=== PATIENT | female | born 1950 | race Caucasian/White ===

== ENCOUNTER 2016-02-01 15:29 | Outpatient (RCR) | payer BC ==
[~2016-02-01 15:29] MED LIST: APIX5TAB PO; ASPI325T32 PO; ATOR20TA66 PO; BUPR-42 PO; BUPR150T7 PO; CALC625T29 PO; ESTR1PAT90 TD; FLUT16SP22 NS; L.AC1CAP6 PO; MAGNESIUM PO; SOTA240T PO; SOTALOL; VITAMIN C PO; VITAMIN D PO; [UNRECOGNIZED DRUG - CODE] PO
== END 2016-05-01 | disposition home or self-care (01) ==
LOC: CARD 15:29
PROVIDERS: ATTEND Internal Medicine Interventional Cardiology
DX: I49.9 Cardiac arrhythmia, unspecified (principal)
CPT/HCPCS: 93270

== ENCOUNTER → 2016-10-03 | Outpatient (CLI) | payer MEDICARE, OTHER ==
[2016-10-03 09:38] LABS: BASOPHILS % (AUTO) 1 % (0-10); EOSINOPHILS # (AUTO) 0.1 10^3/uL (0.0-0.3); EOSINOPHILS % (AUTO) 2 % (0-10); LYMPHOCYTES # (AUTO) 1.4 X 10^3 (1.0-4.0); LYMPHOCYTES % (AUTO) 28 % (12-44); MEAN CORPUSCULAR HEMOGLOBIN 33 PG (25-34); MEAN CORPUSCULAR HGB CONC 34 G/DL (32-36); MEAN CORPUSCULAR VOLUME 97 FL (80-99); MEAN PLATELET VOLUME 9.5 FL (7.4-10.4); MONOCYTES # (AUTO) 0.5 X 10^3 (0.0-1.0); MONOCYTES % (AUTO) 11 % (0-12); NEUTROPHILS # (AUTO) 2.9 X 10^3 (1.8-7.8); NEUTROPHILS % (AUTO) 58 % (42-75); PLATELET COUNT 193 10^3/uL (130-400); RED BLOOD COUNT 4.56 10^6/uL (4.35-5.85); RED CELL DISTRIBUTION WIDTH 12.1 % (10.0-14.5); WHITE BLOOD COUNT 4.9 10^3/uL (4.3-11.0)
[2016-10-03 09:55] LABS: ALANINE AMINOTRANSFERASE 15 U/L (0-55); ANION GAP 8 MMOL/L (5-14); ASPARTATE AMINO TRANSFERASE 17 U/L (5-34); BLOOD UREA NITROGEN 10 MG/DL (7-18); BUN/CREATININE RATIO 12; CALCIUM 9.1 MG/DL (8.5-10.1); CARBON DIOXIDE 28 MMOL/L (21-32); CHLORIDE 103 MMOL/L (98-107); CHOLESTEROL 163 MG/DL (< 200); CREATININE SERUM 0.86 MG/DL (0.60-1.30); DIRECT LDL 81 MG/DL (1-129); GFR ESTIMATED > 60; GLUCOSE 112 MG/DL (70-105); POTASSIUM 4.3 MMOL/L (3.6-5.0); SODIUM 139 MMOL/L (135-145); TRIGLYCERIDES 109 MG/DL (<150); VLDL CHOLESTEROL 22 MG/DL (5-40)
[2016-10-03 10:16] LABS: THYROID STIMULATING HORMONE 0.92 UIU/ML (0.35-4.94)
== END ==
LOC: LAB 09:21
PROVIDERS: ATTEND Internal Medicine Interventional Cardiology
DX: E78.5 Hyperlipidemia, unspecified (principal); I48.91 Unspecified atrial fibrillation; R00.2 Palpitations
CPT/HCPCS: 36415; 80048; 80061; 84443; 84450; 84460; 85025

== ENCOUNTER → 2017-03-19 | Outpatient (CLI) | payer MEDICARE, OTHER ==
--- NOTE | 2017-03-19 17:15 | Diagnostic Imaging Report ---
Bilateral screening mammogram 2D views with tomosynthesis The current study was also evaluated with a Computer Aided Detection (CAD) system. Indication: Screening. No current complaints stated on the questionnaire. COMPARISON: 03/09/2016. Findings: The breasts are composed of suggested dense parenchyma which may decrease mammographic sensitivity. Biopsy clip in the left breast and medial left breast cardiac rehabilitation specialist is seen. Benign-appearing desiccation is also noted. Allowing for technique and positional differences, no suspicious change is seen. IMPRESSION: No significant change. ACR BI-RADS Category 2: Benign findings. Result letter will be mailed to the patient. Note: At least 10% of breast cancer is not imaged by mammography. Dictated by: Dictated on workstation # [id number]
== END ==
LOC: RAD 10:27
PROVIDERS: ATTEND Obstetrics & Gynecology
DX: Z12.31 Encounter for screening mammogram for malignant neoplasm of breast (principal)
CPT/HCPCS: 77067

== ENCOUNTER 2017-05-02 05:36 | Outpatient (CLI) | payer MEDICARE, OTHER ==
[~2017-05-02] VITALS: Ht 162.6 cm; Wt 74.8 kg
[2017-05-02] MEDS ORDERED: ATOR20TA66 PO (11:15)
[2017-05-02] MEDS ORDERED: APIX5TAB PO (11:15)
== END 2017-05-02 11:17 ==
LOC: PREOP 05:36
PROVIDERS: ATTEND Surgery
DX: Z01.818 Encounter for other preprocedural examination (principal); Z12.11 Encounter for screening for malignant neoplasm of colon; K21.9 Gastro-esophageal reflux disease without esophagitis; R09.89 Other specified symptoms and signs involving the circulatory and respiratory systems

== ENCOUNTER 2017-05-07 09:26 | Day surgery (SDC) | payer MEDICARE, OTHER ==
[~2017-05-07] VITALS: Ht 162.6 cm; Wt 74.8 kg
[2017-05-07] MEDS ORDERED: LACTATED RINGERS 1,000 ML IV STA (09:35)
--- OUTSIDE RECORDS SUMMARY | 2017-05-07 09:35 | XMS REPORT ---
Author Author SELENA MARTINEZ Organization [facility] Address [address] [place] [address] Care Team Providers Care Vp Communications Name Role Phone SELENA MARTINEZ Unavailable PROBLEMS Unknown Problems ALLERGIES No Known Allergies SOCIAL HISTORY Never Assessed PLAN OF CARE Activity Details Follow Up prn Reason: VITAL SIGNS Height 64.5 in 2016-05-04 Weight 156.0 lbs 2016-05-04 Temperature 98.2 degrees Fahrenheit 2016-05-04 Heart Rate 60 bpm 2016-05-04 Respiratory Rate 18 2016-05-04 BMI 26.36 kg/m2 2016-05-04 Blood pressure systolic 132 mmHg 2016-05-04 Blood pressure diastolic 90 mmHg 2016-05-04 MEDICATIONS Medication Instructions Dosage Frequency Start Date End Date Duration Status Amoxicillin 875 MG Orally every 12 hrs 1 tablet 12h May, May, 10 day(s) Active Mucinex 600 MG Orally every 12 hrs 1 tablet as needed 12h Active Wellbutrin Active R02-Urduxz 1 MG Active Sotalol HCl 80 MG Orally every 12 hrs 1 tablet 12h Active Vivelle Active Probiotic - Active Eliquis 2.5 MG Active Vitamin D 1000 UNIT Orally Once a day 1 tablet 24h Active Arthritis Pain 650 MG Orally every 8 hrs 2 tablets as needed 8h Active RESULTS No Results PROCEDURES No Known procedures IMMUNIZATIONS No Known Immunizations MEDICAL (GENERAL) HISTORY Type Description Date Hospitalization History TIA Jan 31, 2016
--- OUTSIDE RECORDS SUMMARY | 2017-05-07 09:35 | XMS REPORT | CCD ---
Author Author [facility] Organization [facility] Address [address] [place] [address] Phone Care Team Providers Care In Classroom Tutor Name Role Phone PP Unavailable CCM Unavailable Summary Purpose Interface Exchange Insurance Providers Payer name Policy type / Coverage type Covered green party ID Effective Begin Date Effective End Date WPS Medicare Part B Medicare Part B [id number] 2017 Unknown Cigna Medicare Part B [id number] 2017 Unknown Family History Family History data not found Social History Social History Element Codes Description Effective Dates Marital status Unknown 04/12/2017 Number of children Unknown 1 Ryan Dexter 04/12/[address]: 1684520 Former smoker Quit 01-31-16 04/12/[address]: 599742 Currently drinks alcohol 04/12/2017 Allergies, Adverse Reactions, Alerts Allergies, Adverse Reactions, Alerts data not found Past Medical History Illness Codes Condition Status Onset Date Resolved Date Chronic atrial fibrillation ICD-9: 427.31 ICD-10: I48.2 Active 04/12/2017 Unknown Essential (primary) hypertension ICD-9: 401.1 ICD-10: I10 Active 04/12/2017 Unknown Gastro-esophageal reflux disease without esophagitis ICD-9: 530.81 ICD-10: K21.9 Active 04/12/2017 Unknown Problems Condition Codes Effective Dates Condition Status Chronic atrial fibrillation ICD-9: 427.31 ICD-10: I48.2 04/12/2017 Active Essential (primary) hypertension ICD-9: 401.1 ICD-10: I10 04/12/2017 Active Gastro-esophageal reflux disease without esophagitis ICD-9: 530.81 ICD-10: K21.9 04/12/2017 Active Medications Medication Codes Instructions Start Date Stop Date Status Fill Instructions omeprazole 20 mg capsule,delayed release RxNorm: 701951 1 Capsule(s) PO QPM 04/12/2017 11/07/2017 Active Neurontin 100 mg capsule RxNorm: 684528 1 Capsule(s) PO BID 03/201811/07/2017 Active Paxil 20 mg tablet RxNorm: 516925 1 Tablet(s) PO daily 201711/07/2017 Active sotalol 240 mg tablet RxNorm: 413126 1/2 Tablet(s) PO BID No Start Date Active Eliquis 5 mg tablet RxNorm: 0582868 1 Tablet(s) PO BID No Start Date Active atorvastatin 20 mg tablet RxNorm: 227524 1 Tablet(s) PO QPM No Start Date Active Medication Administered No Medication Administered data Immunizations No Immunization data Assessments Condition Codes Effective Dates Essential (primary) hypertension ICD-10: I10 ICD-9: 401.1 04/12/2017 Chronic atrial fibrillation ICD-10: I48.2 ICD-9: 427.31 04/12/2017 Gastro-esophageal reflux disease without esophagitis ICD-10 : K21.9 ICD-9: 530.81 04/12/2017 Reason For Visit Reason For Visit Effective Dates Notes hypertension 04/12/2017 Results No Results data Review of Systems System Result Effective Dates Constitutional No recent illness 2017 Constitutional No chills 04/12/2017 Constitutional No fatigue 04/12/2017 Constitutional No fever 04/12/2017 Constitutional No insomnia 04/12/2017 Constitutional No malaise 04/12/2017 Eyes No vision change 04/12/2017 Ears/Nose/Throat/Neck No dental pain 03/2018 Ears/Nose/Throat/Neck No dizziness 2017 Ears/Nose/Throat/Neck No dysphagia 2017 Ears/Nose/Throat/Neck No headache 2017 Ears/Nose/Throat/Neck No hearing loss 03/2018 Ears/Nose/Throat/Neck No nasal allergies 04/12/2017 Ears/Nose/Throat/Neck No sore throat 03/2018 Ears/Nose/Throat/Neck postnasal drip 03/2018 Ears/Nose/Throat/Neck No sinus congestion 04/12/2017 Cardiovascular No chest pain/pressure 03/2018 Cardiovascular No dyspnea 04/12/2017 Cardiovascular No edema 04/12/2017 Cardiovascular No exercise intolerance Cardiovascular No fatigue 04/12/2017 Cardiovascular No near-syncope/dizziness 04/12/2017 Respiratory No chest tightness 2017 Respiratory No cough 04/12/2017 Respiratory No dyspnea 04/12/2017 Respiratory No pedal edema 04/12/2017 Gastrointestinal No abdominal pain 2017 Gastrointestinal No constipation 2017 Gastrointestinal No diarrhea 04/12/2017 Gastrointestinal No gastroesophageal reflux 04/12/2017 Gastrointestinal No nausea 04/12/2017 Gastrointestinal No vomiting 04/12/2017 Genitourinary/Nephrology No dysuria 04/12 Genitourinary/Nephrology No nocturia 03/2018 Genitourinary/Nephrology No urinary incontinence 04/12/2017 Musculoskeletal No stiffness 04/12/2017 Musculoskeletal No swelling 04/12/2017 Musculoskeletal No muscle weakness 2017 Musculoskeletal No myalgias 04/12/2017 Dermatologic No rash 04/12/2017 Dermatologic No sores 04/12/2017 Neurologic No dizziness 04/12/2017 Neurologic No headache 04/12/2017 Neurologic No neck pain 04/12/2017 Neurologic No syncope 04/12/2017 Psychiatric No anxiety 04/12/2017 Psychiatric No depression 04/12/2017 Cardiovascular hypertension 04/12/2017 Cardiovascular palpitations 04/12/2017 Physical Exam Exam Name System Name Item Name Status Result Effective Dates Notes Full Exam - General 1994 Constitutional general appearance Development: well developed 04/12/2017 None Full Exam - General 1994 Constitutional general appearance Development: appears stated age 0104/12/2017 None Full Exam - General 1994 Constitutional general appearance Hygiene/Attention to Grooming: good hygiene 04/12/2017 None Full Exam - General 1994 Eyes conjunctiva /eyelids Overall: conjunctiva clear 04/12/2017 None Full Exam - General 1994 Eyes conjunctiva /eyelids Overall: cornea clear 04/12/2017 None Full Exam - General 1994 Eyes conjunctiva /eyelids Overall: eyelids normal 04/12/2017 None Full Exam - General 1994 Eyes pupils and irises Overall: pupils equal, round, reactive to light and accomodation 04/12/2017 None Full Exam - General 1994 Ears/Nose/Throat otoscopic exam Overall: external auditory canals clear 04/12/2017 None Full Exam - General 1994 Ears/Nose/Throat otoscopic exam Overall: tympanic membranes clear 04/12/2017 None Full Exam - General 1994 Ears/Nose/Throat lips/teeth/gingiva Overall: benign lips 04/12/2017 None Full Exam - General 1994 Ears/Nose/Throat lips/teeth/gingiva Overall: normal dentition 04/12/2017 None Full Exam - General 1994 Ears/Nose/Throat oral cavity/pharynx/larynx Overall: oral mucosa clear 04/12/2017 None Full Exam - General 1994 Ears/Nose/Throat oral cavity/pharynx/larynx Overall: oropharyngeal mucosa clear 04/12/2017 None Full Exam - General 1994 Ears/Nose/Throat oral cavity/pharynx/larynx Overall: hypopharynx benign 04/12/2017 None Full Exam - General 1994 Ears/Nose/Throat oral cavity/pharynx/larynx Overall: no masses 04/12/2017 None Full Exam - General 1994 Respiratory auscultation Overall: breath sounds clear bilaterally 04/12/2017 None Full Exam - General 1994 Respiratory respiratory effort/rhythm Overall: no retractions 04/12/2017 None Full Exam - General 1994 Respiratory respiratory effort/rhythm Overall: normal rate 04/12/2017 None Full Exam - General 1994 Cardiovascular extremities Overall: no clubbing 04/12/2017 None Full Exam - General 1994 Cardiovascular auscultation of heart Overall: regular rate 04/12/2017 None Full Exam - General 1994 Cardiovascular auscultation of heart Overall: normal heart sounds 04/12/2017 None Full Exam - General 1994 Abdomen abdominal exam Overall: no tenderness 04/12/2017 None Full Exam - General 1994 Abdomen abdominal exam Overall: normal bowel sounds 04/12/2017 None Full Exam - General 1994 Lymphatic neck nodes Overall: anterior cervical chain benign 04/12/2017 None Full Exam - General 1994 Lymphatic neck nodes Overall: posterior cervical chain benign 04/12/2017 None Full Exam - General 1994 Musculoskeletal spine, ribs and pelvis Overall: spine benign 04/12/2017 None Full Exam - General 1994 Musculoskeletal spine, ribs and pelvis Overall: sacroiliac joint benign 04/12/2017 None Full Exam - General 1994 Musculoskeletal spine, ribs and pelvis Overall: good posture 04/12/2017 None Full Exam - General 1994 Musculoskeletal head and neck Overall: head atraumatic 04/12/2017 None Full Exam - General 1994 Musculoskeletal head and neck Overall: cervical spine benign 04/12/2017 None Full Exam - General 1994 Integument inspection of skin Overall: few scattered moles, no gross abnormalities 04/12/2017 None Full Exam - General 1994 Neurologic deep tendon reflexes Overall: deep tendon reflexes intact 04/12/2017 None Full Exam - General 1994 Neurologic cranial nerves Overall: crainial nerves 2 - 12 grossly intact 04/12/2017 None Full Exam - General 1994 Psychiatric orientation/consciousness Overall: oriented to person, place and time 04/12/2017 None Full Exam - General 1994 Psychiatric mood and affect Overall: normal mood and affect 04/12/2017 None Procedures No Procedures data Vital Signs Date Vital 04/12/2017 Blood Pressure 1: 156/88 Code : 8480-6 BMI: 28.2 Code : 88199-5 Heart Rate 1 : 54 bpm Height: 5'4" SpO2: 97% Weight: 164 lbs Functional Status No Functional Status data History of Present Illness Symptom Name Status Result Effective Date Notes hypertension Quality stable 04/12/2017 None hypertension Onset and Resolution ongoing 04/12/2017 None hypertension Onset of Symptom during adulthood 04/12/2017 None hypertension Blood Pressure Values patient checking blood pressure at home - did not bring in readings 04/12/2017 None hypertension Pertinent Findings Denies decreased energy 04/12/2017 None hypertension Pertinent Findings Denies dizziness 04/12/2017 None hypertension Pertinent Findings Denies dyspnea 04/12/2017 None hypertension Pertinent Findings Denies anxiety 04/12/2017 None hypertension Pertinent Findings Denies edema 04/12/2017 None hyperlipidemia Onset of Symptom during adulthood 04/12/2017 None hyperlipidemia Severity mild 04/12/2017 None hyperlipidemia Significant Family History hyperlipidemia 04/12/2017 None hyperlipidemia Significant Family History cardiac disease 04/12/2017 None hyperlipidemia Pertinent Findings Denies edema 04/12/2017 None hyperlipidemia Pertinent Findings Denies excessive alcohol intake 04/12/2017 None menopausal symptoms Quality acute 04/12/2017 None menopausal symptoms Onset and Resolution sudden in onset 04/12/2017 None menopausal symptoms Onset of Symptom 6 months ago 04/12/2017 None menopausal symptoms Quality hot flashes 04/12/2017 None menopausal symptoms Quality palpitations 04/12/2017 None menopausal symptoms Pertinent Findings Denies depressed mood 04/12/2017 None menopausal symptoms Pertinent Findings Denies edema 04/12/2017 None menopausal symptoms Pertinent Findings Denies fever 04/12/2017 None menopausal symptoms Pertinent Findings Denies nausea 04/12/2017 None Advance Directives No Advance Directive data Encounters Encounter Performer Location Codes Date (44961) OFFICE VISIT, NEW - LEVEL 4 Diagnosis: Essential (primary) hypertension[ICD10: I10] Diagnosis: Chronic atrial fibrillation[ICD10: I48.2] Diagnosis: Gastro-esophageal reflux disease without esophagitis[ICD10: K21.9] [facility] CPT-4: 02857 04/12/2017 Plan of Care Planned Activity Notes Codes Status Date Visit Plan: Hypertension - uncontrolled - the patient's medications have been modified as documented in the visit note. The patient has been counseled to cut back on salt in diet for a no added salt diet, low fat diet, start an exercise program with low weight bearing exercises and higher aerobic activity for heart health. The patient is to check blood pressure readings as an outpatient and either fax, call, or email the readings to the office next week for practitioner to review. The pt is to call for acute concerns. Atrial Fibrillation - pt on chronic anticoagulation and is currently rate controlled. The pt is to have labs done as appropriate to monitor medication levels and is to report if they start to feel as if their heart rate is becoming uncontrolled. Esophageal Reflux - the patient has been counseled against excessive intake of caffeine, spicy foods, peppermint, and cinnamon - all of which can exacerbate esophageal reflux. The patient is to take medications as prescribed and call the office if the symptoms are not improving. Rx for omeprazole referral to [facility] 04/12/2017 Patient Education: Patient Medication Summary Completed 04/12/2017 Care Plan: Referral Order SNOMED-CT : [id number] Pending 04/12/2017 Referral: Herbert Santana WPtel:[phone] Referral Appointment Requested Instructions Comment . Hypertension - uncontrolled - the patient's medications have been modified as documented in the visit note. The patient has been counseled to cut back on salt in diet for a no added salt diet, low fat diet, start an exercise program with low weight bearing exercises and higher aerobic activity for heart health. The patient is to check blood pressure readings as an outpatient and either fax , call, or email the readings to the office next week for practitioner to review. The pt is to call for acute concerns. Atrial Fibrillation - pt on chronic anticoagulation and is currently rate controlled. The pt is to have labs done as appropriate to monitor medication levels and is to report if they start to feel as if their heart rate is becoming uncontrolled. Esophageal Reflux - the patient has been counseled against excessive intake of caffeine, spicy foods, peppermint, and cinnamon - all of which can exacerbate esophageal reflux. The patient is to take medications as prescribed and call the office if the symptoms are not improving. Rx for omeprazole referral to [facility]
--- NOTE | 2017-05-07 09:44 | Progress Note-Pre Operative ---
Pre-Operative Progress Note H&P Reviewed The H&P was reviewed, patient examined and no changes noted. Date Seen by Provider: May 07, 2017 Time Seen by Provider: 09:44 Date H&P Reviewed: May 07, 2017 Time H&P Reviewed: 09:44 Pre-Operative Diagnosis: gerd, screening colonoscopy LEONEL ZENDEJAS DO May 07, 2017 09:44
[2017-05-07] MEDS ORDERED: HURRICAINE EXT TUBE (BENZOCAINE) XX PRN (09:45)
[2017-05-07] MEDS ORDERED: proPOfol 200 MG/20 ML (DIPRIVAN) VIAL IV ONE ×2 (09:48→10:12)
[2017-05-07] MEDS ORDERED: MIDAZOLAM 2 MG/2 ML (VERSED) VIAL ONE (09:49)
[2017-05-07] MEDS ORDERED: LIDOCAINE 2% 20 ML (XYLOCAINE) VIAL ONE (09:49)
[2017-05-07 10:29] VITALS: BP 139/78
[2017-05-07 10:46] VITALS: BP 139/78
[2017-05-07] MEDS ORDERED: HURRICAINE EXT TUBE (BENZOCAINE) ONE (10:46)
[2017-05-07 10:55] VITALS: BP 133/99
--- NOTE | 2017-05-07 11:09 | Progress Note-Post Operative ---
Post-Operative Progess Note Surgeon (s)/Private Eye (s) Surgeon LEONEL ZENDEJAS DO Private Eye: na Pre-Operative Diagnosis gerd, screening colonoscopy Post-Operative Diagnosis gastritis, hiatal herni, minimal diverticulosis Procedure & Operative Findings Date of Procedure 05/07/17 Procedure Performed/Findings egd c biopsies, colonoscopy Anesthesia Type per compliance nurse Estimated Blood Loss Estimated blood loss (mL): none Specimens/Packing Specimens Removed antrum, body, ge junction LEONEL ZENDEJAS DO May 07, 2017 11:09
[2017-05-07] MEDS ORDERED: PANT40TA2 PO (11:11)
--- NOTE | 2017-05-07 11:12 | Discharge Inst-Simple/Standard ---
Discharge Inst-Standard Discharge Medications New, Converted or Re-Newed RX: Transmitted to Pharmacy Patient Instructions/Follow Up Plan of Care/Instructions/FU: 2 weeks Max Activity as Tolerated: Yes Discharge Diet: Regular Diet (high fiber) LEONEL ZENDEJAS DO May 07, 2017 11:12
[2017-05-07 11:30] VITALS: BP 136/80
[2017-05-07 11:40] VITALS: BP 136/80
--- NOTE | 2017-05-07 15:46 | OPERATIVE REPORT ---
DATE OF SERVICE: 05/07/2017 PREOPERATIVE DIAGNOSES: Gastroesophageal reflux disease and screening colonoscopy. POSTOPERATIVE DIAGNOSES: Gastritis, hiatal hernia and minimal diverticulosis. PROCEDURE: EGD with biopsies and colonoscopy. ANESTHESIA: Per TECHNICAL SOLUTIONS CONSULTANT. SURGEON: Leonel Santana DO. ESTIMATED BLOOD LOSS: None. COMPLICATIONS: None. INDICATIONS: The patient is a 66-year-old female with GERD with a globus sensation. She has never had a colonoscopy as well. She understands risks and benefits of procedures and wished to proceed with procedures. Consent was signed on chart. DESCRIPTION OF PROCEDURE: The patient was taken to the endoscopy suite, placed in left lateral recumbent position. Timeout was performed. Scope was inserted in mouth, down the esophagus, stomach and into the duodenum without difficulty. There were no polyps, masses or ulcerations within the duodenum. The scope was slowly retracted back into the stomach, which was further insufflated. Erythematous changes throughout the stomach. Biopsies of the antrum and body of the stomach were obtained. The scope was retroflexed noting a hiatal hernia. There was no other pathology noted. Scope was returned to its normal position, slowly withdrawn back into the distal esophagus. Biopsies at the GE junction was obtained. Scope was slowly retracted back until completely removed, noting no other pathology. The patient tolerated procedure well. The patient then had a colonoscopy performed. Digital rectal exam was performed. There were no palpable polyps, masses or ulcerations. Scope was inserted in the rectum and advanced all the way to the cecum with minimal difficulty. Prep was adequate. Scope was then slowly retracted back. There were no polyps, masses or ulcerations within the cecum, ascending, transverse and descending colon. Within the sigmoid colon, there was a very minimal amount of diverticulosis present. No other pathology noted. The scope was continued to be slowly retracted back to the rectum where it was also retroflexed noting no other pathology. Scope was returned to its normal position, slowly withdrawn until completely removed, noting no other pathology. The patient tolerated procedure well without any complications. She was taken to recovery room in stable condition. RECOMMENDATIONS: The patient will be started on Protonix 40 mg daily. She will follow up in the office in 2 weeks to discuss pathology results and see how she is doing at that time. The patient will need repeat colonoscopy in 10 years unless family history of colon cancer which would then be 5 years. If she has any problems prior to that, she should be reevaluated at that time. The patient also recommended high fiber diet. Job ID: [id number] DocumentID: [id number] Dictated Date: 05/07/2017 11:16:28 Site Medical Director Date: 05/07/2017 15:46:17 Dictated By: LEONEL SANTANA DO
== END 2017-05-07 11:40 | disposition home or self-care (01) ==
LOC: ENDO 09:26
PROVIDERS: ATTEND Surgery
DX: Z12.11 Encounter for screening for malignant neoplasm of colon (principal); K57.30 Diverticulosis of large intestine without perforation or abscess without bleeding; K21.9 Gastro-esophageal reflux disease without esophagitis; K44.9 Diaphragmatic hernia without obstruction or gangrene; K29.70 Gastritis, unspecified, without bleeding; I48.91 Unspecified atrial fibrillation; F41.9 Anxiety disorder, unspecified; E78.5 Hyperlipidemia, unspecified; I49.3 Ventricular premature depolarization; Z79.01 Long term (current) use of anticoagulants; Z79.899 Other long term (current) drug therapy; Z87.891 Personal history of nicotine dependence
CPT/HCPCS: 43239; G0121

== ENCOUNTER → 2018-03-19 | Outpatient (CLI) | payer MEDICARE, OTHER ==
[~2018-03-19] MED LIST changes: +PANT40TA2 PO
--- NOTE | 2018-03-19 12:01 | Diagnostic Imaging Report ---
INDICATION: Routine screening. Comparison is made with prior mammogram from 03/19/2017 and 03/09/2016. 2-D and 3-D bilateral screening mammography was performed with CAD. Scattered fibronodular densities are identified bilaterally. Cardiac monitoring device in the medial left breast is again seen. Stereotactic clip in the left breast is noted as well. The parenchymal pattern is stable. No dominant mass or malignant appearing microcalcifications are seen. The axillae are unremarkable. IMPRESSION: BI-RADS category 2 No mammographic features suspicious for malignancy are identified. ACR BI-RADS Category 2: Benign findings. Result letter will be mailed to the patient. Note: At least 10% of breast cancer is not imaged by mammography. Dictated by: Dictated on workstation # [id number]
== END ==
LOC: RAD 10:40
PROVIDERS: ATTEND Obstetrics & Gynecology
DX: Z12.31 Encounter for screening mammogram for malignant neoplasm of breast (principal)
CPT/HCPCS: 77067

== ENCOUNTER 2018-06-16 05:32 | Outpatient (CLI) | payer MEDICARE, OTHER ==
[~2018-06-16] VITALS: Ht 162.6 cm; Wt 79.4 kg
[2018-06-16] MEDS ORDERED: PANT40TA3 PO (11:23)
[2018-06-16] MEDS ORDERED: SOTA120T PO (11:23)
[2018-06-16] MEDS ORDERED: GABA-486 PO (11:23)
[2018-06-16] MEDS ORDERED: PARO40TA PO (11:23)
== END 2018-06-16 11:32 | disposition home or self-care (01) ==
LOC: PREOP 05:32
PROVIDERS: ATTEND Surgery
DX: Z01.818 Encounter for other preprocedural examination (principal)

== ENCOUNTER 2018-06-19 05:53 | Day surgery (SDC) | payer MEDICARE, OTHER ==
[~2018-06-19] VITALS: Ht 162.6 cm; Wt 79.4 kg
[~2018-06-19 05:53] MED LIST changes: +GABA-486 PO; +PANT40TA3 PO; +PARO40TA PO; +SOTA120T PO
--- OUTSIDE RECORDS SUMMARY | 2018-06-19 05:57 | XMS REPORT | CCD ---
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 Role Phone PP Unavailable CCM Unavailable Summary Purpose Interface Exchange Insurance Providers Payer name Policy type / Coverage type Covered democrat ID Effective Begin Date Effective End Date WPS Medicare Part B Medicare Part B [id number] Unknown Cigna Medicare Part B [id number] Unknown Family History Family History data not found Social History Social History Element Codes Description Effective Dates Marital status Unknown 04/12/2017 Number of children Unknown 1 Ryan Dexter 04/12/[address]: 5464130 Former smoker Quit 01-31-16 04/12/[address]: 129430 Currently drinks alcohol 04/12/2017 Allergies, Adverse Reactions, Alerts Substance Reaction Codes Entered Date Inactivated Date Status * NO KNOWN ENVIRONMENTAL ALLERGIES Unknown 04/12/2017 No Inactive Date Active * NO KNOWN FOOD ALLERGIES Unknown 04/12/2017 No Inactive Date Active * NO KNOWN DRUG ALLERGIES Unknown 04/12/2017 No Inactive Date Active Past Medical History Illness Codes Condition Status Onset Date Resolved Date Chronic atrial fibrillation ICD-9: 427.31 ICD-10: I48.2 Active 04/12/2017 Unknown Essential (primary) hypertension ICD-9: 401.1 ICD-10: I10 Active 04/12/2017 Unknown Mixed hyperlipidemia ICD-9: 272.2 ICD-10: E78.2 Active 05/26/2018 Unknown Myalgia, other site ICD-9: 729.1 ICD-10: M79.18 Active 05/26/2018 Unknown Encounter for general adult medical examination without abnormal findings ICD-9: V70.0 ICD-10: Z00.00 Active 05/05/2018 Unknown Cough ICD-9: 786.2 ICD-10: R05 Active 04/24/2018 Unknown Generalized anxiety disorder ICD-9: 300.00 ICD-10: F41.1 Active 04/24/2018 Unknown Other allergic rhinitis ICD-9: 477.8 ICD-10: J30.89 Active 04/24/2018 Unknown Bicipital tendinitis, left shoulder ICD-9: 726.12 ICD-10: M75.22 Active 07/01/2017 Unknown Cervicalgia ICD-9: 723.1 ICD-10: M54.2 Active 03/28/2018 Unknown Major depressive disorder, recurrent, mild ICD-9: 296.31 ICD-10: F33.0 Active 11/26/2017 Unknown Pain in right knee ICD -9: 719.46 ICD-10: M25.561 Active 07/01/2017 Unknown Gastro-esophageal reflux disease without esophagitis ICD-9: 530.81 ICD-10: K21.9 Active 04/12/2017 Unknown Problems Condition Codes Effective Dates Condition Status Chronic atrial fibrillation ICD-9: 427.31 ICD-10: I48.2 04/12/2017 Active Essential (primary) hypertension ICD-9: 401.1 ICD-10: I10 04/12/2017 Active Mixed hyperlipidemia ICD-9: 272.2 ICD-10: E78.2 05/26/2018 Active Myalgia, other site ICD-9: 729.1 ICD-10: M79.18 05/26/2018 Active Encounter for general adult medical examination without abnormal findings ICD-9: V70.0 ICD-10: Z00.00 05/05/2018 Active Cough ICD-9: 786.2 ICD-10: R05 04/24/2018 Active Generalized anxiety disorder ICD-9: 300.00 ICD-10: F41.1 04/24/2018 Active Other allergic rhinitis ICD-9: 477.8 ICD-10: J30.89 04/24/2018 Active Bicipital tendinitis, left shoulder ICD-9: 726.12 ICD-10: M75.22 07/01/2017 Active Cervicalgia ICD-9: 723.1 ICD-10: M54.2 03/28/2018 Active Major depressive disorder, recurrent, mild ICD-9: 296.31 ICD-10: F33.0 11/26/2017 Active Pain in right knee ICD -9: 719.46 ICD-10: M25.561 07/01/2017 Active Gastro-esophageal reflux disease without esophagitis ICD-9: 530.81 ICD-10: K21.9 04/12/2017 Active Medications Medication Codes Instructions Start Date Stop Date Status Fill Instructions coenzyme Q10 100 mg tablet RxNorm: 043074 1 Tablet(s) PO daily 05/26/2018 12/21/2018 Active Voltaren 1 % topical gel RxNorm: 407319 4 Gram(s) TOP QID 05/1208/09/2018 Active wants watts check Flonase Allergy Relief 50 mcg/actuation nasal spray, suspension RxNorm: 9705141 2 [place] NASAL daily 04/24/2018 No Stop Date Active Voltaren 1 % topical gel RxNorm: 239045 4 Gram(s) TOP QID 04/0205/01/2018 Inactive wants watts check Keflex 500 mg capsule RxNorm: 054313 1 Capsule(s) PO TID 201703/30/2018 Inactive Keflex 500 mg capsule RxNorm: 601826 1 Capsule(s) PO TID 201704/06/2018 Inactive Voltaren 1 % topical gel RxNorm: 414817 4 Gram(s) TOP QID 03/2804/01/2018 Inactive paroxetine 40 mg tablet RxNorm: 6390976 1 Tablet(s) PO daily 06/23/2018 Active Voltaren 1 % topical gel RxNorm: 403376 1 Application TOP BID 07/01/2017 03/27/2018 Inactive Penlac 8 % topical solution RxNorm: 285940 1 Application TOP daily to affected nails 05/15/2017 10/11/2017 Inactive Penlac 8 % topical solution RxNorm: 444067 1 Application TOP daily 05/15/2017 05/14/2017 Inactive omeprazole 20 mg capsule,delayed release RxNorm: 746399 1 Capsule(s) PO QPM 04/12/2017 05/12/2017 Inactive Neurontin 100 mg capsule RxNorm: 790264 1 Capsule(s) PO BID 03/201811/07/2017 Inactive Paxil 20 mg tablet RxNorm: 622601 1 Tablet(s) PO daily 201711/07/2017 Inactive sotalol 240 mg tablet RxNorm: 725455 1/2 Tablet(s) PO BID No Start Date Active Eliquis 5 mg tablet RxNorm: 4194939 1 Tablet(s) PO BID No Start Date Active Protonix 40 mg tablet,delayed release RxNorm: 142267 1 Tablet(s) PO daily No Start Date Active atorvastatin 20 mg tablet RxNorm: 365246 1 Tablet(s) PO QPM No Start Date Active Zyrtec 10 mg tablet RxNorm: 4724379 1 Tablet(s) PO daily No Start Date Active Medication Administered No Medication Administered data Immunizations No Immunization data Assessments Condition Codes Effective Dates Mixed hyperlipidemia ICD-10: E78.2 ICD-9: 272.2 05/26/2018 Chronic atrial fibrillation ICD-10: I48.2 ICD-9: 427.31 05/26/2018 Essential (primary) hypertension ICD-10: I10 ICD-9: 401.1 05/26/2018 Myalgia, other site ICD-10: M79.18 ICD-9: 729.1 05/26/2018 Encounter for general adult medical examination without abnormal findings ICD-10: Z00.00 ICD-9: V70.0 05/05/2018 Other allergic rhinitis ICD-10: J30.89 ICD-9: 477.8 04/24/2018 Cough ICD-10: R05 ICD-9: 786.2 04/24/2018 Bicipital tendinitis, right shoulder ICD-10: M75.21 ICD-9: 726.12 03/28/2018 Cervicalgia ICD-10: M54.2 ICD-9: 723.1 03/28/2018 Pain in right knee ICD-10: M25.561 ICD-9: 719.46 11/26/2017 Bicipital tendinitis, left shoulder ICD-10: M75.22 ICD-9: 726.12 11/26/2017 Major depressive disorder, recurrent, mild ICD-10: F33.0 ICD-9: 296.31 11/26/2017 Gastro-esophageal reflux disease without esophagitis ICD-10 : K21.9 ICD-9: 530.81 04/12/2017 Reason For Visit Reason For Visit Effective Dates Notes hypertension 05/26/2018 afib - goes to Dr. Ruelas. Annual Medicare Wellness Exam 05/05/2018 sinus congestion 04/24/2018 shoulder pain 03/28/2018 shoulder pain 11/26/2017 afib - goes to Dr. Ruelas. shoulder pain 07/01/2017 hypertension 05/13/2017 hypertension 04/12/2017 Results Observation Observation Code Item Item Code Result Date Cbc With Differential Ord2 WBC 5.07 K/ul 11/29/2017 Cbc With Differential Ord2 RBC 4.24 M/ul 11/29/2017 Cbc With Differential Ord2 HGB 13.9 g/dl 11/29/2017 Cbc With Differential Ord2 HCT 41.3 % 11/29/2017 Cbc With Differential Ord2 Neut% 63.0 % 11/29/2017 Cbc With Differential Ord2 MCV 97.4 fl 11/29/2017 Cbc With Differential Ord2 Lymph% 23.7 % 11/29/2017 Cbc With Differential Ord2 MCH 32.8 pg 11/29/2017 Cbc With Differential Ord2 [place]% 10.3 % 11/29/2017 Cbc With Differential Ord2 Eos% 2.6 % 11/29/2017 Cbc With Differential Ord2 MCHC 33.7 pg 11/29/2017 Cbc With Differential Ord2 PLT 197 K/ul 11/29/2017 Cbc With Differential Ord2 Baso% 0.4 % 11/29/2017 Cbc With Differential Ord2 RDW 12.3 % 11/29/2017 Cbc With Differential Ord2 Neut ABS# 3.20 K/ul 11/29/2017 Cbc With Differential Ord2 Lymph ABS# 1.20 K/ul 11/29/2017 Cbc With Differential Ord2 [place] ABS# 0.5 K/ul 11/29/2017 Cbc With Differential Ord2 Eos ABS# 0.1 K/ul 11/29/2017 Cbc With Differential Ord2 Baso ABS# 0.0 K/ul 11/29/2017 Tsh Ord6 TSH (3rd IS) 0.74 uIU/mL 11/29/2017 Comp Metabolic Tsu545 NA 139 mEq/L 11/29/2017 Comp Metabolic Nic822 K 4.3 mEq/L 11/29/2017 Comp Metabolic Wyd519 CL 102 mEq/L 11/29/2017 Comp Metabolic Odk399 CO2 30.0 mEq/L 11/29/2017 Comp Metabolic Qrz709 ANION GAP 11 11/29/2017 Comp Metabolic Shz900 GLUCOSE 103 mg/dL 11/29/2017 Comp Metabolic Zel791 Creat 0.7 mg/dL 11/29/2017 Comp Metabolic Tdn601 eGFR 86 ml/min/1.73m2 11/29/2017 Comp Metabolic Zsm365 BUN 12 mg/dL 11/29/2017 Comp Metabolic Eaf739 B/C Ratio 16.7 Ratio 11/29/2017 Comp Metabolic Sxp226 CALCIUM 8.9 mg/dL 11/29/2017 Comp Metabolic Lpq756 ALK PHOS 47 U/L 11/29/2017 Comp Metabolic Oac063 AST(SGOT) 15 U/L 11/29/2017 Comp Metabolic Yuo918 ALT(SGPT) 13 U/L 11/29/2017 Comp Metabolic Pgk245 BILI T 0.8 mg/dL 11/29/2017 Comp Metabolic Zco094 ALBUMIN 3.8 g/dL 11/29/2017 Comp Metabolic Lot581 TPRO 6.0 g/dL 11/29/2017 Comp Metabolic Kck796 GLOB 2.3 g/dL 11/29/2017 Comp Metabolic Lht036 A/G Ratio 1.7 Ratio 11/29/2017 Comp Metabolic Gxh036 Osmo 278 mOsmo 11/29/2017 Lipid Ord30 CHOL 136 mg/dL 11/29/2017 Lipid Ord30 HDL 53.0 mg/dl 11/29/2017 Lipid Ord30 TRIG 118 mg/dL 11/29/2017 Lipid Ord30 LDL 59 mg/dL 11/29/2017 Lipid Ord30 C/HDL 2.6 Ratio 11/29/2017 Review of Systems System Result Effective Dates Constitutional No recent illness 2018 Constitutional No chills 05/26/2018 Constitutional No fatigue 05/26/2018 Constitutional No fever 05/26/2018 Constitutional No insomnia 05/26/2018 Constitutional No malaise 05/26/2018 Eyes No vision change 05/26/2018 Ears/Nose/Throat/Neck No dental pain Ears/Nose/Throat/Neck No dizziness 2018 Ears/Nose/Throat/Neck No dysphagia 2018 Ears/Nose/Throat/Neck No headache 2018 Ears/Nose/Throat/Neck No hearing loss Ears/Nose/Throat/Neck No nasal allergies 05/26/2018 Ears/Nose/Throat/Neck No sore throat Ears/Nose/Throat/Neck No sinus congestion 05/26/2018 Cardiovascular No chest pain/pressure Cardiovascular No dyspnea 05/26/2018 Cardiovascular No edema 05/26/2018 Cardiovascular No exercise intolerance Cardiovascular No fatigue 05/26/2018 Cardiovascular hypertension 05/26/2018 Cardiovascular No near-syncope/dizziness 05/26/2018 Cardiovascular palpitations 05/26/2018 Respiratory No chest tightness 2018 Respiratory No cough 05/26/2018 Respiratory No dyspnea 05/26/2018 Respiratory No pedal edema 05/26/2018 Gastrointestinal No abdominal pain 2018 Gastrointestinal No constipation 2018 Gastrointestinal No diarrhea 05/26/2018 Gastrointestinal No gastroesophageal reflux 05/26/2018 Gastrointestinal No nausea 05/26/2018 Gastrointestinal No vomiting 05/26/2018 Genitourinary/Nephrology No dysuria 05/26 Genitourinary/Nephrology No nocturia Genitourinary/Nephrology No urinary incontinence 05/26/2018 Musculoskeletal No stiffness 05/26/2018 Musculoskeletal No swelling 05/26/2018 Musculoskeletal No muscle weakness 2018 Musculoskeletal No myalgias 05/26/2018 Dermatologic No rash 05/26/2018 Dermatologic No sores 05/26/2018 Neurologic No dizziness 05/26/2018 Neurologic No headache 05/26/2018 Neurologic No neck pain 05/26/2018 Neurologic No syncope 05/26/2018 Psychiatric No anxiety 05/26/2018 Psychiatric No depression 05/26/2018 Constitutional No recent illness 2018 Constitutional No chills 05/05/2018 Constitutional No fatigue 05/05/2018 Constitutional No fever 05/05/2018 Constitutional No insomnia 05/05/2018 Constitutional No malaise 05/05/2018 Eyes No vision change 05/05/2018 Ears/Nose/Throat/Neck No dental pain 06/2018 Ears/Nose/Throat/Neck No dizziness 2018 Ears/Nose/Throat/Neck No dysphagia 2018 Ears/Nose/Throat/Neck No headache 2018 Ears/Nose/Throat/Neck No hearing loss 06/2018 Ears/Nose/Throat/Neck No nasal allergies 05/05/2018 Ears/Nose/Throat/Neck No sore throat 06/2018 Ears/Nose/Throat/Neck No sinus congestion 05/05/2018 Cardiovascular No chest pain/pressure 06/2018 Cardiovascular No dyspnea 05/05/2018 Cardiovascular No edema 05/05/2018 Cardiovascular No exercise intolerance Cardiovascular No fatigue 05/05/2018 Cardiovascular hypertension 05/05/2018 Cardiovascular No near-syncope/dizziness 05/05/2018 Respiratory No chest tightness 2018 Respiratory No cough 05/05/2018 Respiratory No dyspnea 05/05/2018 Respiratory No pedal edema 05/05/2018 Gastrointestinal No abdominal pain 2018 Gastrointestinal No constipation 2018 Gastrointestinal No diarrhea 05/05/2018 Gastrointestinal No gastroesophageal reflux 05/05/2018 Gastrointestinal No nausea 05/05/2018 Gastrointestinal No vomiting 05/05/2018 Genitourinary/Nephrology No dysuria 05/05 Genitourinary/Nephrology No nocturia 06/2018 Genitourinary/Nephrology No urinary incontinence 05/05/2018 Musculoskeletal No stiffness 05/05/2018 Musculoskeletal No swelling 05/05/2018 Musculoskeletal No muscle weakness 2018 Musculoskeletal No myalgias 05/05/2018 Dermatologic No rash 05/05/2018 Dermatologic No sores 05/05/2018 Neurologic No dizziness 05/05/2018 Neurologic No headache 05/05/2018 Neurologic No neck pain 05/05/2018 Neurologic No syncope 05/05/2018 Psychiatric No anxiety 05/05/2018 Psychiatric No depression 05/05/2018 Constitutional recent illness 04/24/2018 Constitutional No anorexia 04/24/2018 Constitutional No chills 04/24/2018 Constitutional No night sweats 2018 Constitutional No diaphoresis 04/24/2018 Constitutional No fatigue 04/24/2018 Constitutional No fever 04/24/2018 Constitutional No insomnia 04/24/2018 Constitutional No malaise 04/24/2018 Constitutional No weight loss 04/24/2018 Constitutional No weight gain 04/24/2018 Eyes No eye erythema 04/24/2018 Eyes No eye discharge 04/24/2018 Ears/Nose/Throat/Neck nasal allergies Ears/Nose/Throat/Neck nasal discharge Ears/Nose/Throat/Neck sinus congestion Ears/Nose/Throat/Neck No dizziness 2018 Ears/Nose/Throat/Neck headache 2018 Cardiovascular No chest pain/pressure Cardiovascular arrhythmia 04/24/2018 Respiratory cough 04/24/2018 Gastrointestinal No vomiting 04/24/2018 Gastrointestinal No nausea 04/24/2018 Gastrointestinal No constipation 2018 Gastrointestinal No diarrhea 04/24/2018 Genitourinary/Nephrology No dysuria 04/24 Musculoskeletal No joint complaint 2018 Dermatologic No sores 04/24/2018 Dermatologic No rash 04/24/2018 Neurologic No alteration of consciousness 04/24/2018 Constitutional No recent illness 2017 Constitutional No chills 03/28/2018 Constitutional No fever 03/28/2018 Eyes No blindness 03/28/2018 Ears/Nose/Throat/Neck No nasal discharge 03/28/2018 Cardiovascular No chest pain/pressure Cardiovascular No dyspnea 03/28/2018 Respiratory No cough 03/28/2018 Respiratory No dyspnea 03/28/2018 Musculoskeletal joint complaint 2017 Neurologic No alteration of consciousness 03/28/2018 Neurologic No mental status change 2017 Constitutional No recent illness 2017 Constitutional No chills 11/26/2017 Constitutional No fatigue 11/26/2017 Constitutional No fever 11/26/2017 Constitutional No insomnia 11/26/2017 Constitutional No malaise 11/26/2017 Eyes No vision change 11/26/2017 Ears/Nose/Throat/Neck No dental pain Ears/Nose/Throat/Neck No dizziness 2017 Ears/Nose/Throat/Neck No dysphagia 2017 Ears/Nose/Throat/Neck No headache 2017 Ears/Nose/Throat/Neck No hearing loss Ears/Nose/Throat/Neck No nasal allergies 11/26/2017 Ears/Nose/Throat/Neck No sore throat Ears/Nose/Throat/Neck No sinus congestion 11/26/2017 Cardiovascular No chest pain/pressure Cardiovascular No dyspnea 11/26/2017 Cardiovascular No edema 11/26/2017 Cardiovascular No exercise intolerance Cardiovascular No fatigue 11/26/2017 Cardiovascular hypertension 11/26/2017 Cardiovascular No near-syncope/dizziness 11/26/2017 Cardiovascular palpitations 11/26/2017 Respiratory No chest tightness 2017 Respiratory No cough 11/26/2017 Respiratory No dyspnea 11/26/2017 Respiratory No pedal edema 11/26/2017 Gastrointestinal No abdominal pain 2017 Gastrointestinal No constipation 2017 Gastrointestinal No diarrhea 11/26/2017 Gastrointestinal No gastroesophageal reflux 11/26/2017 Gastrointestinal No nausea 11/26/2017 Gastrointestinal No vomiting 11/26/2017 Genitourinary/Nephrology No dysuria 11/26 Genitourinary/Nephrology No nocturia Genitourinary/Nephrology No urinary incontinence 11/26/2017 Musculoskeletal No stiffness 11/26/2017 Musculoskeletal No swelling 11/26/2017 Musculoskeletal No muscle weakness 2017 Musculoskeletal No myalgias 11/26/2017 Dermatologic No rash 11/26/2017 Dermatologic No sores 11/26/2017 Neurologic No dizziness 11/26/2017 Neurologic No headache 11/26/2017 Neurologic No neck pain 11/26/2017 Neurologic No syncope 11/26/2017 Psychiatric No anxiety 11/26/2017 Psychiatric No depression 11/26/2017 Constitutional No recent illness 2017 Constitutional No chills 07/01/2017 Constitutional No fever 07/01/2017 Eyes No eye erythema 07/01/2017 Ears/Nose/Throat/Neck No nasal discharge 07/01/2017 Cardiovascular No chest pain/pressure 05/2017 Cardiovascular No dyspnea 07/01/2017 Respiratory No cough 07/01/2017 Respiratory No dyspnea 07/01/2017 Musculoskeletal joint complaint 2017 Neurologic No alteration of consciousness 07/01/2017 Neurologic No mental status change 2017 Constitutional No recent illness 2017 Constitutional No chills 05/13/2017 Constitutional No fatigue 05/13/2017 Constitutional No fever 05/13/2017 Constitutional No insomnia 05/13/2017 Constitutional No malaise 05/13/2017 Eyes No vision change 05/13/2017 Ears/Nose/Throat/Neck No dental pain 03/2018 Ears/Nose/Throat/Neck No dizziness 2017 Ears/Nose/Throat/Neck No dysphagia 2017 Ears/Nose/Throat/Neck No headache 2017 Ears/Nose/Throat/Neck No hearing loss 03/2018 Ears/Nose/Throat/Neck No nasal allergies 05/13/2017 Ears/Nose/Throat/Neck No sore throat 03/2018 Ears/Nose/Throat/Neck postnasal drip 03/2018 Ears/Nose/Throat/Neck No sinus congestion 05/13/2017 Cardiovascular No chest pain/pressure 03/2018 Cardiovascular No dyspnea 05/13/2017 Cardiovascular No edema 05/13/2017 Cardiovascular No exercise intolerance Cardiovascular No fatigue 05/13/2017 Cardiovascular hypertension 05/13/2017 Cardiovascular No near-syncope/dizziness 05/13/2017 Cardiovascular palpitations 05/13/2017 Respiratory No chest tightness 2017 Respiratory No cough 05/13/2017 Respiratory No dyspnea 05/13/2017 Respiratory No pedal edema 05/13/2017 Gastrointestinal No abdominal pain 2017 Gastrointestinal No constipation 2017 Gastrointestinal No diarrhea 05/13/2017 Gastrointestinal No gastroesophageal reflux 05/13/2017 Gastrointestinal No nausea 05/13/2017 Gastrointestinal No vomiting 05/13/2017 Genitourinary/Nephrology No dysuria 05/13 Genitourinary/Nephrology No nocturia 03/2018 Genitourinary/Nephrology No urinary incontinence 05/13/2017 Musculoskeletal No stiffness 05/13/2017 Musculoskeletal No swelling 05/13/2017 Musculoskeletal No muscle weakness 2017 Musculoskeletal No myalgias 05/13/2017 Dermatologic No rash 05/13/2017 Dermatologic No sores 05/13/2017 Neurologic No dizziness 05/13/2017 Neurologic No headache 05/13/2017 Neurologic No neck pain 05/13/2017 Neurologic No syncope 05/13/2017 Psychiatric No anxiety 05/13/2017 Psychiatric No depression 05/13/2017 Constitutional No recent illness 2017 Constitutional No [...] 1994 Constitutional general appearance Development: well developed 05/26/2018 None Full Exam - General 1994 Constitutional general appearance Development: appears stated age 0205/26/2018 None Full Exam - General 1994 Constitutional general appearance Hygiene/Attention to Grooming: good hygiene 05/26/2018 None Full Exam - General 1994 Eyes conjunctiva /eyelids Overall: conjunctiva clear 05/26/2018 None Full Exam - General 1994 Eyes conjunctiva /eyelids Overall: cornea clear 05/26/2018 None Full Exam - General 1994 Eyes conjunctiva /eyelids Overall: eyelids normal 05/26/2018 None Full Exam - General 1994 Eyes pupils and irises Overall: pupils equal, round, reactive to light and accomodation 05/26/2018 None Full Exam - General 1994 Ears/Nose/Throat otoscopic exam Overall: external auditory canals clear 05/26/2018 None Full Exam - General 1994 Ears/Nose/Throat otoscopic exam Overall: tympanic membranes clear 05/26/2018 None Full Exam - General 1994 Ears/Nose/Throat lips/teeth/gingiva Overall: benign lips 05/26/2018 None Full Exam - General 1994 Ears/Nose/Throat lips/teeth/gingiva Overall: normal dentition 05/26/2018 None Full Exam - General 1994 Ears/Nose/Throat oral cavity/pharynx/larynx Overall: oral mucosa clear 05/26/2018 None Full Exam - General 1994 Ears/Nose/Throat oral cavity/pharynx/larynx Overall: oropharyngeal mucosa clear 05/26/2018 None Full Exam - General 1994 Ears/Nose/Throat oral cavity/pharynx/larynx Overall: hypopharynx benign 05/26/2018 None Full Exam - General 1994 Ears/Nose/Throat oral cavity/pharynx/larynx Overall: no masses 05/26/2018 None Full Exam - General 1994 Respiratory auscultation Overall: breath sounds clear bilaterally 05/26/2018 None Full Exam - General 1994 Respiratory respiratory effort/rhythm Overall: no retractions 05/26/2018 None Full Exam - General 1994 Respiratory respiratory effort/rhythm Overall: normal rate 05/26/2018 None Full Exam - General 1994 Cardiovascular extremities Overall: no clubbing 05/26/2018 None Full Exam - General 1994 Cardiovascular auscultation of heart Overall: regular rate 05/26/2018 None Full Exam - General 1994 Cardiovascular auscultation of heart Overall: normal heart sounds 05/26/2018 None Full Exam - General 1994 Abdomen abdominal exam Overall: no tenderness 05/26/2018 None Full Exam - General 1994 Abdomen abdominal exam Overall: normal bowel sounds 05/26/2018 None Full Exam - General 1994 Lymphatic neck nodes Overall: anterior cervical chain benign 05/26/2018 None Full Exam - General 1994 Lymphatic neck nodes Overall: posterior cervical chain benign 05/26/2018 None Full Exam - General 1994 Musculoskeletal upper extremity Palpation - shoulder: tenderness @ subacromial space 05/26/2018 None Full Exam - General 1994 Musculoskeletal upper extremity Palpation - shoulder: tenderness @ bicipital groove 05/26/2018 None Full Exam - General 1994 Musculoskeletal lower extremity Palpation - knee: crepitus 05/26/2018 None Full Exam - General 1994 Musculoskeletal spine, ribs and pelvis Overall: good posture 05/26/2018 None Full Exam - General 1994 Musculoskeletal head and neck Overall: head atraumatic 05/26/2018 None Full Exam - General 1994 Musculoskeletal head and neck Overall: cervical spine benign 05/26/2018 None Full Exam - General 1994 Psychiatric orientation/consciousness Overall: oriented to person, place and time 05/26/2018 None Full Exam - General 1994 Psychiatric mood and affect Overall: normal mood and affect 05/26/2018 None Full Exam - General 1994 Integument inspection of skin Location: face 05/26/2018 nodule on face near nasal bridge Full Exam - General 1994 Constitutional general appearance Development: well developed 05/05/2018 None Full Exam - General 1994 Constitutional general appearance Development: appears stated age 0205/05/2018 None Full Exam - General 1994 Constitutional general appearance Hygiene/Attention to Grooming: good hygiene 05/05/2018 None Full Exam - General 1994 Eyes conjunctiva /eyelids Overall: conjunctiva clear 05/05/2018 None Full Exam - General 1994 Eyes conjunctiva /eyelids Overall: cornea clear 05/05/2018 None Full Exam - General 1994 Eyes conjunctiva /eyelids Overall: eyelids normal 05/05/2018 None Full Exam - General 1994 Eyes pupils and irises Overall: pupils equal, round, reactive to light and accomodation 05/05/2018 None Full Exam - General 1994 Ears/Nose/Throat otoscopic exam Overall: external auditory canals clear 05/05/2018 None Full Exam - General 1994 Ears/Nose/Throat otoscopic exam Overall: tympanic membranes clear 05/05/2018 None Full Exam - General 1994 Ears/Nose/Throat lips/teeth/gingiva Overall: benign lips 05/05/2018 None Full Exam - General 1994 Ears/Nose/Throat lips/teeth/gingiva Overall: normal dentition 05/05/2018 None Full Exam - General 1994 Ears/Nose/Throat oral cavity/pharynx/larynx Overall: oral mucosa clear 05/05/2018 None Full Exam - General 1994 Ears/Nose/Throat oral cavity/pharynx/larynx Overall: oropharyngeal mucosa clear 05/05/2018 None Full Exam - General 1994 Ears/Nose/Throat oral cavity/pharynx/larynx Overall: hypopharynx benign 05/05/2018 None Full Exam - General 1994 Ears/Nose/Throat oral cavity/pharynx/larynx Overall: no masses 05/05/2018 None Full Exam - General 1994 Respiratory auscultation Overall: breath sounds clear bilaterally 05/05/2018 None Full Exam - General 1994 Respiratory respiratory effort/rhythm Overall: no retractions 05/05/2018 None Full Exam - General 1994 Respiratory respiratory effort/rhythm Overall: normal rate 05/05/2018 None Full Exam - General 1994 Cardiovascular extremities Overall: no clubbing 05/05/2018 None Full Exam - General 1994 Cardiovascular auscultation of heart Overall: regular rate 05/05/2018 None Full Exam - General 1994 Cardiovascular auscultation of heart Overall: normal heart sounds 05/05/2018 None Full Exam - General 1994 Abdomen abdominal exam Overall: no tenderness 05/05/2018 None Full Exam - General 1994 Abdomen abdominal exam Overall: normal bowel sounds 05/05/2018 None Full Exam - General 1994 Lymphatic neck nodes Overall: anterior cervical chain benign 05/05/2018 None Full Exam - General 1994 Lymphatic neck nodes Overall: posterior cervical chain benign 05/05/2018 None Full Exam - General 1994 Musculoskeletal spine, ribs and pelvis Overall: good posture 05/05/2018 None Full Exam - General 1994 Musculoskeletal head and neck Overall: head atraumatic 05/05/2018 None Full Exam - General 1994 Musculoskeletal head and neck Overall: cervical spine benign 05/05/2018 None Full Exam - General 1994 Psychiatric orientation/consciousness Overall: oriented to person, place and time 05/05/2018 None Full Exam - General 1994 Psychiatric mood and affect Overall: normal mood and affect 05/05/2018 None Full Exam - General 1994 Neurologic cranial nerves Overall: crainial nerves 2 - 12 grossly intact 05/05/2018 None Full Exam - ENT Constitutional general appearance Overall: well nourished 04/24/2018 None Full Exam - ENT Constitutional general appearance Overall: well developed 04/24/2018 None Full Exam - ENT Constitutional general appearance Overall: in no acute distress 04/24/2018 None Full Exam - ENT Neurologic orientation Overall: oriented to person, place and time 04/24/2018 None Full Exam - ENT Integument inspection of skin Overall: no rash, lesions 04/24/2018 None Full Exam - ENT Musculoskeletal gait and station Overall: normal gait 04/24/2018 None Full Exam - ENT Musculoskeletal gait and station Overall: normal station 04/24/2018 None Full Exam - ENT Lymphatic palpation of lymph nodes Overall: posterior cervical chain benign 04/24/2018 None Full Exam - ENT Lymphatic palpation of lymph nodes Overall: anterior cervical chain benign 04/24/2018 None Full Exam - ENT Cardiovascular auscultation of heart Overall: regular rate 04/24/2018 None Full Exam - ENT Cardiovascular auscultation of heart Rhythm: irregularly irregular rhythm 04/24/2018 None Full Exam - ENT Respiratory auscultation Overall: breath sounds clear bilaterally 04/24/2018 None Full Exam - ENT Respiratory inspection Overall: normal rate None Full Exam - ENT Respiratory inspection Overall: no retractions 04/24/2018 None Full Exam - ENT Face and Head palpation Overall: no sinus tenderness 04/24/2018 None Full Exam - ENT Ears/Nose/Throat otoscopic exam Overall: external auditory canals normal 04/24/2018 None Full Exam - ENT Ears/Nose/Throat otoscopic exam Overall: tympanic membranes normal 04/24/2018 None Full Exam - ENT Ears/Nose/Throat oropharynx Overall: oral mucosa clear 04/24/2018 None Full Exam - Orthopedics Constitutional general appearance Overall: well nourished 03/28/2018 None Full Exam - Orthopedics Constitutional general appearance Overall: well developed 03/28/2018 None Full Exam - Orthopedics Constitutional general appearance Overall: in no acute distress 03/28/2018 None Full Exam - Orthopedics Eyes conjunctiva/ eyelids Overall: conjunctiva clear 03/28/2018 None Full Exam - Orthopedics Eyes conjunctiva/ eyelids Overall: eyelids normal 03/28/2018 None Full Exam - Orthopedics Ears/Nose/Throat lips/teeth/gingiva Overall: benign lips 03/28/2018 None Full Exam - Orthopedics Ears/Nose/Throat oral cavity/pharynx/larynx Overall: oral mucosa clear 03/28/2018 None Full Exam - Orthopedics Respiratory respiratory effort/rhythm Overall: no retractions 03/28/2018 None Full Exam - Orthopedics Respiratory respiratory effort/rhythm Overall: normal rate 03/28/2018 None Full Exam - Orthopedics MS: left upper extremity insp & palp - LUE Shoulder: normal appearance 03/28/2018 None Full Exam - Orthopedics MS: left upper extremity insp & palp - LUE Shoulder: tenderness @ biceps tendon 03/28/2018 None Full Exam - Orthopedics Psychiatric orientation/consciousness Overall: oriented to person, place and time 03/28/2018 None Full Exam - Orthopedics Psychiatric mood and affect Overall: normal mood and affect 03/28/2018 None Full Exam - Orthopedics Psychiatric appearance Overall: well-groomed, good eye contact 03/28/2018 None Full Exam - Orthopedics Cardiovascular examination of vasculature Overall: no clubbing, cyanosis, edema 03/28/2018 None Full Exam - Orthopedics MS: right upper extremity insp & palp - RUE Shoulder: tenderness @ biceps tendon 03/28/2018 None Full Exam - Orthopedics Neurological orientation Overall: alert 03/28/2018 None Full Exam - Orthopedics Neurological orientation Overall: oriented to person, place and time 03/28/2018 None Full Exam - General 1994 Constitutional general appearance Development: well developed 11/26/2017 None Full Exam - General 1994 Constitutional general appearance Development: appears stated age 0811/26/2017 None Full Exam - General 1994 Constitutional general appearance Hygiene/Attention to Grooming: good hygiene 11/26/2017 None Full Exam - General 1994 Eyes conjunctiva /eyelids Overall: conjunctiva clear 11/26/2017 None Full Exam - General 1994 Eyes conjunctiva /eyelids Overall: cornea clear 11/26/2017 None Full Exam - General 1994 Eyes conjunctiva /eyelids Overall: eyelids normal 11/26/2017 None Full Exam - General 1994 Eyes pupils and irises Overall: pupils equal, round, reactive to light and accomodation 11/26/2017 None Full Exam - General 1994 Ears/Nose/Throat otoscopic exam Overall: external auditory canals clear 11/26/2017 None Full Exam - General 1994 Ears/Nose/Throat otoscopic exam Overall: tympanic membranes clear 11/26/2017 None Full Exam - General 1994 Ears/Nose/Throat lips/teeth/gingiva Overall: benign lips 11/26/2017 None Full Exam - General 1994 Ears/Nose/Throat lips/teeth/gingiva Overall: normal dentition 11/26/2017 None Full Exam - General 1994 Ears/Nose/Throat oral cavity/pharynx/larynx Overall: oral mucosa clear 11/26/2017 None Full Exam - General 1994 Ears/Nose/Throat oral cavity/pharynx/larynx Overall: oropharyngeal mucosa clear 11/26/2017 None Full Exam - General 1994 Ears/Nose/Throat oral cavity/pharynx/larynx Overall: hypopharynx benign 11/26/2017 None Full Exam - General 1994 Ears/Nose/Throat oral cavity/pharynx/larynx Overall: no masses 11/26/2017 None Full Exam - General 1994 Respiratory auscultation Overall: breath sounds clear bilaterally 11/26/2017 None Full Exam - General 1994 Respiratory respiratory effort/rhythm Overall: no retractions 11/26/2017 None Full Exam - General 1994 Respiratory respiratory effort/rhythm Overall: normal rate 11/26/2017 None Full Exam - General 1994 Cardiovascular extremities Overall: no clubbing 11/26/2017 None Full Exam - General 1994 Cardiovascular auscultation of heart Overall: regular rate 11/26/2017 None Full Exam - General 1994 Cardiovascular auscultation of heart Overall: normal heart sounds 11/26/2017 None Full Exam - General 1994 Lymphatic neck nodes Overall: anterior cervical chain benign 11/26/2017 None Full Exam - General 1994 Lymphatic neck nodes Overall: posterior cervical chain benign 11/26/2017 None Full Exam - General 1994 Musculoskeletal spine, ribs and pelvis Overall: good posture 11/26/2017 None Full Exam - General 1994 Musculoskeletal head and neck Overall: head atraumatic 11/26/2017 None Full Exam - General 1994 Musculoskeletal head and neck Overall: cervical spine benign 11/26/2017 None Full Exam - General 1994 Psychiatric orientation/consciousness Overall: oriented to person, place and time 11/26/2017 None Full Exam - General 1994 Psychiatric mood and affect Overall: normal mood and affect 11/26/2017 None Full Exam - General 1994 Abdomen abdominal exam Overall: no tenderness 11/26/2017 None Full Exam - General 1994 Abdomen abdominal exam Overall: normal bowel sounds 11/26/2017 None Full Exam - General 1994 Musculoskeletal lower extremity Palpation - knee: crepitus 11/26/2017 None Full Exam - General 1994 Musculoskeletal upper extremity Palpation - shoulder: tenderness @ bicipital groove 11/26/2017 None Full Exam - General 1994 Musculoskeletal upper extremity Palpation - shoulder: tenderness @ subacromial space 11/26/2017 None Full Exam - Orthopedics Constitutional general appearance Overall: well nourished 07/01/2017 None Full Exam - Orthopedics Constitutional general appearance Overall: well developed 07/01/2017 None Full Exam - Orthopedics Constitutional general appearance Overall: in no acute distress 07/01/2017 None Full Exam - Orthopedics Eyes conjunctiva/ eyelids Overall: conjunctiva clear 07/01/2017 None Full Exam - Orthopedics Eyes conjunctiva/ eyelids Overall: eyelids normal 07/01/2017 None Full Exam - Orthopedics Ears/Nose/Throat lips/teeth/gingiva Overall: benign lips 07/01/2017 None Full Exam - Orthopedics Ears/Nose/Throat oral cavity/pharynx/larynx Overall: oral mucosa clear 07/01/2017 None Full Exam - Orthopedics Respiratory respiratory effort/rhythm Overall: no retractions 07/01/2017 None Full Exam - Orthopedics Respiratory respiratory effort/rhythm Overall: normal rate 07/01/2017 None Full Exam - Orthopedics Psychiatric orientation/consciousness Overall: oriented to person, place and time 07/01/2017 None Full Exam - Orthopedics Psychiatric mood and affect Overall: normal mood and affect 07/01/2017 None Full Exam - Orthopedics Psychiatric appearance Overall: well-groomed, good eye contact 07/01/2017 None Full Exam - Orthopedics MS: right lower extremity insp & palp - RLE Knee: normal appearance 07/01/2017 None Full Exam - Orthopedics MS: right lower extremity range of motion - RLE Knee: crepitus 07/01/2017 None Full Exam - Orthopedics MS: left upper extremity insp & palp - LUE Shoulder: normal appearance 07/01/2017 None Full Exam - Orthopedics MS: left upper extremity insp & palp - LUE Shoulder: tenderness @ biceps tendon 07/01/2017 None Full Exam - General 1994 Constitutional general appearance Development: well developed 05/13/2017 None Full Exam - General 1994 Constitutional general appearance Development: appears stated age 0205/13/2017 None Full Exam - General 1994 Constitutional general appearance Hygiene/Attention to Grooming: good hygiene 05/13/2017 None Full Exam - General 1994 Eyes conjunctiva /eyelids Overall: conjunctiva clear 05/13/2017 None Full Exam - General 1994 Eyes conjunctiva /eyelids Overall: cornea clear 05/13/2017 None Full Exam - General 1994 Eyes conjunctiva /eyelids Overall: eyelids normal 05/13/2017 None Full Exam - General 1994 Eyes pupils and irises Overall: pupils equal, round, reactive to light and accomodation 05/13/2017 None Full Exam - General 1994 Ears/Nose/Throat otoscopic exam Overall: external auditory canals clear 05/13/2017 None Full Exam - General 1994 Ears/Nose/Throat otoscopic exam Overall: tympanic membranes clear 05/13/2017 None Full Exam - General 1994 Ears/Nose/Throat lips/teeth/gingiva Overall: benign lips 05/13/2017 None Full Exam - General 1994 Ears/Nose/Throat lips/teeth/gingiva Overall: normal dentition 05/13/2017 None Full Exam - General 1994 Ears/Nose/Throat oral cavity/pharynx/larynx Overall: oral mucosa clear 05/13/2017 None Full Exam - General 1994 Ears/Nose/Throat oral cavity/pharynx/larynx Overall: oropharyngeal mucosa clear 05/13/2017 None Full Exam - General 1994 Ears/Nose/Throat oral cavity/pharynx/larynx Overall: hypopharynx benign 05/13/2017 None Full Exam - General 1994 Ears/Nose/Throat oral cavity/pharynx/larynx Overall: no masses 05/13/2017 None Full Exam - General 1994 Respiratory auscultation Overall: breath sounds clear bilaterally 05/13/2017 None Full Exam - General 1994 Respiratory respiratory effort/rhythm Overall: no retractions 05/13/2017 None Full Exam - General 1994 Respiratory respiratory effort/rhythm Overall: normal rate 05/13/2017 None Full Exam - General 1994 Cardiovascular extremities Overall: no clubbing 05/13/2017 None Full Exam - General 1994 Cardiovascular auscultation of heart Overall: regular rate 05/13/2017 None Full Exam - General 1994 Cardiovascular auscultation of heart Overall: normal heart sounds 05/13/2017 None Full Exam - General 1994 Lymphatic neck nodes Overall: anterior cervical chain benign 05/13/2017 None Full Exam - General 1994 Lymphatic neck nodes Overall: posterior cervical chain benign 05/13/2017 None Full Exam - General 1994 Musculoskeletal spine, ribs and pelvis Overall: good posture 05/13/2017 None Full Exam - General 1994 Musculoskeletal head and neck Overall: head atraumatic 05/13/2017 None Full Exam - General 1994 Musculoskeletal head and neck Overall: cervical spine benign 05/13/2017 None Full Exam - General 1994 Psychiatric orientation/consciousness Overall: oriented to person, place and time 05/13/2017 None Full Exam - General 1994 Psychiatric mood and affect Overall: normal mood and affect 05/13/2017 None Full Exam - General 1994 Constitutional [...] normal mood and affect 04/12/2017 None Procedures Procedure Codes Date PPPS, SUBSEQ VISIT CPT -4: G0439 05/05/2018 Vital Signs Date Vital 05/26/2018 Blood Pressure 1: 128/78 Code : 8480-6 BMI: 30.0 Code : 48260-1 Heart Rate 1 : 60 bpm Height: 5'4" SpO2: 97% Weight: 175 lbs 05/05/2018 Blood Pressure 1: 122/80 Code : 8480-6 BMI: 30.4 Code : 71971-4 Heart Rate 1 : 64 bpm Height: 5'4" SpO2: 93% Weight: 177 lbs 04/24/2018 Blood Pressure 1: 130/82 Code : 8480-6 BMI: 30.7 Code : 93525-4 Heart Rate 1 : 108 bpm Height: 5'4" SpO2: 98% Weight: 179 lbs 03/28/2018 Blood Pressure 1: 130/72 Code : 8480-6 Heart Rate 1: 76 bpm Height: 5'4" SpO2: 99% 11/26/2017 Blood Pressure 1: 132/80 Code : 8480-6 BMI: 29.2 Code : 16237-2 Heart Rate 1 : 56 bpm Height: 5'4" SpO2: 96% Weight: 170 lbs 07/01/2017 Blood Pressure 1: 138/76 Code : 8480-6 BMI: 28.7 Code : 79354-7 Heart Rate 1 : 62 bpm Height: 5'4" SpO2: 97% Weight: 167 lbs 05/13/2017 Blood Pressure 1: 128/78 Code : 8480-6 BMI: 28.3 Code : 38640-5 Heart Rate 1 : 58 bpm Height: 5'4" SpO2: 98% Weight: 165 lbs 04/12/2017 Blood Pressure 1: 156/88 Code : 8480-6 BMI: 28.2 Code : 85986-5 Heart Rate 1 : 54 bpm Height: 5'4" SpO2: 97% Weight: 164 lbs Functional Status No Functional Status data History of Present Illness Symptom Name Status Result Effective Date Notes Quality primary hypertension 05/26/2018 None Quality stable 2018 None Onset and Resolution ongoing 05/26/2018 None Blood Pressure Values patient checking blood pressure at home - did not bring in readings 2018 None Alleviating Factors medication 05/26/2018 None Pertinent Findings Denies dizziness 05/26/2018 None Pertinent Findings Denies dyspnea 05/26/2018 None Pertinent Findings Denies edema 05/26/2018 None Quality chronic 05/26 None Quality irregular beats 05/26/2018 (atrial fibrillation) Onset and Resolution ongoing 05/26/2018 None Onset of Symptom during adulthood 05/26/2018 None Alleviating Factors medication 05/26/2018 None Quality chronic 05/26 None Blood Glucose (self reported) desireable (below 100) 05/05/2018 None Blood Pressure (self reported) diagnosed with hypertension 05/05/2018 None Cholesterol (self reported) desireable ( below 200) 05/05/2018 None Depression (last 6 months) almost never 05/05/2018 some anxiety Depression or Hopelessness almost never 05/05/2018 None Describe Your Health good 05/05/2018 None Exercise Habits does not exercise 05/05/2018 None Handling Stress often has problems coping 05/05/2018 sometimes anxious Hemaglobin A-1C (self reported) never checked 05/05/2018 None Hours of Sleep 9-10 05/05/2018 None Interaction with Friends yes 05/05/2018 None Interests & Pleasure most of the time 05/05/2018 None Life Satisfaction satisfied 05/05/2018 None Motor Vehicle Safety always fastens seat belt: y 05/05/2018 None Motor Vehicle Safety drives after drinking: n 05/05/2018 None Smoking and Tobacco Use non smoker 05/05/2018 None Social & Emotional Support always 05/05/2018 None Stress some of the time 05/05/2018 None Sun Exposure protects skin when outdoors : y 05/05/2018 None Location on both sides 04/24/2018 None Quality acute 2018 None Quality fullness None Quality intermittent 04/24/2018 None Onset and Resolution Denies ongoing 04/24/2018 None Onset of Symptom 2 months ago 04/24/2018 None Triggers Denies no known associated factors 04/24/2018 None Significant Medications antibiotics 04/24/2018 None Pertinent Findings Denies fever 04/24/2018 None Pertinent Findings Denies facial pain 04/24/2018 None Pertinent Findings decreased energy level 04/24/2018 None Quality acute 2018 None Quality intermittent 04/24/2018 None Timing of Episodes Denies in the evening 04/24/2018 None Pertinent Findings Denies fever 04/24/2018 None Pertinent Findings nasal congestion 04/24/2018 None Quality aching 2017 None Onset and Resolution gradual in onset 03/28/2018 None Frequency of Episodes daily 03/28/2018 None Onset of Symptom 1 years ago 03/28/2018 None Pertinent Findings Denies swelling 03/28/2018 None Triggers activity None Mechanism of injury unknown 03/28/2018 None shoulder pain Quality aching 11/26/2017 None shoulder pain Onset and Resolution gradual in onset 11/26/2017 None shoulder pain Onset of Symptom 2 months ago 11/26/2017 None shoulder pain Frequency of Episodes daily 11/26/2017 None knee pain Location on the right 11/26/2017 None knee pain Quality intermittent 11/26/2017 None knee pain Onset and Resolution gradual in onset 11/26/2017 None knee pain Onset of Symptom 2 months ago 11/26/2017 None knee pain Frequency of Episodes daily 11/26/2017 None hypertension Quality primary hypertension 11/26/2017 None hypertension Quality stable 11/26/2017 None hypertension Onset and Resolution ongoing 11/26/2017 None hypertension Blood Pressure Values patient checking blood pressure at home - did not bring in readings 11/26/2017 --112/78 this morning before she came hypertension Alleviating Factors medication 11/26/2017 None hypertension Pertinent Findings Denies dizziness 11/26/2017 None hypertension Pertinent Findings Denies dyspnea 11/26/2017 None hypertension Pertinent Findings Denies edema 11/26/2017 None arrhythmia Quality chronic 11/26/2017 None arrhythmia Quality irregular beats 11/26/2017 (atrial fibrillation) arrhythmia Onset and Resolution ongoing 11/26/2017 None arrhythmia Onset of Symptom during adulthood 11/26/2017 None arrhythmia Alleviating Factors medication 11/26/2017 None shoulder pain Location on the right shoulder 11/26/2017 None shoulder pain Location on the left shoulder 11/26/2017 None shoulder pain Pertinent Findings point tenderness 11/26/2017 None shoulder pain Quality aching 07/01/2017 None shoulder pain Onset and Resolution gradual in onset 07/01/2017 None shoulder pain Onset of Symptom 2 months ago 07/01/2017 None shoulder pain Frequency of Episodes daily 07/01/2017 None knee pain Location on the right 07/01/2017 None knee pain Quality intermittent 07/01/2017 None knee pain Onset and Resolution gradual in onset 07/01/2017 None knee pain Onset of Symptom 2 months ago 07/01/2017 None knee pain Frequency of Episodes daily 07/01/2017 None hypertension Quality primary hypertension 05/13/2017 None hypertension Onset and Resolution ongoing 05/13/2017 None arrhythmia Quality chronic 05/13/2017 None arrhythmia Quality irregular beats 05/13/2017 (atrial fibrillation) arrhythmia Onset and Resolution ongoing 05/13/2017 None arrhythmia Onset of Symptom during adulthood 05/13/2017 None hypertension Alleviating Factors medication 05/13/2017 None arrhythmia Alleviating Factors medication 05/13/2017 None hypertension Blood Pressure Values patient checking blood pressure at home - did not bring in readings 05/13/2017 --112/78 this morning before she came hypertension Pertinent Findings Denies dizziness 05/13/2017 None hypertension Pertinent Findings Denies dyspnea 05/13/2017 None hypertension Pertinent Findings Denies edema 05/13/2017 None gastroesophageal reflux Quality improving 05/13/2017 None gastroesophageal reflux Alleviating Factors proton pump inhibitor 05/13/2017 None hypertension Quality stable 05/13/2017 None hypertension Quality stable 04/12/2017 None hypertension Onset [...] data Encounters Encounter Performer Location Codes Date ([id number]) [id number] EST. PATIENT, LEVEL IV Diagnosis: Essential (primary) hypertension[ICD10: I10] Diagnosis: Chronic atrial fibrillation[ICD10: I48.2] Diagnosis: Mixed hyperlipidemia[ICD10: E78.2] Diagnosis: Myalgia, other site[ICD10: M79.18] Gemma Joseph MD, [facility] CPT-4: 01468 05/26/2018 ([id number]) 16758 EST. PATIENT, LEVEL III Diagnosis: Cough[ICD10: R05] Diagnosis: Other allergic rhinitis[ICD10: J30.89] Kathe Joseph MD, [facility] CPT-4: 37156 04/24/2018 ([id number]) [id number] EST. PATIENT, LEVEL III Diagnosis: Cervicalgia[ICD10: M54.2] Diagnosis: Bicipital tendinitis, right shoulder[ICD10: M75.21] Kathe Joseph MD, [facility] CPT-4: 79815 03/28/2018 ([id number]) [id number] EST. PATIENT, LEVEL IV Diagnosis: Essential (primary) hypertension[ICD10: I10] Diagnosis: Chronic atrial fibrillation[ICD10: I48.2] Diagnosis: Bicipital tendinitis, left shoulder[ICD10: M75.22] Diagnosis: Pain in right knee[ICD10: M25.561] Diagnosis: Major depressive disorder, recurrent, mild[ICD10: F33.0] [facility] CPT-4: 83236 11/26/2017 [id number] EST. PATIENT, LEVEL III Diagnosis: Bicipital tendinitis, left shoulder[ICD10: M75.22] Diagnosis: Pain in right knee[ICD10: M25.561] [facility] CPT-4: 45666 07/01/2017 ([id number]) [id number] EST. PATIENT, LEVEL III Diagnosis: Essential (primary) hypertension[ICD10: I10] Diagnosis: Chronic atrial fibrillation[ICD10: I48.2] [facility] CPT-4: 45059 05/13/2017 ([id number]) OFFICE VISIT, NEW - LEVEL 4 Diagnosis: Essential (primary) hypertension[ICD10: I10] Diagnosis: Chronic atrial fibrillation[ICD10: I48.2] Diagnosis: Gastro-esophageal reflux disease without esophagitis[ICD10: K21.9] Gemma Joseph MD, [facility] CPT-4: 29024 04/12/2017 Plan of Care Planned Activity Notes Codes Status Date Visit Plan: Hypertension - well controlled - continue with current medications, continue with no added salt diet. Pt has been encouraged to exercise daily. The pt has been advised to call the office if there are any acute concerns about change in blood pressure readings at home. Hyperlipidemia - pt has been counseled about appropriate diet, exercise, and need for low fat food choices. I have discussed the need for the patient to take medications as prescribed. If the patient has negative side effects from the medication, they are to CALL the office and not abruptly discontinue the medication without discussion with a practitioner in the office. We will check labs in 3-6 months for follow up on the patient's chronic medical problem and to assure normal liver response to medications. Myalgias - may be due to lipitor - hold the lipitor x 1 week and continue with coenzyme q10 then restart lipitor, increase fluids. 05/26/2018 Patient Education: Patient Medication Summary Completed 05/26/2018 Patient Education: Cholesterol Management Completed 05/26/2018 Visit Plan: Medicare Exam - today we discussed the patients past history, immunizations, preventative exams/evaluations - colonoscopy, fecal occult blood testing, routine labs for renal function, glucose, cholesterol, osteoporosis evaluations, cardiovascular testing and cancer screenings. We have also discussed mental health and the signs/symptoms of depression. The patient was advised of home safety evaluations and the need to make sure that as the aging process continues, we need to be aware of different ways to make the home a safer place to reside. The patient has also been counseled that exercise is necessary - and of utmost importance as we age to help decrease fall risk and to maintain independence in the home. Today we discussed the need for the patient to create paperwork for Advanced directives as well as for the patient to provide this office with a copy of her DOPA paperwork for health care surrogate. 05/05/2018 Appointment: Kathe Avila WPtel: [address] [place] [address] - Annual Wellness Visit 05/05/2018 Patient Education: Patient Medication Summary Completed 05/05/2018 Visit Plan: Allergies - chronic - recommended pt to use allergy medication as prescribed. Pt has been counseled as to the appropriate use of the medication. Pt to call if allergy symptoms are not controlled with the medication. If using nasal spray, instructions as follows: Nasal spray- use twice daily, one spray per nostril twice daily, after 30 minutes, rinse out nose with saline spray.. Use opposite hand per nostril to spray in the nasal steroid allergy spray. 04/24/2018 Appointment: Kathe Avila WPtel: [facility]8 [place] [phone] (15 min) Moderate 04/24/2018 Patient Education: Patient Medication Summary Completed 04/24/2018 Visit Plan: Neck Pain- pt to start with aspercreme or biofreeze to neck three times daily and start neck exercises daily. Biceps tendinitis - pt to do exercises as directed, ant-inflammatories directed to be taken per RX instructions and pt to call if symptoms are not improved. 03/28/2018 Appointment: Kathe Avila WPtel: [facility]8 [address] (15 min) Moderate 03/28/2018 Patient Education: Patient Medication Summary Completed 03/28/2018 Patient Education: .Cervicalgia Neck Pain Completed 03/28/2018 Visit Plan: Hypertension - well controlled - continue with current medications, continue with no added salt diet. Pt has been encouraged to exercise daily. The pt has been advised to call the office if there are any acute concerns about change in blood pressure readings at home. Atrial Fibrillation - pt on chronic anticoagulation and is currently rate controlled. The pt is to have labs done as appropriate to monitor medication levels and is to report if they start to feel as if their heart rate is becoming uncontrolled. Pain in knee - supportive care at this time - Left shoulder/upper neck discomfort/spasms of muscle - recommended massage. Depression - refilled paroxetine 11/26/2017 Appointment: Gemma Joseph WPtel: [facility]5 [facility] (15 min) Moderate 11/26/2017 Patient Education: Patient Medication Summary Completed 11/26/2017 Appointment: Gemma Joseph WPtel: [facility]5 [facility] (15 min) Moderate 11/11/2017 Visit Plan: right knee pain - will have pt use RICE - rest , ice, compression, elevation - will send RX - The patient is to call the office if the pain is worsening or does not improve. Biceps tendinitis - pt to do exercises as directed, ant-inflammatories directed to be taken per RX instructions and pt to call if symptoms are not improved. 07/01/2017 Appointment: Glenda Munoz WPtel: [facility] (30 min) Complex 07/01/2017 Patient Education: Patient Medication Summary Completed 07/01/2017 Visit Plan: Hypertension - well controlled - continue with current medications, continue with no added salt diet. Pt has been encouraged to exercise daily. The pt has been advised to call the office if there are any acute concerns about change in blood pressure readings at home. Chronic Afib - rate controlled. 05/13/2017 Appointment: Gemma Joseph WPtel: [facility]5 [facility] [place] (15 min) Moderate 05/13/2017 Patient Education: Patient Medication Summary Completed 05/13/2017 Referral: Herbert Weaver WPtel:[phone] Patient informed. Referral info faxed. Completed 04/29/2017 Visit Plan: Hypertension - uncontrolled - the [...] omeprazole referral to [facility] for egd 04/12/2017 Appointment: Gemma Joseph WPtel: [address] [place], [place] [id number] New Patient 04/12/2017 Patient Education: Patient Medication Summary Completed 04/12/2017 Care Plan: Referral Order SNOMED-CT : [id number] Pending 04/12/2017 Referral: Herbert Weaver WPtel:[phone] Referral Appointment Requested Instructions Comment . Hypertension - well controlled - continue with current medications, continue with no added salt diet. Pt has been encouraged to exercise daily. The pt has been advised to call the office if there are any acute concerns about change in blood pressure readings at home. Chronic Afib - rate controlled. PT at [facility] for neck and shoulder pain . Neck Pain- pt to start with aspercreme or biofreeze to neck three times daily and start neck exercises daily. Biceps tendinitis - pt to do exercises as directed, ant-inflammatories directed to be taken per RX instructions and pt to call if symptoms are not improved. hold lipitor x 1 week - continue with the coenzyme q10 - ( qunol brand is the best bioavailability) get labs one week before next appt in October. corcidin hbp for drainage - this is over the counter give dr. weaver's office a call about the skin lesion by nose - needs surgically removed. . Hypertension - well controlled - continue with current medications, continue with no added salt diet. Pt has been encouraged to exercise daily. The pt has been advised to call the office if there are any acute concerns about change in blood pressure readings at home. Hyperlipidemia - pt has been counseled about appropriate diet, exercise, and need for low fat food choices. I have discussed the need for the patient to take medications as prescribed. If the patient has negative side effects from the medication, they are to CALL the office and not abruptly discontinue the medication without discussion with a practitioner in the office. We will check labs in 3-6 months for follow up on the patient's chronic medical problem and to assure normal liver response to medications. Myalgias - may be due to lipitor - hold the lipitor x 1 week and continue with coenzyme q10 then restart lipitor, increase fluids. . right knee pain - will have pt use RICE - rest, ice, compression, elevation - will send RX - The patient is to call the office if the pain is worsening or does not improve. Biceps tendinitis - pt to do exercises as directed, ant-inflammatories directed to be taken per RX instructions and pt to call if symptoms are not improved. . Hypertension - uncontrolled - the patient's [...] for [facility] on [employer] . Hypertension - well controlled - continue with current medications, continue with no added salt diet. Pt has been encouraged to exercise daily. The pt has been advised to call the office if there are any acute concerns about change in blood pressure readings at home. Atrial Fibrillation - pt on chronic anticoagulation and is currently rate controlled. The pt is to have labs done as appropriate to monitor medication levels and is to report if they start to feel as if their heart rate is becoming uncontrolled. Pain in knee - supportive care at this time - Left shoulder/upper neck discomfort/spasms of muscle - recommended massage. Depression - refilled paroxetine Let us know which pneumonia vaccine you have had recommend shingles vaccine . Medicare Exam - today we discussed the patients past history, immunizations, preventative exams/evaluations - colonoscopy, fecal occult blood testing, routine labs for renal function, glucose, cholesterol, osteoporosis evaluations , cardiovascular testing and cancer screenings. We have also discussed mental health and the signs/symptoms of depression. The patient was advised of home safety evaluations and the need to make sure that as the aging process continues , we need to be aware of different ways to make the home a safer place to reside. The patient has also been counseled that exercise is necessary - and of utmost importance as we age to help decrease fall risk and to maintain independence in the home. Today we discussed the need for the patient to create paperwork for Advanced directives as well as for the patient to provide this office with a copy of her DOPA paperwork for health care surrogate. Jamilah call if not better and we will send in an antibiotic for sinus infection . Allergies - chronic - recommended pt to use allergy medication as prescribed. Pt has been counseled as to the appropriate use of the medication. Pt to call if allergy symptoms are not controlled with the medication. If using nasal spray, instructions as follows: Nasal spray- use twice daily, one spray per nostril twice daily, after 30 minutes, rinse out nose with saline spray.. Use opposite hand per nostril to spray in the nasal steroid allergy spray.
--- OUTSIDE RECORDS SUMMARY | 2018-06-19 05:58 | XMS REPORT | CCD ---
Author Author Gemma Joseph Organization Gemma Joseph MD, [facility] Address [address] [place] [address] Phone Care Team Providers Care Copy Coordinator Name Role Phone PP Unavailable CCM Unavailable Summary Purpose Interface Exchange Insurance Providers Payer name Policy type / Coverage type Covered alliance party ID Effective Begin Date Effective End Date WPS Medicare Part B Medicare Part B [id number] Unknown Cigna Medicare Part B [id number] Unknown Family History Family History data not found Social History Social History Element Codes Description Effective Dates Marital status Unknown 04/12/2017 Number of children Unknown 1 Ryan Dexter 04/12/[address]: 1984792 Former smoker Quit 01-31-16 04/12/[address]: 279842 Currently drinks alcohol 04/12/2017 Allergies, Adverse Reactions, Alerts Substance Reaction Codes Entered Date Inactivated Date Status * NO KNOWN ENVIRONMENTAL ALLERGIES Unknown 04/12/2017 No Inactive Date Active * NO KNOWN FOOD ALLERGIES Unknown 04/12/2017 No Inactive Date Active * NO KNOWN DRUG ALLERGIES Unknown 04/12/2017 No Inactive Date Active Past Medical History Illness Codes Condition Status Onset Date Resolved Date Encounter for general adult medical examination without abnormal findings ICD-9: V70.0 ICD-10: Z00.00 Active 05/05/2018 Unknown Cough ICD-9: 786.2 ICD-10: R05 Active 04/24/2018 Unknown Generalized anxiety disorder ICD-9: 300.00 ICD-10: F41.1 Active 04/24/2018 Unknown Other allergic rhinitis ICD-9: 477.8 ICD-10: J30.89 Active 04/24/2018 Unknown Bicipital tendinitis, left shoulder ICD-9: 726.12 ICD-10: M75.22 Active 07/01/2017 Unknown Cervicalgia ICD-9: 723.1 ICD-10: M54.2 Active 03/28/2018 Unknown Chronic atrial fibrillation ICD-9: 427.31 ICD-10: I48.2 Active 04/12/2017 Unknown Essential (primary) hypertension ICD-9: 401.1 ICD-10: I10 Active 04/12/2017 Unknown Major depressive disorder, recurrent, mild ICD-9: 296.31 ICD-10: F33.0 Active 11/26/2017 Unknown Pain in right knee ICD -9: 719.46 ICD-10: M25.561 Active 07/01/2017 Unknown Gastro-esophageal reflux disease without esophagitis ICD-9: 530.81 ICD-10: K21.9 Active 04/12/2017 Unknown Problems Condition Codes Effective Dates Condition Status Encounter for general adult medical examination without abnormal findings ICD-9: V70.0 ICD-10: Z00.00 05/05/2018 Active Cough ICD-9: 786.2 ICD-10: R05 04/24/2018 Active Generalized anxiety disorder ICD-9: 300.00 ICD-10: F41.1 04/24/2018 Active Other allergic rhinitis ICD-9: 477.8 ICD-10: J30.89 04/24/2018 Active Bicipital tendinitis, left shoulder ICD-9: 726.12 ICD-10: M75.22 07/01/2017 Active Cervicalgia ICD-9: 723.1 ICD-10: M54.2 03/28/2018 Active Chronic atrial fibrillation ICD-9: 427.31 ICD-10: I48.2 04/12/2017 Active Essential (primary) hypertension ICD-9: 401.1 ICD-10: I10 04/12/2017 Active Major depressive disorder, recurrent, mild ICD-9: 296.31 ICD-10: F33.0 11/26/2017 Active Pain in right knee ICD -9: 719.46 ICD-10: M25.561 07/01/2017 Active Gastro-esophageal reflux disease without esophagitis ICD-9: 530.81 ICD-10: K21.9 04/12/2017 Active Medications Medication Codes Instructions Start Date Stop Date Status Fill Instructions Voltaren 1 % topical gel RxNorm: 603288 4 Gram(s) TOP QID 05/1208/09/2018 Active wants watts check Flonase Allergy Relief 50 mcg/actuation nasal spray, suspension RxNorm: 1393251 2 [place] NASAL daily 04/24/2018 No Stop Date Active Voltaren 1 % topical gel RxNorm: 131727 4 Gram(s) TOP QID 04/0205/01/2018 Inactive wants watts check Keflex 500 mg capsule RxNorm: 837152 1 Capsule(s) PO TID 201703/30/2018 Inactive Keflex 500 mg capsule RxNorm: 544496 1 Capsule(s) PO TID 201704/06/2018 Inactive Voltaren 1 % topical gel RxNorm: 020872 4 Gram(s) TOP QID 03/2804/01/2018 Inactive paroxetine 40 mg tablet RxNorm: 5994305 1 Tablet(s) PO daily 06/23/2018 Active Voltaren 1 % topical gel RxNorm: 948680 1 Application TOP BID 07/01/2017 03/27/2018 Inactive Penlac 8 % topical solution RxNorm: 456475 1 Application TOP daily to affected nails 05/15/2017 10/11/2017 Inactive Penlac 8 % topical solution RxNorm: 172059 1 Application TOP daily 05/15/2017 05/14/2017 Inactive omeprazole 20 mg capsule,delayed release RxNorm: 929696 1 Capsule(s) PO QPM 04/12/2017 05/12/2017 Inactive Neurontin 100 mg capsule RxNorm: 253953 1 Capsule(s) PO BID 03/201811/07/2017 Inactive Paxil 20 mg tablet RxNorm: 066316 1 Tablet(s) PO daily 201711/07/2017 Inactive sotalol 240 mg tablet RxNorm: 589892 1/2 Tablet(s) PO BID No Start Date Active Eliquis 5 mg tablet RxNorm: 3521294 1 Tablet(s) PO BID No Start Date Active Protonix 40 mg tablet,delayed release RxNorm: 406220 1 Tablet(s) PO daily No Start Date Active atorvastatin 20 mg tablet RxNorm: 882357 1 Tablet(s) PO QPM No Start Date Active Zyrtec 10 mg tablet RxNorm: 4504294 1 Tablet(s) PO daily No Start Date Active Medication Administered No Medication Administered data Immunizations No Immunization data Assessments Condition Codes Effective Dates Encounter for general adult medical examination without abnormal findings ICD-10: Z00.00 ICD-9: V70.0 05/05/2018 Cough ICD-10: R05 ICD-9: 786.2 04/24/2018 Other allergic rhinitis ICD-10: J30.89 ICD-9: 477.8 04/24/2018 Bicipital tendinitis, right shoulder ICD-10: M75.21 ICD-9: 726.12 03/28/2018 Cervicalgia ICD-10: M54.2 ICD-9: 723.1 03/28/2018 Essential (primary) hypertension ICD-10: I10 ICD-9: 401.1 11/26/2017 Pain in right knee ICD-10: M25.561 ICD-9: 719.46 11/26/2017 Bicipital tendinitis, left shoulder ICD-10: M75.22 ICD-9: 726.12 11/26/2017 Major depressive disorder, recurrent, mild ICD-10: F33.0 ICD-9: 296.31 11/26/2017 Chronic atrial fibrillation ICD-10: I48.2 ICD-9: 427.31 11/26/2017 Gastro-esophageal reflux disease without esophagitis ICD-10 : K21.9 ICD-9: 530.81 04/12/2017 Reason For Visit Reason For Visit Effective Dates Notes Annual Medicare Wellness Exam 05/05/2018 sinus congestion [...] 13.9 g/dl 11/29/2017 Cbc With Differential Ord2 Neut% 63.0 % 11/29/2017 Cbc With Differential Ord2 HCT 41.3 % 11/29/2017 Cbc With Differential Ord2 Lymph% 23.7 % 11/29/2017 Cbc With Differential Ord2 MCV 97.4 fl 11/29/2017 Cbc With Differential Ord2 Mckenzie% 10.3 % 11/29/2017 Cbc With Differential Ord2 MCH 32.8 pg 11/29/2017 Cbc With Differential Ord2 Eos% 2.6 % 11/29/2017 Cbc With Differential Ord2 MCHC 33.7 pg 11/29/2017 Cbc With Differential Ord2 Baso% 0.4 % 11/29/2017 Cbc With Differential Ord2 PLT 197 K/ul 11/29/2017 Cbc With Differential Ord2 Neut ABS# 3.20 K/ul 11/29/2017 Cbc With Differential Ord2 RDW 12.3 % 11/29/2017 Cbc With Differential Ord2 Lymph ABS# 1.20 K/ul 11/29/2017 Cbc With Differential Ord2 Mckenzie ABS# 0.5 K/ul 11/29/2017 Cbc With Differential Ord2 Eos ABS# 0.1 K/ul 11/29/2017 Cbc With Differential Ord2 Baso ABS# 0.0 K/ul 11/29/2017 Comp Metabolic Fyb873 NA 139 mEq/L 11/29/2017 Comp Metabolic Jid603 K 4.3 mEq/L 11/29/2017 Comp Metabolic Wou933 CL 102 mEq/L 11/29/2017 Comp Metabolic Ojw331 CO2 30.0 mEq/L 11/29/2017 Comp Metabolic Nqo564 ANION GAP 11 11/29/2017 Comp Metabolic Lbx747 GLUCOSE 103 mg/dL 11/29/2017 Comp Metabolic Kcz002 Creat 0.7 mg/dL 11/29/2017 Comp Metabolic Woo186 eGFR 86 ml/min/1.73m2 11/29/2017 Comp Metabolic Ptm327 BUN 12 mg/dL 11/29/2017 Comp Metabolic Hfw378 B/C Ratio 16.7 Ratio 11/29/2017 Comp Metabolic Yhm198 CALCIUM 8.9 mg/dL 11/29/2017 Comp Metabolic Kcz871 ALK PHOS 47 U/L 11/29/2017 Comp Metabolic Bem162 AST(SGOT) 15 U/L 11/29/2017 Comp Metabolic Fwf485 ALT(SGPT) 13 U/L 11/29/2017 Comp Metabolic Ybe335 BILI T 0.8 mg/dL 11/29/2017 Comp Metabolic Qle786 ALBUMIN 3.8 g/dL 11/29/2017 Comp Metabolic Hmf339 TPRO 6.0 g/dL 11/29/2017 Comp Metabolic Loz582 GLOB 2.3 g/dL 11/29/2017 Comp Metabolic Rif943 A/G Ratio 1.7 Ratio 11/29/2017 Comp Metabolic Msh252 Osmo 278 mOsmo 11/29/2017 Tsh Ord6 TSH (3rd IS) 0.74 uIU/mL 11/29/2017 Lipid Ord30 CHOL 136 mg/dL 11/29/2017 [...] clear 05/13/2017 None Full Exam - General 1995 Ears/Nose/Throat oral cavity/pharynx/larynx Overall: oropharyngeal mucosa clear 05/13/2017 None Full Exam - General 1995 Ears/Nose/Throat oral cavity/pharynx/larynx Overall: hypopharynx benign 05/13/2017 [...] -4: G0439 05/05/2018 Vital Signs Date Vital 05/05/2018 Blood Pressure 1: 122/80 Code : 8480-6 BMI: 30.4 Code : 71875-4 Heart Rate 1 : 64 bpm Height: 5'4" SpO2: 93% Weight: 177 lbs 04/24/2018 Blood Pressure 1: 130/82 Code : 8480-6 BMI: 30.7 Code : 39465-3 Heart Rate 1 : 108 bpm Height: 5'4" SpO2: 98% Weight: 179 lbs 03/28/2018 Blood Pressure 1: 130/72 Code : 8480-6 Heart Rate 1: 76 bpm Height: 5'4" SpO2: 99% 11/26/2017 Blood Pressure 1: 132/80 Code : 8480-6 BMI: 29.2 Code : 42712-7 Heart Rate 1 : 56 bpm Height: 5'4" SpO2: 96% Weight: 170 lbs 07/01/2017 Blood Pressure 1: 138/76 Code : 8480-6 BMI: 28.7 Code : 74136-0 Heart Rate 1 : 62 bpm Height: 5'4" SpO2: 97% Weight: 167 lbs 05/13/2017 Blood Pressure 1: 128/78 Code : 8480-6 BMI: 28.3 Code : 11494-8 Heart Rate 1 : 58 bpm Height: 5'4" SpO2: 98% Weight: 165 lbs 04/12/2017 Blood Pressure 1: 156/88 Code : 8480-6 BMI: 28.2 Code : 69802-9 Heart Rate 1 : 54 bpm Height: 5'4" SpO2: 97% Weight: 164 lbs Functional Status No Functional Status data History of Present Illness Symptom Name Status Result Effective Date Notes Blood Glucose (self reported) desireable (below 100) [...] data Encounters Encounter Performer Location Codes Date ([id number]) [id number] EST. PATIENT, LEVEL III Diagnosis: Cough[ICD10: R05] Diagnosis: Other allergic rhinitis[ICD10: J30.89] Kathe Joseph MD, [facility] CPT-4: 63241 04/24/2018 ([id number]) [id number] EST. PATIENT, LEVEL III Diagnosis: Cervicalgia[ICD10: M54.2] Diagnosis: Bicipital tendinitis, right shoulder[ICD10: M75.21] Kathe Joseph MD, [facility] CPT-4: 27081 03/28/2018 [id number]) [id number] EST. PATIENT, LEVEL IV Diagnosis: Essential (primary) hypertension[ICD10: I10] Diagnosis: Chronic atrial fibrillation[ICD10: I48.2] Diagnosis: Bicipital tendinitis, left shoulder[ICD10: M75.22] Diagnosis: Pain in right knee[ICD10: M25.561] Diagnosis: Major depressive disorder, recurrent, mild[ICD10: F33.0] Gemma Joseph MD, [facility] CPT-4: 97529 11/26/2017 [id number] EST. PATIENT, LEVEL III Diagnosis: Bicipital tendinitis, left shoulder[ICD10: M75.22] Diagnosis: Pain in right knee[ICD10: M25.561] Glenda Joseph MD, [facility] CPT-4: 52580 07/01/2017 ([id number]) 78579 EST. PATIENT, LEVEL III Diagnosis: Essential (primary) hypertension[ICD10: I10] Diagnosis: Chronic atrial fibrillation[ICD10: I48.2] Gemma Joseph MD, [facility] CPT-4: 37121 05/13/2017 ([id number]) OFFICE VISIT, NEW - LEVEL 4 Diagnosis: Essential (primary) hypertension[ICD10: I10] Diagnosis: Chronic atrial fibrillation[ICD10: I48.2] Diagnosis: Gastro-esophageal reflux disease without esophagitis[ICD10: K21.9] [facility] CPT-4: 45717 04/12/2017 Plan of Care Planned Activity Notes Codes Status Date Visit Plan: Medicare Exam - today we [...] care surrogate. 05/05/2018 Appointment: Kathe Avila WPtel: [facility] - Annual Wellness Visit 05/05/2018 Patient Education: [...] allergy spray. 04/24/2018 Appointment: Kathe Avila WPtel: [facility] [address] (15 min) Moderate 04/24/2018 Patient Education: Patient Medication Summary Completed 04/24/2018 Visit Plan: Neck Pain- pt to start with aspercreme or biofreeze to neck three times daily and start neck exercises daily. Biceps tendinitis - pt to do exercises as directed, ant-inflammatories directed to be taken per RX instructions and pt to call if symptoms are not improved. 03/28/2018 Appointment: Kathe Avila WPtel: [phone] (15 min) Moderate 03/28/2018 Patient Education: Patient [...] refilled paroxetine 11/26/2017 Appointment: Gemma Joseph WPtel: [facility]5 [facility] (15 min) Moderate 11/26/2017 Patient Education: Patient Medication Summary Completed 11/26/2017 Appointment: Gemma Joseph WPtel: [facility]5 [facility] (15 min) Moderate 11/11/2017 Visit Plan: right [...] not improved. 07/01/2017 Appointment: Glenda [facility]oz [facility]Ptel[facility] ([facility] min[facility] 07/01/2017 Patient Education: [...] rate controlled. 05/13/2017 Appointment: Gemma Joseph WPtel: [phone] [facility] (15 min) Moderate 05/13/2017 Patient Education: Patient Medication Summary Completed 05/13/2017 Referral: Herbert Santana WPtel:[phone] Patient informed. Referral info faxed. Completed 04/29/2017 [...] for egd 04/12/2017 Appointment: Gemma Joseph WPtel: [address] [place], [place] [address] New Patient 04/12/2017 Patient Education: Patient Medication Summary Completed 04/12/2017 Care Plan: Referral Order SNOMED-CT : [id number] Pending 04/12/2017 Referral: Herbert Santana WPtel:[phone] Referral Appointment Requested Instructions Comment . Hypertension - well controlled - continue with current medications, continue with no added salt diet. Pt has been encouraged to exercise daily. The pt has been advised to call the office if there are any acute concerns about change in blood pressure readings at home. Chronic Afib - rate controlled. PT at [facility] for neck and shoulder pain . Neck Pain- pt to start with aspercreme or biofreeze to neck three times daily and start neck exercises daily. Biceps tendinitis - pt to do exercises as directed, ant-inflammatories directed to be taken per RX instructions and pt to call if symptoms are not improved. . right knee pain - will have [...] for omeprazole referral to [facility] - look up on [employer] . Hypertension - well controlled - continue [...]
--- OUTSIDE RECORDS SUMMARY | 2018-06-19 05:59 | XMS REPORT | CCD ---
Author Author Gemma Joseph Organization Gemma Joseph MD, [facility] Address [address] [place] [address] Phone Care Team Providers Care Recording Studio Internship Name Role Phone PP Unavailable CCM Unavailable Summary Purpose Interface Exchange Insurance Providers Payer name Policy type / Coverage type Covered democrat ID Effective Begin Date Effective End Date WPS Medicare Part B Medicare Part B [id number] Unknown Cigna Medicare Part B [id number] Unknown Family History Family History data not found Social History Social History Element Codes Description Effective Dates Marital status Unknown 04/12/2017 Number of children Unknown 1 Ryan Dexter 04/12/[address]: 9446338 Former smoker Quit 01-31-16 04/12/[address]: 496557 Currently drinks alcohol 04/12/2017 Allergies, Adverse Reactions, [...] Start Date Stop Date Status Fill Instructions Flonase Allergy Relief 50 mcg/actuation nasal spray, suspension RxNorm: 0619440 2 Welch NASAL daily 04/24/2018 No Stop Date Active Voltaren 1 % topical gel RxNorm: 772037 4 Gram(s) TOP QID 04/0205/01/2018 Inactive wants watts check Keflex 500 mg capsule RxNorm: 812836 1 Capsule(s) PO TID 201703/30/2018 Inactive Keflex 500 mg capsule RxNorm: 712947 1 Capsule(s) PO TID 201704/06/2018 Inactive Voltaren 1 % topical gel RxNorm: 142164 4 Gram(s) TOP QID 03/2804/01/2018 Inactive paroxetine 40 mg tablet RxNorm: 0927148 1 Tablet(s) PO daily 06/23/2018 Active Voltaren 1 % topical gel RxNorm: 564104 1 Application TOP BID 07/01/2017 03/27/2018 Inactive Penlac 8 % topical solution RxNorm: 818716 1 Application TOP daily to affected nails 05/15/2017 10/11/2017 Inactive Penlac 8 % topical solution RxNorm: 245397 1 Application TOP daily 05/15/2017 05/14/2017 Inactive omeprazole 20 mg capsule,delayed release RxNorm: 367987 1 Capsule(s) PO QPM 04/12/2017 05/12/2017 Inactive Neurontin 100 mg capsule RxNorm: 093604 1 Capsule(s) PO BID 03/201811/07/2017 Inactive Paxil 20 mg tablet RxNorm: 891728 1 Tablet(s) PO daily 201711/07/2017 Inactive sotalol 240 mg tablet RxNorm: 540474 1/2 Tablet(s) PO BID No Start Date Active Eliquis 5 mg tablet RxNorm: 1484113 1 Tablet(s) PO BID No Start Date Active Protonix 40 mg tablet,delayed release RxNorm: 387678 1 Tablet(s) PO daily No Start Date Active atorvastatin 20 mg tablet RxNorm: 023074 1 Tablet(s) PO QPM No Start Date Active Zyrtec 10 mg tablet RxNorm: 7816827 1 Tablet(s) PO daily No Start Date [...] left shoulder ICD-10: M75.22 ICD-9: 726.12 11/26/2017 Chronic atrial fibrillation ICD-10: I48.2 ICD-9: 427.31 11/26/2017 Major depressive disorder, recurrent, mild ICD-10: [...] 32.8 pg 11/29/2017 Cbc With Differential Ord2 [place]% 10.3 % 11/29/2017 Cbc With Differential Ord2 MCHC 33.7 pg 11/29/2017 Cbc With Differential Ord2 Eos% 2.6 % 11/29/2017 Cbc With Differential Ord2 PLT 197 K/ul 11/29/2017 Cbc With Differential Ord2 Baso% 0.4 % 11/29/2017 Cbc With Differential Ord2 RDW 12.3 % 11/29/2017 Cbc With Differential Ord2 Neut ABS# 3.20 K/ul 11/29/2017 Cbc With Differential Ord2 Lymph ABS# 1.20 K/ul 11/29/2017 Cbc With Differential Ord2 [place] ABS# 0.5 K/ul 11/29/2017 Cbc With Differential Ord2 Eos ABS# 0.1 K/ul 11/29/2017 Cbc With Differential Ord2 Baso ABS# 0.0 K/ul 11/29/2017 Tsh Ord6 TSH (3rd IS) 0.74 uIU/mL 11/29/2017 Comp Metabolic Iim153 NA 139 mEq/L 11/29/2017 Comp Metabolic Wbx316 K 4.3 mEq/L 11/29/2017 Comp Metabolic Nbb079 CL 102 mEq/L 11/29/2017 Comp Metabolic Kzg262 CO2 30.0 mEq/L 11/29/2017 Comp Metabolic Lsr386 ANION GAP 11 11/29/2017 Comp Metabolic Nco310 GLUCOSE 103 mg/dL 11/29/2017 Comp Metabolic Nms621 Creat 0.7 mg/dL 11/29/2017 Comp Metabolic Hwf899 eGFR 86 ml/min/1.73m2 11/29/2017 Comp Metabolic Rir029 BUN 12 mg/dL 11/29/2017 Comp Metabolic Jca264 B/C Ratio 16.7 Ratio 11/29/2017 Comp Metabolic Ctn142 CALCIUM 8.9 mg/dL 11/29/2017 Comp Metabolic Kaw619 ALK PHOS 47 U/L 11/29/2017 Comp Metabolic Dlk447 AST(SGOT) 15 U/L 11/29/2017 Comp Metabolic Rrr089 ALT(SGPT) 13 U/L 11/29/2017 Comp Metabolic Lgl083 BILI T 0.8 mg/dL 11/29/2017 Comp Metabolic Yxx135 ALBUMIN 3.8 g/dL 11/29/2017 Comp Metabolic Afk468 TPRO 6.0 g/dL 11/29/2017 Comp Metabolic Vkj994 GLOB 2.3 g/dL 11/29/2017 Comp Metabolic Hlo806 A/G Ratio 1.7 Ratio 11/29/2017 Comp Metabolic Eag393 Osmo 278 mOsmo 11/29/2017 Lipid Ord30 CHOL [...] benign 05/13/2017 None Full Exam - General 1995 Ears/Nose/Throat oral cavity/pharynx/larynx Overall: no masses 05/13/2017 [...] Code : 8480-6 BMI: 30.4 Code : 91820-3 Heart Rate 1 : 64 bpm Height: 5'4" SpO2: 93% Weight: 177 lbs 04/24/2018 Blood Pressure 1: 130/82 Code : 8480-6 BMI: 30.7 Code : 10685-3 Heart Rate 1 : 108 bpm Height: 5'4" SpO2: 98% Weight: 179 lbs 03/28/2018 Blood Pressure 1: 130/72 Code : 8480-6 Heart Rate 1: 76 bpm Height: 5'4" SpO2: 99% 11/26/2017 Blood Pressure 1: 132/80 Code : 8480-6 BMI: 29.2 Code : 32729-6 Heart Rate 1 : 56 bpm Height: 5'4" SpO2: 96% Weight: 170 lbs 07/01/2017 Blood Pressure 1: 138/76 Code : 8480-6 BMI: 28.7 Code : 45502-4 Heart Rate 1 : 62 bpm Height: 5'4" SpO2: 97% Weight: 167 lbs 05/13/2017 Blood Pressure 1: 128/78 Code : 8480-6 BMI: 28.3 Code : 40124-8 Heart Rate 1 : 58 bpm Height: 5'4" SpO2: 98% Weight: 165 lbs 04/12/2017 Blood Pressure 1: 156/88 Code : 8480-6 BMI: 28.2 Code : 19360-4 Heart Rate 1 : 54 bpm Height: [...] data Encounters Encounter Performer Location Codes Date ([id number]) [id number] EST. PATIENT, LEVEL III Diagnosis: Cough[ICD10: R05] Diagnosis: Other allergic rhinitis[ICD10: J30.89] Kathe Joseph MD, [facility] CPT-4: 18463 04/24/2018 ([id number]) 27984 EST. PATIENT, LEVEL III Diagnosis: Cervicalgia[ICD10: M54.2] Diagnosis: Bicipital tendinitis, right shoulder[ICD10: M75.21] Kathe Joseph MD, [facility] CPT-4: 04558 03/28/2018 ([id number]) 37514 EST. PATIENT, LEVEL IV Diagnosis: Essential (primary) hypertension[ICD10: I10] Diagnosis: Chronic atrial fibrillation[ICD10: I48.2] Diagnosis: Bicipital tendinitis, left shoulder[ICD10: M75.22] Diagnosis: Pain in right knee[ICD10: M25.561] Diagnosis: Major depressive disorder, recurrent, mild[ICD10: F33.0] Gemma Joseph MD, [facility] CPT-4: 95220 11/26/2017 [id number] EST. PATIENT, LEVEL III Diagnosis: Bicipital tendinitis, left shoulder[ICD10: M75.22] Diagnosis: Pain in right knee[ICD10: M25.561] Glenda Joseph MD, [facility] CPT-4: 57288 07/01/2017 ([id number]) 73768 EST. PATIENT, LEVEL III Diagnosis: Essential (primary) hypertension[ICD10: I10] Diagnosis: Chronic atrial fibrillation[ICD10: I48.2] Gemma Joseph MD, [facility] CPT-4: 74996 05/13/2017 ([id number]) OFFICE VISIT, NEW - LEVEL 4 Diagnosis: Essential (primary) hypertension[ICD10: I10] Diagnosis: Chronic atrial fibrillation[ICD10: I48.2] Diagnosis: Gastro-esophageal reflux disease without esophagitis[ICD10: K21.9] Gemma Joseph MD, [facility] CPT-4: 64953 04/12/2017 Plan of Care Planned Activity Notes [...] DOPA paperwork for health care surrogate. 05/05/2018 Patient Education: Patient Medication Summary Completed [...] allergy spray. 04/24/2018 Appointment: [phone] (15 min) Moderate 04/24/2018 Patient Education: Patient Medication Summary Completed 04/24/2018 Visit Plan: Neck Pain- pt to start with aspercreme or biofreeze to neck three times daily and start neck exercises daily. Biceps tendinitis - pt to do exercises as directed, ant-inflammatories directed to be taken per RX instructions and pt to call if symptoms are not improved. 03/28/2018 Appointment: Kathe Avila WPtel: [address] [place], [place] [phone] (15 min) Moderate 03/28/2018 Patient Education: Patient [...] refilled paroxetine 11/26/2017 Appointment: Gemma Joseph WPtel: [facility] (15 min) Moderate 11/26/2017 Patient Education: Patient Medication Summary Completed 11/26/2017 Appointment: Gemma Joseph WPtel: [address] [place], [place] [phone] (15 min) Moderate 11/11/2017 Visit Plan: right [...] not improved. 07/01/2017 Appointment: Glenda Munoz WPtel: [facility] (30 min) Complex 07/01/2017 Patient Education: Patient [...] rate controlled. 05/13/2017 Appointment: Gemma Joseph WPtel: [address] [place], [place] [phone] (15 min) Moderate 05/13/2017 Patient Education: Patient Medication Summary Completed 05/13/2017 Referral: Herbert Santana WPtel:[phone] Patient informed. Referral info faxed. Completed 04/29/2017 [...] for egd 04/12/2017 [facility]: [facility] [phone] [facility] [facility] 04/12/2017 Patient Education: Patient Medication Summary Completed 04/12/2017 Care Plan: Referral Order SNOMED-CT : [id number] Pending 04/12/2017 Referral: Herbert Santana WPtel:[phone] Referral Appointment Requested Instructions Comment . Hypertension - well controlled - continue with current medications, continue with no added salt diet. Pt has been encouraged to exercise daily. The pt has been advised to call the office if there are any acute concerns about change in blood pressure readings at home. Chronic Afib - rate controlled. PT at [place] for neck and shoulder pain . Neck [...] for omeprazole referral to [facility] for egd [facility] - look up on [employer] . Hypertension - well controlled - continue [...]
--- OUTSIDE RECORDS SUMMARY | 2018-06-19 05:59 | XMS REPORT | CCD ---
Author Author Gemma Joseph Organization Gemma Joseph MD, [facility] Address [address] [place] [address] Phone Care Team Providers Care Trap Setter Name Role Phone PP Unavailable CCM Unavailable Summary Purpose Interface Exchange Insurance Providers Payer name Policy type / Coverage type Covered alliance party ID Effective Begin Date Effective End Date WPS Medicare Part B Medicare Part B [id number] Unknown Cigna Medicare Part B [id number] Unknown Family History Family History data not found Social History Social History Element Codes Description Effective Dates Marital status Unknown 04/12/2017 Number of children Unknown 1 Ryan Dexter 04/12/[address]: 8367735 Former smoker Quit 01-31-16 04/12/[address]: 114314 Currently drinks alcohol 04/12/2017 Allergies, Adverse Reactions, [...] Relief 50 mcg/actuation nasal spray, suspension RxNorm: 0470156 2 [place] NASAL daily 04/24/2018 No Stop Date Active Voltaren 1 % topical gel RxNorm: 166525 4 Gram(s) TOP QID 04/0205/01/2018 Inactive wants watts check Keflex 500 mg capsule RxNorm: 652116 1 Capsule(s) PO TID 201703/30/2018 Inactive Keflex 500 mg capsule RxNorm: 970346 1 Capsule(s) PO TID 201704/06/2018 Inactive Voltaren 1 % topical gel RxNorm: 925344 4 Gram(s) TOP QID 03/2804/01/2018 Inactive paroxetine 40 mg tablet RxNorm: 2260577 1 Tablet(s) PO daily 06/23/2018 Active Voltaren 1 % topical gel RxNorm: 168753 1 Application TOP BID 07/01/2017 03/27/2018 Inactive Penlac 8 % topical solution RxNorm: 614780 1 Application TOP daily to affected nails 05/15/2017 10/11/2017 Inactive Penlac 8 % topical solution RxNorm: 894794 1 Application TOP daily 05/15/2017 05/14/2017 Inactive omeprazole 20 mg capsule,delayed release RxNorm: 833130 1 Capsule(s) PO QPM 04/12/2017 05/12/2017 Inactive Neurontin 100 mg capsule RxNorm: 019504 1 Capsule(s) PO BID 03/201811/07/2017 Inactive Paxil 20 mg tablet RxNorm: 637183 1 Tablet(s) PO daily 201711/07/2017 Inactive sotalol 240 mg tablet RxNorm: 282463 1/2 Tablet(s) PO BID No Start Date Active Eliquis 5 mg tablet RxNorm: 9256751 1 Tablet(s) PO BID No Start Date Active Protonix 40 mg tablet,delayed release RxNorm: 617005 1 Tablet(s) PO daily No Start Date Active atorvastatin 20 mg tablet RxNorm: 096077 1 Tablet(s) PO QPM No Start Date Active Zyrtec 10 mg tablet RxNorm: 1745761 1 Tablet(s) PO daily No Start Date [...] 32.8 pg 11/29/2017 Cbc With Differential Ord2 [place]% 10.3 % 11/29/2017 Cbc With Differential Ord2 [...] 1.20 K/ul 11/29/2017 Cbc With Differential Ord2 [place] ABS# 0.5 K/ul 11/29/2017 Cbc With Differential Ord2 Eos ABS# 0.1 K/ul 11/29/2017 Cbc With Differential Ord2 Baso ABS# 0.0 K/ul 11/29/2017 Tsh Ord6 TSH (3rd IS) 0.74 uIU/mL 11/29/2017 Comp Metabolic Pdq374 NA 139 mEq/L 11/29/2017 Comp Metabolic Kap198 K 4.3 mEq/L 11/29/2017 Comp Metabolic Bmc051 CL 102 mEq/L 11/29/2017 Comp Metabolic Dnc061 CO2 30.0 mEq/L 11/29/2017 Comp Metabolic Zyt516 ANION GAP 11 11/29/2017 Comp Metabolic Poe526 GLUCOSE 103 mg/dL 11/29/2017 Comp Metabolic Qbh774 Creat 0.7 mg/dL 11/29/2017 Comp Metabolic Inu746 eGFR 86 ml/min/1.73m2 11/29/2017 Comp Metabolic Adu526 BUN 12 mg/dL 11/29/2017 Comp Metabolic Qmt961 B/C Ratio 16.7 Ratio 11/29/2017 Comp Metabolic Dma018 CALCIUM 8.9 mg/dL 11/29/2017 Comp Metabolic Vnz417 ALK PHOS 47 U/L 11/29/2017 Comp Metabolic Hbq344 AST(SGOT) 15 U/L 11/29/2017 Comp Metabolic Ovc023 ALT(SGPT) 13 U/L 11/29/2017 Comp Metabolic Tcp492 BILI T 0.8 mg/dL 11/29/2017 Comp Metabolic Aci992 ALBUMIN 3.8 g/dL 11/29/2017 Comp Metabolic Wcc356 TPRO 6.0 g/dL 11/29/2017 Comp Metabolic Rrz066 GLOB 2.3 g/dL 11/29/2017 Comp Metabolic Huk670 A/G Ratio 1.7 Ratio 11/29/2017 Comp Metabolic Lco415 Osmo 278 mOsmo 11/29/2017 Lipid Ord30 CHOL [...] Code : 8480-6 BMI: 30.4 Code : 71218-3 Heart Rate 1 : 64 bpm Height: 5'4" SpO2: 93% Weight: 177 lbs 04/24/2018 Blood Pressure 1: 130/82 Code : 8480-6 BMI: 30.7 Code : 69598-6 Heart Rate 1 : 108 bpm Height: 5'4" SpO2: 98% Weight: 179 lbs 03/28/2018 Blood Pressure 1: 130/72 Code : 8480-6 Heart Rate 1: 76 bpm Height: 5'4" SpO2: 99% 11/26/2017 Blood Pressure 1: 132/80 Code : 8480-6 BMI: 29.2 Code : 14741-2 Heart Rate 1 : 56 bpm Height: 5'4" SpO2: 96% Weight: 170 lbs 07/01/2017 Blood Pressure 1: 138/76 Code : 8480-6 BMI: 28.7 Code : 88710-4 Heart Rate 1 : 62 bpm Height: 5'4" SpO2: 97% Weight: 167 lbs 05/13/2017 Blood Pressure 1: 128/78 Code : 8480-6 BMI: 28.3 Code : 76557-2 Heart Rate 1 : 58 bpm Height: 5'4" SpO2: 98% Weight: 165 lbs 04/12/2017 Blood Pressure 1: 156/88 Code : 8480-6 BMI: 28.2 Code : 54852-7 Heart Rate 1 : 54 bpm Height: [...] data Encounters Encounter Performer Location Codes Date ([id number]) 72867 EST. PATIENT, LEVEL III Diagnosis: Cough[ICD10: R05] Diagnosis: Other allergic rhinitis[ICD10: J30.89] Kathe Joseph MD, [facility] CPT-4: 57432 04/24/2018 ([id number]) 44205 EST. PATIENT, LEVEL III Diagnosis: Cervicalgia[ICD10: M54.2] Diagnosis: Bicipital tendinitis, right shoulder[ICD10: M75.21] Kathe Joseph MD, [facility] CPT-4: 38539 03/28/2018 ([id number]) 47022 EST. PATIENT, LEVEL IV Diagnosis: Essential (primary) hypertension[ICD10: I10] Diagnosis: Chronic atrial fibrillation[ICD10: I48.2] Diagnosis: Bicipital tendinitis, left shoulder[ICD10: M75.22] Diagnosis: Pain in right knee[ICD10: M25.561] Diagnosis: Major depressive disorder, recurrent, mild[ICD10: F33.0] Gemma Joseph MD, [facility] CPT-4: 13159 11/26/2017 [id number] EST. PATIENT, LEVEL III Diagnosis: Bicipital tendinitis, left shoulder[ICD10: M75.22] Diagnosis: Pain in right knee[ICD10: M25.561] Gelnda Joseph MD, [facility] CPT-4: 89338 07/01/2017 ([id number]) 61840 EST. PATIENT, LEVEL III Diagnosis: Essential (primary) hypertension[ICD10: I10] Diagnosis: Chronic atrial fibrillation[ICD10: I48.2] Gemma Joseph MD, [facility] CPT-4: 19055 05/13/2017 ([id number]) OFFICE VISIT, NEW - LEVEL 4 Diagnosis: Essential (primary) hypertension[ICD10: I10] Diagnosis: Chronic atrial fibrillation[ICD10: I48.2] Diagnosis: Gastro-esophageal reflux disease without esophagitis[ICD10: K21.9] Gemma Joseph MD, [facility] CPT-4: 83412 04/12/2017 Plan of Care Planned Activity Notes [...] allergy spray. 04/24/2018 Appointment: Kathe Avila WPtel[phone] (15 min) Moderate 04/24/2018 Patient Education: Patient Medication Summary Completed 04/24/2018 Visit Plan: Neck Pain- pt to start with aspercreme or biofreeze to neck three times daily and start neck exercises daily. Biceps tendinitis - pt to do exercises as directed, ant-inflammatories directed to be taken per RX instructions and pt to call if symptoms are not improved. 03/28/2018 Appointment: Kathe Avila WPtel: [address] [place], [place] [phone] (15 min) Moderate 03/28/2018 Patient Education: Patient [...] refilled paroxetine 11/26/2017 Appointment: Gemma Joseph WPtel: [facility] (15 min) Moderate 11/26/2017 Patient Education: Patient Medication Summary Completed 11/26/2017 Appointment: Gemma Joseph WPtel: [address] [place], [place] [phone] (15 min) Moderate 11/11/2017 Visit Plan: right [...] not improved. 07/01/2017 Appointment: Glenda Munoz WPtel: [facility] (30 min) Complex 07/01/2017 Patient Education: Patient [...] rate controlled. 05/13/2017 Appointment: Gemma Joseph WPtel: [address] [place], [place] [phone] (15 min) Moderate 05/13/2017 Patient Education: Patient Medication Summary Completed 05/13/2017 Referral: Herbert Santana WPtel:[phone] Patient informed. Referral info faxed. Completed 04/29/2017 [...] egd 04/12/2017 Appointment: [facility] [phone] [facility] [facility] Patient 04/12/2017 Patient Education: Patient Medication Summary Completed 04/12/2017 Care Plan: Referral Order SNOMED-CT : [id number] Pending 04/12/2017 Referral: Herbert Santana WPtel:[phone] Referral Appointment Requested Instructions Comment . Hypertension - well controlled - continue with current medications, continue with no added salt diet. Pt has been encouraged to exercise daily. The pt has been advised to call the office if there are any acute concerns about change in blood pressure readings at home. Chronic Afib - rate controlled. PT at [place] for neck and shoulder pain . Neck [...] for omeprazole referral to [facility] for egd [facility] - look up on [employer] . Hypertension - well controlled - continue [...]
--- OUTSIDE RECORDS SUMMARY | 2018-06-19 06:00 | XMS REPORT | CCD ---
Author Author Gemma Joseph Organization [facility] Address [address] [place] [address] Phone Care Team Providers Care City Collector Name Role Phone PP Unavailable CCM Unavailable Summary Purpose Interface Exchange Insurance Providers Payer name Policy type / Coverage type Covered libertarian ID Effective Begin Date Effective End Date WPS Medicare Part B Medicare Part B [id number] Unknown Cigna Medicare Part B [id number] Unknown Family History Family History data not found Social History Social History Element Codes Description Effective Dates Marital status Unknown 04/12/2017 Number of children Unknown 1 Ryan Dexter 04/12/[address]: 0630899 Former smoker Quit 01-31-16 04/12/[address]: 696120 Currently drinks alcohol 04/12/2017 Allergies, Adverse Reactions, Alerts Substance Reaction Codes Entered Date Inactivated Date Status * NO KNOWN ENVIRONMENTAL ALLERGIES Unknown 04/12/2017 No Inactive Date Active * NO KNOWN FOOD ALLERGIES Unknown 04/12/2017 No Inactive Date Active * NO KNOWN DRUG ALLERGIES Unknown 04/12/2017 No Inactive Date Active Past Medical History Illness Codes Condition Status Onset Date Resolved Date Cough ICD-9: 786.2 ICD-10: R05 Active 04/24/2018 [...] Problems Condition Codes Effective Dates Condition Status Cough ICD-9: 786.2 ICD-10: R05 04/24/2018 Active [...] Relief 50 mcg/actuation nasal spray, suspension RxNorm: 3853340 2 [place] NASAL daily 04/24/2018 No Stop Date Active Voltaren 1 % topical gel RxNorm: 712081 4 Gram(s) TOP QID 04/0205/01/2018 Active wants watts check Keflex 500 mg capsule RxNorm: 121027 1 Capsule(s) PO TID 201703/30/2018 Inactive Keflex 500 mg capsule RxNorm: 947930 1 Capsule(s) PO TID 201704/06/2018 Inactive Voltaren 1 % topical gel RxNorm: 155592 4 Gram(s) TOP QID 03/2804/01/2018 Inactive paroxetine 40 mg tablet RxNorm: 0552674 1 Tablet(s) PO daily 06/23/2018 Active Voltaren 1 % topical gel RxNorm: 725030 1 Application TOP BID 07/01/2017 03/27/2018 Inactive Penlac 8 % topical solution RxNorm: 743466 1 Application TOP daily to affected nails 05/15/2017 10/11/2017 Inactive Penlac 8 % topical solution RxNorm: 098538 1 Application TOP daily 05/15/2017 05/14/2017 Inactive omeprazole 20 mg capsule,delayed release RxNorm: 242789 1 Capsule(s) PO QPM 04/12/2017 05/12/2017 Inactive Neurontin 100 mg capsule RxNorm: 228279 1 Capsule(s) PO BID 03/201811/07/2017 Inactive Paxil 20 mg tablet RxNorm: 860991 1 Tablet(s) PO daily 201711/07/2017 Inactive sotalol 240 mg tablet RxNorm: 732284 1/2 Tablet(s) PO BID No Start Date Active Eliquis 5 mg tablet RxNorm: 6204383 1 Tablet(s) PO BID No Start Date Active Protonix 40 mg tablet,delayed release RxNorm: 397970 1 Tablet(s) PO daily No Start Date Active atorvastatin 20 mg tablet RxNorm: 087886 1 Tablet(s) PO QPM No Start Date Active Zyrtec 10 mg tablet RxNorm: 4409830 1 Tablet(s) PO daily No Start Date Active Medication Administered No Medication Administered data Immunizations No Immunization data Assessments Condition Codes Effective Dates Other allergic rhinitis ICD-10: J30.89 ICD-9: 477.8 [...] Visit Reason For Visit Effective Dates Notes sinus congestion 04/24/2018 shoulder pain 03/28/2018 shoulder [...] 32.8 pg 11/29/2017 Cbc With Differential Ord2 [place]% 10.3 % 11/29/2017 Cbc With Differential Ord2 [...] 1.20 K/ul 11/29/2017 Cbc With Differential Ord2 [place] ABS# 0.5 K/ul 11/29/2017 Cbc With Differential Ord2 Eos ABS# 0.1 K/ul 11/29/2017 Cbc With Differential Ord2 Baso ABS# 0.0 K/ul 11/29/2017 Tsh Ord6 TSH (3rd IS) 0.74 uIU/mL 11/29/2017 Comp Metabolic Scs111 NA 139 mEq/L 11/29/2017 Comp Metabolic Wvq179 K 4.3 mEq/L 11/29/2017 Comp Metabolic Emb270 CL 102 mEq/L 11/29/2017 Comp Metabolic Jvu932 CO2 30.0 mEq/L 11/29/2017 Comp Metabolic Tdf155 ANION GAP 11 11/29/2017 Comp Metabolic Ebz169 GLUCOSE 103 mg/dL 11/29/2017 Comp Metabolic Wxx321 Creat 0.7 mg/dL 11/29/2017 Comp Metabolic Ofv045 eGFR 86 ml/min/1.73m2 11/29/2017 Comp Metabolic Vtd727 BUN 12 mg/dL 11/29/2017 Comp Metabolic Mzt475 B/C Ratio 16.7 Ratio 11/29/2017 Comp Metabolic Xef618 CALCIUM 8.9 mg/dL 11/29/2017 Comp Metabolic Guw038 ALK PHOS 47 U/L 11/29/2017 Comp Metabolic Qjz629 AST(SGOT) 15 U/L 11/29/2017 Comp Metabolic Cje860 ALT(SGPT) 13 U/L 11/29/2017 Comp Metabolic Bhj166 BILI T 0.8 mg/dL 11/29/2017 Comp Metabolic Fme099 ALBUMIN 3.8 g/dL 11/29/2017 Comp Metabolic Kbn134 TPRO 6.0 g/dL 11/29/2017 Comp Metabolic Znk169 GLOB 2.3 g/dL 11/29/2017 Comp Metabolic Pvi563 A/G Ratio 1.7 Ratio 11/29/2017 Comp Metabolic Xio797 Osmo 278 mOsmo 11/29/2017 Lipid Ord30 CHOL 136 mg/dL 11/29/2017 Lipid Ord30 HDL 53.0 mg/dl 11/29/2017 Lipid Ord30 TRIG 118 mg/dL 11/29/2017 Lipid Ord30 LDL 59 mg/dL 11/29/2017 Lipid Ord30 C/HDL 2.6 Ratio 11/29/2017 Review of Systems System Result Effective Dates Constitutional recent illness 04/24/2018 Constitutional No anorexia [...] Result Effective Dates Notes Full Exam - ENT Constitutional general appearance [...] No Procedures data Vital Signs Date Vital 04/24/2018 Blood Pressure 1: 130/82 Code : 8480-6 BMI: 30.7 Code : 04752-3 Heart Rate 1 : 108 bpm Height: 5'4" SpO2: 98% Weight: 179 lbs 03/28/2018 Blood Pressure 1: 130/72 Code : 8480-6 Heart Rate 1: 76 bpm Height: 5'4" SpO2: 99% 11/26/2017 Blood Pressure 1: 132/80 Code : 8480-6 BMI: 29.2 Code : 05974-1 Heart Rate 1 : 56 bpm Height: 5'4" SpO2: 96% Weight: 170 lbs 07/01/2017 Blood Pressure 1: 138/76 Code : 8480-6 BMI: 28.7 Code : 22411-5 Heart Rate 1 : 62 bpm Height: 5'4" SpO2: 97% Weight: 167 lbs 05/13/2017 Blood Pressure 1: 128/78 Code : 8480-6 BMI: 28.3 Code : 45962-6 Heart Rate 1 : 58 bpm Height: 5'4" SpO2: 98% Weight: 165 lbs 04/12/2017 Blood Pressure 1: 156/88 Code : 8480-6 BMI: 28.2 Code : 31667-1 Heart Rate 1 : 54 bpm Height: 5'4" SpO2: 97% Weight: 164 lbs Functional Status No Functional Status data History of Present Illness Symptom Name Status Result Effective Date Notes Location on both sides 04/24/2018 None Quality [...] data Encounters Encounter Performer Location Codes Date ([id number]) 34799 EST. PATIENT, LEVEL III Diagnosis: Cough[ICD10: R05] Diagnosis: Other allergic rhinitis[ICD10: J30.89] Kathe Joseph MD, [facility] CPT-4: 20421 04/24/2018 ([id number]) 18785 EST. PATIENT, LEVEL III Diagnosis: Cervicalgia[ICD10: M54.2] Diagnosis: Bicipital tendinitis, right shoulder[ICD10: M75.21] [facility] CPT-4: 41940 03/28/2018 ([id number]) 97718 EST. PATIENT, LEVEL IV Diagnosis: Essential (primary) hypertension[ICD10: I10] Diagnosis: Chronic atrial fibrillation[ICD10: I48.2] Diagnosis: Bicipital tendinitis, left shoulder[ICD10: M75.22] Diagnosis: Pain in right knee[ICD10: M25.561] Diagnosis: Major depressive disorder, recurrent, mild[ICD10: F33.0] Gemma Joseph MD, [facility] CPT-4: 96127 11/26/2017 07840 EST. PATIENT, LEVEL III Diagnosis: Bicipital tendinitis, left shoulder[ICD10: M75.22] Diagnosis: Pain in right knee[ICD10: M25.561] [facility] CPT-4: 40266 07/01/2017 ([id number]) 75601 EST. PATIENT, LEVEL III Diagnosis: Essential (primary) hypertension[ICD10: I10] Diagnosis: Chronic atrial fibrillation[ICD10: I48.2] Gemma Joseph MD, [facility] CPT-4: 53750 05/13/2017 ([id number]) OFFICE VISIT, NEW - LEVEL 4 Diagnosis: Essential (primary) hypertension[ICD10: I10] Diagnosis: Chronic atrial fibrillation[ICD10: I48.2] Diagnosis: Gastro-esophageal reflux disease without esophagitis[ICD10: K21.9] Gemma Joseph MD, [facility] CPT-4: 59368 04/12/2017 Plan of Care Planned Activity Notes Codes Status Date Visit Plan: Allergies - chronic - recommended [...] allergy spray. 04/24/2018 Appointment: Kathe Avila WPtel: [address] [place], [place] [phone] (15 min) Moderate 04/24/2018 Patient Education: Patient [...] improved. 03/28/2018 Appointment: Kathe Avila WPtel: [phone] [phone] [place] (15 min) Moderate 03/28/2018 Patient Education: Patient [...] paroxetine 11/26/2017 Appointment: Gemma Joseph WPtel: [facility] [place] (15 min) Moderate 11/26/2017 Patient Education: Patient Medication Summary Completed 11/26/2017 Appointment: Gemma Joseph WPtel: [facility] [place] (15 min) Moderate 11/11/2017 Visit Plan: right [...] improved. 07/01/2017 Appointment: Glenda Munoz WPtel: [facility] [place] (30 min) Complex 07/01/2017 Patient Education: Patient [...] rate controlled. 05/13/2017 Appointment: Gemma Joseph WPtel: [phone] [facility] (15 min) Moderate 05/13/2017 Patient Education: Patient Medication Summary Completed 05/13/2017 Referral: Herbert Santana WPtel:[phone] Patient informed. Referral info faxed. Completed 04/29/2017 [...] egd 04/12/2017 Appointment: Gemma Joseph WPtel: [phone] [facility] New Patient 04/12/2017 Patient Education: Patient Medication Summary Completed 04/12/2017 Care Plan: Referral Order SNOMED-CT : [id number] Pending 04/12/2017 Referral: Herbert Santana WPtel:[phone] Referral Appointment Requested Instructions Comment . Hypertension - well controlled - continue with current medications, continue with no added salt diet. Pt has been encouraged to exercise daily. The pt has been advised to call the office if there are any acute concerns about change in blood pressure readings at home. Chronic Afib - rate controlled. PT at [place] for neck and shoulder pain . Neck [...] for omeprazole referral to [facility] for egd [facility] - look up on [employer] . Hypertension - well controlled - continue [...] - recommended massage. Depression - refilled paroxetine [place] and flonase call if not better and we will [...]
--- OUTSIDE RECORDS SUMMARY | 2018-06-19 06:01 | XMS REPORT | CCD ---
Author Author Gemma Joseph Organization [facility] Address [address] [place] [address] Phone Care Team Providers Care Manufacturing Management Associate Name Role Phone PP Unavailable CCM Unavailable Summary Purpose Interface Exchange Insurance Providers Payer name Policy type / Coverage type Covered constitution party ID Effective Begin Date Effective End Date WPS Medicare Part B Medicare Part B [id number] Unknown Cigna Medicare Part B [id number] Unknown Family History Family History data not found Social History Social History Element Codes Description Effective Dates Marital status Unknown 04/12/2017 Number of children Unknown 1 Ryan Dexter 04/12/[address]: 8100663 Former smoker Quit 01-31-16 04/12/[address]: 843426 Currently drinks alcohol 04/12/2017 Allergies, Adverse Reactions, Alerts Substance Reaction Codes Entered Date Inactivated Date Status * NO KNOWN ENVIRONMENTAL ALLERGIES Unknown 04/12/2017 No Inactive Date Active * NO KNOWN FOOD ALLERGIES Unknown 04/12/2017 No Inactive Date Active * NO KNOWN DRUG ALLERGIES Unknown 04/12/2017 No Inactive Date Active Past Medical History Illness Codes Condition Status Onset Date Resolved Date Bicipital tendinitis, left shoulder ICD-9: 726.12 ICD-10: [...] Problems Condition Codes Effective Dates Condition Status Bicipital tendinitis, left shoulder ICD-9: 726.12 ICD-10: [...] Instructions Voltaren 1 % topical gel RxNorm: 057183 4 Gram(s) TOP QID 04/0205/01/2018 Active wants watts check Keflex 500 mg capsule RxNorm: 085632 1 Capsule(s) PO TID 201704/06/2018 Active Keflex 500 mg capsule RxNorm: 595449 1 Capsule(s) PO TID 201703/30/2018 Inactive Voltaren 1 % topical gel RxNorm: 594703 4 Gram(s) TOP QID 03/2804/01/2018 Inactive paroxetine 40 mg tablet RxNorm: 0292384 1 Tablet(s) PO daily 06/23/2018 Active Voltaren 1 % topical gel RxNorm: 930674 1 Application TOP BID 07/01/2017 03/27/2018 Inactive Penlac 8 % topical solution RxNorm: 791763 1 Application TOP daily to affected nails 05/15/2017 10/11/2017 Inactive Penlac 8 % topical solution RxNorm: 056586 1 Application TOP daily 05/15/2017 05/14/2017 Inactive omeprazole 20 mg capsule,delayed release RxNorm: 886884 1 Capsule(s) PO QPM 04/12/2017 05/12/2017 Inactive Neurontin 100 mg capsule RxNorm: 006132 1 Capsule(s) PO BID 03/201811/07/2017 Inactive Paxil 20 mg tablet RxNorm: 182324 1 Tablet(s) PO daily 201711/07/2017 Inactive sotalol 240 mg tablet RxNorm: 811421 1/2 Tablet(s) PO BID No Start Date Active Eliquis 5 mg tablet RxNorm: 2599445 1 Tablet(s) PO BID No Start Date Active Protonix 40 mg tablet,delayed release RxNorm: 252716 1 Tablet(s) PO daily No Start Date Active atorvastatin 20 mg tablet RxNorm: 615396 1 Tablet(s) PO QPM No Start Date Active Zyrtec 10 mg tablet RxNorm: 9291486 1 Tablet(s) PO daily No Start Date Active Medication Administered No Medication Administered data Immunizations No Immunization data Assessments Condition Codes Effective Dates Bicipital tendinitis, right shoulder ICD-10: M75.21 ICD-9: [...] Visit Reason For Visit Effective Dates Notes shoulder pain 03/28/2018 shoulder pain 11/26/2017 afib [...] 32.8 pg 11/29/2017 Cbc With Differential Ord2 [place]% 10.3 % 11/29/2017 Cbc With Differential Ord2 [...] 1.20 K/ul 11/29/2017 Cbc With Differential Ord2 [place] ABS# 0.5 K/ul 11/29/2017 Cbc With Differential Ord2 Eos ABS# 0.1 K/ul 11/29/2017 Cbc With Differential Ord2 Baso ABS# 0.0 K/ul 11/29/2017 Tsh Ord6 TSH (3rd IS) 0.74 uIU/mL 11/29/2017 Comp Metabolic Pmn364 NA 139 mEq/L 11/29/2017 Comp Metabolic Nvd906 K 4.3 mEq/L 11/29/2017 Comp Metabolic Usw267 CL 102 mEq/L 11/29/2017 Comp Metabolic Ckg885 CO2 30.0 mEq/L 11/29/2017 Comp Metabolic And930 ANION GAP 11 11/29/2017 Comp Metabolic Qyg878 GLUCOSE 103 mg/dL 11/29/2017 Comp Metabolic Rej891 Creat 0.7 mg/dL 11/29/2017 Comp Metabolic Yki772 eGFR 86 ml/min/1.73m2 11/29/2017 Comp Metabolic Edw865 BUN 12 mg/dL 11/29/2017 Comp Metabolic Dlc472 B/C Ratio 16.7 Ratio 11/29/2017 Comp Metabolic Ppp324 CALCIUM 8.9 mg/dL 11/29/2017 Comp Metabolic Siu205 ALK PHOS 47 U/L 11/29/2017 Comp Metabolic Ljc047 AST(SGOT) 15 U/L 11/29/2017 Comp Metabolic Smw012 ALT(SGPT) 13 U/L 11/29/2017 Comp Metabolic Cpg601 BILI T 0.8 mg/dL 11/29/2017 Comp Metabolic Tte709 ALBUMIN 3.8 g/dL 11/29/2017 Comp Metabolic Pgn819 TPRO 6.0 g/dL 11/29/2017 Comp Metabolic Lwa377 GLOB 2.3 g/dL 11/29/2017 Comp Metabolic Qcv206 A/G Ratio 1.7 Ratio 11/29/2017 Comp Metabolic Kos108 Osmo 278 mOsmo 11/29/2017 Lipid Ord30 CHOL [...] Result Effective Dates Notes Full Exam - Orthopedics Constitutional general appearance [...] No Procedures data Vital Signs Date Vital 03/28/2018 Blood Pressure 1: 130/72 Code : 8480-6 Heart Rate 1: 76 bpm Height: 5'4" SpO2: 99% 11/26/2017 Blood Pressure 1: 132/80 Code : 8480-6 BMI: 29.2 Code : 76682-2 Heart Rate 1 : 56 bpm Height: 5'4" SpO2: 96% Weight: 170 lbs 07/01/2017 Blood Pressure 1: 138/76 Code : 8480-6 BMI: 28.7 Code : 22456-0 Heart Rate 1 : 62 bpm Height: 5'4" SpO2: 97% Weight: 167 lbs 05/13/2017 Blood Pressure 1: 128/78 Code : 8480-6 BMI: 28.3 Code : 47516-5 Heart Rate 1 : 58 bpm Height: 5'4" SpO2: 98% Weight: 165 lbs 04/12/2017 Blood Pressure 1: 156/88 Code : 8480-6 BMI: 28.2 Code : 41152-2 Heart Rate 1 : 54 bpm Height: 5'4" SpO2: 97% Weight: 164 lbs Functional Status No Functional Status data History of Present Illness Symptom Name Status Result Effective Date Notes Quality aching 2017 None Onset and Resolution [...] data Encounters Encounter Performer Location Codes Date ([id number]) 45053 EST. PATIENT, LEVEL III Diagnosis: Cervicalgia[ICD10: M54.2] Diagnosis: Bicipital tendinitis, right shoulder[ICD10: M75.21] Kathe Joseph MD, [facility] CPT-4: 28072 03/28/2018 [id number]) 20021 EST. 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 PATIENT, LEVEL III Diagnosis: Bicipital tendinitis, left shoulder[ICD10: M75.22] Diagnosis: Pain in right knee[ICD10: M25.561] Glenda Joseph MD, [facility] CPT-4: 03770 07/01/2017 ([id number]) 67820 EST. PATIENT, LEVEL III Diagnosis: Essential (primary) hypertension[ICD10: I10] Diagnosis: Chronic atrial fibrillation[ICD10: I48.2] [facility] CPT-4: 48807 05/13/2017 ([id number]) OFFICE VISIT, NEW - LEVEL 4 Diagnosis: Essential (primary) hypertension[ICD10: I10] Diagnosis: Chronic atrial fibrillation[ICD10: I48.2] Diagnosis: Gastro-esophageal reflux disease without esophagitis[ICD10: K21.9] [facility] CPT-4: 85245 04/12/2017 Plan of Care Planned Activity Notes Codes Status Date Visit Plan: Neck Pain- pt to start with aspercreme or biofreeze to neck three times daily and start neck exercises daily. Biceps tendinitis - pt to do exercises as directed, ant-inflammatories directed to be taken per RX instructions and pt to call if symptoms are not improved. 03/28/2018 Appointment: Kathe Avila WPtel: [address] [place], [place] [phone] (15 min) Moderate 03/28/2018 Patient Education: Patient [...] refilled paroxetine 11/26/2017 Appointment: Gemma Joseph WPtel: [address] [place], [place] [phone] [place] (15 min) Moderate 11/26/2017 Patient Education: Patient Medication Summary Completed 11/26/2017 Appointment: Gemma Joseph WPtel: [address] [place], [place] [phone] (15 min) Moderate 11/11/2017 Visit Plan: right [...] not improved. 07/01/2017 Appointment: [phone] (30 min) Complex 07/01/2017 Patient Education: Patient [...] rate controlled. 05/13/2017 [facility]ment: [phone] (15 min) Moderate 05/13/2017 Patient Education: Patient Medication Summary Completed 05/13/2017 Referral: Herbert Santana WPtel:[phone] Patient informed. Referral info faxed. Completed 04/29/2017 [...] not improving. Rx for omeprazole referral to [facility] 04/12/2017 Appointment: Gemma Joseph WPtel: [address] [place], [place] [address] New Patient 04/12/2017 Patient Education: Patient Medication Summary Completed 04/12/2017 Care Plan: Referral Order SNOMED-CT : [id number] Pending 04/12/2017 Referral: Herbert Max WPtel:[phone] Referral Appointment Requested Instructions Comment . Hypertension - well controlled - continue with current medications, continue with no added salt diet. Pt has been encouraged to exercise daily. The pt has been advised to call the office if there are any acute concerns about change in blood pressure readings at home. Chronic Afib - rate controlled. PT at [place] for neck and shoulder pain . Neck [...] not improving. Rx for omeprazole referral to [facility] for [facility] - look up on facebook . Hypertension - well controlled - continue [...]
--- OUTSIDE RECORDS SUMMARY | 2018-06-19 06:01 | XMS REPORT | CCD ---
Author Author Gemma Joseph Organization [facility] Address [address] [place] [address] Phone Care Team Providers Care Dba Developer Name Role Phone PP Unavailable CCM Unavailable Summary Purpose Interface Exchange Insurance Providers Payer name Policy type / Coverage type Covered green party ID Effective Begin Date Effective End Date WPS Medicare Part B Medicare Part B [id number] Unknown Cigna Medicare Part B [id number] Unknown Family History Family History data not found Social History Social History Element Codes Description Effective Dates Marital status Unknown 04/12/2017 Number of children Unknown 1 Ryan Dexter 04/12/[address]: 4910536 Former smoker Quit 01-31-16 04/12/[address]: 748447 Currently drinks alcohol 04/12/2017 Allergies, Adverse Reactions, [...] Relief 50 mcg/actuation nasal spray, suspension RxNorm: 2444059 2 [place] NASAL daily 04/24/2018 No Stop Date Active Voltaren 1 % topical gel RxNorm: 916520 4 Gram(s) TOP QID 04/0205/01/2018 Active wants watts check Keflex 500 mg capsule RxNorm: 030249 1 Capsule(s) PO TID 201703/30/2018 Inactive Keflex 500 mg capsule RxNorm: 538968 1 Capsule(s) PO TID 201704/06/2018 Inactive Voltaren 1 % topical gel RxNorm: 062767 4 Gram(s) TOP QID 03/2804/01/2018 Inactive paroxetine 40 mg tablet RxNorm: 4150471 1 Tablet(s) PO daily 06/23/2018 Active Voltaren 1 % topical gel RxNorm: 680946 1 Application TOP BID 07/01/2017 03/27/2018 Inactive Penlac 8 % topical solution RxNorm: 509131 1 Application TOP daily to affected nails 05/15/2017 10/11/2017 Inactive Penlac 8 % topical solution RxNorm: 107178 1 Application TOP daily 05/15/2017 05/14/2017 Inactive omeprazole 20 mg capsule,delayed release RxNorm: 555324 1 Capsule(s) PO QPM 04/12/2017 05/12/2017 Inactive Neurontin 100 mg capsule RxNorm: 483165 1 Capsule(s) PO BID 03/201811/07/2017 Inactive Paxil 20 mg tablet RxNorm: 975264 1 Tablet(s) PO daily 201711/07/2017 Inactive sotalol 240 mg tablet RxNorm: 036565 1/2 Tablet(s) PO BID No Start Date Active Eliquis 5 mg tablet RxNorm: 2529620 1 Tablet(s) PO BID No Start Date Active Protonix 40 mg tablet,delayed release RxNorm: 047413 1 Tablet(s) PO daily No Start Date Active atorvastatin 20 mg tablet RxNorm: 463828 1 Tablet(s) PO QPM No Start Date Active Zyrtec 10 mg tablet RxNorm: 9925370 1 Tablet(s) PO daily No Start Date [...] 32.8 pg 11/29/2017 Cbc With Differential Ord2 Drew% 10.3 % 11/29/2017 Cbc With Differential Ord2 [...] 1.20 K/ul 11/29/2017 Cbc With Differential Ord2 Drew ABS# 0.5 K/ul 11/29/2017 Cbc With Differential Ord2 Eos ABS# 0.1 K/ul 11/29/2017 Cbc With Differential Ord2 Baso ABS# 0.0 K/ul 11/29/2017 Tsh Ord6 TSH (3rd IS) 0.74 uIU/mL 11/29/2017 Comp Metabolic Wyx502 NA 139 mEq/L 11/29/2017 Comp Metabolic Dag935 K 4.3 mEq/L 11/29/2017 Comp Metabolic Mcw579 CL 102 mEq/L 11/29/2017 Comp Metabolic Omk721 CO2 30.0 mEq/L 11/29/2017 Comp Metabolic Fzq654 ANION GAP 11 11/29/2017 Comp Metabolic Xhv752 GLUCOSE 103 mg/dL 11/29/2017 Comp Metabolic Kdg642 Creat 0.7 mg/dL 11/29/2017 Comp Metabolic Uvp933 eGFR 86 ml/min/1.73m2 11/29/2017 Comp Metabolic Ctv826 BUN 12 mg/dL 11/29/2017 Comp Metabolic Bbq534 B/C Ratio 16.7 Ratio 11/29/2017 Comp Metabolic Yun066 CALCIUM 8.9 mg/dL 11/29/2017 Comp Metabolic Mwz154 ALK PHOS 47 U/L 11/29/2017 Comp Metabolic Mns325 AST(SGOT) 15 U/L 11/29/2017 Comp Metabolic Ftk395 ALT(SGPT) 13 U/L 11/29/2017 Comp Metabolic Cxr681 BILI T 0.8 mg/dL 11/29/2017 Comp Metabolic Hon790 ALBUMIN 3.8 g/dL 11/29/2017 Comp Metabolic Qrw750 TPRO 6.0 g/dL 11/29/2017 Comp Metabolic Jnm780 GLOB 2.3 g/dL 11/29/2017 Comp Metabolic Dsa370 A/G Ratio 1.7 Ratio 11/29/2017 Comp Metabolic Dqq486 Osmo 278 mOsmo 11/29/2017 Lipid Ord30 CHOL [...] Code : 8480-6 BMI: 30.7 Code : 83630-0 Heart Rate 1 : 108 bpm Height: 5'4" SpO2: 98% Weight: 179 lbs 03/28/2018 Blood Pressure 1: 130/72 Code : 8480-6 Heart Rate 1: 76 bpm Height: 5'4" SpO2: 99% 11/26/2017 Blood Pressure 1: 132/80 Code : 8480-6 BMI: 29.2 Code : 91747-5 Heart Rate 1 : 56 bpm Height: 5'4" SpO2: 96% Weight: 170 lbs 07/01/2017 Blood Pressure 1: 138/76 Code : 8480-6 BMI: 28.7 Code : 31159-7 Heart Rate 1 : 62 bpm Height: 5'4" SpO2: 97% Weight: 167 lbs 05/13/2017 Blood Pressure 1: 128/78 Code : 8480-6 BMI: 28.3 Code : 43313-7 Heart Rate 1 : 58 bpm Height: 5'4" SpO2: 98% Weight: 165 lbs 04/12/2017 Blood Pressure 1: 156/88 Code : 8480-6 BMI: 28.2 Code : 91403-1 Heart Rate 1 : 54 bpm Height: [...] data Encounters Encounter Performer Location Codes Date ([id number]) 20384 EST. PATIENT, LEVEL III Diagnosis: Cough[ICD10: R05] Diagnosis: Other allergic rhinitis[ICD10: J30.89] Kathe Joseph MD, [facility] CPT-4: 60339 04/24/2018 ([id number]) 15099 EST. PATIENT, LEVEL III Diagnosis: Cervicalgia[ICD10: M54.2] Diagnosis: Bicipital tendinitis, right shoulder[ICD10: M75.21] [facility] CPT-4: 72223 03/28/2018 ([id number]) 91437 EST. PATIENT, LEVEL IV Diagnosis: Essential (primary) hypertension[ICD10: I10] Diagnosis: Chronic atrial fibrillation[ICD10: I48.2] Diagnosis: Bicipital tendinitis, left shoulder[ICD10: M75.22] Diagnosis: Pain in right knee[ICD10: M25.561] Diagnosis: Major depressive disorder, recurrent, mild[ICD10: F33.0] Gemma Joseph MD, [facility] CPT-4: 84654 11/26/2017 59255 EST. PATIENT, LEVEL III Diagnosis: Bicipital tendinitis, left shoulder[ICD10: M75.22] Diagnosis: Pain in right knee[ICD10: M25.561] [facility] CPT-4: 94902 07/01/2017 ([id number]) 86300 EST. PATIENT, LEVEL III Diagnosis: Essential (primary) hypertension[ICD10: I10] Diagnosis: Chronic atrial fibrillation[ICD10: I48.2] Gemma Joseph MD, [facility] CPT-4: 95071 05/13/2017 ([id number]) OFFICE VISIT, NEW - LEVEL 4 Diagnosis: Essential (primary) hypertension[ICD10: I10] Diagnosis: Chronic atrial fibrillation[ICD10: I48.2] Diagnosis: Gastro-esophageal reflux disease without esophagitis[ICD10: K21.9] Gemma Joseph MD, [facility] CPT-4: 69508 04/12/2017 Plan of Care Planned Activity Notes [...] in the nasal steroid allergy spray. 04/24/2018 Patient Education: Patient Medication Summary Completed 04/24/2018 Visit Plan: Neck Pain- pt to start with aspercreme or biofreeze to neck three times daily and start neck exercises daily. Biceps tendinitis - pt to do exercises as directed, ant-inflammatories directed to be taken per RX instructions and pt to call if symptoms are not improved. 03/28/2018 Appointment: Kathe Avila WPtel: [phone] [phone] [place] (15 min) Moderate 03/28/2018 Patient [...] paroxetine 11/26/2017 Appointment: Gemma Joseph WPtel: [facility] [place] (15 min) Moderate 11/26/2017 Patient Education: Patient Medication Summary Completed 11/26/2017 Appointment: Gemma Joseph WPtel: [facility] (15 min) Moderate 11/11/2017 Visit Plan: right [...] improved. 07/01/2017 Appointment: Glenda Munoz WPtel: [facility] [place] (30 min) Complex 07/01/2017 Patient [...] controlled. 05/13/2017 [phone] ([facility] min[facility] Moderate 05/13/2017 Patient Education: Patient Medication Summary Completed 05/13/2017 Referral: Herbert Santana WPtel:[phone] Patient informed. Referral info faxed. Completed 04/29/2017 [...] for egd 04/12/2017 Appointment: Gemma Joseph [facility]Ptel[facility] [facility] 04/12/2017 Patient Education: Patient Medication Summary Completed 04/12/2017 Care Plan: Referral Order SNOMED-CT : [id number] Pending 04/12/2017 Referral: Herbert Santana WPtel:[phone] Referral Appointment Requested Instructions Comment . Hypertension - well controlled - continue with current medications, continue with no added salt diet. Pt has been encouraged to exercise daily. The pt has been advised to call the office if there are any acute concerns about change in blood pressure readings at home. Chronic Afib - rate controlled. PT at [place] for neck and shoulder pain . Neck [...] for omeprazole referral to owen for egd [facility] - look up on [employer] . Hypertension - well controlled - continue [...]
--- OUTSIDE RECORDS SUMMARY | 2018-06-19 06:02 | XMS REPORT | CCD ---
Author Author Gemma Joseph Organization [facility] Address [address] [place] [address] Phone Care Team Providers Care Supervisor Type Photography Name Role Phone PP Unavailable CCM Unavailable Summary Purpose Interface Exchange Insurance Providers Payer name Policy type / Coverage type Covered republican ID Effective Begin Date Effective End Date WPS Medicare Part B Medicare Part B [id number] Unknown Cigna Medicare Part B [id number] Unknown Family History Family History data not found Social History Social History Element Codes Description Effective Dates Marital status Unknown 04/12/2017 Number of children Unknown 1 Ryan Dexter 04/12/[address]: 4350608 Former smoker Quit 01-31-16 04/12/[address]: 944874 Currently drinks alcohol 04/12/2017 Allergies, Adverse Reactions, [...] Instructions Voltaren 1 % topical gel RxNorm: 931890 4 Gram(s) TOP QID 04/0205/01/2018 Active wants watts check Keflex 500 mg capsule RxNorm: 518052 1 Capsule(s) PO TID 201704/06/2018 Active Keflex 500 mg capsule RxNorm: 727364 1 Capsule(s) PO TID 201703/30/2018 Inactive Voltaren 1 % topical gel RxNorm: 383239 4 Gram(s) TOP QID 03/2804/01/2018 Inactive paroxetine 40 mg tablet RxNorm: 2012583 1 Tablet(s) PO daily 06/23/2018 Active Voltaren 1 % topical gel RxNorm: 746679 1 Application TOP BID 07/01/2017 03/27/2018 Inactive Penlac 8 % topical solution RxNorm: 802417 1 Application TOP daily to affected nails 05/15/2017 10/11/2017 Inactive Penlac 8 % topical solution RxNorm: 580994 1 Application TOP daily 05/15/2017 05/14/2017 Inactive omeprazole 20 mg capsule,delayed release RxNorm: 691306 1 Capsule(s) PO QPM 04/12/2017 05/12/2017 Inactive Neurontin 100 mg capsule RxNorm: 025655 1 Capsule(s) PO BID 03/201811/07/2017 Inactive Paxil 20 mg tablet RxNorm: 351171 1 Tablet(s) PO daily 201711/07/2017 Inactive sotalol 240 mg tablet RxNorm: 916808 1/2 Tablet(s) PO BID No Start Date Active Eliquis 5 mg tablet RxNorm: 7684218 1 Tablet(s) PO BID No Start Date Active Protonix 40 mg tablet,delayed release RxNorm: 101109 1 Tablet(s) PO daily No Start Date Active atorvastatin 20 mg tablet RxNorm: 296891 1 Tablet(s) PO QPM No Start Date Active Zyrtec 10 mg tablet RxNorm: 8036094 1 Tablet(s) PO daily No Start Date [...] 32.8 pg 11/29/2017 Cbc With Differential Ord2 Parke% 10.3 % 11/29/2017 Cbc With Differential Ord2 [...] 1.20 K/ul 11/29/2017 Cbc With Differential Ord2 [place]ke ABS# 0.5 K/ul 11/29/2017 Cbc With Differential Ord2 Eos ABS# 0.1 K/ul 11/29/2017 Cbc With Differential Ord2 Baso ABS# 0.0 K/ul 11/29/2017 Tsh Ord6 TSH (3rd IS) 0.74 uIU/mL 11/29/2017 Comp Metabolic Buj147 NA 139 mEq/L 11/29/2017 Comp Metabolic Auq466 K 4.3 mEq/L 11/29/2017 Comp Metabolic Mpf587 CL 102 mEq/L 11/29/2017 Comp Metabolic Rqe216 CO2 30.0 mEq/L 11/29/2017 Comp Metabolic Ozy874 ANION GAP 11 11/29/2017 Comp Metabolic Oku397 GLUCOSE 103 mg/dL 11/29/2017 Comp Metabolic Hwa724 Creat 0.7 mg/dL 11/29/2017 Comp Metabolic Uhf070 eGFR 86 ml/min/1.73m2 11/29/2017 Comp Metabolic Gew446 BUN 12 mg/dL 11/29/2017 Comp Metabolic Ulw502 B/C Ratio 16.7 Ratio 11/29/2017 Comp Metabolic Hky175 CALCIUM 8.9 mg/dL 11/29/2017 Comp Metabolic Yjj432 ALK PHOS 47 U/L 11/29/2017 Comp Metabolic Cnh619 AST(SGOT) 15 U/L 11/29/2017 Comp Metabolic Zhd557 ALT(SGPT) 13 U/L 11/29/2017 Comp Metabolic Zhq558 BILI T 0.8 mg/dL 11/29/2017 Comp Metabolic Cgi567 ALBUMIN 3.8 g/dL 11/29/2017 Comp Metabolic Gcm923 TPRO 6.0 g/dL 11/29/2017 Comp Metabolic Tlu885 GLOB 2.3 g/dL 11/29/2017 Comp Metabolic Qhd009 A/G Ratio 1.7 Ratio 11/29/2017 Comp Metabolic Onk474 Osmo 278 mOsmo 11/29/2017 Lipid Ord30 CHOL [...] Code : 8480-6 BMI: 29.2 Code : 86204-0 Heart Rate 1 : 56 bpm Height: 5'4" SpO2: 96% Weight: 170 lbs 07/01/2017 Blood Pressure 1: 138/76 Code : 8480-6 BMI: 28.7 Code : 03182-8 Heart Rate 1 : 62 bpm Height: 5'4" SpO2: 97% Weight: 167 lbs 05/13/2017 Blood Pressure 1: 128/78 Code : 8480-6 BMI: 28.3 Code : 35476-1 Heart Rate 1 : 58 bpm Height: 5'4" SpO2: 98% Weight: 165 lbs 04/12/2017 Blood Pressure 1: 156/88 Code : 8480-6 BMI: 28.2 Code : 24450-2 Heart Rate 1 : 54 bpm Height: [...] data Encounters Encounter Performer Location Codes Date ([id number]) 18952 EST. PATIENT, LEVEL III Diagnosis: Cervicalgia[ICD10: M54.2] Diagnosis: Bicipital tendinitis, right shoulder[ICD10: M75.21] Kathe Joseph MD, [facility] CPT-4: 34800 03/28/2018 [id number]) 34028 EST. PATIENT, LEVEL IV Diagnosis: Essential (primary) hypertension[ICD10: I10] Diagnosis: Chronic atrial fibrillation[ICD10: I48.2] Diagnosis: Bicipital tendinitis, left shoulder[ICD10: M75.22] Diagnosis: Pain in right knee[ICD10: M25.561] Diagnosis: Major depressive disorder, recurrent, mild[ICD10: F33.0] Gemma Joseph MD, [facility] CPT-4: 37119 11/26/2017 36911 EST. PATIENT, LEVEL III Diagnosis: Bicipital tendinitis, left shoulder[ICD10: M75.22] Diagnosis: Pain in right knee[ICD10: M25.561] Glenda Joseph MD, [facility] CPT-4: 96162 07/01/2017 ([id number]) 12476 EST. PATIENT, LEVEL III Diagnosis: Essential (primary) hypertension[ICD10: I10] Diagnosis: Chronic atrial fibrillation[ICD10: I48.2] [facility] CPT-4: 41488 05/13/2017 ([id number]) OFFICE VISIT, NEW - LEVEL 4 Diagnosis: Essential (primary) hypertension[ICD10: I10] Diagnosis: Chronic atrial fibrillation[ICD10: I48.2] Diagnosis: Gastro-esophageal reflux disease without esophagitis[ICD10: K21.9] [facility] CPT-4: 42130 04/12/2017 Plan of Care Planned Activity Notes Codes Status Date Visit Plan: Neck Pain- pt to start with aspercreme or biofreeze to neck three times daily and start neck exercises daily. Biceps tendinitis - pt to do exercises as directed, ant-inflammatories directed to be taken per RX instructions and pt to call if symptoms are not improved. 03/28/2018 Appointment: Kathe Avila WPtel: [address] [place], [place] [phone] (15 min) Moderate 03/28/2018 Patient Education: Patient [...] refilled paroxetine 11/26/2017 Appointment: Gemma Joseph WPtel: [address] [place], [place] [phone] [place] (15 min) Moderate 11/26/2017 Patient Education: Patient Medication Summary Completed 11/26/2017 Appointment: Gemma Joseph WPtel: [address] [place], [place] [address] (15 min) Moderate 11/11/2017 Visit Plan: [...] not improved. 07/01/2017 App[facility]ment: [phone] (30 min) Complex 07/01/2017 Patient Education: [...] rate controlled. 05/13/2017 App[facility]ment: [phone] (15 min) Moderate 05/13/2017 Patient Education: Patient Medication Summary Completed 05/13/2017 Referral: Herbert Santana WPtel:[phone] Patient informed. Referral info faxed. Completed 04/29/2017 [...] for egd 04/12/2017 Appointment: Gemma Joseph WPtel: [address] [place], [place] [address] New Patient 04/12/2017 Patient Education: Patient Medication Summary Completed 04/12/2017 Care Plan: Referral Order SNOMED-CT : [id number] Pending 04/12/2017 Referral: Herbert Max WPtel:[phone] Referral Appointment Requested Instructions Comment . Hypertension - well controlled - continue with current medications, continue with no added salt diet. Pt has been encouraged to exercise daily. The pt has been advised to call the office if there are any acute concerns about change in blood pressure readings at home. Chronic Afib - rate controlled. PT at [place] for neck and shoulder pain . Neck [...]
--- OUTSIDE RECORDS SUMMARY | 2018-06-19 06:03 | XMS REPORT | CCD ---
Author Author Gemma Joseph Organization [facility] Address [address] [place] [address] Phone Care Team Providers Care Geneticist Name Role Phone PP Unavailable CCM Unavailable Summary Purpose Interface Exchange Insurance Providers Payer name Policy type / Coverage type Covered constitution party ID Effective Begin Date Effective End Date WPS Medicare Part B Medicare Part B [id number] Unknown Cigna Medicare Part B [id number] Unknown Family History Family History data not found Social History Social History Element Codes Description Effective Dates Marital status Unknown 04/12/2017 Number of children Unknown 1 Ryan Dexter 04/12/[address]: 7467736 Former smoker Quit 01-31-16 04/12/[address]: 252857 Currently drinks alcohol 04/12/2017 Allergies, Adverse Reactions, [...] Instructions Voltaren 1 % topical gel RxNorm: 156972 4 Gram(s) TOP QID 03/2804/26/2018 Active paroxetine 40 mg tablet RxNorm: 3994691 1 Tablet(s) PO daily 06/23/2018 Active Voltaren 1 % topical gel RxNorm: 675423 1 Application TOP BID 07/01/2017 03/27/2018 Inactive Penlac 8 % topical solution RxNorm: 977095 1 Application TOP daily to affected nails 05/15/2017 10/11/2017 Inactive Penlac 8 % topical solution RxNorm: 178046 1 Application TOP daily 05/15/2017 05/14/2017 Inactive omeprazole 20 mg capsule,delayed release RxNorm: 100786 1 Capsule(s) PO QPM 04/12/2017 05/12/2017 Inactive Neurontin 100 mg capsule RxNorm: 190213 1 Capsule(s) PO BID 03/201811/07/2017 Inactive Paxil 20 mg tablet RxNorm: 068944 1 Tablet(s) PO daily 201711/07/2017 Inactive sotalol 240 mg tablet RxNorm: 100565 1/2 Tablet(s) PO BID No Start Date Active Eliquis 5 mg tablet RxNorm: 3163878 1 Tablet(s) PO BID No Start Date Active Protonix 40 mg tablet,delayed release RxNorm: 318317 1 Tablet(s) PO daily No Start Date Active atorvastatin 20 mg tablet RxNorm: 020782 1 Tablet(s) PO QPM No Start Date Active Zyrtec 10 mg tablet RxNorm: 0307330 1 Tablet(s) PO daily No Start Date [...] 32.8 pg 11/29/2017 Cbc With Differential Ord2 Cloud% 10.3 % 11/29/2017 Cbc With Differential Ord2 [...] 1.20 K/ul 11/29/2017 Cbc With Differential Ord2 Cloud ABS# 0.5 K/ul 11/29/2017 Cbc With Differential Ord2 Eos ABS# 0.1 K/ul 11/29/2017 Cbc With Differential Ord2 Baso ABS# 0.0 K/ul 11/29/2017 Tsh Ord6 TSH (3rd IS) 0.74 uIU/mL 11/29/2017 Comp Metabolic Bib985 NA 139 mEq/L 11/29/2017 Comp Metabolic Pnd057 K 4.3 mEq/L 11/29/2017 Comp Metabolic Rme140 CL 102 mEq/L 11/29/2017 Comp Metabolic Mfg224 CO2 30.0 mEq/L 11/29/2017 Comp Metabolic Tfh537 ANION GAP 11 11/29/2017 Comp Metabolic Vsb122 GLUCOSE 103 mg/dL 11/29/2017 Comp Metabolic Adu166 Creat 0.7 mg/dL 11/29/2017 Comp Metabolic Kxe554 eGFR 86 ml/min/1.73m2 11/29/2017 Comp Metabolic Ymr571 BUN 12 mg/dL 11/29/2017 Comp Metabolic Pet301 B/C Ratio 16.7 Ratio 11/29/2017 Comp Metabolic Xrc914 CALCIUM 8.9 mg/dL 11/29/2017 Comp Metabolic Cyk920 ALK PHOS 47 U/L 11/29/2017 Comp Metabolic Rqh275 AST(SGOT) 15 U/L 11/29/2017 Comp Metabolic Mcf570 ALT(SGPT) 13 U/L 11/29/2017 Comp Metabolic Hiw531 BILI T 0.8 mg/dL 11/29/2017 Comp Metabolic Axm717 ALBUMIN 3.8 g/dL 11/29/2017 Comp Metabolic Bvx398 TPRO 6.0 g/dL 11/29/2017 Comp Metabolic Goe773 GLOB 2.3 g/dL 11/29/2017 Comp Metabolic Qto162 A/G Ratio 1.7 Ratio 11/29/2017 Comp Metabolic Mxz157 Osmo 278 mOsmo 11/29/2017 Lipid Ord30 CHOL [...] accomodation 05/13/2017 None Full Exam - General 1995 Ears/Nose/Throat otoscopic exam Overall: external auditory canals clear 05/13/2017 None Full Exam - General 1995 Ears/Nose/Throat otoscopic exam Overall: tympanic membranes clear 05/13/2017 None Full Exam - General 1994 Ears/Nose/Throat lips/teeth/gingiva Overall: benign lips 05/13/2017 None Full Exam - General 1995 Ears/Nose/Throat lips/teeth/gingiva Overall: normal dentition 05/13/2017 None [...] Code : 8480-6 BMI: 29.2 Code : 83022-7 Heart Rate 1 : 56 bpm Height: 5'4" SpO2: 96% Weight: 170 lbs 07/01/2017 Blood Pressure 1: 138/76 Code : 8480-6 BMI: 28.7 Code : 81459-8 Heart Rate 1 : 62 bpm Height: 5'4" SpO2: 97% Weight: 167 lbs 05/13/2017 Blood Pressure 1: 128/78 Code : 8480-6 BMI: 28.3 Code : 38787-4 Heart Rate 1 : 58 bpm Height: 5'4" SpO2: 98% Weight: 165 lbs 04/12/2017 Blood Pressure 1: 156/88 Code : 8480-6 BMI: 28.2 Code : 09311-5 Heart Rate 1 : 54 bpm Height: [...] data Encounters Encounter Performer Location Codes Date ([id number]) 90960 EST. PATIENT, LEVEL III Diagnosis: Cervicalgia[ICD10: M54.2] Diagnosis: Bicipital tendinitis, right shoulder[ICD10: M75.21] Kathe Joseph MD, [facility] CPT-4: 96444 03/28/2018 [id number]) 81439 EST. PATIENT, LEVEL IV Diagnosis: Essential (primary) hypertension[ICD10: I10] Diagnosis: Chronic atrial fibrillation[ICD10: I48.2] Diagnosis: Bicipital tendinitis, left shoulder[ICD10: M75.22] Diagnosis: Pain in right knee[ICD10: M25.561] Diagnosis: Major depressive disorder, recurrent, mild[ICD10: F33.0] Gemma Joseph MD, [facility] CPT-4: 81222 11/26/2017 37577 EST. PATIENT, LEVEL III Diagnosis: Bicipital tendinitis, left shoulder[ICD10: M75.22] Diagnosis: Pain in right knee[ICD10: M25.561] Glenda Joseph MD, [facility] CPT-4: 64856 07/01/2017 [id number]) 71904 EST. PATIENT, LEVEL III Diagnosis: Essential (primary) hypertension[ICD10: I10] Diagnosis: Chronic atrial fibrillation[ICD10: I48.2] Gemma Joseph MD, [facility] CPT-4: 18229 05/13/2017 ([id number]) OFFICE VISIT, NEW - LEVEL 4 Diagnosis: Essential (primary) hypertension[ICD10: I10] Diagnosis: Chronic atrial fibrillation[ICD10: I48.2] Diagnosis: Gastro-esophageal reflux disease without esophagitis[ICD10: K21.9] [facility] CPT-4: 48385 04/12/2017 Plan of Care Planned Activity Notes Codes Status Date Visit Plan: Neck Pain- pt to start with aspercreme or biofreeze to neck three times daily and start neck exercises daily. Biceps tendinitis - pt to do exercises as directed, ant-inflammatories directed to be taken per RX instructions and pt to call if symptoms are not improved. 03/28/2018 Patient Education: Patient Medication Summary Completed [...] refilled paroxetine 11/26/2017 Appointment: Gemma Joseph WPtel: [facility] (15 min) Moderate 11/26/2017 Patient Education: Patient Medication Summary Completed 11/26/2017 Appointment: Gemma Joseph WPtel: [facility] [place] (15 min) Moderate 11/11/2017 Visit Plan: right [...] not improved. 07/01/2017 Appointment: Glenda Munoz WPtel: [facility] (30 min) Complex 07/01/2017 Patient Education: Patient [...] rate controlled. 05/13/2017 [facility]ment: [phone] (15 min) Moderate 05/13/2017 Patient Education: Patient Medication Summary Completed 05/13/2017 Referral: Herbert Santana WPtel:[phone] Patient informed. Referral info faxed. Completed 04/29/2017 [...] egd 04/12/2017 Appointment: [phone] [facility] [facility] 04/12/2017 Patient Education: Patient Medication Summary Completed 04/12/2017 Care Plan: Referral Order SNOMED-CT : [id number] Pending 04/12/2017 Referral: Herbert Santana WPtel:[phone] Referral Appointment Requested Instructions Comment . Hypertension - well controlled - continue with current medications, continue with no added salt diet. Pt has been encouraged to exercise daily. The pt has been advised to call the office if there are any acute concerns about change in blood pressure readings at home. Chronic Afib - rate controlled. PT at [place] for neck and shoulder pain . Neck [...] for omeprazole referral to owen for egd [facility] - look up on [employer] . Hypertension - well controlled - continue [...]
--- OUTSIDE RECORDS SUMMARY | 2018-06-19 06:03 | XMS REPORT | CCD ---
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 Phone PP Unavailable CCM Unavailable Summary Purpose Interface Exchange Insurance Providers Payer name Policy type / Coverage type Covered constitution party ID Effective Begin Date Effective End Date WPS Medicare Part B Medicare Part B [id number] Unknown Cigna Medicare Part B [id number] Unknown Family History Family History data not found Social History Social History Element Codes Description Effective Dates Marital status Unknown 04/12/2017 Number of children Unknown 1 Ryan Dexter 04/12/[address]: 4812617 Former smoker Quit 01-31-16 04/12/[address]: 690899 Currently drinks alcohol 04/12/2017 Allergies, Adverse Reactions, [...] Start Date Stop Date Status Fill Instructions Keflex 500 mg capsule RxNorm: 141301 1 Capsule(s) PO TID 201704/06/2018 Active Keflex 500 mg capsule RxNorm: 984535 1 Capsule(s) PO TID 201703/30/2018 Inactive Voltaren 1 % topical gel RxNorm: 305307 4 Gram(s) TOP QID 03/2804/26/2018 Active paroxetine 40 mg tablet RxNorm: 8289790 1 Tablet(s) PO daily 06/23/2018 Active Voltaren 1 % topical gel RxNorm: 014040 1 Application TOP BID 07/01/2017 03/27/2018 Inactive Penlac 8 % topical solution RxNorm: 302147 1 Application TOP daily to affected nails 05/15/2017 10/11/2017 Inactive Penlac 8 % topical solution RxNorm: 013720 1 Application TOP daily 05/15/2017 05/14/2017 Inactive omeprazole 20 mg capsule,delayed release RxNorm: 144903 1 Capsule(s) PO QPM 04/12/2017 05/12/2017 Inactive Neurontin 100 mg capsule RxNorm: 274542 1 Capsule(s) PO BID 03/201811/07/2017 Inactive Paxil 20 mg tablet RxNorm: 332666 1 Tablet(s) PO daily 201711/07/2017 Inactive sotalol 240 mg tablet RxNorm: 691008 1/2 Tablet(s) PO BID No Start Date Active Eliquis 5 mg tablet RxNorm: 5375736 1 Tablet(s) PO BID No Start Date Active Protonix 40 mg tablet,delayed release RxNorm: 939078 1 Tablet(s) PO daily No Start Date Active atorvastatin 20 mg tablet RxNorm: 482591 1 Tablet(s) PO QPM No Start Date Active Zyrtec 10 mg tablet RxNorm: 3394531 1 Tablet(s) PO daily No Start Date [...] 32.8 pg 11/29/2017 Cbc With Differential Ord2 Yolo% 10.3 % 11/29/2017 Cbc With Differential Ord2 [...] 1.20 K/ul 11/29/2017 Cbc With Differential Ord2 Yolo ABS# 0.5 K/ul 11/29/2017 Cbc With Differential Ord2 Eos ABS# 0.1 K/ul 11/29/2017 Cbc With Differential Ord2 Baso ABS# 0.0 K/ul 11/29/2017 Tsh Ord6 TSH (3rd IS) 0.74 uIU/mL 11/29/2017 Comp Metabolic Wpg418 NA 139 mEq/L 11/29/2017 Comp Metabolic Igo590 K 4.3 mEq/L 11/29/2017 Comp Metabolic Ncm775 CL 102 mEq/L 11/29/2017 Comp Metabolic Pdx447 CO2 30.0 mEq/L 11/29/2017 Comp Metabolic Iux352 ANION GAP 11 11/29/2017 Comp Metabolic Dih738 GLUCOSE 103 mg/dL 11/29/2017 Comp Metabolic Vks600 Creat 0.7 mg/dL 11/29/2017 Comp Metabolic Osz098 eGFR 86 ml/min/1.73m2 11/29/2017 Comp Metabolic Zpb547 BUN 12 mg/dL 11/29/2017 Comp Metabolic Nok262 B/C Ratio 16.7 Ratio 11/29/2017 Comp Metabolic Kju993 CALCIUM 8.9 mg/dL 11/29/2017 Comp Metabolic Kkl868 ALK PHOS 47 U/L 11/29/2017 Comp Metabolic Ajn542 AST(SGOT) 15 U/L 11/29/2017 Comp Metabolic Kjx690 ALT(SGPT) 13 U/L 11/29/2017 Comp Metabolic Epo313 BILI T 0.8 mg/dL 11/29/2017 Comp Metabolic Wsk062 ALBUMIN 3.8 g/dL 11/29/2017 Comp Metabolic Pbo143 TPRO 6.0 g/dL 11/29/2017 Comp Metabolic Gxx168 GLOB 2.3 g/dL 11/29/2017 Comp Metabolic Vjq335 A/G Ratio 1.7 Ratio 11/29/2017 Comp Metabolic Wvy495 Osmo 278 mOsmo 11/29/2017 Lipid Ord30 CHOL [...] Code : 8480-6 BMI: 29.2 Code : 52169-4 Heart Rate 1 : 56 bpm Height: 5'4" SpO2: 96% Weight: 170 lbs 07/01/2017 Blood Pressure 1: 138/76 Code : 8480-6 BMI: 28.7 Code : 10556-4 Heart Rate 1 : 62 bpm Height: 5'4" SpO2: 97% Weight: 167 lbs 05/13/2017 Blood Pressure 1: 128/78 Code : 8480-6 BMI: 28.3 Code : 55071-7 Heart Rate 1 : 58 bpm Height: 5'4" SpO2: 98% Weight: 165 lbs 04/12/2017 Blood Pressure 1: 156/88 Code : 8480-6 BMI: 28.2 Code : 32127-6 Heart Rate 1 : 54 bpm Height: [...] data Encounters Encounter Performer Location Codes Date () 88764 EST. PATIENT, LEVEL III Diagnosis: Cervicalgia[ICD10: M54.2] Diagnosis: Bicipital tendinitis, right shoulder[ICD10: M75.21] Kathe Joseph MD, [facility] CPT-4: 97930 03/28/2018 [id number]) 72435 EST. PATIENT, LEVEL IV Diagnosis: Essential (primary) hypertension[ICD10: I10] Diagnosis: Chronic atrial fibrillation[ICD10: I48.2] Diagnosis: Bicipital tendinitis, left shoulder[ICD10: M75.22] Diagnosis: Pain in right knee[ICD10: M25.561] Diagnosis: Major depressive disorder, recurrent, mild[ICD10: F33.0] Gemma Joseph MD, [facility] CPT-4: 70950 11/26/2017 29970 EST. PATIENT, LEVEL III Diagnosis: Bicipital tendinitis, left shoulder[ICD10: M75.22] Diagnosis: Pain in right knee[ICD10: M25.561] Glenda Joseph MD, [facility] CPT-4: 10203 07/01/2017 [id number]) 97825 EST. PATIENT, LEVEL III Diagnosis: Essential (primary) hypertension[ICD10: I10] Diagnosis: Chronic atrial fibrillation[ICD10: I48.2] [facility] CPT-4: 55510 05/13/2017 ([id number]) OFFICE VISIT, NEW - LEVEL 4 Diagnosis: Essential (primary) hypertension[ICD10: I10] Diagnosis: Chronic atrial fibrillation[ICD10: I48.2] Diagnosis: Gastro-esophageal reflux disease without esophagitis[ICD10: K21.9] [facility] CPT-4: 94400 04/12/2017 Plan of Care Planned Activity Notes Codes Status Date Visit Plan: Neck Pain- pt to start with aspercreme or biofreeze to neck three times daily and start neck exercises daily. Biceps tendinitis - pt to do exercises as directed, ant-inflammatories directed to be taken per RX instructions and pt to call if symptoms are not improved. 03/28/2018 Appointment: Kathe Avila WPtel: [phone] [place] (15 min) Moderate 03/28/2018 Patient [...] refilled paroxetine 11/26/2017 Appointment: Gemma Joseph WPtel: [facility] [place] (15 min) Moderate 11/26/2017 Patient Education: Patient Medication Summary Completed 11/26/2017 Appointment: Gemma Joseph WPtel: [facility] [place] (15 min) Moderate 11/11/2017 Visit Plan: [...] improved. 07/01/2017 Appointment: Glenda Munoz WPtel: [phone] [facility] (30 min) Complex 07/01/2017 Patient Education: Patient [...] rate controlled. 05/13/2017 Appointment: Gemma Joseph WPtel: [facility] (15 min) Moderate 05/13/2017 Patient Education: Patient Medication Summary Completed 05/13/2017 Referral: Herbert Santana WPtel:[phone] Patient informed. Referral info faxed. Completed 04/29/2017 [...] for egd 04/12/2017 Appointment: Gemma Joseph WPtel: [facility] New Patient 04/12/2017 Patient Education: Patient Medication Summary Completed 04/12/2017 Care Plan: Referral Order SNOMED-CT : 022734343 Pending 04/12/2017 Referral: Herbert Santana WPtel:[phone] Referral Appointment Requested Instructions Comment . Hypertension - well controlled - continue with current medications, continue with no added salt diet. Pt has been encouraged to exercise daily. The pt has been advised to call the office if there are any acute concerns about change in blood pressure readings at home. Chronic Afib - rate controlled. PT at [facility] for neck and shoulder pain . Neck [...] omeprazole referral to owen for egd [facility] - look up on [facility] . Hypertension - well controlled - continue [...]
--- OUTSIDE RECORDS SUMMARY | 2018-06-19 06:04 | XMS REPORT ---
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 Name Role Phone ANA RAINES Unavailable PROBLEMS Unknown Problems ALLERGIES No Information ENCOUNTERS Encounter Location Date Diagnosis [facility] [address], [place] [address] Nov, [facility] [id number], [place] [id number] Sep, Dental examination Z01.20 [facility] [address], [place] [address] May, 2016 Acute suppurative otitis media of right ear without spontaneous rupture of tympanic membrane, recurrence not specified H66.001 IMMUNIZATIONS No Known Immunizations SOCIAL HISTORY Never Assessed REASON FOR VISIT Requests return call PLAN OF CARE VITAL SIGNS MEDICATIONS Unknown Medications RESULTS No Results PROCEDURES No Known procedures INSTRUCTIONS MEDICATIONS ADMINISTERED No Known Medications MEDICAL (GENERAL) HISTORY Type Description Date Hospitalization History TIA Jan 31, 2016
--- OUTSIDE RECORDS SUMMARY | 2018-06-19 06:04 | XMS REPORT | CCD ---
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 Name Role Phone PP Unavailable CCM Unavailable Summary Purpose Interface Exchange Insurance Providers Payer name Policy type / Coverage type Covered libertarian ID Effective Begin Date Effective End Date WPS Medicare Part B Medicare Part B [id number] 2017 Unknown Cigna Medicare Part B [id number] 2017 Unknown Family History Family History data not found Social History Social History Element Codes Description Effective Dates Marital status Unknown 04/12/2017 Number of children Unknown 1 Ryan Dexter 04/12/[address]: 8703559 Former smoker Quit 01-31-16 04/12/[address]: 831084 Currently drinks alcohol 04/12/2017 Allergies, Adverse Reactions, [...] Start Date Stop Date Status Fill Instructions Neurontin 100 mg capsule RxNorm: 005141 1 Capsule(s) PO BID 03/201811/07/2017 Active Paxil 20 mg tablet RxNorm: 437243 1 Tablet(s) PO daily 201711/07/2017 Active omeprazole 20 mg capsule,delayed release RxNorm: 907900 1 Capsule(s) PO QPM 04/12/2017 05/12/2017 Inactive sotalol 240 mg tablet RxNorm: 968582 1/2 Tablet(s) PO BID No Start Date Active Eliquis 5 mg tablet RxNorm: 5288886 1 Tablet(s) PO BID No Start Date Active Protonix 40 mg tablet,delayed release RxNorm: 186892 1 Tablet(s) PO daily No Start Date Active atorvastatin 20 mg tablet RxNorm: 888676 1 Tablet(s) PO QPM No Start Date Active Medication Administered No Medication Administered data Immunizations No Immunization data Assessments Condition Codes Effective Dates Chronic atrial fibrillation ICD-10: I48.2 ICD-9: 427.31 05/13/2017 Essential (primary) hypertension ICD-10: I10 ICD-9: 401.1 05/13/2017 Gastro-esophageal reflux disease without esophagitis ICD-10 : K21.9 ICD-9: 530.81 04/12/2017 Reason For Visit Reason For Visit Effective Dates Notes hypertension 05/13/2017 hypertension 04/12/2017 Results No Results data Review [...] dentition 05/13/2017 None Full Exam - General 1995 Ears/Nose/Throat oral cavity/pharynx/larynx Overall: oral mucosa clear [...] No Procedures data Vital Signs Date Vital 05/13/2017 Blood Pressure 1: 128/78 Code : 8480-6 BMI: 28.3 Code : 58977-7 Heart Rate 1 : 58 bpm Height: 5'4" SpO2: 98% Weight: 165 lbs 04/12/2017 Blood Pressure 1: 156/88 Code : 8480-6 BMI: 28.2 Code : 78713-2 Heart Rate 1 : 54 bpm Height: 5'4" SpO2: 97% Weight: 164 lbs Functional Status No Functional Status data History of Present Illness Symptom Name Status Result Effective Date Notes hypertension Quality primary hypertension 05/13/2017 None hypertension [...] data Encounters Encounter Performer Location Codes Date ([id number]) 78598 EST. PATIENT, LEVEL III Diagnosis: Essential (primary) hypertension[ICD10: I10] Diagnosis: Chronic atrial fibrillation[ICD10: I48.2] [facility] CPT-4: 04135 05/13/2017 ([id number]) OFFICE VISIT, NEW - LEVEL 4 Diagnosis: Essential (primary) hypertension[ICD10: I10] Diagnosis: Chronic atrial fibrillation[ICD10: I48.2] Diagnosis: Gastro-esophageal reflux disease without esophagitis[ICD10: K21.9] [facility] CPT-4: 04289 04/12/2017 Plan of Care Planned Activity Notes Codes Status Date Visit Plan: Hypertension - well controlled - continue with current medications, continue with no added salt diet. Pt has been encouraged to exercise daily. The pt has been advised to call the office if there are any acute concerns about change in blood pressure readings at home. Chronic Afib - rate controlled. 05/13/2017 Patient Education: Patient Medication Summary Completed 05/13/2017 Referral: Herbert Santana WPtel:[phone] Patient informed. Referral info faxed. Completed 04/29/2017 [...] for egd 04/12/2017 Appointment: Gemma Joseph WPtel: [address] [place], [place] [address] New Patient 04/12/2017 Patient Education: Patient Medication Summary Completed 04/12/2017 Care Plan: Referral Order SNOMED-CT : 863067213 Pending 04/12/2017 Referral: Herbert Santana WPtel:[phone] Referral Appointment Requested Instructions Comment . Hypertension - well controlled - continue with current medications, continue with no added salt diet. Pt has been encouraged to exercise daily. The pt has been advised to call the office if there are any acute concerns about change in blood pressure readings at home. Chronic Afib - rate controlled. . Hypertension - uncontrolled - the patient's [...]
--- OUTSIDE RECORDS SUMMARY | 2018-06-19 06:04 | XMS REPORT | CCD ---
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 Name Role Phone PP Unavailable CCM Unavailable Summary Purpose Interface Exchange Insurance Providers Payer name Policy type / Coverage type Covered republican ID Effective Begin Date Effective End Date WPS Medicare Part B Medicare Part B [id number] 2017 Unknown Cigna Medicare Part B [id number] 2017 Unknown Family History Family History data not found Social History Social History Element Codes Description Effective Dates Marital status Unknown 04/12/2017 Number of children Unknown 1 Ryan Dexter 04/12/[address]: 6569928 Former smoker Quit 01-31-16 04/12/[address]: 383694 Currently drinks alcohol 04/12/2017 Allergies, Adverse Reactions, [...] Start Date Stop Date Status Fill Instructions Penlac 8 % topical solution RxNorm: 691270 1 Application TOP daily to affected nails 05/15/2017 10/11/2017 Active Penlac 8 % topical solution RxNorm: 042936 1 Application TOP daily 05/15/2017 05/14/2017 Inactive Neurontin 100 mg capsule RxNorm: 717795 1 Capsule(s) PO BID 03/201811/07/2017 Active Paxil 20 mg tablet RxNorm: 281137 1 Tablet(s) PO daily 201711/07/2017 Active omeprazole 20 mg capsule,delayed release RxNorm: 967108 1 Capsule(s) PO QPM 04/12/2017 05/12/2017 Inactive sotalol 240 mg tablet RxNorm: 058264 1/2 Tablet(s) PO BID No Start Date Active Eliquis 5 mg tablet RxNorm: 1257241 1 Tablet(s) PO BID No Start Date Active Protonix 40 mg tablet,delayed release RxNorm: 809132 1 Tablet(s) PO daily No Start Date Active atorvastatin 20 mg tablet RxNorm: 994892 1 Tablet(s) PO QPM No Start Date [...] Code : 8480-6 BMI: 28.3 Code : 32089-5 Heart Rate 1 : 58 bpm Height: 5'4" SpO2: 98% Weight: 165 lbs 04/12/2017 Blood Pressure 1: 156/88 Code : 8480-6 BMI: 28.2 Code : 01298-6 Heart Rate 1 : 54 bpm Height: [...] data Encounters Encounter Performer Location Codes Date (95948) 90347 EST. PATIENT, LEVEL III Diagnosis: Essential (primary) hypertension[ICD10: I10] Diagnosis: Chronic atrial fibrillation[ICD10: I48.2] [facility] CPT-4: 06671 05/13/2017 ([id number]) OFFICE VISIT, NEW - LEVEL 4 Diagnosis: Essential (primary) hypertension[ICD10: I10] Diagnosis: Chronic atrial fibrillation[ICD10: I48.2] Diagnosis: Gastro-esophageal reflux disease without esophagitis[ICD10: K21.9] [facility] CPT-4: 20750 04/12/2017 Plan of Care Planned Activity Notes [...] rate controlled. 05/13/2017 Appointment: Gemma Joseph WPtel: [facility]6 [facility] (15 min) Moderate 05/13/2017 Patient Education: Patient Medication Summary Completed 05/13/2017 Referral: Herbert Santana WPtel:[phone] Patient informed. Referral info faxed. Completed 04/29/2017 [...] for egd 04/12/2017 Appointment: Gemma Joseph WPtel: [facility] New Patient 04/12/2017 Patient Education: Patient Medication Summary Completed 04/12/2017 Care Plan: Referral Order SNOMED-CT : 602852242 Pending 04/12/2017 Referral: Herbert Santana WPtel:[phone] Referral Appointment Requested Instructions Comment . Hypertension [...]
--- OUTSIDE RECORDS SUMMARY | 2018-06-19 06:04 | XMS REPORT ---
Author Author ANA RAINES [facility] Address Unknown Care Team Providers Care Oral Therapist Name Role Phone ANA RAINES Unavailable PROBLEMS Unknown Problems ALLERGIES No Known Allergies ENCOUNTERS Encounter Location Date Diagnosis [facility] [address] [facility] [id number] [address] Nov, [facility] [address], [place] [id number] Sep, Dental examination Z01.20 [facility] [id number], [place] [address] May, Acute suppurative otitis media of right ear without spontaneous rupture of tympanic membrane, recurrence not specified H66.001 IMMUNIZATIONS No Known Immunizations SOCIAL HISTORY Never Assessed REASON FOR VISIT RAEGAN PLAN OF CARE Activity Details Follow Up prn Reason: VITAL SIGNS Heart Rate 55 bpm 2016-10-10 Blood pressure systolic 133 mmHg 2016-10-10 Blood pressure diastolic 82 mmHg 2016-10-10 MEDICATIONS Medication Instructions Dosage Frequency Start Date End Date Duration Status Sotalol HCl 80 MG Orally every 12 hrs 1 tablet 12h Active Wellbutrin Active Eliquis 2.5 MG Active [id number] 1 MG Active Mucinex 600 MG Orally every 12 hrs 1 tablet as needed 12h Active Vitamin D 1000 UNIT Orally Once a day 1 tablet 24h Active Probiotic - Active Arthritis Pain 650 MG Orally every 8 hrs 2 tablets as needed 8h Active RESULTS No Results PROCEDURES Procedure Date Ordered Result Body Site LTD ORAL EVALUATION - PROBLEM FOCUS October 10, 2016 INTRAORL-PERIAPICAL 1 FILM [id number] October 10, 2016 INSTRUCTIONS MEDICATIONS ADMINISTERED No Known Medications MEDICAL (GENERAL) HISTORY Type Description Date Hospitalization History TIA Jan 31, 2016
[2018-06-19 06:20] VITALS: BP 153/73
[2018-06-19] MEDS: LACTATED RINGERS 1,000 ML IV PRN ×2 (06:20→12:20)
[2018-06-19] MEDS ORDERED: ceFAZolin INJECTION 1,000 MG in WATER (STERILE) FOR INJECTION 10 ML IV ONE (06:45)
[2018-06-19] MEDS ORDERED: BUPIVACAINE 0.5% 30 ML (SENSORCAINE) VIAL ONE (10:29)
[2018-06-19] MEDS ORDERED: LIDOCAINE/EPI 1%-1:100,000 (XYLOCAINE) 20ML ONE (10:29)
--- NOTE | 2018-06-19 11:08 | Progress Note-Pre Operative ---
Pre-Operative Progress Note H&P Reviewed The H&P was reviewed, patient examined and no changes noted. Date Seen by Provider: Jun 19, 2018 Time Seen by Provider: 11:08 Date H&P Reviewed: Jun 19, 2018 Time H&P Reviewed: 11:08 Pre-Operative Diagnosis: lesion right cheek LEONEL ZENDEJAS DO Jun 19, 2018 11:08
[2018-06-19] MEDS ORDERED: MIDAZOLAM 2 MG/2 ML (VERSED) VIAL ONE (11:26)
[2018-06-19] MEDS ORDERED: fentaNYL INJECTION 100 MCG/2 ML AMP ONE (11:42)
[2018-06-19] MEDS ORDERED: NEO/POLY/BACI (NEOSPORIN) OPHTH OINT 3.5 GM ONE (11:53)
[2018-06-19] MEDS ORDERED: DEXAMETHASONE 10 MG/ML (DECADRON) 1 ML VIAL ONE (11:54)
[2018-06-19] MEDS ORDERED: proPOfol 200 MG/20 ML (DIPRIVAN) VIAL IV ONE (11:54)
[2018-06-19] MEDS ORDERED: PROPOFOL INJECTION 50 ML IV ONE (11:54)
[2018-06-19] MEDS ORDERED: ONDANSETRON 4 MG/2 ML (SDV) Z0FRAN ONE (11:54)
--- NOTE | 2018-06-19 12:07 | Progress Note-Post Operative ---
Post-Operative Progess Note Surgeon (s)/Bun Icer (s) Surgeon LEONEL ZENDEJAS DO Bun Icer: na Pre-Operative Diagnosis lesion right cheek Post-Operative Diagnosis same Procedure & Operative Findings Date of Procedure 06/19/18 Procedure Performed/Findings excision right cheek lesion 1.8x1cm Anesthesia Type gen Estimated Blood Loss Estimated blood loss (mL): min Specimens/Packing Specimens Removed skin lesion LEONEL ZENDEJAS DO Jun 19, 2018 12:07
--- NOTE | 2018-06-19 12:10 | Discharge Inst-Simple/Standard ---
Discharge Inst-Standard Discharge Medications New, Converted or Re-Newed RX: RX on Chart Patient Instructions/Follow Up Plan of Care/Instructions/FU: F/u Max on Saturday. Restart Eliquis in 2 days. Activity as Tolerated: Yes Discharge Diet: Regular Diet Other Inst to Patient Follow up Appt: Make appointment for 1 week. Instructions: No strenuous activity. May shower in 24 hours, no tub bath or soaking. Use incentive spirometer at home as directed. No Smoking Skin/Wound Care: Keep area clean and dry. Symptoms to Report: Appetite Changes, Extremity Discoloration, Numbness/Tingling, Swelling Increased , Bleeding Excessive, Eyesight Changes, Pain Increased, Urine Color Change, Constipation(Persistent), Fever over 101 degree F, Pain/Pressure in chest, Urinating Difficulty, Cough Up/Vomit Blood, Heart Beat Irreg/Pounding, Pain/ Pressure in jaw, Vaginal Bleeding Increase, Cramps in feet or legs, Lightheadedness, Pain/Pressure in shoulder, Diarrhea(Persistent), Memory Changes Suddenly, Questions/Concerns, Weight gain consecutive days, Dizziness/ Fainting, Nausea/Vomiting, Shortness of Breath, Weight gain over 2 pounds If questions or concerns contact your physician Or seek help at emergency department. LEONEL ZENDEJAS DO Jun 19, 2018 12:10
[2018-06-19 13:00] VITALS: BP 120/70
[2018-06-19 13:30] VITALS: BP 148/74
[2018-06-19 13:55] VITALS: BP 157/72
--- NOTE | 2018-06-19 14:22 | Anesthesia-General Post-Op ---
General Patient Condition Mental Status/LOC: Same as Preop Cardiovascular: Satisfactory Nausea/Vomiting: Absent Respiratory: Satisfactory Pain: Controlled Complications: Absent Post Op Complications Complications None Follow Up Care/Instructions Patient Instructions None needed. Anesthesia/Patient Condition Patient Condition Patient is doing well, no complaints, stable vital signs, no apparent adverse anesthesia problems. No complications reported per nursing. JOSELYN PERLA CRNA Jun 19, 2018 14:22
--- NOTE | 2018-06-19 16:17 | OPERATIVE REPORT ---
DATE OF SERVICE: 06/19/2018 PREOPERATIVE DIAGNOSIS: Skin lesion, right cheek. POSTOPERATIVE DIAGNOSIS: Skin lesion, right cheek. PROCEDURE: Excision of lesion right cheek, 1.8 x 1 cm. SURGEON: Leonel Santana DO. ANESTHESIA: General. ESTIMATED BLOOD LOSS: Minimal. COMPLICATIONS: None. INDICATIONS: The patient is a 67-year-old female with a slightly changing lesion on the right cheek. She understands risks and benefits of having it excised. She wishes to proceed. Consent was signed on the chart. DESCRIPTION OF PROCEDURE: The patient was taken to the operating suite. She was prepped and draped in a sterile fashion. Surgical pause was performed. Local anesthetic was used to infiltrate the area. A 15 blade scalpel was used to make an incision around the lesion 1.8 x 1 cm. Skin and subcutaneous tissue was then removed. Hemostasis was achieved. The skin was then closed using 5-0 Prolene in a simple interrupted fashion. The area was then washed and dried and a sterile bandage was applied. The patient tolerated the procedure well without any complications. She was taken to recovery in stable condition. Job ID: [id number] DocumentID: [id number] Dictated Date: 06/19/2018 12:13:30 Cube Cutter Date: 06/19/2018 16:16:22 Dictated By: LEONEL SANTANA DO
== END 2018-06-19 13:55 | disposition home or self-care (01) ==
LOC: SDC 05:53
PROVIDERS: ATTEND Surgery
DX: L73.8 Other specified follicular disorders (principal); I48.91 Unspecified atrial fibrillation; E78.5 Hyperlipidemia, unspecified; K21.9 Gastro-esophageal reflux disease without esophagitis; Z86.73 Personal history of transient ischemic attack (TIA), and cerebral infarction without residual deficits; Z87.891 Personal history of nicotine dependence; Z79.01 Long term (current) use of anticoagulants; Z79.899 Other long term (current) drug therapy
CPT/HCPCS: 87081; 88305

== ENCOUNTER → 2018-07-30 | Outpatient (CLI) | payer MEDICARE, OTHER | END | disposition home or self-care (01) | LOC: PREOP 05:41 | PROVIDERS: ATTEND Internal Medicine Interventional Cardiology | DX: Z01.818 Encounter for other preprocedural examination (principal) ==

== ENCOUNTER 2018-09-26 07:11 | Day surgery (SDC) | payer MEDICARE, OTHER ==
[~2018-09-26] VITALS: Ht 162.6 cm; Wt 79.4 kg
[2018-09-26] VITALS (22 sets, daily range): BP systolic 94–133; BP diastolic 41–84
[~2018-09-26 07:11] MED LIST changes: +HEParin (CATH LAB) 4,000 ML IV ONE; +HEParin 1000 UNIT/ML (10ML VIAL) FOR BOLUS ONE; +LIDOCAINE 1% INJ 20 ML 20 ML VIAL ONE; +NS IV 1000 ML 1,000 ML ONE
[2018-09-26] MEDS ORDERED: NS IV 1000 ML 1,000 ML IV SCH ×2 (07:14→14:10)
[2018-09-26] MEDS ORDERED: ISOPROTERENOL 0.2 MG/D5W 50 ML IV ONE (07:15)
--- OUTSIDE RECORDS SUMMARY | 2018-09-26 07:15 | XMS REPORT | CCD ---
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 Name Role Phone PP Unavailable CCM Unavailable Summary Purpose Interface Exchange Insurance Providers Payer name Policy type / Coverage type Covered democrat ID Effective Begin Date Effective End Date WPS Medicare Part B Medicare Part B [id number] Unknown Cigna Medicare Part B [id number] Unknown Family History Family History data not found Social History Social History Element Codes Description Effective Dates Marital status Unknown 04/12/2017 Number of children Unknown 1 Ryan Dexter 04/12/[address]: 2845981 Former smoker Quit 01-31-16 04/12/[address]: 146163 Currently drinks alcohol 04/12/2017 Allergies, Adverse Reactions, Alerts Substance Reaction Codes Entered Date Inactivated Date Status * NO KNOWN ENVIRONMENTAL ALLERGIES Unknown 04/12/2017 No Inactive Date Active * NO KNOWN FOOD ALLERGIES Unknown 04/12/2017 No Inactive Date Active * NO KNOWN DRUG ALLERGIES Unknown 04/12/2017 No Inactive Date Active Past Medical History Illness Codes Condition Status Onset Date Resolved Date Acute recurrent maxillary sinusitis ICD-9: 461.0 ICD-10: J01.01 Active 07/28/2018 Unknown Chronic atrial fibrillation ICD-9: 427.31 ICD-10: I48.2 Active 04/12/2017 Unknown Essential (primary) hypertension ICD-9: 401.1 ICD-10: I10 Active 04/12/2017 Unknown Mixed hyperlipidemia ICD- 9: 272.2 ICD-10: E78.2 Active 05/26/2018 Unknown Myalgia, other site ICD- 9: 729.1 ICD-10: M79.18 Active 05/26/2018 Unknown Encounter [...] Active 11/26/2017 Unknown Pain in right knee ICD- 9: 719.46 ICD-10: M25.561 Active 07/01/2017 Unknown Gastro-esophageal reflux disease without esophagitis ICD-9: 530.81 ICD-10: K21.9 Active 04/12/2017 Unknown Problems Condition Codes Effective Dates Condition Status Acute recurrent maxillary sinusitis ICD-9: 461.0 ICD-10: J01.01 07/28/2018 Active Chronic atrial fibrillation ICD-9: 427.31 ICD-10: I48.2 04/12/2017 Active Essential (primary) hypertension ICD-9: 401.1 ICD-10: I10 04/12/2017 Active Mixed hyperlipidemia ICD- 9: 272.2 ICD-10: E78.2 05/26/2018 Active Myalgia, other site ICD- 9: 729.1 ICD-10: M79.18 05/26/2018 Active Encounter for [...] F33.0 11/26/2017 Active Pain in right knee ICD- 9: 719.46 ICD-10: M25.561 07/01/2017 Active Gastro-esophageal reflux disease without esophagitis ICD-9: 530.81 ICD-10: K21.9 04/12/2017 Active Medications Medication Codes Instructions Start Date Stop Date Status Fill Instructions Flagyl 500 mg tablet RxNorm: 295591 1 Tablet(s) PO TID 08/04/2018 08/10/2018 Active Flagyl 500 mg tablet RxNorm: 895267 1 Tablet(s) PO TID 08/04/2018 08/03/2018 Inactive Flonase Allergy Relief 50 mcg/actuation nasal spray,suspension RxNorm: 7474076 2 [place] NASAL daily 07/28/2018 No Stop Date Active cefdinir 300 mg capsule RxNorm: 198209 1 Capsule(s) PO BID 07/28/2018 08/03/2018 Inactive coenzyme Q10 100 mg tablet RxNorm: 553962 1 Tablet(s) PO daily 05/26/2018 12/21/2018 Active Voltaren 1 % topical gel RxNorm: 196057 4 Gram(s) TOP QID 05/12/2018 08/09/2018 Active wants watts check Flonase Allergy Relief 50 mcg/actuation nasal spray,suspension RxNorm: 8772298 2 [place] NASAL daily 04/24/2018 07/27/2018 Inactive Voltaren 1 % topical gel RxNorm: 356436 4 Gram(s) TOP QID 04/02/2018 05/01/2018 Inactive wants watts check Keflex 500 mg capsule RxNorm: 390055 1 Capsule(s) PO TID 03/31/2018 03/30/2018 Inactive Keflex 500 mg capsule RxNorm: 024007 1 Capsule(s) PO TID 03/31/2018 04/06/2018 Inactive Voltaren 1 % topical gel RxNorm: 898172 4 Gram(s) TOP QID 03/28/2018 04/01/2018 Inactive paroxetine 40 mg tablet RxNorm: 2875775 1 Tablet(s) PO daily 11/26/2017 06/23/2018 Inactive Voltaren 1 % topical gel RxNorm: 798991 1 Application TOP BID 07/01/2017 03/27/2018 Inactive Penlac 8 % topical solution RxNorm: 045851 1 Application TOP daily to affected nails 05/15/2017 10/11/2017 Inactive Penlac 8 % topical solution RxNorm: 403479 1 Application TOP daily 05/15/2017 05/14/2017 Inactive omeprazole 20 mg capsule,delayed release RxNorm: 797631 1 Capsule(s) PO QPM 04/12/2017 05/12/2017 Inactive Neurontin 100 mg capsule RxNorm: 816573 1 Capsule(s) PO BID 04/12/2017 11/07/2017 Inactive Paxil 20 mg tablet RxNorm: 462944 1 Tablet(s) PO daily 04/12/2017 11/07/2017 Inactive sotalol 240 mg tablet RxNorm: 106530 1/2 Tablet(s) PO BID No Start Date Active Eliquis 5 mg tablet RxNorm: 0313444 1 Tablet(s) PO BID No Start Date Active atorvastatin 20 mg tablet RxNorm: 062301 1 Tablet(s) PO QPM No Start Date Active Protonix 40 mg tablet,delayed release RxNorm: 388190 1 Tablet(s) PO daily No Start Date 07/27/2018 Inactive Zyrtec 10 mg tablet RxNorm: 6429374 1 Tablet(s) PO daily No Start Date 07/27/2018 Inactive Medication Administered No Medication Administered data Immunizations No Immunization data Assessments Condition Codes Effective Dates Acute recurrent maxillary sinusitis ICD-10: J01.01 ICD-9: 461.0 07/28/2018 Mixed hyperlipidemia ICD-10: E78.2 ICD-9: 272.2 05/26/2018 [...] 296.31 11/26/2017 Gastro-esophageal reflux disease without esophagitis ICD-10: K21.9 ICD-9: 530.81 04/12/2017 Reason For Visit Reason For Visit Effective Dates Notes fatigue 07/28/2018 hypertension 05/26/2018 afib - goes to Dr. [...] 32.8 pg 11/29/2017 Cbc With Differential Ord2 [place]% 10.3 % 11/29/2017 Cbc With Differential Ord2 [...] 1.20 K/ul 11/29/2017 Cbc With Differential Ord2 [place] ABS# 0.5 K/ul 11/29/2017 Cbc With Differential Ord2 Eos ABS# 0.1 K/ul 11/29/2017 Cbc With Differential Ord2 Baso ABS# 0.0 K/ul 11/29/2017 Tsh Ord6 TSH (3rd IS) 0.74 uIU/mL 11/29/2017 Comp Metabolic Mek679 NA 139 mEq/L 11/29/2017 Comp Metabolic Fma671 K 4.3 mEq/L 11/29/2017 Comp Metabolic Vmz557 CL 102 mEq/L 11/29/2017 Comp Metabolic Ocu541 CO2 30.0 mEq/L 11/29/2017 Comp Metabolic Zuv772 ANION GAP 11 11/29/2017 Comp Metabolic Dze282 GLUCOSE 103 mg/dL 11/29/2017 Comp Metabolic Zkb876 Creat 0.7 mg/dL 11/29/2017 Comp Metabolic Xda841 eGFR 86 ml/min/1.73m2 11/29/2017 Comp Metabolic Kko240 BUN 12 mg/dL 11/29/2017 Comp Metabolic Pag298 B/C Ratio 16.7 Ratio 11/29/2017 Comp Metabolic Cbc039 CALCIUM 8.9 mg/dL 11/29/2017 Comp Metabolic Ozj718 ALK PHOS 47 U/L 11/29/2017 Comp Metabolic Fae664 AST(SGOT) 15 U/L 11/29/2017 Comp Metabolic Dlf778 ALT(SGPT) 13 U/L 11/29/2017 Comp Metabolic Vah569 BILI T 0.8 mg/dL 11/29/2017 Comp Metabolic Fbb440 ALBUMIN 3.8 g/dL 11/29/2017 Comp Metabolic Qez437 TPRO 6.0 g/dL 11/29/2017 Comp Metabolic Szo428 GLOB 2.3 g/dL 11/29/2017 Comp Metabolic Lkm957 A/G Ratio 1.7 Ratio 11/29/2017 Comp Metabolic Rbb746 Osmo 278 mOsmo 11/29/2017 Lipid Ord30 CHOL 136 mg/dL 11/29/2017 Lipid Ord30 HDL 53.0 mg/dl 11/29/2017 Lipid Ord30 TRIG 118 mg/dL 11/29/2017 Lipid Ord30 LDL 59 mg/dL 11/29/2017 Lipid Ord30 C/HDL 2.6 Ratio 11/29/2017 Review of Systems System Result Effective Dates Constitutional No recent illness 07/28/2018 Constitutional No chills 07/28/2018 Constitutional No fatigue 07/28/2018 Constitutional No fever 07/28/2018 Constitutional No insomnia 07/28/2018 Constitutional No malaise 07/28/2018 Eyes No vision change 07/28/2018 Ears/Nose/Throat/Neck No dental pain 07/28/2018 Ears/Nose/Throat/Neck No dizziness 07/28/2018 Ears/Nose/Throat/Neck No dysphagia 07/28/2018 Ears/Nose/Throat/Neck No headache 07/28/2018 Ears/Nose/Throat/Neck No hearing loss 07/28/2018 Ears/Nose/Throat/Neck No nasal allergies 07/28/2018 Ears/Nose/Throat/Neck No sore throat 07/28/2018 Ears/Nose/Throat/Neck No sinus congestion 07/28/2018 Cardiovascular No chest pain/pressure 07/28/2018 Cardiovascular No dyspnea 07/28/2018 Cardiovascular No edema 07/28/2018 Cardiovascular No exercise intolerance 07/28/2018 Cardiovascular No fatigue 07/28/2018 Cardiovascular hypertension 07/28/2018 Cardiovascular No near-syncope/dizziness 07/28/2018 Cardiovascular palpitations 07/28/2018 Respiratory No chest tightness 07/28/2018 Respiratory No cough 07/28/2018 Respiratory No dyspnea 07/28/2018 Respiratory No pedal edema 07/28/2018 Gastrointestinal No abdominal pain 07/28/2018 Gastrointestinal No constipation 07/28/2018 Gastrointestinal No diarrhea 07/28/2018 Gastrointestinal No gastroesophageal reflux 07/28/2018 Gastrointestinal No nausea 07/28/2018 Gastrointestinal No vomiting 07/28/2018 Genitourinary/Nephrology No dysuria 07/28/2018 Genitourinary/Nephrology No nocturia 07/28/2018 Genitourinary/Nephrology No urinary incontinence 07/28/2018 Musculoskeletal No stiffness 07/28/2018 Musculoskeletal No swelling 07/28/2018 Musculoskeletal No muscle weakness 07/28/2018 Musculoskeletal No myalgias 07/28/2018 Dermatologic No rash 07/28/2018 Dermatologic No sores 07/28/2018 Neurologic No dizziness 07/28/2018 Neurologic No headache 07/28/2018 Neurologic No neck pain 07/28/2018 Neurologic No syncope 07/28/2018 Psychiatric No anxiety 07/28/2018 Psychiatric No depression 07/28/2018 Constitutional No recent illness 05/26/2018 Constitutional No chills 05/26/2018 Constitutional No fatigue 05/26/2018 Constitutional No fever 05/26/2018 Constitutional No insomnia 05/26/2018 Constitutional No malaise 05/26/2018 Eyes No vision change 05/26/2018 Ears/Nose/Throat/Neck No dental pain 05/26/2018 Ears/Nose/Throat/Neck No dizziness 05/26/2018 Ears/Nose/Throat/Neck No dysphagia 05/26/2018 Ears/Nose/Throat/Neck No headache 05/26/2018 Ears/Nose/Throat/Neck No hearing loss 05/26/2018 Ears/Nose/Throat/Neck No nasal allergies 05/26/2018 Ears/Nose/Throat/Neck No sore throat 05/26/2018 Ears/Nose/Throat/Neck No sinus congestion 05/26/2018 Cardiovascular No chest pain/pressure 05/26/2018 Cardiovascular No dyspnea 05/26/2018 Cardiovascular No edema 05/26/2018 Cardiovascular No exercise intolerance 05/26/2018 Cardiovascular No fatigue 05/26/2018 Cardiovascular hypertension 05/26/2018 Cardiovascular No near-syncope/dizziness 05/26/2018 Cardiovascular palpitations 05/26/2018 Respiratory No chest tightness 05/26/2018 Respiratory No cough 05/26/2018 Respiratory No dyspnea 05/26/2018 Respiratory No pedal edema 05/26/2018 Gastrointestinal No abdominal pain 05/26/2018 Gastrointestinal No constipation 05/26/2018 Gastrointestinal No diarrhea 05/26/2018 Gastrointestinal No gastroesophageal reflux 05/26/2018 Gastrointestinal No nausea 05/26/2018 Gastrointestinal No vomiting 05/26/2018 Genitourinary/Nephrology No dysuria 05/26/2018 Genitourinary/Nephrology No nocturia 05/26/2018 Genitourinary/Nephrology No urinary incontinence 05/26/2018 Musculoskeletal No stiffness 05/26/2018 Musculoskeletal No swelling 05/26/2018 Musculoskeletal No muscle weakness 05/26/2018 Musculoskeletal No myalgias 05/26/2018 Dermatologic No rash 05/26/2018 Dermatologic No sores 05/26/2018 Neurologic No dizziness 05/26/2018 Neurologic No headache 05/26/2018 Neurologic No neck pain 05/26/2018 Neurologic No syncope 05/26/2018 Psychiatric No anxiety 05/26/2018 Psychiatric No depression 05/26/2018 Constitutional No recent illness 05/05/2018 Constitutional No chills 05/05/2018 Constitutional No fatigue 05/05/2018 Constitutional No fever 05/05/2018 Constitutional No insomnia 05/05/2018 Constitutional No malaise 05/05/2018 Eyes No vision change 05/05/2018 Ears/Nose/Throat/Neck No dental pain 05/05/2018 Ears/Nose/Throat/Neck No dizziness 05/05/2018 Ears/Nose/Throat/Neck No dysphagia 05/05/2018 Ears/Nose/Throat/Neck No headache 05/05/2018 Ears/Nose/Throat/Neck No hearing loss 05/05/2018 Ears/Nose/Throat/Neck No nasal allergies 05/05/2018 Ears/Nose/Throat/Neck No sore throat 05/05/2018 Ears/Nose/Throat/Neck No sinus congestion 05/05/2018 Cardiovascular No chest pain/pressure 05/05/2018 Cardiovascular No dyspnea 05/05/2018 Cardiovascular No edema 05/05/2018 Cardiovascular No exercise intolerance 05/05/2018 Cardiovascular No fatigue 05/05/2018 Cardiovascular hypertension 05/05/2018 Cardiovascular No near-syncope/dizziness 05/05/2018 Respiratory No chest tightness 05/05/2018 Respiratory No cough 05/05/2018 Respiratory No dyspnea 05/05/2018 Respiratory No pedal edema 05/05/2018 Gastrointestinal No abdominal pain 05/05/2018 Gastrointestinal No constipation 05/05/2018 Gastrointestinal No diarrhea 05/05/2018 Gastrointestinal No gastroesophageal reflux 05/05/2018 Gastrointestinal No nausea 05/05/2018 Gastrointestinal No vomiting 05/05/2018 Genitourinary/Nephrology No dysuria 05/05/2018 Genitourinary/Nephrology No nocturia 05/05/2018 Genitourinary/Nephrology No urinary incontinence 05/05/2018 Musculoskeletal No stiffness 05/05/2018 Musculoskeletal No swelling 05/05/2018 Musculoskeletal No muscle weakness 05/05/2018 Musculoskeletal No myalgias 05/05/2018 Dermatologic No rash 05/05/2018 Dermatologic No sores 05/05/2018 Neurologic No dizziness 05/05/2018 Neurologic No headache 05/05/2018 Neurologic No neck pain 05/05/2018 Neurologic No syncope 05/05/2018 Psychiatric No anxiety 05/05/2018 Psychiatric No depression 05/05/2018 Constitutional recent illness 04/24/2018 Constitutional No anorexia 04/24/2018 Constitutional No chills 04/24/2018 Constitutional No night sweats 04/24/2018 Constitutional No diaphoresis 04/24/2018 Constitutional No fatigue 04/24/2018 Constitutional No fever 04/24/2018 Constitutional No insomnia 04/24/2018 Constitutional No malaise 04/24/2018 Constitutional No weight loss 04/24/2018 Constitutional No weight gain 04/24/2018 Eyes No eye erythema 04/24/2018 Eyes No eye discharge 04/24/2018 Ears/Nose/Throat/Neck nasal allergies 04/24/2018 Ears/Nose/Throat/Neck nasal discharge 04/24/2018 Ears/Nose/Throat/Neck sinus congestion 04/24/2018 Ears/Nose/Throat/Neck No dizziness 04/24/2018 Ears/Nose/Throat/Neck headache 04/24/2018 Cardiovascular No chest pain/pressure 04/24/2018 Cardiovascular arrhythmia 04/24/2018 Respiratory cough 04/24/2018 Gastrointestinal No vomiting 04/24/2018 Gastrointestinal No nausea 04/24/2018 Gastrointestinal No constipation 04/24/2018 Gastrointestinal No diarrhea 04/24/2018 Genitourinary/Nephrology No dysuria 04/24/2018 Musculoskeletal No joint complaint 04/24/2018 Dermatologic No sores 04/24/2018 Dermatologic No rash 04/24/2018 Neurologic No alteration of consciousness 04/24/2018 Constitutional No recent illness 03/28/2018 Constitutional No chills 03/28/2018 Constitutional No fever 03/28/2018 Eyes No blindness 03/28/2018 Ears/Nose/Throat/Neck No nasal discharge 03/28/2018 Cardiovascular No chest pain/pressure 03/28/2018 Cardiovascular No dyspnea 03/28/2018 Respiratory No cough 03/28/2018 Respiratory No dyspnea 03/28/2018 Musculoskeletal joint complaint 03/28/2018 Neurologic No alteration of consciousness 03/28/2018 Neurologic No mental status change 03/28/2018 Constitutional No recent illness 11/26/2017 Constitutional No chills 11/26/2017 Constitutional No fatigue 11/26/2017 Constitutional No fever 11/26/2017 Constitutional No insomnia 11/26/2017 Constitutional No malaise 11/26/2017 Eyes No vision change 11/26/2017 Ears/Nose/Throat/Neck No dental pain 11/26/2017 Ears/Nose/Throat/Neck No dizziness 11/26/2017 Ears/Nose/Throat/Neck No dysphagia 11/26/2017 Ears/Nose/Throat/Neck No headache 11/26/2017 Ears/Nose/Throat/Neck No hearing loss 11/26/2017 Ears/Nose/Throat/Neck No nasal allergies 11/26/2017 Ears/Nose/Throat/Neck No sore throat 11/26/2017 Ears/Nose/Throat/Neck No sinus congestion 11/26/2017 Cardiovascular No chest pain/pressure 11/26/2017 Cardiovascular No dyspnea 11/26/2017 Cardiovascular No edema 11/26/2017 Cardiovascular No exercise intolerance 11/26/2017 Cardiovascular No fatigue 11/26/2017 Cardiovascular hypertension 11/26/2017 Cardiovascular No near-syncope/dizziness 11/26/2017 Cardiovascular palpitations 11/26/2017 Respiratory No chest tightness 11/26/2017 Respiratory No cough 11/26/2017 Respiratory No dyspnea 11/26/2017 Respiratory No pedal edema 11/26/2017 Gastrointestinal No abdominal pain 11/26/2017 Gastrointestinal No constipation 11/26/2017 Gastrointestinal No diarrhea 11/26/2017 Gastrointestinal No gastroesophageal reflux 11/26/2017 Gastrointestinal No nausea 11/26/2017 Gastrointestinal No vomiting 11/26/2017 Genitourinary/Nephrology No dysuria 11/26/2017 Genitourinary/Nephrology No nocturia 11/26/2017 Genitourinary/Nephrology No urinary incontinence 11/26/2017 Musculoskeletal No stiffness 11/26/2017 Musculoskeletal No swelling 11/26/2017 Musculoskeletal No muscle weakness 11/26/2017 Musculoskeletal No myalgias 11/26/2017 Dermatologic No rash 11/26/2017 Dermatologic No sores 11/26/2017 Neurologic No dizziness 11/26/2017 Neurologic No headache 11/26/2017 Neurologic No neck pain 11/26/2017 Neurologic No syncope 11/26/2017 Psychiatric No anxiety 11/26/2017 Psychiatric No depression 11/26/2017 Constitutional No recent illness 07/01/2017 Constitutional No chills 07/01/2017 Constitutional No fever 07/01/2017 Eyes No eye erythema 07/01/2017 Ears/Nose/Throat/Neck No nasal discharge 07/01/2017 Cardiovascular No chest pain/pressure 07/01/2017 Cardiovascular No dyspnea 07/01/2017 Respiratory No cough 07/01/2017 Respiratory No dyspnea 07/01/2017 Musculoskeletal joint complaint 07/01/2017 Neurologic No alteration of consciousness 07/01/2017 Neurologic No mental status change 07/01/2017 Constitutional No recent illness 05/13/2017 Constitutional No chills 05/13/2017 Constitutional No fatigue 05/13/2017 Constitutional No fever 05/13/2017 Constitutional No insomnia 05/13/2017 Constitutional No malaise 05/13/2017 Eyes No vision change 05/13/2017 Ears/Nose/Throat/Neck No dental pain 05/13/2017 Ears/Nose/Throat/Neck No dizziness 05/13/2017 Ears/Nose/Throat/Neck No dysphagia 05/13/2017 Ears/Nose/Throat/Neck No headache 05/13/2017 Ears/Nose/Throat/Neck No hearing loss 05/13/2017 Ears/Nose/Throat/Neck No nasal allergies 05/13/2017 Ears/Nose/Throat/Neck No sore throat 05/13/2017 Ears/Nose/Throat/Neck postnasal drip 05/13/2017 Ears/Nose/Throat/Neck No sinus congestion 05/13/2017 Cardiovascular No chest pain/pressure 05/13/2017 Cardiovascular No dyspnea 05/13/2017 Cardiovascular No edema 05/13/2017 Cardiovascular No exercise intolerance 05/13/2017 Cardiovascular No fatigue 05/13/2017 Cardiovascular hypertension 05/13/2017 Cardiovascular No near-syncope/dizziness 05/13/2017 Cardiovascular palpitations 05/13/2017 Respiratory No chest tightness 05/13/2017 Respiratory No cough 05/13/2017 Respiratory No dyspnea 05/13/2017 Respiratory No pedal edema 05/13/2017 Gastrointestinal No abdominal pain 05/13/2017 Gastrointestinal No constipation 05/13/2017 Gastrointestinal No diarrhea 05/13/2017 Gastrointestinal No gastroesophageal reflux 05/13/2017 Gastrointestinal No nausea 05/13/2017 Gastrointestinal No vomiting 05/13/2017 Genitourinary/Nephrology No dysuria 05/13/2017 Genitourinary/Nephrology No nocturia 05/13/2017 Genitourinary/Nephrology No urinary incontinence 05/13/2017 Musculoskeletal No stiffness 05/13/2017 Musculoskeletal No swelling 05/13/2017 Musculoskeletal No muscle weakness 05/13/2017 Musculoskeletal No myalgias 05/13/2017 Dermatologic No rash 05/13/2017 Dermatologic No sores 05/13/2017 Neurologic No dizziness 05/13/2017 Neurologic No headache 05/13/2017 Neurologic No neck pain 05/13/2017 Neurologic No syncope 05/13/2017 Psychiatric No anxiety 05/13/2017 Psychiatric No depression 05/13/2017 Constitutional No recent illness 04/12/2017 Constitutional No chills 04/12/2017 Constitutional No fatigue 04/12/2017 Constitutional No fever 04/12/2017 Constitutional No insomnia 04/12/2017 Constitutional No malaise 04/12/2017 Eyes No vision change 04/12/2017 Ears/Nose/Throat/Neck No dental pain 04/12/2017 Ears/Nose/Throat/Neck No dizziness 04/12/2017 Ears/Nose/Throat/Neck No dysphagia 04/12/2017 Ears/Nose/Throat/Neck No headache 04/12/2017 Ears/Nose/Throat/Neck No hearing loss 04/12/2017 Ears/Nose/Throat/Neck No nasal allergies 04/12/2017 Ears/Nose/Throat/Neck No sore throat 04/12/2017 Ears/Nose/Throat/Neck postnasal drip 04/12/2017 Ears/Nose/Throat/Neck No sinus congestion 04/12/2017 Cardiovascular No chest pain/pressure 04/12/2017 Cardiovascular No dyspnea 04/12/2017 Cardiovascular No edema 04/12/2017 Cardiovascular No exercise intolerance 04/12/2017 Cardiovascular No fatigue 04/12/2017 Cardiovascular No near-syncope/dizziness 04/12/2017 Respiratory No chest tightness 04/12/2017 Respiratory No cough 04/12/2017 Respiratory No dyspnea 04/12/2017 Respiratory No pedal edema 04/12/2017 Gastrointestinal No abdominal pain 04/12/2017 Gastrointestinal No constipation 04/12/2017 Gastrointestinal No diarrhea 04/12/2017 Gastrointestinal No gastroesophageal reflux 04/12/2017 Gastrointestinal No nausea 04/12/2017 Gastrointestinal No vomiting 04/12/2017 Genitourinary/Nephrology No dysuria 04/12/2017 Genitourinary/Nephrology No nocturia 04/12/2017 Genitourinary/Nephrology No urinary incontinence 04/12/2017 Musculoskeletal No stiffness 04/12/2017 Musculoskeletal No swelling 04/12/2017 Musculoskeletal No muscle weakness 04/12/2017 Musculoskeletal No myalgias 04/12/2017 Dermatologic No rash [...] 1994 Constitutional general appearance Development: well developed 07/28/2018 None Full Exam - General 1994 Constitutional general appearance Development: appears stated age 0407/28/2018 None Full Exam - General 1994 Constitutional general appearance Hygiene/Attention to Grooming: good hygiene 07/28/2018 None Full Exam - General 1994 Eyes conjunctiva/eyelids Overall: conjunctiva clear 07/28/2018 None Full Exam - General 1994 Eyes conjunctiva/eyelids Overall: cornea clear 07/28/2018 None Full Exam - General 1994 Eyes conjunctiva/eyelids Overall: eyelids normal 07/28/2018 None Full Exam - General 1994 Eyes pupils and irises Overall: pupils equal, round, reactive to light and accomodation 07/28/2018 None Full Exam - General 1994 Ears/Nose/Throat otoscopic exam Overall: external auditory canals clear 07/28/2018 None Full Exam - General 1994 Ears/Nose/Throat otoscopic exam Overall: tympanic membranes clear 07/28/2018 None Full Exam - General 1994 Ears/Nose/Throat lips/teeth/gingiva Overall: benign lips 07/28/2018 None Full Exam - General 1994 Ears/Nose/Throat lips/teeth/gingiva Overall: normal dentition 07/28/2018 None Full Exam - General 1994 Ears/Nose/Throat oral cavity/pharynx/larynx Overall: oral mucosa clear 07/28/2018 None Full Exam - General 1994 Ears/Nose/Throat oral cavity/pharynx/larynx Overall: oropharyngeal mucosa clear 07/28/2018 None Full Exam - General 1994 Ears/Nose/Throat oral cavity/pharynx/larynx Overall: hypopharynx benign 07/28/2018 None Full Exam - General 1994 Ears/Nose/Throat oral cavity/pharynx/larynx Overall: no masses 07/28/2018 None Full Exam - General 1994 Respiratory auscultation Overall: breath sounds clear bilaterally 07/28/2018 None Full Exam - General 1994 Respiratory respiratory effort/rhythm Overall: no retractions 07/28/2018 None Full Exam - General 1994 Respiratory respiratory effort/rhythm Overall: normal rate 07/28/2018 None Full Exam - General 1994 Cardiovascular extremities Overall: no clubbing 07/28/2018 None Full Exam - General 1994 Cardiovascular auscultation of heart Overall: regular rate 07/28/2018 None Full Exam - General 1994 Cardiovascular auscultation of heart Overall: normal heart sounds 07/28/2018 None Full Exam - General 1994 Abdomen abdominal exam Overall: no tenderness 07/28/2018 None Full Exam - General 1994 Abdomen abdominal exam Overall: normal bowel sounds 07/28/2018 None Full Exam - General 1994 Lymphatic neck nodes Overall: anterior cervical chain benign 07/28/2018 None Full Exam - General 1994 Lymphatic neck nodes Overall: posterior cervical chain benign 07/28/2018 None Full Exam - General 1994 Musculoskeletal spine, ribs and pelvis Overall: good posture 07/28/2018 None Full Exam - General 1994 Musculoskeletal head and neck Overall: head atraumatic 07/28/2018 None Full Exam - General 1994 Musculoskeletal head and neck Overall: cervical spine benign 07/28/2018 None Full Exam - General 1994 Integument inspection of skin Location: face 07/28/2018 nodule on face near nasal bridge Full Exam - General 1994 Psychiatric orientation/consciousness Overall: oriented to person, place and time 07/28/2018 None Full Exam - General 1994 Psychiatric mood and affect Overall: normal mood and affect 07/28/2018 None Full Exam - General 1994 Constitutional general appearance Development: well developed 05/26/2018 None Full Exam - General 1994 Constitutional general appearance Development: appears stated age 0205/26/2018 None Full Exam - General 1994 Constitutional general appearance Hygiene/Attention to Grooming: good hygiene 05/26/2018 None Full Exam - General 1994 Eyes conjunctiva/eyelids Overall: conjunctiva clear 05/26/2018 None Full Exam - General 1994 Eyes conjunctiva/eyelids Overall: cornea clear 05/26/2018 None Full Exam - General 1994 Eyes conjunctiva/eyelids Overall: eyelids normal 05/26/2018 None Full Exam [...] None Full Exam - General 1994 Eyes conjunctiva/eyelids Overall: conjunctiva clear 05/05/2018 None Full Exam - General 1994 Eyes conjunctiva/eyelids Overall: cornea clear 05/05/2018 None Full Exam - General 1994 Eyes conjunctiva/eyelids Overall: eyelids normal 05/05/2018 None Full Exam [...] - ENT Respiratory inspection Overall: normal rate 04/24/2018 None Full Exam - ENT Respiratory [...] 03/28/2018 None Full Exam - Orthopedics Eyes conjunctiva/eyelids Overall: conjunctiva clear 03/28/2018 None Full Exam - Orthopedics Eyes conjunctiva/eyelids Overall: eyelids normal 03/28/2018 None Full Exam [...] None Full Exam - General 1994 Eyes conjunctiva/eyelids Overall: conjunctiva clear 11/26/2017 None Full Exam - General 1994 Eyes conjunctiva/eyelids Overall: cornea clear 11/26/2017 None Full Exam - General 1994 Eyes conjunctiva/eyelids Overall: eyelids normal 11/26/2017 None Full Exam [...] 07/01/2017 None Full Exam - Orthopedics Eyes conjunctiva/eyelids Overall: conjunctiva clear 07/01/2017 None Full Exam - Orthopedics Eyes conjunctiva/eyelids Overall: eyelids normal 07/01/2017 None Full Exam [...] None Full Exam - General 1994 Eyes conjunctiva/eyelids Overall: conjunctiva clear 05/13/2017 None Full Exam - General 1994 Eyes conjunctiva/eyelids Overall: cornea clear 05/13/2017 None Full Exam - General 1994 Eyes conjunctiva/eyelids Overall: eyelids normal 05/13/2017 None Full Exam [...] None Full Exam - General 1994 Eyes conjunctiva/eyelids Overall: conjunctiva clear 04/12/2017 None Full Exam - General 1994 Eyes conjunctiva/eyelids Overall: cornea clear 04/12/2017 None Full Exam - General 1994 Eyes conjunctiva/eyelids Overall: eyelids normal 04/12/2017 None Full Exam [...] Procedures Procedure Codes Date PPPS, SUBSEQ VISIT CPT- 4: G0439 05/05/2018 Vital Signs Date Vital 07/28/2018 Blood Pressure 1: 120/80 Code: 8480-6 BMI: 30.4 Code: 14495-2 Heart Rate 1: 72 bpm Height: 5'4" SpO2: 96% Weight: 177 lbs 05/26/2018 Blood Pressure 1: 128/78 Code: 8480-6 BMI: 30.0 Code: 89767-1 Heart Rate 1: 60 bpm Height: 5'4" SpO2: 97% Weight: 175 lbs 05/05/2018 Blood Pressure 1: 122/80 Code: 8480-6 BMI: 30.4 Code: 19835-6 Heart Rate 1: 64 bpm Height: 5'4" SpO2: 93% Weight: 177 lbs 04/24/2018 Blood Pressure 1: 130/82 Code: 8480-6 BMI: 30.7 Code: 03840-8 Heart Rate 1: 108 bpm Height: 5'4" SpO2: 98% Weight: 179 lbs 03/28/2018 Blood Pressure 1: 130/72 Code: 8480-6 Heart Rate 1: 76 bpm Height: 5'4" SpO2: 99% 11/26/2017 Blood Pressure 1: 132/80 Code: 8480-6 BMI: 29.2 Code: 80783-4 Heart Rate 1: 56 bpm Height: 5'4" SpO2: 96% Weight: 170 lbs 07/01/2017 Blood Pressure 1: 138/76 Code: 8480-6 BMI: 28.7 Code: 52593-8 Heart Rate 1: 62 bpm Height: 5'4" SpO2: 97% Weight: 167 lbs 05/13/2017 Blood Pressure 1: 128/78 Code: 8480-6 BMI: 28.3 Code: 26974-1 Heart Rate 1: 58 bpm Height: 5'4" SpO2: 98% Weight: 165 lbs 04/12/2017 Blood Pressure 1: 156/88 Code: 8480-6 BMI: 28.2 Code: 86230-2 Heart Rate 1: 54 bpm Height: 5'4" SpO2: 97% Weight: 164 lbs Functional Status No Functional Status data History of Present Illness Symptom Name Status Result Effective Date Notes Pertinent Findings dyspnea 07/28/2018 None Onset and Resolution ongoing 07/28/2018 None Onset of Symptom 2 weeks ago 07/28/2018 None Quality acute 07/28/2018 None Significant Medical Conditions cardiac disease 07/28/2018 -intermittent afib Quality primary hypertension 05/26/2018 None Quality stable 05/26/2018 None Onset and Resolution ongoing 05/26/2018 None Blood Pressure Values patient checking blood pressure at home - did not bring in readings 05/26/2018 None Alleviating Factors medication 05/26/2018 None Pertinent Findings Denies dizziness 05/26/2018 None Pertinent Findings Denies dyspnea 05/26/2018 None Pertinent Findings Denies edema 05/26/2018 None Quality chronic 05/26/2018 None Quality irregular beats 05/26/2018 (atrial fibrillation) Onset and Resolution ongoing 05/26/2018 None Onset of Symptom during adulthood 05/26/2018 None Alleviating Factors medication 05/26/2018 None Quality chronic 05/26/2018 None Blood Glucose (self reported) desireable (below 100) 05/05/2018 None Blood Pressure (self reported) diagnosed with hypertension 05/05/2018 None Cholesterol (self reported) desireable (below 200) 05/05/2018 None Depression (last 6 months) [...] 05/05/2018 None Sun Exposure protects skin when outdoors: y 05/05/2018 None Location on both sides 04/24/2018 None Quality acute 04/24/2018 None Quality fullness 04/24/2018 None Quality intermittent 04/24/2018 None Onset and Resolution Denies ongoing 04/24/2018 None Onset of Symptom 2 months ago 04/24/2018 None Triggers Denies no known associated factors 04/24/2018 None Significant Medications antibiotics 04/24/2018 None Pertinent Findings Denies fever 04/24/2018 None Pertinent Findings Denies facial pain 04/24/2018 None Pertinent Findings decreased energy level 04/24/2018 None Quality acute 04/24/2018 None Quality intermittent 04/24/2018 None Timing of Episodes Denies in the evening 04/24/2018 None Pertinent Findings Denies fever 04/24/2018 None Pertinent Findings nasal congestion 04/24/2018 None Quality aching 03/28/2018 None Onset and Resolution gradual in onset 03/28/2018 None Frequency of Episodes daily 03/28/2018 None Onset of Symptom 1 years ago 03/28/2018 None Pertinent Findings Denies swelling 03/28/2018 None Triggers activity 03/28/2018 None Mechanism of injury unknown 03/28/2018 None [...] data Encounters Encounter Performer Location Codes Date ([id number]) 81442 EST. PATIENT, LEVEL III Diagnosis: Acute recurrent maxillary sinusitis[ICD10: J01.01] Gemma Joseph MD, [facility] CPT-4: 62015 07/28/2018 [id number]) 25633 EST. PATIENT, LEVEL IV Diagnosis: Essential (primary) hypertension[ICD10: I10] Diagnosis: Chronic atrial fibrillation[ICD10: I48.2] Diagnosis: Mixed hyperlipidemia[ICD10: E78.2] Diagnosis: Myalgia, other site[ICD10: M79.18] Gemma Joseph MD, [facility] CPT- 4: 84068 05/26/2018 [id number]) 63882 EST. PATIENT, LEVEL III Diagnosis: Cough[ICD10: R05] Diagnosis: Other allergic rhinitis[ICD10: J30.89] Kathe Joseph MD, [facility] CPT-4: 23872 04/24/2018 ([id number]) 28953 EST. PATIENT, LEVEL III Diagnosis: Cervicalgia[ICD10: M54.2] Diagnosis: Bicipital tendinitis, right shoulder[ICD10: M75.21] Kathe Joseph MD, [facility] CPT-4: 08503 03/28/2018 [id number]) 11221 EST. PATIENT, LEVEL IV Diagnosis: Essential (primary) hypertension[ICD10: I10] Diagnosis: Chronic atrial fibrillation[ICD10: I48.2] Diagnosis: Bicipital tendinitis, left shoulder[ICD10: M75.22] Diagnosis: Pain in right knee[ICD10: M25.561] Diagnosis: Major depressive disorder, recurrent, mild[ICD10: F33.0] Gemma Joseph MD, [facility] CPT-4: 44012 11/26/2017 58824 EST. PATIENT, LEVEL III Diagnosis: Bicipital tendinitis, left shoulder[ICD10: M75.22] Diagnosis: Pain in right knee[ICD10: M25.561] Glenda Joseph MD, [facility] CPT-4: 55720 07/01/2017 ([id number]) 78948 EST. PATIENT, LEVEL III Diagnosis: Essential (primary) hypertension[ICD10: I10] Diagnosis: Chronic atrial fibrillation[ICD10: I48.2] Gemma Joseph MD, [facility] CPT-4: 85525 05/13/2017 ([id number]) OFFICE VISIT, NEW - LEVEL 4 Diagnosis: Essential (primary) hypertension[ICD10: I10] Diagnosis: Chronic atrial fibrillation[ICD10: I48.2] Diagnosis: Gastro-esophageal reflux disease without esophagitis[ICD10: K21.9] Gemma Joseph MD, [facility] CPT-4: 73238 04/12/2017 Plan of Care Planned Activity Notes Codes Status Date Visit Plan: Sinusitis - Pt has acute infection - pain in face, maxillary region, Pt informed to use decongestant, RX given to patient, sinus rinses also recommended. Call if symptoms do not show improvement. 07/28/2018 Appointment: Gemma Joseph WPtel: [address] [place], [place] [phone] (15 min) Moderate 07/28/2018 Patient Education: Patient Medication Summary Completed 07/28/2018 Visit Plan: Hypertension - well controlled - [...] q10 then restart lipitor, increase fluids. 05/26/2018 [phone] ([facility] min) Moderate 05/26/2018 Patient Education: Patient Medication Summary Completed [...] care surrogate. 05/05/2018 [phone] [phone] [facility] - Annual Wellness Visit 05/05/2018 Patient Education: [...] allergy spray. 04/24/2018 Appointment: Kathe Avila WPtel: [address] [place], [place] [phone] (15 min) Moderate 04/24/2018 Patient Education: Patient Medication Summary Completed 04/24/2018 Visit Plan: Neck Pain- pt to start with aspercreme or biofreeze to neck three times daily and start neck exercises daily. Biceps tendinitis - pt to do exercises as directed, ant-inflammatories directed to be taken per RX instructions and pt to call if symptoms are not improved. 03/28/2018 Appointment: Kathe Avila WPtel: [address] [place], [place] [phone] (15 min) Moderate 03/28/2018 Patient Education: Patient [...] refilled paroxetine 11/26/2017 Appointment: Gemma Joseph WPtel: [facility] [place] (15 min) Moderate 11/26/2017 Patient Education: Patient Medication Summary Completed 11/26/2017 Appointment: Gemma Joseph WPtel: [address] [place], [place] [phone] (15 min) Moderate 11/11/2017 Visit Plan: right [...] not improved. 07/01/2017 Appointment: Glenda Munoz WPtel: [phone] [facility] (30 min) Complex 07/01/2017 Patient [...] controlled. 05/13/2017 Appointment: Gemma Joseph WPtel: [phone] [facility] (15 min) Moderate 05/13/2017 Patient Education: Patient Medication Summary Completed 05/13/2017 Referral: Herbert Weaver WPtel:[phone] Patient informed. Referral info faxed. Completed 04/29/2017 [...] egd 04/12/2017 Appointment: [phone] [facility] 04/12/2017 Patient Education: Patient Medication Summary Completed 04/12/2017 Care Plan: Referral Order SNOMED-CT : [id number] Pending 04/12/2017 Referral: Herbert Weaver WPtel:[phone] Referral Appointment Requested Instructions Comment . Hypertension - well controlled - continue with current medications, continue with no added salt diet. Pt has been encouraged to exercise daily. The pt has been advised to call the office if there are any acute concerns about change in blood pressure readings at home. Chronic Afib - rate controlled. PT at [facility] for neck and shoulder pain . Neck Pain- pt to start with aspercreme or biofreeze to neck three times daily and start neck exercises daily. Biceps tendinitis - pt to do exercises as directed, ant-inflammatories directed to be taken per RX instructions and pt to call if symptoms are not improved. hold lipitor x 1 week - continue with the coenzyme q10 - (qunol brand is the best bioavailability) get labs [...] call if symptoms are not improved. . Sinusitis - Pt has acute infection - pain in face, maxillary region, Pt informed to use decongestant, RX given to patient, sinus rinses also recommended. Call if symptoms do not show improvement. . Hypertension - uncontrolled - the patient's [...] for omeprazole referral to [facility] for [facility] - look up on [facility] . Hypertension - well controlled - continue [...] The patient was advised of home safety evaluat ions and the need to make sure that [...] her DOPA paperwork for health care surrogate. Margoth and flavio call if not better and we will [...]
--- OUTSIDE RECORDS SUMMARY | 2018-09-26 07:16 | XMS REPORT | CCD ---
Author Author Gemma Joseph Organization Gemma Joseph MD, [facility] Address [address] [place] [address] Phone Care Team Providers Care Information Resources Manager Name Role Phone PP Unavailable CCM Unavailable Summary Purpose Interface Exchange Insurance Providers Payer name Policy type / Coverage type Covered democrat ID Effective Begin Date Effective End Date WPS Medicare Part B Medicare Part B [id number] Unknown Cigna Medicare Part B [id number] Unknown Family History Family History data not found Social History Social History Element Codes Description Effective Dates Marital status Unknown 04/12/2017 Number of children Unknown 1 Ryan Dexter 04/12/[address]: 3111564 Former smoker Quit 01-31-16 04/12/[address]: 727264 Currently drinks alcohol 04/12/2017 Allergies, Adverse Reactions, [...] Start Date Stop Date Status Fill Instructions cefdinir 300 mg capsule RxNorm: 111032 1 Capsule(s) PO BID 07/28/2018 08/03/2018 Active Flonase Allergy Relief 50 mcg/actuation nasal spray,suspension RxNorm: 2173845 2 [place] NASAL daily 07/28/2018 No Stop Date Active coenzyme Q10 100 mg tablet RxNorm: 447503 1 Tablet(s) PO daily 05/26/2018 12/21/2018 Active Voltaren 1 % topical gel RxNorm: 481333 4 Gram(s) TOP QID 05/12/2018 08/09/2018 Active wants watts check Flonase Allergy Relief 50 mcg/actuation nasal spray,suspension RxNorm: 9793384 2 [place] NASAL daily 04/24/2018 07/27/2018 Inactive Voltaren 1 % topical gel RxNorm: 481293 4 Gram(s) TOP QID 04/02/2018 05/01/2018 Inactive wants watts check Keflex 500 mg capsule RxNorm: 028050 1 Capsule(s) PO TID 03/31/2018 03/30/2018 Inactive Keflex 500 mg capsule RxNorm: 262021 1 Capsule(s) PO TID 03/31/2018 04/06/2018 Inactive Voltaren 1 % topical gel RxNorm: 472984 4 Gram(s) TOP QID 03/28/2018 04/01/2018 Inactive paroxetine 40 mg tablet RxNorm: 9701584 1 Tablet(s) PO daily 11/26/2017 06/23/2018 Inactive Voltaren 1 % topical gel RxNorm: 153958 1 Application TOP BID 07/01/2017 03/27/2018 Inactive Penlac 8 % topical solution RxNorm: 294897 1 Application TOP daily to affected nails 05/15/2017 10/11/2017 Inactive Penlac 8 % topical solution RxNorm: 272499 1 Application TOP daily 05/15/2017 05/14/2017 Inactive omeprazole 20 mg capsule,delayed release RxNorm: 586264 1 Capsule(s) PO QPM 04/12/2017 05/12/2017 Inactive Neurontin 100 mg capsule RxNorm: 544767 1 Capsule(s) PO BID 04/12/2017 11/07/2017 Inactive Paxil 20 mg tablet RxNorm: 337257 1 Tablet(s) PO daily 04/12/2017 11/07/2017 Inactive sotalol 240 mg tablet RxNorm: 828668 1/2 Tablet(s) PO BID No Start Date Active Eliquis 5 mg tablet RxNorm: 0221996 1 Tablet(s) PO BID No Start Date Active atorvastatin 20 mg tablet RxNorm: 839545 1 Tablet(s) PO QPM No Start Date Active Protonix 40 mg tablet,delayed release RxNorm: 199681 1 Tablet(s) PO daily No Start Date 07/27/2018 Inactive Zyrtec 10 mg tablet RxNorm: 8388344 1 Tablet(s) PO daily No Start Date [...] 32.8 pg 11/29/2017 Cbc With Differential Ord2 [place]% 10.3 % 11/29/2017 Cbc With Differential Ord2 [...] 1.20 K/ul 11/29/2017 Cbc With Differential Ord2 [place] ABS# 0.5 K/ul 11/29/2017 Cbc With Differential Ord2 Eos ABS# 0.1 K/ul 11/29/2017 Cbc With Differential Ord2 Baso ABS# 0.0 K/ul 11/29/2017 Tsh Ord6 TSH (3rd IS) 0.74 uIU/mL 11/29/2017 Comp Metabolic Jmk243 NA 139 mEq/L 11/29/2017 Comp Metabolic Ksd381 K 4.3 mEq/L 11/29/2017 Comp Metabolic Thn120 CL 102 mEq/L 11/29/2017 Comp Metabolic Flj052 CO2 30.0 mEq/L 11/29/2017 Comp Metabolic Fim673 ANION GAP 11 11/29/2017 Comp Metabolic Sjw947 GLUCOSE 103 mg/dL 11/29/2017 Comp Metabolic Aim224 Creat 0.7 mg/dL 11/29/2017 Comp Metabolic Pof869 eGFR 86 ml/min/1.73m2 11/29/2017 Comp Metabolic Mzx317 BUN 12 mg/dL 11/29/2017 Comp Metabolic Apc612 B/C Ratio 16.7 Ratio 11/29/2017 Comp Metabolic Eyl654 CALCIUM 8.9 mg/dL 11/29/2017 Comp Metabolic Emi197 ALK PHOS 47 U/L 11/29/2017 Comp Metabolic Wzu506 AST(SGOT) 15 U/L 11/29/2017 Comp Metabolic Lod444 ALT(SGPT) 13 U/L 11/29/2017 Comp Metabolic Raz377 BILI T 0.8 mg/dL 11/29/2017 Comp Metabolic Qrh513 ALBUMIN 3.8 g/dL 11/29/2017 Comp Metabolic Cni856 TPRO 6.0 g/dL 11/29/2017 Comp Metabolic Wvc102 GLOB 2.3 g/dL 11/29/2017 Comp Metabolic Tcv433 A/G Ratio 1.7 Ratio 11/29/2017 Comp Metabolic Fkv577 Osmo 278 mOsmo 11/29/2017 Lipid Ord30 CHOL [...] clear 07/28/2018 None Full Exam - General 1995 Ears/Nose/Throat [...] posture 07/28/2018 None Full Exam - General 1995 Musculoskeletal head and neck Overall: head atraumatic [...] 1: 120/80 Code: 8480-6 BMI: 30.4 Code: 01644-7 Heart Rate 1: 72 bpm Height: 5'4" SpO2: 96% Weight: 177 lbs 05/26/2018 Blood Pressure 1: 128/78 Code: 8480-6 BMI: 30.0 Code: 73506-6 Heart Rate 1: 60 bpm Height: 5'4" SpO2: 97% Weight: 175 lbs 05/05/2018 Blood Pressure 1: 122/80 Code: 8480-6 BMI: 30.4 Code: 18155-3 Heart Rate 1: 64 bpm Height: 5'4" SpO2: 93% Weight: 177 lbs 04/24/2018 Blood Pressure 1: 130/82 Code: 8480-6 BMI: 30.7 Code: 75665-1 Heart Rate 1: 108 bpm Height: 5'4" SpO2: 98% Weight: 179 lbs 03/28/2018 Blood Pressure 1: 130/72 Code: 8480-6 Heart Rate 1: 76 bpm Height: 5'4" SpO2: 99% 11/26/2017 Blood Pressure 1: 132/80 Code: 8480-6 BMI: 29.2 Code: 03966-2 Heart Rate 1: 56 bpm Height: 5'4" SpO2: 96% Weight: 170 lbs 07/01/2017 Blood Pressure 1: 138/76 Code: 8480-6 BMI: 28.7 Code: 39557-1 Heart Rate 1: 62 bpm Height: 5'4" SpO2: 97% Weight: 167 lbs 05/13/2017 Blood Pressure 1: 128/78 Code: 8480-6 BMI: 28.3 Code: 16648-9 Heart Rate 1: 58 bpm Height: 5'4" SpO2: 98% Weight: 165 lbs 04/12/2017 Blood Pressure 1: 156/88 Code: 8480-6 BMI: 28.2 Code: 36433-2 Heart Rate 1: 54 bpm Height: 5'4" [...] data Encounters Encounter Performer Location Codes Date ([id number]) 40478 EST. PATIENT, LEVEL III Diagnosis: Acute recurrent maxillary sinusitis[ICD10: J01.01] Gemma Joseph MD, [facility] CPT-4: 64163 07/28/2018 [id number]) 67019 EST. PATIENT, LEVEL IV Diagnosis: Essential (primary) hypertension[ICD10: I10] Diagnosis: Chronic atrial fibrillation[ICD10: I48.2] Diagnosis: Mixed hyperlipidemia[ICD10: E78.2] Diagnosis: Myalgia, other site[ICD10: M79.18] Gemma Joseph MD, [facility] CPT- 4: 19608 05/26/2018 ([id number]) 61291 EST. PATIENT, LEVEL III Diagnosis: Cough[ICD10: R05] Diagnosis: Other allergic rhinitis[ICD10: J30.89] Kathe Joseph MD, [facility] CPT-4: 30228 04/24/2018 ([id number]) 80285 EST. PATIENT, LEVEL III Diagnosis: Cervicalgia[ICD10: M54.2] Diagnosis: Bicipital tendinitis, right shoulder[ICD10: M75.21] Kathe Joseph MD, [facility] CPT-4: 51753 03/28/2018 [id number]) 30442 EST. PATIENT, LEVEL IV Diagnosis: Essential (primary) hypertension[ICD10: I10] Diagnosis: Chronic atrial fibrillation[ICD10: I48.2] Diagnosis: Bicipital tendinitis, left shoulder[ICD10: M75.22] Diagnosis: Pain in right knee[ICD10: M25.561] Diagnosis: Major depressive disorder, recurrent, mild[ICD10: F33.0] [facility] CPT-4: 61093 11/26/2017 97312 EST. PATIENT, LEVEL III Diagnosis: Bicipital tendinitis, left shoulder[ICD10: M75.22] Diagnosis: Pain in right knee[ICD10: M25.561] [facility] CPT-4: 31646 07/01/2017 ([id number]) 83024 EST. PATIENT, LEVEL III Diagnosis: Essential (primary) hypertension[ICD10: I10] Diagnosis: Chronic atrial fibrillation[ICD10: I48.2] [facility] CPT-4: 34929 05/13/2017 ([id number]) OFFICE VISIT, NEW - LEVEL 4 Diagnosis: Essential (primary) hypertension[ICD10: I10] Diagnosis: Chronic atrial fibrillation[ICD10: I48.2] Diagnosis: Gastro-esophageal reflux disease without esophagitis[ICD10: K21.9] Gemma Joseph MD, [facility] CPT-4: 24317 04/12/2017 Plan of Care Planned Activity Notes Codes Status Date Visit Plan: Sinusitis - Pt has acute infection - pain in face, maxillary region, Pt informed to use decongestant, RX given to patient, sinus rinses also recommended. Call if symptoms do not show improvement. 07/28/2018 Patient Education: Patient Medication Summary Completed [...] then restart lipitor, increase fluids. 05/26/2018 Appointment: [place]: [facility] [address] (15 min) Moderate 05/26/2018 Patient Education: Patient [...] care surrogate. 05/05/2018 Appointment: Kathe Avila WPtel: [address] [place] [address] - Annual Wellness Visit 05/05/2018 Patient Education: [...] allergy spray. 04/24/2018 Appointment: Kathe Avila WPtel: [facility] [place] [phone] (15 min) Moderate 04/24/2018 Patient Education: Patient [...] improved. 03/28/2018 Appointment: Kathe Avila WPtel: [phone] [phone] [place] (15 min) Moderate 03/28/2018 Patient Education: [...] refilled paroxetine 11/26/2017 Appointment: Gemma Joseph WPtel: [phone] [facility] [place] (15 min) Moderate 11/26/2017 Patient Education: Patient Medication Summary Completed 11/26/2017 Appointment: Gemma Joseph WPtel: [facility] [place] (15 min) Moderate 11/11/2017 Visit [...] improved. 07/01/2017 Appointment: Glenda Munoz WPtel: [phone] [facility] [place] (30 min) Complex 07/01/2017 Patient Education: [...] rate controlled. 05/13/2017 Appointment: Gemma Joseph WPtel: [facility] (15 min) Moderate 05/13/2017 Patient Education: Patient Medication Summary Completed 05/13/2017 Referral: Herbert Weaver WPtel:[phone] Patient informed. Referral info faxed. Completed 04/29/2017 [...] for egd 04/12/2017 Appointment: Gemma Joseph WPtel: [facility] New Patient 04/12/2017 Patient Education: Patient Medication Summary Completed 04/12/2017 Care Plan: Referral Order SNOMED-CT : [id number] Pending 04/12/2017 Referral: Herbert Weaver WPtel:[phone] Referral Appointment Requested Instructions Comment . Hypertension - well controlled - continue with current medications, continue with no added salt diet. Pt has been encouraged to exercise daily. The pt has been advised to call the office if there are any acute concerns about change in blood pressure readings at home. Chronic Afib - rate controlled. PT at [facility] for neck and shoulder pain . Neck [...] for omeprazole referral to [facility] - look up on [facility] . Hypertension - well controlled - continue [...]
--- OUTSIDE RECORDS SUMMARY | 2018-09-26 07:22 | XMS REPORT | Continuity of Care Document ---
Author Organization Unknown Address Unknown Allergies Active Description Code Type Severity Reaction Onset Reported/Identified Relationship to Patient Clinical Status Yes No Allergy Information Available [id number] Drug Allergy Unknown N/A 01/31/2016 Yes No Known Drug Allergies [id number] Drug Allergy Unknown N/A 05/02/2017 Medications There is no data. Problems Date Dx Coded Attending Type Code Diagnosis Diagnosed By 02/01/2016 MONICA VIEYRA MD Ot E78.5 HYPERLIPIDEMIA, UNSPECIFIED 02/01/2016 MONICA VIEYRA MD Ot F12.90 CANNABIS USE, UNSPECIFIED, UNCOMPLICATED 02/01/2016 MONICA VIEYRA MD Ot F17.210 NICOTINE DEPENDENCE, CIGARETTES, UNCOMPL 02/01/2016 MONICA VIEYAR MD Ot F32.9 MAJOR DEPRESSIVE DISORDER, SINGLE EPISOD 02/01/2016 MONICA VIEYRA MD Ot F41.9 ANXIETY DISORDER, UNSPECIFIED 02/01/2016 MONICA VIEYRA MD Ot 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 ATTACK, UNSP 02/01/2016 MONICA VIEYRA MD Ot I49.3 VENTRICULAR PREMATURE DEPOLARIZATION 02/06/2016 Alberto CORDERO MD Ot I49.9 CARDIAC ARRHYTHMIA, UNSPECIFIED 02/27/2016 Alberto CORDERO MD Ot I49.9 CARDIAC ARRHYTHMIA, UNSPECIFIED 03/08/2016 Alberto CORDERO MD Ot I49.9 CARDIAC ARRHYTHMIA, UNSPECIFIED 03/09/2016 Alberto CORDERO MD Ot 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 ATTACK, UNSP 03/09/2016 Alberto CORDERO MD Ot I48.91 UNSPECIFIED ATRIAL FIBRILLATION 03/14/2016 Alberto CORDERO MD Ot I49.9 CARDIAC ARRHYTHMIA, UNSPECIFIED 03/15/2016 Alberto CORDERO MD Ot I48.0 PAROXYSMAL ATRIAL FIBRILLATION 03/15/2016 Alberto CORDERO MD, Ot 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 03/15/2016 Alberto CORDERO MD Ot Z79.899 OTHER SENIOR CARE (CURRENT) DRUG THERAPY 03/15/2016 Alberto CORDERO MD Ot Z86.73 PRSNL HX OF TIA (TIA), AND CEREB INFRC W 03/15/2016 Alberto CORDERO MD Ot Z87.891 PERSONAL HISTORY OF NICOTINE DEPENDENCE 03/21/2016 Alberto CORDERO MD Ot 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 ATTACK, UNSP 03/21/2016 Alberto CORDERO MD Ot I48.91 UNSPECIFIED ATRIAL FIBRILLATION 03/30/2016 Alberto CORDERO MD Ot G47.33 OBSTRUCTIVE SLEEP APNEA (ADULT) (PEDIATR 03/30/2016 Alberto CORDERO MD Ot G47.33 OBSTRUCTIVE SLEEP APNEA (ADULT) (PEDIATR 04/12/2016 Alberto CORDERO MD Ot I48.0 PAROXYSMAL ATRIAL FIBRILLATION 04/12/2016 Alberto CORDERO MD Ot Z79.01 SENIOR CARE (CURRENT) USE OF ANTICOAGULANT 04/12/2016 Alberto CORDERO MD Ot Z79.899 OTHER SENIOR CARE (CURRENT) DRUG THERAPY 04/12/2016 Alberto CORDERO MD Ot Z86.73 PRSNL HX OF TIA (TIA), AND CEREB INFRC W 04/12/2016 Alberto CORDERO MD Ot Z87.891 PERSONAL HISTORY OF NICOTINE DEPENDENCE 05/01/2016 Alberto CORDERO MD Ot I49.9 CARDIAC ARRHYTHMIA, UNSPECIFIED 10/03/2016 Alberto CORDERO MD Ot 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 ATTACK, UNSP 10/03/2016 Alberto CORDERO MD Ot I48.91 UNSPECIFIED ATRIAL FIBRILLATION 10/03/2016 Alberto CORDERO MD Ot I49.9 CARDIAC ARRHYTHMIA, UNSPECIFIED 10/26/2016 Alberto CORDERO MD Ot E78.5 HYPERLIPIDEMIA, UNSPECIFIED 10/26/2016 Alberto CORDERO MD Ot I48.91 UNSPECIFIED ATRIAL FIBRILLATION 10/26/2016 GIL HALLMAN, Alberto LENTZ Ot R00.2 PALPITATIONS 04/04/2017 CE KHANNA DO Hu Ot Z12.31 ENCNTR SCREEN MAMMOGRAM FOR MALIGNANT NE 05/02/2017 LEONEL ZENDEJAS DO Ot K21.9 GASTRO-ESOPHAGEAL REFLUX DISEASE WITHOUT 05/02/2017 LEONEL ZENDEJAS DO Ot R09.89 OTH SYMPTOMS AND SIGNS INVOLVING THE CIR 05/02/2017 LEONEL ZENDEJAS DO Ot Z01.818 ENCOUNTER FOR OTHER PREPROCEDURAL EXAMIN 05/02/2017 LEONEL ZENDEJAS DO Ot Z12.11 ENCOUNTER FOR SCREENING FOR MALIGNANT NE 05/02/2017 Alberto CORDERO MD Ot I49.9 CARDIAC ARRHYTHMIA, UNSPECIFIED 05/03/2017 LEONEL ZENDEJAS DO Ot K21.9 GASTRO-ESOPHAGEAL REFLUX DISEASE WITHOUT 05/03/2017 LEONEL ZENDEJAS DO Ot R09.89 OTH SYMPTOMS AND SIGNS INVOLVING THE CIR 05/03/2017 LEONEL ZENDEJAS DO Ot Z01.818 ENCOUNTER FOR OTHER PREPROCEDURAL EXAMIN 05/03/2017 LEONEL ZENDEJAS DO Ot Z12.11 ENCOUNTER FOR SCREENING FOR MALIGNANT NE 05/07/2017 LEONEL ZENDEJAS DO Ot E78.5 HYPERLIPIDEMIA, UNSPECIFIED 05/07/2017 LEONEL ZENDEJAS DO Ot F41.9 ANXIETY DISORDER, UNSPECIFIED 05/07/2017 LEONEL ZENDEJAS DO Ot I48.91 UNSPECIFIED ATRIAL FIBRILLATION 05/07/2017 LEONEL ZENDEJAS DO Ot I49.3 VENTRICULAR PREMATURE DEPOLARIZATION 05/07/2017 LEONEL ZENDEJAS DO Ot K21.9 GASTRO-ESOPHAGEAL REFLUX DISEASE WITHOUT 05/07/2017 LEONEL ZENDEJAS DO Ot K29.70 GASTRITIS, UNSPECIFIED, WITHOUT BLEEDING 05/07/2017 LEONEL ZENDEJAS DO Ot K44.9 DIAPHRAGMATIC HERNIA WITHOUT OBSTRUCTION 05/07/2017 LEONEL ZENDEJAS DO Ot K57.30 DVRTCLOS OF LG INT W/O PERFORATION OR AB 05/07/2017 LEONEL ZENDEJAS DO Ot Z12.11 ENCOUNTER FOR SCREENING FOR MALIGNANT NE 05/07/2017 LEONEL ZENDEJAS DO Ot 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 05/07/2017 LEONEL ZENDEJAS DO Ot Z79.899 OTHER PLASTERING SUPERVISOR (CURRENT) DRUG THERAPY 05/07/2017 LEONEL ZENDEJAS DO Ot Z87.891 PERSONAL HISTORY OF NICOTINE DEPENDENCE 05/08/2017 LEONEL ZENDEJAS DO Ot K21.9 GASTRO-ESOPHAGEAL REFLUX DISEASE WITHOUT 05/08/2017 LEONEL ZENDEJAS DO Ot R09.89 OTH SYMPTOMS AND SIGNS INVOLVING THE CIR 05/08/2017 LEONEL ZENDEJAS DO Ot Z01.818 ENCOUNTER FOR OTHER PREPROCEDURAL EXAMIN 05/08/2017 LEONEL ZENDEJAS DO Ot Z12.11 ENCOUNTER FOR SCREENING FOR MALIGNANT NE 05/08/2017 LEONEL ZENDEJAS DO Ot E78.5 HYPERLIPIDEMIA, UNSPECIFIED 05/08/2017 LEONEL ZENDEJAS DO Ot F41.9 ANXIETY DISORDER, UNSPECIFIED 05/08/2017 LEONEL ZENDEJAS DO Ot I48.91 UNSPECIFIED ATRIAL FIBRILLATION 05/08/2017 LEONEL ZENDEJAS DO Ot I49.3 VENTRICULAR PREMATURE DEPOLARIZATION 05/08/2017 LEONEL ZENDEJAS DO Ot K21.9 GASTRO-ESOPHAGEAL REFLUX DISEASE WITHOUT 05/08/2017 LEONEL ZENDEJAS DO Ot K29.70 GASTRITIS, UNSPECIFIED, WITHOUT BLEEDING 05/08/2017 LEONEL ZENDEJAS DO Ot K44.9 DIAPHRAGMATIC HERNIA WITHOUT OBSTRUCTION 05/08/2017 LEONEL ZENDEJAS DO Ot K57.30 DVRTCLOS OF LG INT W/O PERFORATION OR AB 05/08/2017 LEONEL ZENDEJAS DO Ot Z12.11 ENCOUNTER FOR SCREENING FOR MALIGNANT NE 05/08/2017 LEONEL ZENDEJAS DO Ot Z79.01 SENIOR CARE (CURRENT) USE OF ANTICOAGULANT 05/08/2017 LEONEL ZENDEJAS DO Ot Z79.899 OTHER PLASTERING SUPERVISOR (CURRENT) DRUG THERAPY 05/08/2017 LEONEL ZENDEJAS DO Ot Z87.891 PERSONAL HISTORY OF NICOTINE DEPENDENCE 05/25/2017 LEONEL ZENDEJAS DO Ot E78.5 HYPERLIPIDEMIA, UNSPECIFIED 05/25/2017 LEONEL ZENDEJAS DO Ot F41.9 ANXIETY DISORDER, UNSPECIFIED 05/25/2017 LEONEL ZENDEJAS DO Ot I48.91 UNSPECIFIED ATRIAL FIBRILLATION 05/25/2017 LEONEL ZENDEJAS DO Ot I49.3 VENTRICULAR PREMATURE DEPOLARIZATION 05/25/2017 LEONEL ZENDEJAS DO Ot K21.9 GASTRO-ESOPHAGEAL REFLUX DISEASE WITHOUT 05/25/2017 LEONEL ZENDEJAS DO Ot K29.70 GASTRITIS, UNSPECIFIED, WITHOUT BLEEDING 05/25/2017 LEONEL ZENDEJAS DO Ot K44.9 DIAPHRAGMATIC HERNIA WITHOUT OBSTRUCTION 05/25/2017 LEONEL ZENDEJAS DO Ot K57.30 DVRTCLOS OF LG INT W/O PERFORATION OR AB 05/25/2017 LEONEL ZENDEJAS DO Ot Z12.11 ENCOUNTER FOR SCREENING FOR MALIGNANT NE 05/25/2017 LEONEL ZENDEJAS DO Ot 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 05/25/2017 LEONEL ZENDEJAS DO Ot Z79.899 OTHER PLASTERING SUPERVISOR (CURRENT) DRUG THERAPY 05/25/2017 LEONEL ZENDEJAS DO Ot Z87.891 PERSONAL HISTORY OF NICOTINE DEPENDENCE 03/18/2018 CE KHANNA DO Ot Z12.31 ENCNTR SCREEN MAMMOGRAM FOR MALIGNANT NE 03/19/2018 GIL HALLMAN, Alberto LENTZ Ot 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 ATTACK, UNSP 03/19/2018 GIL HALLMAN, Alberto LENTZ Ot I48.91 UNSPECIFIED ATRIAL FIBRILLATION 03/19/2018 GIL HALLMAN, Alberto LENTZ Ot I49.9 CARDIAC ARRHYTHMIA, UNSPECIFIED 03/19/2018 GIL HALLMAN, Alberto LENTZ Ot E78.5 HYPERLIPIDEMIA, UNSPECIFIED 03/19/2018 GIL HALLMAN, Alberto LENTZ Ot I48.91 UNSPECIFIED ATRIAL FIBRILLATION 03/19/2018 GIL HALLMAN, Alberto LENTZ Ot R00.2 PALPITATIONS 03/19/2018 CE KHANNA DO Ot Z12.31 ENCNTR SCREEN MAMMOGRAM FOR MALIGNANT NE 03/19/2018 CE KHANNA DO Ot Z12.31 ENCNTR SCREEN MAMMOGRAM FOR MALIGNANT NE 03/20/2018 CE KHANNA DO Ot Z12.31 ENCNTR SCREEN MAMMOGRAM FOR MALIGNANT NE 04/11/2018 CE KHANNA DO Ot Z12.31 ENCNTR SCREEN MAMMOGRAM FOR MALIGNANT NE 06/16/2018 LEONEL ZENDEJAS DO Ot Z01.818 ENCOUNTER FOR OTHER PREPROCEDURAL EXAMIN 06/19/2018 ZENDEJAS DO, LEONEL D Ot E78.5 HYPERLIPIDEMIA, UNSPECIFIED 06/19/2018 ZENDEJAS DO, LEONEL D Ot I48.91 UNSPECIFIED ATRIAL FIBRILLATION 06/19/2018 ZENDEJAS DO, LEONEL D Ot K21.9 GASTRO-ESOPHAGEAL REFLUX DISEASE WITHOUT 06/19/2018 ZENDEJAS DO, LEONEL D Ot L73.8 OTHER SPECIFIED FOLLICULAR DISORDERS 06/19/2018 ZENDEJAS DO, LEONEL D Ot Z79.01 SENIOR CARE (CURRENT) USE OF ANTICOAGULANT 06/19/2018 ZENDEJAS DO, LEONEL D Ot Z79.899 OTHER PLASTERING SUPERVISOR (CURRENT) DRUG THERAPY 06/19/2018 ZENDEJAS DO, LEONEL D Ot Z86.73 PRSNL HX OF TIA (TIA), AND CEREB INFRC W 06/19/2018 ZENDEJAS DO, LEONEL D Ot Z87.891 PERSONAL HISTORY OF NICOTINE DEPENDENCE 06/23/2018 ZENDEJAS DO, LEONEL D Ot E78.5 HYPERLIPIDEMIA, UNSPECIFIED 06/23/2018 ZENDEJAS DO, LEONEL D Ot I48.91 UNSPECIFIED ATRIAL FIBRILLATION 06/23/2018 ZENDEJAS DO, LEONEL D Ot K21.9 GASTRO-ESOPHAGEAL REFLUX DISEASE WITHOUT 06/23/2018 ZENDEJAS DO, LEONEL D Ot L73.8 OTHER SPECIFIED FOLLICULAR DISORDERS 06/23/2018 ZENDEJAS DO, LEONEL D Ot Z79.01 SENIOR CARE (CURRENT) USE OF ANTICOAGULANT 06/23/2018 ZENDEJAS DO, LEONEL D Ot Z79.899 OTHER PLASTERING SUPERVISOR (CURRENT) DRUG THERAPY 06/23/2018 ZENDEJAS DO, LEONEL D Ot Z86.73 PRSNL HX OF TIA (TIA), AND CEREB INFRC W 06/23/2018 ZENDEJAS DO, LEONEL D Ot Z87.891 PERSONAL HISTORY OF NICOTINE DEPENDENCE 07/31/2018 Alberto CORDERO MD Ot Z01.818 ENCOUNTER FOR OTHER PREPROCEDURAL EXAMIN Procedures There is no data. Results Test Result Range Complete blood count (CBC) with automated white blood cell (WBC) differential - 01/31/16 18:00 Blood leukocytes automated count (number/volume) 7.0 10*3/uL 4.3-11.0 Blood erythrocytes automated count (number/volume) 4.21 10*6/uL 4.35-5.85 Venous blood hemoglobin measurement (mass/volume) 14.1 g/dL 11.5-16.0 Blood hematocrit (volume fraction) 41 % 35-52 Automated erythrocyte mean corpuscular volume 97 [foz_us] 80-99 Automated erythrocyte mean corpuscular hemoglobin (mass per erythrocyte) 34 pg 25-34 Automated erythrocyte mean corpuscular hemoglobin concentration measurement (mass/volume) 35 g/dL 32-36 Automated erythrocyte distribution width ratio 12.0 % 10.0- 14.5 Automated blood platelet count (count/volume) 222 10*3/uL 130-400 Automated blood platelet mean volume measurement 10.7 [foz_us] 7.4-10.4 Automated blood neutrophils/100 leukocytes 51 % 42-75 Automated blood lymphocytes/100 leukocytes 36 % 12-44 Blood monocytes/100 leukocytes 11 % 0-12 Automated blood eosinophils/100 leukocytes 2 % 0-10 Automated blood basophils/100 leukocytes 0 % 0-10 Blood neutrophils automated count (number/volume) 3.6 10*3 1.8-7.8 Blood lymphocytes automated count (number/volume) 2.5 10*3 1.0-4.0 Blood monocytes automated count (number/volume) 0.8 10*3 0.0- 1.0 Automated eosinophil count 0.1 10*3/uL 0.0-0.3 Automated blood basophil count (count/volume) 0.0 10*3/uL 0.0-0.1 Methicillin resistant Staphylococcus aureus (MRSA) screening culture - 06/19/18 06:30 Methicillin resistant Staphylococcus aureus (MRSA) screening culture NEG NRG Encounters ACCT No. Visit Date/Time Discharge Status Pt. Type Provider Facility Loc./Unit Complaint [id number] 08/04/2018 08:00:00 08/04/2018 23:59:59 CLS Preadmit Alberto CORDERO MD [facility] CATH SYMPATHETIC AFIB [id number] 07/30/2018 05:41:00 07/30/2018 23:59:59 CLS Outpatient Alberto CORDERO MD [facility] PREOP SYMPTOMATIC AF [id number] 06/19/2018 05:53:00 06/19/2018 13:55:00 DIS Outpatient LEONEL ZENDEJAS DO [facility] SDC LESION RIGHT CHEEK [id number] 06/16/2018 05:32:00 06/16/2018 11:32:00 DIS Outpatient LEONEL ZENDEJAS DO [facility] PREOP LESION RIGHT CHEEK [id number] 03/19/2018 10:40:00 03/19/2018 23:59:59 CLS Outpatient CE KHANNA DO [facility] RAD SCREENING [id number] 03/11/2018 11:59:00 03/11/2018 23:59:59 CLS Preadmit Alberto CORDERO MD [facility] RAD CAROTID ARTERY STENOSIS [id number] 05/07/2017 09:26:00 05/07/2017 11:40:00 DIS Outpatient LEONEL ZENDEJAS DO [facility] ENDO SCREENING/REFLUX/GLOBUS SECRETIONS [id number] 05/02/2017 05:36:00 05/02/2017 11:17:00 DIS Outpatient LEONEL ZENDEJAS DO [facility] PREOP COLONOSCOPY/EGD [id number] 03/19/2017 10:27:00 03/19/2017 23:59:59 CLS Outpatient CE KHANNA DO [facility] RAD SCREENING [id number] 12/12/2016 12:32:00 12/12/2016 23:59:59 CLS Preadmit CE KHANNA DO [facility] RAD SCREENING [id number] 10/03/2016 09:21:00 10/03/2016 23:59:59 CLS Outpatient Alberto CORDERO MD [facility] LAB E78.5 I48.91 R00.2 [id number] 05/02/2016 15:30:00 05/02/2016 23:59:59 CLS Preadmit Alberto CORDERO MD [facility] CARD IRREGULAR HEART RHYTHM [id number] 02/01/2016 15:29:00 05/01/2016 00:01:00 DIS Outpatient Alberto CORDERO MD [facility] CARD IRREGULAR HEART RHYTHM [id number] 03/29/2016 20:42:00 03/30/2016 06:10:00 DIS Outpatient Alberto CORDERO MD [facility] SLEEP SNORING,ARRHYTHMIAS,INSOMNIA,MORNING HEADACHES,TIA [id number] 03/15/2016 09:53:00 03/15/2016 11:50:00 DIS Outpatient Alberto CORDERO MD [facility] CATH AFIB [id number] 03/08/2016 11:13:00 03/08/2016 23:59:59 CLS Outpatient Alberto CORDERO MD [facility] CARD AF, PALPITATIONS, TIA [id number] 01/31/2016 20:34:00 02/01/2016 15:45:00 DIS Inpatient MONICA VIEYRA MD [facility] ICU TIA
[2018-09-26] MEDS ORDERED: ROCURONIUM 10 MG/ML 5 ML SYRINGE IV ONE ×2 (07:28→11:23)
[2018-09-26] MEDS ORDERED: fentaNYL INJECTION 100 MCG/2 ML AMP ONE (07:28)
[2018-09-26] MEDS ORDERED: MIDAZOLAM 2 MG/2 ML (VERSED) VIAL ONE (07:28)
[2018-09-26] MEDS ORDERED: HEParin DRIP 25000 UNIT/500ML 500 ML IV ONE (07:28)
[2018-09-26] MEDS ORDERED: proPOfol 200 MG/20 ML (DIPRIVAN) VIAL IV ONE (07:28)
[2018-09-26] MEDS ORDERED: ONDANSETRON 4 MG/2 ML (SDV) Z0FRAN ONE (07:29)
[2018-09-26] MEDS ORDERED: PHENYLEPHRINE 100 MCG/ML 10 ML (ANESTHESIA) SYR ONE ×2 (07:29→08:34)
[2018-09-26 07:39] LABS: HEMOGLOBIN 15.4 G/DL (11.5-16.0); MEAN PLATELET VOLUME 9.2 FL (7.4-10.4); RED CELL DISTRIBUTION WIDTH 13.1 % (10.0-14.5); WHITE BLOOD COUNT 7.5 10^3/uL (4.3-11.0)
[2018-09-26 07:51] LABS: INR 1.1 (0.8-1.4); PROTHROMBIN TIME PATIENT 14.6 SEC (12.2-14.7)
[2018-09-26 07:59] LABS: ALANINE AMINOTRANSFERASE 20 U/L (0-55); ALBUMIN 4.3 GM/DL (3.2-4.5); ALKALINE PHOSPHATASE 93 U/L (40-136); BILIRUBIN,TOTAL 0.4 MG/DL (0.1-1.0); BUN/CREATININE RATIO 11; CALCIUM 9.1 MG/DL (8.5-10.1); CARBON DIOXIDE 23 MMOL/L (21-32); CHLORIDE 101 MMOL/L (98-107); GFR ESTIMATED > 60; GLUCOSE 102 MG/DL (70-105); POTASSIUM 3.9 MMOL/L (3.6-5.0); SODIUM 137 MMOL/L (135-145); TOTAL PROTEIN 7.2 GM/DL (6.4-8.2)
[2018-09-26] MEDS ORDERED: NS IV 1000 ML 1,000 ML ONE ×3 (08:33→12:31)
[2018-09-26] MEDS ORDERED: HEParin 1000 UNIT/ML (10ML VIAL) FOR BOLUS ONE (10:47)
[2018-09-26] MEDS ORDERED: NS (IVPB) 100 ML ONE (11:49)
[2018-09-26] MEDS ORDERED: PHENYLEPHRINE INJ 10 MG/ML (FOR DRIP KITS ONLY) ONE (11:49)
[2018-09-26] MEDS ORDERED: GLYCOPYRROLATE 0.2 MG/ML (ROBINUL) 2 ML VIAL ONE (13:56)
[2018-09-26] MEDS ORDERED: NEOSTIGMINE 3 MG/3 ML VIAL ONE (13:56)
[2018-09-26] MEDS ORDERED: PROTAMINE 50 MG/5 ML VIAL ONE (13:57)
[2018-09-26] MEDS ORDERED: SEVOFLURANE (ULTANE) 15 ML INHAL SOLN ONE (14:00)
--- NOTE | 2018-09-26 14:09 | Cardiac Procedure Note-CS/ASA ---
Pre-Procedure Note Pre-Op Procedure Note H&P Reviewed The H&P was reviewed, patient examined and no changes noted. Date H&P Reviewed: Sep 26, 2018 Time H&P Reviewed: 07:30 Conscious Sedation Pre-Proced Time 07:30 ASA Score 3 For ASA 3 and 4: Consider anesthesia and medical clearance. Also, for patients with a history of failed moderate sedation consider anesthesia. Airway Lungs Heart ASA score ASA 1: a normal healthy patient ASA 2: a patient with a mild systemic disease (mid diabetes, controlled hypertension, obesity ASA 3: a patient with a severe systemic disease that limits activity (angina, COPD, prior Myocardial infarction) ASA 4: a patient with an incapacitating disease that is a constant threat to life (CHF, renal failure) ASA 5: a moribund patient not expected to survive 24 hrs. (ruptured aneurysm) ASA 6: a declared brain- patient whose organs are being harvested. For emergent operations, add the letter E after the classification Mallampati Classification Grade 1 Sedation Plan Analgesia, Amnesia, Plan communicated to team members, Discussed options with patient/fam, Discussed risks with patient/fam The patient is an appropriate candidate to undergo the planned procedure, sedation, and anesthesia. The patient immediately re-assessed prior to indication. Alberto CORDERO MD Sep 26, 2018 14:09
--- NOTE | 2018-09-26 14:10 | Electrophysiology Procedure ---
EP Procedure DATE OF SERVICE:09/26/18 CARDIAC LEADERSHIP PROGRAM INTERNSHIP: Francine Ruelas MD, [facility], [facility]. INDICATION: symptomatic atrial fibrillation refractory to antiarrhythmic therapy. PREOPERATIVE DIAGNOSIS: symptomatic atrial fibrillation refractory to antiarrhythmic therapy. POSTOPERATIVE DIAGNOSES: successful persistent atrial fibrillation ablation. HISTORY: this is a 67-year-old lady with history of cryptogenic stroke, subsequently found out to be in atrial fibrillation. Symptomatic atrial fibrillation refractory to sotalol therapy. She continues to be on oral anticoagulation.The patient is planned for comprehensive EP study and atrial fibrillation ablation. PROCEDURE PERFORMED: 1. Comprehensive EP study with induction. 2. Fluoroscopy. 3. left atrial pacing and recording. 4. Left ventricular pacing and recording. 5. Drug infusion. 6. Pulmonary vein isolation. 7. additional atrial fibrillation ablation with roofline. 8. Additional atrial fibrillation ablation with CFAE ablation. 9. Comprehensive 3D mapping with the carto system. 10. Electrical Cardioversion. 11. Intracardiac Echocardiogram. COMPLICATION: None. ESTIMATED BLOOD LOSS: 10 mL. CONTRAST USED: None. FLUOROSCOPY TIME: 12.2 minutes. FLUOROSCOPY DOSE: 154 mgy. SPECIMENS: None. ANESTHESIA: Done by our anesthesia colleagues. ANTICOAGULATION: Uninterrupted oral anticoagulation and IV heparin. PROCEDURE IN DETAIL: After informed consent was taken, the patient was brought to the EP lab. Anesthesia was provided by our anesthesia colleagues. The patient was draped and prepped in the usual sterile fashion. The patient presented to the EP lab in atrial fibrillation. Access was gained in the right femoral vein with a 8 Bel[place]ian and a 6 [place]ian sheath. Left access in the left femoral vein with a 8 [place]ian and 6 [place]ian sheath respectively. His Catheter and ICE catheter were advanced from the left access sites. CS multipolar catheter was advanced placed in the CS from the right access site. A guidewire was advanced into the SVC. Long sheath was advanced on top of the guidewire into the SVC. The wire was taken out. We then went in with the transseptal needle. Under fluoroscopic and intracardiac echocardiogram guidance, the sheath and transseptal needle were pulled into the fossa ovalis. While finding the best position for transseptal access, the sheath and introducer advanced into the left atrium through a PFO. This was confirmed with left atrial pressure measurements. The transseptal needle was taken out and we decided to proceed with the procedure. IV heparin was given and ACT was kept over 350 seconds. We then advanced a guidewire which was placed in the left superior pulmonary vein and the sheath and introducer were taken out. We then advanced a large curve st eerable sheath into the left atrium. The guidewire was taken out and a [employer] Dey Pentaray catheter was advanced for left atrial mapping. We also used the intracardiac echocardiogram to create an ultrasound shell of the left atrium and identified all vital landmarks including the left atrial appendage, left pulmonary veins, right pulmonary veins, mitral valve, fossa ovalis, aortic cusps. With this multipolar mapping catheter left atrial voltage and electro anatomical map was created. The multipolar mapping catheter was then taken out and and irrigated ablation catheter was advanced into the left atrium. Pulmonary vein isolation was performed. A roofline was done. Complex fractionated atrial electrograms were identified and ablated. The patient was then cardioverted with a single 200 J shock. Patient converted to sinus rhythm. Bidirectional block in both left and right sided pulmonary veins was confirmed. This was done with high output pacing in each pulmonary vein. To note there were 2 left-sided pulmonary veins and 3 right-sided pulmonary veins. High-dose Isuprel was started at 20mg/minute. Rapid atrial pacing did not induce atrial fibrillation. After 30 minutes of ablation we rechecked the veins and reconfirmed bidirectional block. Comprehensive EP study was done. Left atrial pacing did not demonstrate any evidence of left-sided bypass tract. Left ventricular pacing and recording was also done, which did not demonstrate any VA conduction at pacing at cycle length 600 ms. While on Isuprel a left-sided atrial tachycardia was induced, however no atrial fibrillation was induced. A 3D electroanatomic mapping was donewith the carto system. Throughout the procedure, intracardiac echocardiogram did not demonstrate any pericardial effusion.The patienttolerated the procedurewell and did not have any complication. The patientleft the lab in sinus rhythm. Total ablation time was 2792 seconds. MEASUREMENTS/EP STUDY: AV Wenckebach when pacing at 340 ms cycle length. Atrial ERP was 500/220 ms. VA interval 246 ms, QRS duration 58 ms, R-R interval 460 ms, AA interval to 255 ms. PLAN: The patient will be observed overnight and will be discharged home tomorrow with precise followup instructions. she will continue oral anticoagulation and sotalol and follow-up in the office in 2-3 weeks. Francine Ruelas MD, FHRS, CCDS Cardiac Electrophysiology Albetro RUELAS MD Sep 26, 2018 14:10
[2018-09-26] MEDS ORDERED: PATIENT MAY USE OWN MEDS, ALL PO SCH (14:15)
--- NOTE | 2018-09-26 14:15 | History & Physicial-Cardiolgy ---
HPI-Cardiology Cardiology Consultation: Date of Consultation 09/26/18 Date of Admission Attending Physician Alberto Ruelas MD Admitting Physician Ginette Nixon DO Consulting Physician Alberto RUELAS MD HPI: Time Seen by a Provider: 07:30 Chief Complaint: atrial fibrillation this is a 67-year-old lady with history of PVCs and paroxysmal atrial fibrillation refractory to antiarrhythmic therapy. Patient is on eliquis and sotalol. Atrial fibrillation ablation is recommended. Review of Systems-Cardiology Review of Systems Constitutional: No As described under HPI, No no symptoms reported, No chills, No fever, No lightheadedness, No malaise, No tiredness, No weight loss, No weight gain, No other Eyes: No As described under HPI, No no symptoms reported, No blindness, No blurred vision, No contact lenses, No drainage, No decreased acuity, No foreign body sensation, No glasses, No inflammation, No pain, No photophobia, No previous injury, No shadows, No tunnel vision, No other, No vision change Ears/Nose/Throat: No As described under HPI, No no symptoms reported, No chronic hearing loss, No epistaxis, No ear discharge, No ear pain, No loose teeth, No mouth pain, No mouth swelling, No nasal drainage, No nose pain, No recent hearing loss, No throat pain, No throat swelling, No ulcerations, No other Respiratory: No no symptoms reported, No As described under HPI, No cough, No orthopnea, No shortness of breath, No SOB with excertion, No SOB at rest, No stridor, No wheezing, No other Cardiovascular: irregular heart rate, palpitations Gastrointestinal: No no symptoms reported, No As described under HPI, No abdomen distended, No abdominal pain, No blood streaked bowels, No constipation, No diarrhea, No difficulty swallowing, No nausea, No poor appetite, No poor fluid intake, No rectal bleeding, No vomiting, No other, No nausea/vomiting/diarrhea, No stool coloration changes Genitourinary: No no symptoms reported, No As described under HPI, No burning, No dysuria, No discharge, No frequency, No flank pain, No hematuria, No incontinence, No pain, No urgency, No other, No urine frequency changes, No urine coloration changes Musculoskeletal: No no symptoms reported, No As describe under HPI, No back pain, No gout, No joint pain, No joint swelling, No muscle pain, No muscle stiffness, No neck pain, No other Psychiatric/Neurological: No no symptoms reported, No As described under HPI, No anxiety, No depression, No emotional problems, No headache, No numbness, No pre-existing deficit, No seizure, No tingling, No tremors, No weakness, No other, No focal weakness, No syncope TIU-Jqlhry-Kxzyie Hx Patient Social History Alcohol Use: Denies Use Recreational Drug Use: No Smoking Status: Never a Smoker Type Used: Cigarettes 2nd Hand Smoke Exposure: Yes Recent Foreign Travel: No Immunizations Up To Date Date of Pneumonia Vaccine: Apr 01, 2014 Date of Influenza Vaccine: Nov 30, 2017 Past Medical History PMH As described under Assessment. Allergies and Home Medications Allergies Coded Allergies: No Known Drug Allergies (Unverified , 05/02/17) Home Medications Apixaban 5 Mg Tablet, 5 MG PO BID, (Reported) Atorvastatin Calcium 20 Mg Tablet, 20 MG PO HS, (Reported) Calcium Polycarbophil 625 Mg Tablet, 625 MG PO HS, (Reported) Gabapentin 100 Mg Capsule, 100 MG PO BID, (Reported) L.acidoph & Paracasei,B.lactis 1 Each Capsule, 1 CAP PO HS, (Reported) Pantoprazole Sodium 40 Mg Tablet.dr, 40 MG PO DAILY, (Reported) Paroxetine HCl 40 Mg Tablet, 40 MG PO DAILY, (Reported) Sotalol HCl 120 Mg Tablet, 120 MG PO BID, (Reported) Patient Home Medication List Home Medication List Reviewed: Yes Physical Exam-Cardiology Physical Exam Vital Signs/I&O 09/26/18 07:14 Temp 96.8 Pulse 93 Resp 16 B/P (MAP) 132/83 (99) Pulse Ox 98 O2 Delivery Room Air Capillary Refill : Constitutional: appears stated age, AAO x 3; No apparent distress; well- developed, well-nourished HEENT: PERRL; No discharge; hearing is well preserved, oral hygience is good; No ulceration, No xanthelasmas are seen Neck: No carotid bruit; carotid pulses are 2 + bilaterally Respiratory: chest is bilaterally symmetric, lungs clear to auscultation Cardiovascular: irregularly irregular, S1 and S2 Gastrointestinal: No tender, No soft, No round, No distended, No pulsatile mass, No organomegaly, No guarding, No rebound, No tenderness, No hernia, No mass, No audible bowel sounds, No abnormal bowel sounds, No abdominal bruits, No spleenomegaly, No other Rectal: deferred Extremities: No normal range of motion, No non-tender, No normal inspection, No pedal edema, No calf tenderness, No normal capillary refill, No pelvis stable, No calf tenderness, No inflammation, No pedal edema, No slow capillary refill, No swelling, No other, No abrasion, No clubbing, No cyanosis, No ecchymosis, No laceration, No no lower extremity edema bilateral, No significant edema, No tenderness, No wound Neurologic/Psychiatric: no motor/sensory deficits, alert, normal mood/affect, oriented x 3, power is 5/5 both on sides Skin: No rash, No ulcerations Data Review Labs Laboratory Tests 09/26/18 07:28: White Blood Count 7.5, Red Blood Count 4.81, Hemoglobin 15.4, Hematocrit 48, Mean Corpuscular Volume 99, Mean Corpuscular Hemoglobin 32, Mean Corpuscular Hemoglobin Concent 32, Red Cell Distribution Width 13.1, Platelet Count 258, Mean Platelet Volume 9.2, Prothrombin Time 14.6, INR Comment 1.1, Activated Partial Thromboplast Time 40H, Sodium Level 137, Potassium Level 3.9, Chloride Level 101, Carbon Dioxide Level 23, Anion Gap 13, Blood Urea Nitrogen 10, Creatinine 0.90, Estimat Glomerular Filtration Rate > 60, BUN/Creatinine Ratio 11, Glucose Level 102, Calcium Level 9.1, Corrected Calcium 8.9, Total Bilirubin 0.4, Aspartate Amino Transf (AST/SGOT) 21, Alanine Aminotransferase (ALT/SGPT) 20, Alkaline Phosphatase 93, Total Protein 7.2, Albumin 4.3 ECG Impression ECG Initial ECG Impression: Atrial Fibrillation A/P-Cardiology Assessment/Admission Diagnosis symptomatic atrial fibrillation refractory to antiarrhythmic therapy. Admission Status: Observation Plan persistent atrial fibrillation ablation is recommended. Continue oral anticoagulation and sotalol. Alberto RUELAS MD Sep 26, 2018 14:15
[2018-09-26] MEDS ORDERED: morphine INJ 10 MG/ML 1ML (SYR OR VIAL) IVP ONE (14:30)
[2018-09-26] MEDS ORDERED: ONDANSETRON 4 MG/2 ML (SDV) Z0FRAN IVP PRN (14:30)
[2018-09-26] MEDS ORDERED: PROMETHAZINE INJ 25 MG/ML (PHENERGAN) AMP IVP ONE (14:30)
[2018-09-26] MEDS ORDERED: HYDROmorphone 2 MG/ML VIAL (DILAUDID) IV ONE (14:30)
[2018-09-26] MEDS ORDERED: MEPERIDINE (DEMEROL) INJ 50 MG/ML IVP ONE (14:30)
--- NOTE | 2018-09-26 15:05 | Discharge Inst-Post CATH ---
Discharge Inst-CATH/EP Post Cardiac Cath/EP D/C Inst Follow Up/Plan Dr Ruelas in 2-3 weeks. <b>CARDIAC CATH/EP PROCEDURE DISCHARGE INSTRUCTIONS</b> ACTIVITY * Go Home directly and rest. * Limit activity of the leg (or wrist if it was used) for 7 days including aerobics, swimming, jogging, bicycling, etc. * Restrict stair-climbing for 7 days if possible, if not, climb up with your non-cath leg, then bring together on the same step. * Avoid lifting, pushing, pulling or excessive movement of the affected extremity for 7 days. * Customary sexual activity may be resumed after 2 days-use caution not to use a position that strains or causes pain to the affected extremity. * No driving for 24 hours. * NO SMOKING. * Avoid straining for bowel movements for 7 days. * Gentle walking on level ground is allowed. * Returning to work will depend on the type of procedure and the results. Your doctor will discuss this with you. CALL YOUR DOCTOR FOR ANY OF THE FOLLOWING: *If bleeding from the puncture site occurs- Apply gentle pressure to site with clean cloth and call your doctor or EMS. * If a knot or lump forms under the skin, increases in size, or causes pain. * If bruising appears to be worsening or moving further down your leg instead of disappearing. * Temperature above 101 F. CARE OF YOUR GROIN INCISION; * Bruising or purple discoloration of the skin near the puncture site is common. * You may shower only, no bathtub bathing for 5 days. Be careful to avoid slipping as your leg may feel stiff. * If a closure device was used on your femoral artery, please see the attached guide regarding care of the device and your leg. * Leave dressing on FOR 24 hours. CARE OF YOUR WRIST INCISION; * Bruising or purple discoloration of the skin near the puncture site is common. * You may shower. * DO NOT submerge wrist. * Leave dressing on FOR 24 hours. Alberto RUELAS MD Sep 26, 2018 15:05
[2018-09-26] MEDS ORDERED: FLEC50TA PO (16:19)
[2018-09-26] MEDS ORDERED: METO-333 PO (16:20)
[2018-09-26] MEDS: FLECAINIDE 100 MG (TAMBOCOR) TAB PO SCH (21:39)
[2018-09-26] MEDS: meTOprolol TARTRATE 25 MG (LOPRESSOR) TABLET PO SCH (21:39)
--- NOTE | 2018-09-26 21:39 | NUR ---
Administered pt's home medication: Flecainide 50 mg PO @ 21:30 on 09/26
[2018-09-27] VITALS (13 sets, daily range): BP systolic 107–136; BP diastolic 54–81
[2018-09-27 04:02] LABS: HEMOGLOBIN 11.8 G/DL (11.5-16.0); MEAN PLATELET VOLUME 9.6 FL (7.4-10.4); RED CELL DISTRIBUTION WIDTH 13.2 % (10.0-14.5); WHITE BLOOD COUNT 9.8 10^3/uL (4.3-11.0)
[2018-09-27 04:25] LABS: BUN/CREATININE RATIO 12; CALCIUM 7.3 MG/DL (8.5-10.1); CARBON DIOXIDE 20 MMOL/L (21-32); CHLORIDE 108 MMOL/L (98-107); CREATININE SERUM 0.77 MG/DL (0.60-1.30); GFR ESTIMATED > 60; GLUCOSE 114 MG/DL (70-105); POTASSIUM 3.8 MMOL/L (3.6-5.0); SODIUM 137 MMOL/L (135-145)
[2018-09-27] MEDS: FLECAINIDE 100 MG (TAMBOCOR) TAB PO SCH (08:44)
[2018-09-27] MEDS: meTOprolol TARTRATE 25 MG (LOPRESSOR) TABLET PO SCH (08:51)
--- NOTE | 2018-09-27 09:20 | Cardiology Progress Note ---
Subjective Date Seen by Provider: Sep 27, 2018 Time Seen by Provider: 09:19 Subjective/Events-last exam patient is laying down in bed, feeling well. No new complaint Review of Systems General: No Chills, No Night Sweats, No Fatigue, No Malaise, No Appetite, No Other HEENT: No Head Aches, No Visual Changes, No Eye Pain, No Ear Pain, No Dysphasia, No Sinus Congestion, No Post Nasal Drip, No Sore Throat, No Other Pulmonary: No Dyspnea, No Cough, No Pleuritic Chest Pain, No Other Cardiovascular: No: Chest Pain, Palpitations, Orthopnea, Paroxysmal Noc. Dyspnea, Edema, Lt Headedness, Other Objective-Cardiology Exam Last Set of Vital Signs Vital Signs 09/26/18 09/27/18 15:25 09:00 Pulse 82 Resp 12 B/P (MAP) 119/62 (81) Pulse Ox 97 O2 Delivery Room Air O2 Flow Rate 5 Capillary Refill : Less Than 3 Seconds General: Alert, Oriented X3, Cooperative HEENT: Atraumatic, PERRLA Neck: Supple, No JVD, No Thyromegaly Lungs: Clear to Auscultation, Normal Air Movement Heart: Regular Rate, Normal S1, Normal S2, No Murmurs Abdomen: Normal Bowel Sounds, Soft, No Tenderness, No Hepatosplenomegaly, No Masses Extremities: No Clubbing, No Cyanosis, No Edema, Normal Pulses, No Tenderness/Swelling Skin: No Rashes, No Breakdown, No Significant Lesion Neuro: Normal Gait, Normal Speech, Strength at 5/5 X4 Ext, Normal Tone, Sensation Intact Psych/Mental Status: Mental Status NL, Mood NL Results Lab Laboratory Tests 09/27/18 03:10 A/P-Cardiology Admission Diagnosis Paroxysmal atrial fibrillation Hypertension Palpitation Assessment/Plan Paroxysmal atrial fibrillation status post ablation, groin is healing well. No complicationneck Hypertension, controlled with Palpitation better. Okay for discharge and follow-up with ALEX Lane MD Sep 27, 2018 09:20
== END 2018-09-27 10:27 | disposition home or self-care (01) ==
LOC: CATH 07:11 → ICU 15:19 → CATH 09-27 10:27
PROVIDERS: ATTEND Internal Medicine Interventional Cardiology
DX: I48.0 Paroxysmal atrial fibrillation (principal); I10 Essential (primary) hypertension; R00.2 Palpitations; E66.9 Obesity, unspecified; Z68.30 Body mass index [BMI] 30.0-30.9, adult; Z86.73 Personal history of transient ischemic attack (TIA), and cerebral infarction without residual deficits; Z79.01 Long term (current) use of anticoagulants; Z79.899 Other long term (current) drug therapy
CPT/HCPCS: 36415; 80048; 80053; 85027; 85610; 85730; 87081; 92960; 93005; 93613; 93620; 93621; 93622; 93623; 93656; 93657; 93662

== ENCOUNTER 2018-10-16 07:56 | Day surgery (SDC) | payer MEDICARE, OTHER ==
[~2018-10-16 07:56] MED LIST changes: +FLEC50TA PO; -HEParin (CATH LAB) 4,000 ML IV ONE; -HEParin 1000 UNIT/ML (10ML VIAL) FOR BOLUS ONE; -LIDOCAINE 1% INJ 20 ML 20 ML VIAL ONE; +METO-333 PO; +NS IV 1000 ML 0 ML ONE; -NS IV 1000 ML 1,000 ML ONE
[2018-10-16] MEDS ORDERED: NS IV 1000 ML 1,000 ML IV ONE (07:58)
--- NOTE | 2018-10-16 08:22 | NUR ---
patient ekg showed sinus rhythm. dr. lennon informed with instructions to discharge patient, no change in medications. patient verbalized understanding.
== END 2018-10-16 08:24 | disposition home or self-care (01) ==
LOC: CATH 07:56
PROVIDERS: ATTEND Internal Medicine Interventional Cardiology
DX: I48.0 Paroxysmal atrial fibrillation (principal); I65.29 Occlusion and stenosis of unspecified carotid artery; E78.5 Hyperlipidemia, unspecified; F41.9 Anxiety disorder, unspecified; Z79.01 Long term (current) use of anticoagulants; Z79.899 Other long term (current) drug therapy; Z86.73 Personal history of transient ischemic attack (TIA), and cerebral infarction without residual deficits; Z87.891 Personal history of nicotine dependence; Z53.8 Procedure and treatment not carried out for other reasons
CPT/HCPCS: 93005

== ENCOUNTER → 2018-12-16 | Outpatient (CLI) | payer MEDICARE, OTHER ==
[~2018-12-16] MED LIST changes: -NS IV 1000 ML 0 ML ONE
--- NOTE | 2018-12-16 15:10 | Diagnostic Imaging Report ---
PROCEDURE: US carotid duplex, bilateral. TECHNIQUE: Multiple real-time grayscale images were obtained over the carotid arteries in various projections, bilaterally. Additional spectral analysis and color Doppler duplex images were also obtained. INDICATION: Blurred vision. FINDINGS: There is mild plaquing at both carotid bifurcations. Velocities are normal bilaterally. No velocity elevation or stenosis is seen. Both vertebral arteries show antegrade flow. IMPRESSION: No evidence of a hemodynamically significant stenosis. Parameters based on the consensus panel Colon-Scale and Doppler ultrasound criteria published January 2003, Radiology, Volume 229. DOPPLER (peak systolic velocity M/S Right Left CCA .62 .75 ICA Proximal .78 .64 ICA Mid .71 .47 ICA Distal .86 .61 RATIO 1.39 0.86 ECA .91 .67 VERT .76 .43 Dictated by: Dictated on workstation # [id number]
== END ==
LOC: CARD 11:45
PROVIDERS: ATTEND Ophthalmology
DX: I08.3 Combined rheumatic disorders of mitral, aortic and tricuspid valves (principal); H53.8 Other visual disturbances
CPT/HCPCS: 93306; 93880

== ENCOUNTER → 2019-04-24 | Outpatient (CLI) | payer MEDICARE, OTHER ==
--- NOTE | 2019-04-24 13:49 | Diagnostic Imaging Report ---
EXAM: Digital mammogram, bilateral screening. COMPARISON: This study was compared to the prior exams of 03/19/2018, 03/19/2017 and 03/09/2016. There are no current complaints. The current study was also evaluated with a Computer Aided Detection (CAD) system. FINDINGS: The fibroglandular tissue in both breasts is heterogeneously dense. This does limit the sensitivity of this exam. Overall, there does not appear to have been any significant change when compared to the prior study. No primary or secondary sign of malignancy is noted. The loop recorder device in the left breast seen previously is again evident. IMPRESSION: 1. There is no radiographic evidence for malignancy. ACR category 1 ACR BI-RADS Category 1: Negative. Result letter will be mailed to the patient. Note: At least 10% of breast cancer is not imaged by mammography. Dictated by: Dictated on workstation # [id number]
== END ==
LOC: RAD 11:04
PROVIDERS: ATTEND Nurse Practitioner Women's Health
DX: Z12.31 Encounter for screening mammogram for malignant neoplasm of breast (principal)
CPT/HCPCS: 77067

== ENCOUNTER 2019-09-10 07:26 | Day surgery (SDC) | payer MEDICARE, OTHER ==
[2019-09-10] MEDS ORDERED: LIDOCAINE 1% INJ 20 ML 20 ML VIAL INJ ONE (07:30)
--- OUTSIDE RECORDS SUMMARY | 2019-09-10 07:36 | XMS REPORT | CCD ---
Author Author Rossi Almanza Organization SANYA SJohanna NIXON DO [facility] Address [address] [place] [address] Phone Unavailable Care Team Providers Care Slot Service Specialist Name Role Phone PP Unavailable CCM Unavailable Summary Purpose Interface Exchange Insurance Providers Payer name Policy type / Coverage type Covered democrat ID Effective Begin Date Effective End Date WPS MEDIC[place] Medicare Part B [id number] 2018 Unknown Cigna Medicare Part B 80 [id number] 2018 Unknown Family History Family History data not found Social History No Social History data Allergies, Adverse Reactions, Alerts Allergies, Adverse Reactions, Alerts data not found Past Medical History Illness Codes Condition Status Onset Date Resolved Date Chronic atrial fibri llation ICD-9: 427.31 ICD-10: I48.2 Active 09/11/2018 Unknown Flushing ICD-9: 782.62 ICD-10: R23.2 Active 09/11/2018 Unknown Postnasal drip ICD-9: 473.9 ICD-10: R09.82 Active 11/06/2018 Unknown 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 Active 09/11/2018 Unknown Hyperglycemia, unspe cified ICD-9: 790.29 ICD-10: R73.9 Active 09/11/2018 Unknown Hyperlipidemia, unsp ecified ICD-9: 272.4 ICD-10: E78.5 Active 09/11/2018 Unknown Other allergic rhinitis ICD-9: 477.8 ICD-10: J30.89 Active 09/11/2018 Unknown Personal history of transient ischemic attack (TIA), and cerebral infarction without residual deficits ICD-9: V12.54 ICD-10: Z86.73 Active 09/11/2018 Unknown Problems Condition Codes Effectiv e Dates Condition Status Chronic atrial fibri llation ICD-9: 427.31 ICD-10: I48.2 09/11/2018 Active Flushing ICD-9: 782.62 ICD-10: R23.2 09/11/2018 Active Postnasal drip ICD-9: 473.9 ICD-10: R09.82 11/06/2018 Active 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 09/11/2018 Active Hyperglycemia, unspe cified ICD-9: 790.29 ICD-10: R73.9 09/11/2018 Active Hyperlipidemia, unsp ecified ICD-9: 272.4 ICD-10: E78.5 09/11/2018 Active Other allergic rhinitis ICD-9: 477.8 ICD-10: J30.89 09/11/2018 Active Personal history of transient ischemic attack (TIA), and cerebral infarction without residual deficits ICD-9: V12.54 ICD-10: Z86.73 09/11/2018 Active Medications Medication Codes Instruc tions Start Date Stop Date Sta tus Fill Instructions hydroxyzine HCl 25 m g tablet RxNorm: 866993 1 Tablet(s) PO QHS fo r allergies/sleep/anxiety 11/06/2018 12/05/2018 Active psyllium husk (bulk) 100 % powder RxNorm: 1 Unit Dose Miscellaneous Q HS 09/12/2018 No Stop Date Active Probiotic-Digestive Enzymes 5 mg-250 mg capsule RxNorm: 1 Capsule(s) PO QD 09/12/2018 No Stop Date Active Eliquis 5 mg tablet RxNorm: 0724351 1 Tablet(s) PO BID 09/12/2018 No Stop Date Active atorvastatin 20 mg t ablet RxNorm: 629819 1 Tablet(s) PO QHS 09/12/2018 No Stop Date Active Multivitamin 50 Plus tablet RxNorm: 1 Tablet(s) PO QD 09/12/2018 No Stop Date Active paroxetine 40 mg tablet RxNorm: 0568590 1 Tablet(s) PO QD 09/12/2018 No Stop Date Active Vitamin B12 1000mcg Tablet RxNorm: 1 Tablet(s) PO QD 09/12/2018 09/16/2018 Inactive sotalol 120 mg tablet RxNorm: 5836096 1 Tablet(s) PO BID 09/12/2018 11/05/2018 Inactive Benadryl 25 mg capsule RxNorm: 2883464 1 Capsule(s) PO QHS as needed 09/12/2018 11/05/2018 In active Singulair 10 mg tablet RxNorm: 255635 1 Tablet(s) PO QHS 09/11/2018 11/05/2018 Inactive flecainide 100 mg ta blet RxNorm: 294449 1 Tablet(s) PO BID No Start Date Active metoprolol succinate ER 25 mg tablet,extended release 24 hr RxNorm: 827563 1 Tablet(s) PO QD No Start Date Active Vitamin B12 1000mcg Tablet RxNorm: /2 Tablet(s) PO QD No Start Date Active Medication Administered No Medication Administered data Immunizations No Immunization data Assessments Condition Codes Effectiv e Dates Flushing ICD-10: R23.2 ICD-9: 782.62 11/06/2018 Chronic atrial fibrillation ICD-10: I48.2 ICD-9: 427.31 11/06/2018 Postnasal drip ICD-10: R09.82 ICD-9: 473.9 11/06/2018 Deficiency of other specified B group vitamins ICD-10: E53.8 ICD-9: 266.2 09/11/2018 Hyperlipidemia, unspecified ICD-10: E78.5 ICD-9: 272.4 09/11/2018 Other allergic rhinitis ICD-10: J30. 89 ICD-9: 477.8 09/11/2018 Personal history of transient ischemic a ttack (TIA), and cerebral infarction without residual deficits ICD-10: Z86.73 ICD-9: V12.54 09/11/2018 Hyperglycemia, unspecified ICD-10: R 73.9 ICD-9: 790.29 09/11/2018 Reason For Visit Reason For Visit Effective Dates Notes follow up 11/06/2018 nasal allergies 09/11/2018 new patient Results Observation Observation Code Item Item Code Result Date VITAMIN B 12 20445 VITAM IN B12 >2000 pg/mL 09/16/2018 GLYCOSYLATED HEMOGLOBIN TEST 00505 Hgb A1c 70943-1 5.6 % 09/15/2018 MEAN GLUC 3525618 Calc M fani Gluc 114 mg/dL 09/15/2018 COMPLETE BLOOD COUNT 6526470 WBC 6.2 10e9/L 09/11/2018 COMPLETE BLOOD COUNT 0622763 RBC 4.73 10e12/L 9 COMPLETE BLOOD COUNT 7698240 HEMOGLOBIN 15.4 g/dL 09/11/2018 COMPLETE BLOOD COUNT 4974956 HEMATOCRIT 46.9 % 09/11/2018 COMPLETE BLOOD COUNT 2093671 MCV 99.2 fL 09/11/2018 COMPLETE BLOOD COUNT 5313391 MCH 32.6 pg 09/11/2018 COMPLETE BLOOD COUNT 5138650 MCHC 32.8 g/dL 09/11/2018 COMPLETE BLOOD COUNT 9127325 PLATELET COUNT 268 10e9/L 09/11/2018 COMPLETE BLOOD COUNT 7290517 Mean Plt Volume 9.8 fL 09/11/2018 COMPLETE BLOOD COUNT 3307893 Neut Auto 67.5 % 09/11/2018 COMPLETE BLOOD COUNT 4272915 Lymph Auto 20.7 % 09/11/2018 COMPLETE BLOOD COUNT 1870062 Otoe Auto 9.7 % 09/11/2018 COMPLETE BLOOD COUNT 5335970 RDW 12.9 % 09/11/2018 COMPLETE BLOOD COUNT 1319710 Eos Auto 1.6 % 09/11/2018 COMPLETE BLOOD COUNT 9290518 Baso Auto 0.5 % 09/11/2018 COMPLETE BLOOD COUNT 8663279 Neutrophil Abs 4.18 10e9/L 09/11/2018 COMPLETE BLOOD COUNT 8023143 Lymphocyte Abs 1.28 10e9/L 09/11/2018 COMPLETE BLOOD COUNT 0716586 Monocyte Abs 0.60 10e9/L 09/11/2018 COMPLETE BLOOD COUNT 8546529 Eosinophil Abs 0.10 10e9/L 09/11/2018 COMPLETE BLOOD COUNT 6881962 RDW-SD 45.5 fL 09/11/2018 COMPLETE BLOOD COUNT 3238896 Basophil Abs 0.03 10e9/L 09/11/2018 THYROID STIMULATING HORMONE 22108 TSH 0.867 uIU/mL 9 FSH 0390399 FSH 73.05 mIU/mL 09/11/2018 COMPREHENSIVE METABOLIC 91122 AST 16 U/L 09/11/2018 COMPREHENSIVE METABOLIC 24202 ALT 14 U/L 09/11/2018 COMPREHENSIVE METABOLIC 71432 BUN 12 mg/dL 09/11/2018 COMPREHENSIVE METABOLIC 37719 ALBUMIN 4.3 g/dL 09/11/2018 COMPREHENSIVE METABOLIC 01170 CHLORIDE 105 mmol/L 09/11/2018 COMPREHENSIVE METABOLIC 74582 Bili Total 0.5 mg/dL 09/11/2018 COMPREHENSIVE METABOLIC 64294 ALK PHOS 62 U/L 09/11/2018 COMPREHENSIVE METABOLIC 80674 SODIUM 137 mmol/L 09/11/2018 COMPREHENSIVE METABOLIC 31784 CREATININE 0.84 mg/dL 09/11/2018 COMPREHENSIVE METABOLIC 84289 CALCIUM 9.3 mg/dL 09/11/2018 COMPREHENSIVE METABOLIC 34457 POTASSIUM 4.7 mmol/L 09/11/2018 COMPREHENSIVE METABOLIC 88302 Total Protein 6.5 g/dL 09/11/2018 COMPREHENSIVE METABOLIC 69444 Glucose 110 mg/dL 09/11/2018 COMPREHENSIVE METABOLIC 43888 Bicarbonate 26 mmol/L 09/11/2018 COMPREHENSIVE METABOLIC 94324 AGAP 6 mmol/L 09/11/2018 LH 54694 LH 28.63 mIU/mL 09/11/2018 GFR CALC 4597592 GFR Afr Amr >60 mL/min 09/11/2018 GFR CALC 8483863 GFR Non Afr Amr >60 mL/min 09/11/2018 ESTRADIOL SERUM 97350 ES TRADIOL <24 pg/mL 09/11/2018 FREE T4 22443 T4 Free 0.84 ng/dL 09/11/2018 LIPID GROUP 81516 Choles terol 156 mg/dL 09/11/2018 LIPID GROUP 17812 Trigly ceride 71 mg/dL 09/11/2018 LIPID GROUP 64912 HDL CH OLESTEROL 61 mg/dL 09/11/2018 LIPID GROUP 07672 Chol/H DL Ratio 2.56 ratio 09/11/2018 LIPID GROUP 22994 NON-HD L Chol 95 mg/dL 09/11/2018 LIPID GROUP 64918 LDL Ch olesterol 81 mg/dL 09/11/2018 Review of Systems System Result Effective Dates Constitutional insomnia 11/06/2018 Cardiovascular No arrhythmia 11/06/2018 Cardiovascular No chest pain/pressure 11/06/2018 Cardiovascular No edema 11/06/2018 Cardiovascular No exercise intolerance 11/06/2018 Cardiovascular No orthopnea 11/06/2018 Cardiovascular No palpitations 11/06/2018 Psychiatric anxiety 08/0 10/2018 Constitutional No fatigue 09/11/2018 Constitutional No fever 09/11/2018 Gastrointestinal No abdominal pain 09/11/2018 Gastrointestinal No constipation 09/11/2018 Gastrointestinal No diarrhea 09/11/2018 Gastrointestinal No nausea 09/11/2018 Gastrointestinal No vomiting 09/11/2018 Cardiovascular No palpitations 09/11/2018 Cardiovascular No chest pain/pressure 09/11/2018 Cardiovascular arrhythmia 09/11/2018 Genitourinary/Nephrology No dysuria 09/11/2018 Musculoskeletal No myalgias 09/11/2018 Ears/Nose/Throat/Neck No headache 09/11/2018 Ears/Nose/Throat/Neck No otalgia 09/11/2018 Ears/Nose/Throat/Neck sinus congestion 09/11/2018 Ears/Nose/Throat/Neck No sore throat 09/11/2018 Ears/Nose/Throat/Neck sinusitis 09/11/2018 Ears/Nose/Throat/Neck nasal allergies 09/11/2018 Respiratory No cough Respiratory No chest congestion 09/11/2018 Respiratory No dyspnea 0 09/11/2018 Dermatologic No rash Endocrine flushing 09/11 Physical Exam Exam Name System Name It em Name Status Result Effective Dates Notes Full Exam - General Constitutional general appearance Overall: well nourished 11/06/2018 None Full Exam - General Constitutional general appearance Overall: well developed 11/06/2018 None Full Exam - General Constitutional general appearance Overall: in no acute distress 11/06/2018 None Full Exam - General Respiratory auscultation Overall: breath sounds clear bilater ally 11/06/2018 None Full Exam - General Cardiovascular auscultation of heart Overall: regular rate 11/06/2018 None Full Exam - General Cardiovascular auscultation of heart Overall: normal heart sounds 11/06/2018 None Full Exam - General Cardiovascular auscultation of heart S4 (atrial gallop): present 11/06/2018 None Full Exam - General Cardiovascular auscultation of heart Murmur: previously known murmur unchanged 11/06/2018 None Full Exam - General Cardiovascular extremities Overall: no clubbing 11/06/2018 None Full Exam - General Cardiovascular extremities Overall: No edema 11/06/2018 None Full Exam - General Cardiovascular extremities Overall: No cyanosis 11/06/2018 None Full Exam - General Neurologic mental status Overall: alert 9 None Full Exam - General Neurologic mental status Overall: oriented 11/06/2018 None Full Exam - General Psychiatric mood and affect Overall: normal mood and affect 11/06/2018 None Full Exam - General Constitutional general appearance Overall: well nourished 09/11/2018 None Full Exam - General Constitutional general appearance Overall: in no acute distress 09/11/2018 None Full Exam - General Respiratory respiratory effort/rhythm Overall: no retractions 09/11/2018 None Full Exam - General Respiratory respiratory effort/rhythm Overall: normal rate 09/11/2018 None Full Exam - General Respiratory auscultation Overall: breath sounds clear bilater ally 09/11/2018 None Full Exam - General Ears/Nose/Throat otoscopic exam Overall: external auditory canals clear 09/11/2018 None Full Exam - General Ears/Nose/Throat otoscopic exam Overall: tympanic membranes clear 09/11/2018 None Full Exam - General Ears/Nose/Throat oral cavity/pharynx/larynx Oropharynx: a normal exam 09/11/2018 None Full Exam - General Neck thyroid Size: enlarged right lobe 09/11/2018 None Full Exam - General Cardiovascular auscultation of heart Rhythm: regularly irregular rhythm 09/11/2018 None Full Exam - General Abdomen abdominal exam Overall: no tenderness 09/11/2018 None Full Exam - General Abdomen abdominal exam Overall: soft 09/11/2018 None Full Exam - General Abdomen abdominal exam Overall: no masses 09/11/2018 None Full Exam - General Abdomen abdominal exam Overall: normal bowel sounds 09/11/2018 None Full Exam - General Lymphatic neck nodes Overall: anterior cervical chain andrea ign 09/11/2018 None Full Exam - General Lymphatic neck nodes Overall: posterior cervical chain be nign 09/11/2018 None Full Exam - General Neurologic mental status Overall: alert 9 None Full Exam - General Neurologic mental status Overall: oriented 09/11/2018 None Full Exam - General Psychiatric mood and affect Overall: normal mood and affect 09/11/2018 None Procedures Procedure Codes Date ROUTINE VENIPUNCTURE CPT-4: 63442 09/11/2018 COMPLETE CBC W/AUTO DIFF WBC CPT-4: 10461 09/11/2018 COMPREHEN METABOLIC PANEL CPT-4: 20743 09/11/2018 ASSAY THYROID STIM H ORMONE CPT-4: 35940 09/11/2018 ASSAY OF FREE THYROXINE CPT-4: 28045 09/11/2018 LIPID PANEL CPT-4: 19982 09/11/2018 LH CPT-4: 15655 09/11/2018 FSH CPT-4: 5059144 09/11/2018 ASSAY OF ESTRADIOL CPT- 4: 53006 09/11/2018 VITAMIN B-12 CPT-4: 31339 09/11/2018 A1C HPLC CPT-4: 77568 09/11/2018 Vital Signs Date Vital 11/06/2018 Blood Pressure 1: 138/82 Code: 8480-6 Heart Rate 1: 64 bpm Respiratory Rate: 20 bpm SpO2: 95% Temperature: 36.9 (C ) / 98.4 (F) Weight: 174 lbs 09/11/2018 Blood Pressure 1: 125/85 Code: 8480-6 BMI: 30.0 Code: 02174-0 Heart Rate 1: 80 bpm Height: 5'4" Respiratory Rate: 22 bpm SpO2: 97% Weight: 175 lbs Functional Status No Functional Status data History of Present Illness Symptom Name Status Resu lt Effective Date Notes Quality chronic 11/06/2018 None Quality atrial fibrill ation 11/06/2018 None Quality stable. 11/06/2018 Patient had ablation on 09-26-18 and hasn 't been in a-fib since 10-07-18 Quality hot flashes 11/06/2018 None Quality irritability 11/06/2018 None Onset and Resolution o ngoing 11/06/2018 None Quality constant. 11/06/2018 Patient is on second month of singulair with no improvement Onset and Resolution o ngoing 11/06/2018 None Location in both nares 09/11/2018 None Onset and Resolution o ngoing 09/11/2018 None Onset of Symptom durin g adulthood 09/11/2018 has tried many different regimens with no relief Onset and Resolution g radual in onset 09/11/2018 None Onset of Symptom 3 yea rs ago 09/11/2018 started then after she gottlieb ffered a TIA . Quality acute 09/11/2018 flecanide was prescribed to patient in p lace of sotalol this month until patient has her ablation. Quality acute 09/11/2018 None Onset and Resolution axel conn in onset 09/11/2018 has hot flashes daily. Advance Directives No Advance Directive data Encounters Encounter Performer Loca tion Codes Date ([id number]) OFFICE/OUTPA TIENT VISIT EST Diagnosis: Chronic atrial fibrillation[ICD10: I48.2] Diagnosis: Flushing[ICD10: R23.2] Diagnosis: Postnasal drip[ICD10: R09.82] Sanya NIXON DO [facility] CPT-4: 60910 11/06/2018 ([id number]) OFFICE/OUTPA TIENT VISIT NEW Diagnosis: Flushing[ICD10: R23.2] Diagnosis: Hyperlipidemia, unspecified[ICD10: E78.5] Diagnosis: Chronic atrial fibrillation[ICD10: I48.2] Diagnosis: Personal history of transient ischemic attack (TIA), and cerebral infarction without residual deficits[ICD10: Z86.73] Diagnosis: Deficiency of other specified B group vitamins[ICD10: E53.8] Diagnosis: Other allergic rhinitis[ICD10: J30.89] Diagnosis: Hyperglycemia, unspecified[ICD10: R73.9] Melissa Almanza SANYA WALTERS DO [facility] CPT-4: 75084 09/11/2018 Plan of Care Planned Activity Notes C odes Status Date Visit Diagnosis Plan: Postnasal drip Discussion: [facility] discussed allergy testing but putting on hold until atrial fibrillation is stable Will do trial of hydroxyzine q HS for next month and see if helps symptoms but also to assist with any anxiety associated with decrease in paroxetine dose Recheck 1month ICD-9 : 473.9 ICD-10 : R09.82 11/06/2018 Visit Diagnosis Plan: Chronic atrial fibrillation Discussion: Patient back in [facility] Sees Cardiology back next month ICD-9 : 427.31 ICD-10 : I48.2 11/06/2018 Visit Diagnosis Plan: Flushing Discu ssion: Unable to take hormones due to history of TIA Did discuss that paroxetine may be contributing so will decrease dose to 20mg po daily over next month and see if flushing improves at all ICD-9 : 782.62 ICD-10 : R23.2 11/06/2018 Appointment: Sanya [facility]el[facility] [id number] [id number] [facility] 11/06/2018 Patient Education: hydroxyzine HCl- Opti mizeRX Coupon [id number] [email or web address] Completed 11/06/2018 Visit Diagnosis Plan: Hyperlipidemia, unspecified Discussion: labs obtained in office ICD-9 : 272.4 ICD-10 : E78.5 09/11/2018 Visit Diagnosis Plan: Flushing Discu ssion: update fasting labs including hormone levels. will have patient follow up here in 1 month ICD-9 : 782.62 ICD-10 : R23.2 09/11/2018 Visit Diagnosis Plan: Chronic atrial fibrillation Discussion: has appt with dr. marrero end of the month for ablation. will have patient follow up here in 1 month ICD-9 : 427.31 ICD-10 : I48.2 09/11/2018 Visit Diagnosis Plan: Deficiency of othe r specified B group vitamins Discussion: b12 ordered. ICD-9 : 266.2 ICD-10 : E53.8 09/11/2018 Visit Diagnosis Plan: Other allergic rhinitis Discussion: has an appointment with dr. lu next month. singulair prescribed to take as directed for symptom relief. ICD-9 : 477.8 ICD-10 : J30.89 09/11/2018 Appointment: Melissa Almanza [address] [place], [place] [id number] NEW PATIENT 09/11/2018 Patient Education: Singulair- Optimize[employer] Coupon [id number] [email or web address] Completed 09/11/2018 Patient Education: Eliquis- Optimize[employer] Coupon [id number] [email or web address] Completed 09/11/2018 Patient Education: sotalol- Optimize[employer] Coupon [id number] [email or web address] Completed 09/11/2018 Patient Education: paroxetine HCl- OptimizeRX Coupon 7 [id number] [email or web address] Completed 09/11/2018 Instructions No Instructions
--- OUTSIDE RECORDS SUMMARY | 2019-09-10 07:36 | XMS REPORT | Continuity of Care Document ---
Author Organization Unknown Address Unknown Phone Unavailable Allergies Active Description Code Type Severity Reaction Onset Reported/Identified Relationship to Patient Clinical Status Yes NO KNOWN DRUG ALLERGIES NO KNOWN DRUG ALLERG UNKNOWN Yes NO KNOWN DRUG ALLERGIES UNKNOWN NO KNOWN DRUG ALLERG Yes NO KNOWN DRUG ALLERGIES UNKNOWN UNKNOWN Yes No Allergy Information Available [id number] Drug Allergy Unknown N/A 016 Yes No Known Drug Allergies [id number] Drug Allergy Unknown N/A 05/02/2017 Medications Medication Packaging Start Date St op Date Route Dosage Sig ALPRAZOLAM TAB 0.25 MG (XANAX) MG 05/28/2016 05/28/2016 PRN ONCE Problems Date Dx Coded Attending Type Code Diagnosis Diagnosed By 02/01/2016 MONICA VIEYRA MD Ot E78 .5 HYPERLIPIDEMIA, UNSPECIFIED 02/01/2016 MONICA VIEYRA MD Ot F12.90 CANNABIS USE, UNSPECIFIED, UNCOMPLICATED 02/01/2016 MONICA VIEYRA MD Ot F17.210 NICOTINE DEPENDENCE, CIGARETTES, UNCOMPL 02/01/2016 MONICA VIEYRA MD Ot F32 .9 MAJOR DEPRESSIVE DISORDER, SINGLE EPISOD 02/01/2016 MONICA VIEYRA MD Ot F41 .9 ANXIETY DISORDER, UNSPECIFIED 02/01/2016 MONICA VIEYRA MD Ot G45 .9 TRANSIENT CEREBRAL ISCHEMIC ATTACK, UNSP 02/01/2016 MONICA VIEYRA MD Ot I49 .3 VENTRICULAR PREMATURE DEPOLARIZATION 02/06/2016 GIL HALLMAN, Alberto LENTZ Ot I49 .9 CARDIAC ARRHYTHMIA, UNSPECIFIED 02/27/2016 GIL HALLMAN, Alberto LENTZ Ot I49 .9 CARDIAC ARRHYTHMIA, UNSPECIFIED 03/08/2016 Alberto CORDERO MD Ot I49 .9 CARDIAC ARRHYTHMIA, UNSPECIFIED 03/09/2016 Alberto CORDERO MD Ot G45 .9 TRANSIENT CEREBRAL ISCHEMIC ATTACK, UNSP 03/09/2016 Alberto CORDERO MD Ot I48.91 UNSPECIFIED ATRIAL FIBRILLATION 03/14/2016 Alberto CORDERO MD Ot I49 .9 CARDIAC ARRHYTHMIA, UNSPECIFIED 03/15/2016 Alberto CORDERO MD Ot I48 .0 PAROXYSMAL ATRIAL FIBRILLATION 03/15/2016 Alberto CORDERO MD Ot Z79.01 DETENTION (CURRENT) USE OF ANTICOAGULANT 03/15/2016 Alberto CORDERO MD Ot Z79.899 OTHER DETENTION (CURRENT) DRUG THERAPY 03/15/2016 Alberto CORDERO MD Ot Z86.73 PRSNL HX OF TIA (TIA), AND CEREB INFRC W 03/15/2016 Alberto CORDERO MD Ot Z87.891 PERSONAL HISTORY OF NICOTINE DEPENDENCE 03/21/2016 Alberto CORDERO MD Ot G45 .9 TRANSIENT CEREBRAL ISCHEMIC ATTACK, UNSP 03/21/2016 Alberto CORDERO MD Ot I48.91 UNSPECIFIED ATRIAL FIBRILLATION 03/30/2016 Alberto CORDERO MD Ot G47.33 OBSTRUCTIVE SLEEP APNEA (ADULT) (PEDIATR 03/30/2016 Alberto CORDERO MD Ot G47.33 OBSTRUCTIVE SLEEP APNEA (ADULT) (PEDIATR 04/12/2016 Alberto CORDERO MD Ot I48 .0 PAROXYSMAL ATRIAL FIBRILLATION 04/12/2016 Alberto CORDERO MD Ot Z79.01 DETENTION (CURRENT) USE OF ANTICOAGULANT 04/12/2016 Alberto CORDERO MD Ot Z79.899 OTHER DETENTION (CURRENT) DRUG THERAPY 04/12/2016 Alberto CORDERO MD Ot Z86.73 PRSNL HX OF TIA (TIA), AND CEREB INFRC W 04/12/2016 Alberto CORDERO MD Ot Z87.891 PERSONAL HISTORY OF NICOTINE DEPENDENCE 05/01/2016 Alberto CORDERO MD Ot I49 .9 CARDIAC ARRHYTHMIA, UNSPECIFIED 05/28/2016 KIP TAPIA W 272.4 OTHER AND UNSPECIFIED HYPERLIPIDEMIA 05/28/2016 KIP TAPIA A 300.2 2 AGORAPHOBIA WITHOUT MENTION OF PANIC ATTACKS 05/28/2016 KIP TAPIA W 427.3 1 ATRIAL FIBRILLATION 05/28/2016 KIP TAPIA W 668.8 1 OTHER COMPLICATIONS OF ANESTHESIA OR OTHER SEDATION IN LABOR AND DELIVERY, DELIVERED, WITH OR WITHOUT MENTION OF ANTEPARTUM CONDITION 05/28/2016 KIP TAPIA W E78.5 HYPERLIPIDEMIA, UNSPECIFIED 05/28/2016 KIP TAPIA A 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 WITHOUT AGORAPHOBIA 05/28/2016 KIP TAPIA W I48.9 1 UNSPECIFIED ATRIAL FIBRILLATION 05/28/2016 KIP TAPIA W R51 HEADACHE 10/03/2016 GIL HALLMAN, Alberto LENTZ Ot G45 .9 TRANSIENT CEREBRAL ISCHEMIC ATTACK, UNSP 10/03/2016 GIL HALLMAN, Alberto LENTZ Ot I48.91 UNSPECIFIED ATRIAL FIBRILLATION 10/03/2016 GIL HALLMAN, Alberto LENTZ Ot I49 .9 CARDIAC ARRHYTHMIA, UNSPECIFIED 10/26/2016 GIL HALLMAN, Alberto LENTZ Ot E78 .5 HYPERLIPIDEMIA, UNSPECIFIED 10/26/2016 GIL HALLMAN, Alberto LENTZ Ot I48.91 UNSPECIFIED ATRIAL FIBRILLATION 10/26/2016 GIL HALLMAN, Alberto LENTZ Ot R00 .2 PALPITATIONS 04/04/2017 CE KHANNA DO Ot Z12.3 1 ENCNTR SCREEN MAMMOGRAM FOR MALIGNANT NE 05/02/2017 LEONEL ZENDEJAS DO Ot K21. 9 GASTRO-ESOPHAGEAL REFLUX DISEASE WITHOUT 05/02/2017 LEONEL ZENDEJAS DO Ot R09. 89 OTH SYMPTOMS AND SIGNS INVOLVING THE CIR 05/02/2017 LEONEL ZENDEJAS DO Ot Z01.818 ENCOUNTER FOR OTHER PREPROCEDURAL EXAMIN 05/02/2017 LEONEL ZENDEJAS DO Ot Z12. 11 ENCOUNTER FOR SCREENING FOR MALIGNANT NE 05/02/2017 GIL HALLMAN, Alberto LENTZ Ot I49 .9 CARDIAC ARRHYTHMIA, UNSPECIFIED 05/03/2017 LEONEL ZENDEJAS DO Ot K21. 9 GASTRO-ESOPHAGEAL REFLUX DISEASE WITHOUT 05/03/2017 LEONEL ZENDJEAS DO Ot R09. 89 OTH SYMPTOMS AND SIGNS INVOLVING THE CIR 05/03/2017 LEONEL ZENDEJAS DO Ot Z01.818 ENCOUNTER FOR OTHER PREPROCEDURAL EXAMIN 05/03/2017 LEONEL ZENDEJAS DO Ot Z12. 11 ENCOUNTER FOR SCREENING FOR MALIGNANT NE 05/07/2017 LEONEL ZENDEJAS DO Ot E78. 5 HYPERLIPIDEMIA, UNSPECIFIED 05/07/2017 LEONEL ZENDEJAS DO Ot F41. 9 ANXIETY DISORDER, UNSPECIFIED 05/07/2017 LEONEL ZENDEJAS DO Ot I48. 91 UNSPECIFIED ATRIAL FIBRILLATION 05/07/2017 LEONEL ZENDEJAS DO Ot I49. 3 VENTRICULAR PREMATURE DEPOLARIZATION 05/07/2017 LEONEL ZENDEJAS DO Ot K21. 9 GASTRO-ESOPHAGEAL REFLUX DISEASE WITHOUT 05/07/2017 LEONEL ZENDEJAS DO Ot K29. 70 GASTRITIS, UNSPECIFIED, WITHOUT BLEEDING 05/07/2017 LEONEL ZENDEJAS DO Ot K44. 9 DIAPHRAGMATIC HERNIA WITHOUT OBSTRUCTION 05/07/2017 LEONEL ZENDEJAS DO Ot K57. 30 DVRTCLOS OF LG INT W/O PERFORATION OR AB 05/07/2017 LEONEL ZENDEJAS DO Ot Z12. 11 ENCOUNTER FOR SCREENING FOR MALIGNANT NE 05/07/2017 LEONEL ZENDEJAS DO Ot Z79. 01 DETENTION (CURRENT) USE OF ANTICOAGULANT 05/07/2017 LEONEL ZENDEJAS DO Ot Z79.899 OTHER NUCLEAR TECHNOLOGIST (CURRENT) DRUG THERAPY 05/07/2017 LEONEL ZENDEJAS DO Ot Z87.891 PERSONAL HISTORY OF NICOTINE DEPENDENCE 05/08/2017 LEONEL ZENDEJAS DO Ot K21. 9 GASTRO-ESOPHAGEAL REFLUX DISEASE WITHOUT 05/08/2017 LEONEL ZENDEJAS DO Ot R09. 89 OTH SYMPTOMS AND SIGNS INVOLVING THE CIR 05/08/2017 LEONEL ZENDEJAS DO Ot Z01.818 ENCOUNTER FOR OTHER PREPROCEDURAL EXAMIN 05/08/2017 LEONEL ZENDEJAS DO Ot Z12. 11 ENCOUNTER FOR SCREENING FOR MALIGNANT NE 05/08/2017 LEONEL ZENDEJAS DO Ot E78. 5 HYPERLIPIDEMIA, UNSPECIFIED 05/08/2017 LEONEL ZENDEJAS DO Ot F41. 9 ANXIETY DISORDER, UNSPECIFIED 05/08/2017 LEONEL ZENDEJAS DO Ot I48. 91 UNSPECIFIED ATRIAL FIBRILLATION 05/08/2017 LEONEL ZENDEJAS DO Ot I49. 3 VENTRICULAR PREMATURE DEPOLARIZATION 05/08/2017 LEONEL ZENDEJAS DO Ot K21. 9 GASTRO-ESOPHAGEAL REFLUX DISEASE WITHOUT 05/08/2017 ZENDEJAS DO, LEONEL D Ot K29. 70 GASTRITIS, UNSPECIFIED, WITHOUT BLEEDING 05/08/2017 LEONEL ZENDEJAS DO Ot K44. 9 DIAPHRAGMATIC HERNIA WITHOUT OBSTRUCTION 05/08/2017 ZENDEJASNICOLE YANG DOTT Fritz Ot K57. 30 DVRTCLOS OF LG INT W/O PERFORATION OR AB 05/08/2017 LEONEL ZENDEJAS DO Ot Z12. 11 ENCOUNTER FOR SCREENING FOR MALIGNANT NE 05/08/2017 LEONEL ZENDEJAS DO Ot Z79. 01 DETENTION (CURRENT) USE OF ANTICOAGULANT 05/08/2017 NICOLE ZENDEJAS DOTT Fritz Ot Z79.899 OTHER NUCLEAR TECHNOLOGIST (CURRENT) DRUG THERAPY 05/08/2017 LEONEL ZENDEJAS DO Ot Z87.891 PERSONAL HISTORY OF NICOTINE DEPENDENCE 05/25/2017 LEONEL ZENDEJAS DO Ot E78. 5 HYPERLIPIDEMIA, UNSPECIFIED 05/25/2017 LEONEL ZENDEJAS DO Ot F41. 9 ANXIETY DISORDER, UNSPECIFIED 05/25/2017 LEONEL ZENDEJAS DO Ot I48. 91 UNSPECIFIED ATRIAL FIBRILLATION 05/25/2017 LEONEL ZENDEJAS DO Ot I49. 3 VENTRICULAR PREMATURE DEPOLARIZATION 05/25/2017 LEONEL ZENDEJAS DO Ot K21. 9 GASTRO-ESOPHAGEAL REFLUX DISEASE WITHOUT 05/25/2017 LEONEL ZENDEJAS DO Ot K29. 70 GASTRITIS, UNSPECIFIED, WITHOUT BLEEDING 05/25/2017 LEONEL ZENDEJAS DO Ot K44. 9 DIAPHRAGMATIC HERNIA WITHOUT OBSTRUCTION 05/25/2017 LEONEL ZENDEJAS DO Ot K57. 30 DVRTCLOS OF LG INT W/O PERFORATION OR AB 05/25/2017 LEONEL ZENDEJAS DO Ot Z12. 11 ENCOUNTER FOR SCREENING FOR MALIGNANT NE 05/25/2017 LEONEL ZENDEJAS DO Ot Z79. 01 DETENTION (CURRENT) USE OF ANTICOAGULANT 05/25/2017 LEONEL ZENDEJAS DO Ot Z79.899 OTHER DETENTION (CURRENT) DRUG THERAPY 05/25/2017 NICOLE ZENDEJAS DOTT Fritz Ot Z87.891 PERSONAL HISTORY OF NICOTINE DEPENDENCE 03/18/2018 CE KHANNA DO Ot Z12.3 1 ENCNTR SCREEN MAMMOGRAM FOR MALIGNANT NE 03/19/2018 Alberto CORDERO MD Ot G45 .9 TRANSIENT CEREBRAL ISCHEMIC ATTACK, UNSP 03/19/2018 GIL HALLMAN, Alberto LENTZ Ot I48.91 UNSPECIFIED ATRIAL FIBRILLATION 03/19/2018 GIL HALLMAN, Alberto LENTZ Ot I49 .9 CARDIAC ARRHYTHMIA, UNSPECIFIED 03/19/2018 GIL HALLMAN, Alberto LENTZ Ot E78 .5 HYPERLIPIDEMIA, UNSPECIFIED 03/19/2018 GIL HALLMAN, Alberto LENTZ Ot I48.91 UNSPECIFIED ATRIAL FIBRILLATION 03/19/2018 GIL HALLMAN, Alberto LENTZ Ot R00 .2 PALPITATIONS 03/19/2018 CLEMENCIA MCGEE CE C Ot Z12.3 1 ENCNTR SCREEN MAMMOGRAM FOR MALIGNANT NE 03/19/2018 CLEMENCIA MCGEE CE C Ot Z12.3 1 ENCNTR SCREEN MAMMOGRAM FOR MALIGNANT NE 03/20/2018 KHANNA AQUILES MCGEEA C Ot Z12.3 1 ENCNTR SCREEN MAMMOGRAM FOR MALIGNANT NE 04/11/2018 AQUILES KHANNA DOA C Ot Z12.3 1 ENCNTR SCREEN MAMMOGRAM FOR MALIGNANT NE 04/15/2018 W 719.41 ANTHONY N IN JOINT INVOLVING SHOULDER REGION 04/15/2018 W 723.1 CERV ICALGIA 04/15/2018 W M25.511 PA IN IN RIGHT SHOULDER 04/15/2018 W M25.512 PA IN IN LEFT SHOULDER 04/15/2018 W M54.2 CERV ICALGIA 04/15/2018 W 719.41 ANTHONY N IN JOINT INVOLVING SHOULDER REGION 04/15/2018 W 723.1 CERV ICALGIA 04/15/2018 W M25.511 PA IN IN RIGHT SHOULDER 04/15/2018 W M25.512 PA IN IN LEFT SHOULDER 04/15/2018 W M54.2 CERV ICALGIA 06/16/2018 LEONEL ZENDEJAS DO Ot Z01.818 ENCOUNTER FOR OTHER PREPROCEDURAL EXAMIN 06/19/2018 LEONEL ZENDEJAS DO Ot E78. 5 HYPERLIPIDEMIA, UNSPECIFIED 06/19/2018 LEONEL ZENDEJAS DO Ot I48. 91 UNSPECIFIED ATRIAL FIBRILLATION 06/19/2018 LEONEL ZENDEJAS DO Ot K21. 9 GASTRO-ESOPHAGEAL REFLUX DISEASE WITHOUT 06/19/2018 LEONEL ZENDEJAS DO Ot L73. 8 OTHER SPECIFIED FOLLICULAR DISORDERS 06/19/2018 ZENDEJAS DO LEONEL D Ot Z79. 01 DETENTION (CURRENT) USE OF ANTICOAGULANT 06/19/2018 ZENDEJAS DO LEONEL D Ot Z79.899 OTHER DETENTION (CURRENT) DRUG THERAPY 06/19/2018 ZENDEJAS DO, LEONEL D Ot Z86. 73 PRSNL HX OF TIA (TIA), AND CEREB INFRC W 06/19/2018 ZENDEJAS DO LEONEL D Ot Z87.891 PERSONAL HISTORY OF NICOTINE DEPENDENCE 06/23/2018 ZENDEJASTREY MCGEE LEONEL D Ot E78. 5 HYPERLIPIDEMIA, UNSPECIFIED 06/23/2018 ZENDEJAS DO LEONEL D Ot I48. 91 UNSPECIFIED ATRIAL FIBRILLATION 06/23/2018 ZENDEJAS DO LEONEL D Ot K21. 9 GASTRO-ESOPHAGEAL REFLUX DISEASE WITHOUT 06/23/2018 ZENDEJAS DO, LEONEL D Ot L73. 8 OTHER SPECIFIED FOLLICULAR DISORDERS 06/23/2018 ZENDEJAS DO LEONEL D Ot Z79. 01 NUCLEAR TECHNOLOGIST (CURRENT) USE OF ANTICOAGULANT 06/23/2018 ZENDEJAS DONICOLETT D Ot Z79.899 OTHER NUCLEAR TECHNOLOGIST (CURRENT) DRUG THERAPY 06/23/2018 ZENDEJASNICOLE YANG DOTT D Ot Z86. 73 PRSNL HX OF TIA (TIA), AND CEREB INFRC W 06/23/2018 ZENDEJASLEONEL YANG DO D Ot Z87.891 PERSONAL HISTORY OF NICOTINE DEPENDENCE 07/31/2018 Alberto CORDERO MD Ot Z01.818 ENCOUNTER FOR OTHER PREPROCEDURAL EXAMIN 09/27/2018 Alberto CORDERO MD Ot E66 .9 OBESITY, UNSPECIFIED 09/27/2018 Alberto CORDERO MD Ot I10 ESSENTIAL (PRIMARY) HYPERTENSION 09/27/2018 Alberto CORDERO MD Ot I48 .0 PAROXYSMAL ATRIAL FIBRILLATION 09/27/2018 Alberto CORDERO MD Ot R00 .2 PALPITATIONS 09/27/2018 Albreto CORDERO MD Ot Z68.30 BODY MASS INDEX (BMI) 30.0-30.9, ADULT 09/27/2018 Alberto CORDERO MD Ot Z79.01 DETENTION (CURRENT) USE OF ANTICOAGULANT 09/27/2018 Alberto CORDERO MD Ot Z79.899 OTHER DETENTION (CURRENT) DRUG THERAPY 09/27/2018 Alberto CORDERO MD Ot Z86.73 PRSNL HX OF TIA (TIA), AND CEREB INFRC W 10/16/2018 Alberto CORDERO MD Ot E78 .5 HYPERLIPIDEMIA, UNSPECIFIED 10/16/2018 Alberto CORDERO MD Ot F41 .9 ANXIETY DISORDER, UNSPECIFIED 10/16/2018 Alberto CORDERO MD Ot I48 .0 PAROXYSMAL ATRIAL FIBRILLATION 10/16/2018 Alberto CORDERO MD Ot I65.29 OCCLUSION AND STENOSIS OF UNSPECIFIED CA 10/16/2018 Alberto CORDERO MD Ot Z53 .8 PROCEDURE AND TREATMENT NOT CARRIED OUT 10/16/2018 Alberto CORDERO MD Ot Z79.01 NUCLEAR TECHNOLOGIST (CURRENT) USE OF ANTICOAGULANT 10/16/2018 Alberto CORDERO MD Ot Z79.899 OTHER NUCLEAR TECHNOLOGIST (CURRENT) DRUG THERAPY 10/16/2018 Alberto CORDERO MD Ot Z86.73 PRSNL HX OF TIA (TIA), AND CEREB INFRC W 10/16/2018 Alberto CORDERO MD Ot Z87.891 PERSONAL HISTORY OF NICOTINE DEPENDENCE 10/24/2018 Alberto CORDERO MD Ot E78 .5 HYPERLIPIDEMIA, UNSPECIFIED 10/24/2018 Alberto CORDERO MD Ot F41 .9 ANXIETY DISORDER, UNSPECIFIED 10/24/2018 Alberto CORDERO MD Ot I48 .0 PAROXYSMAL ATRIAL FIBRILLATION 10/24/2018 Alberto CORDERO MD Ot I65.29 OCCLUSION AND STENOSIS OF UNSPECIFIED CA 10/24/2018 Alberto CORDERO MD Ot Z53 .8 PROCEDURE AND TREATMENT NOT CARRIED OUT 10/24/2018 Alberto CORDERO MD Ot Z79.01 NUCLEAR TECHNOLOGIST (CURRENT) USE OF ANTICOAGULANT 10/24/2018 Alberto CORDERO MD Ot Z79.899 OTHER DETENTION (CURRENT) DRUG THERAPY 10/24/2018 Alberto CORDERO MD Ot Z86.73 PRSNL HX OF TIA (TIA), AND CEREB INFRC W 10/24/2018 GIL HALLMAN, Alberto LENTZ Ot Z87.891 PERSONAL HISTORY OF NICOTINE DEPENDENCE 12/15/2018 JOSÉ HALLMAN, PARADISE Ot G45 .3 AMAUROSIS FUGAX 12/16/2018 PARADISE KUMAR MD Ot G45 .3 AMAUROSIS FUGAX 12/16/2018 PARADISE KUMAR MD Ot G45 .3 AMAUROSIS FUGAX 01/09/2019 PARADISE KUMAR MD Ot H53 .8 OTHER VISUAL DISTURBANCES 01/09/2019 PARADISE KUMAR MD Ot 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, AORTIC 04/21/2019 JORGE ALATORRE APRN Ot Z12.31 ENCNTR SCREEN MAMMOGRAM FOR MALIGNANT NE 04/21/2019 Alberto CORDERO MD Ot G45 .9 TRANSIENT CEREBRAL ISCHEMIC ATTACK, UNSP 04/21/2019 Alberto CORDERO MD Ot I48.91 UNSPECIFIED ATRIAL FIBRILLATION 04/21/2019 Alberto CORDERO MD Ot I49 .9 CARDIAC ARRHYTHMIA, UNSPECIFIED 04/21/2019 GIL HALLMAN, Alberto LENTZ Ot E78 .5 HYPERLIPIDEMIA, UNSPECIFIED 04/21/2019 Alberto CORDERO MD Ot I48.91 UNSPECIFIED ATRIAL FIBRILLATION 04/21/2019 GIL HALLMAN, Alberto LENTZ Ot R00 .2 PALPITATIONS 04/21/2019 CE KHANNA DO Ot Z12.3 1 ENCNTR SCREEN MAMMOGRAM FOR MALIGNANT NE 04/21/2019 CE KHANNA DO Ot Z12.3 1 ENCNTR SCREEN MAMMOGRAM FOR MALIGNANT NE 04/21/2019 Alberto CORDERO MD Ot Z01.818 ENCOUNTER FOR OTHER PREPROCEDURAL EXAMIN 04/21/2019 PARADISE KUMAR MD Ot H53 .8 OTHER VISUAL DISTURBANCES 04/21/2019 PARADISE KUMAR MD Ot 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, AORTIC 04/21/2019 JORGE ALATORRE SAUTE CHEF Ot Z12.31 ENCNTR SCREEN MAMMOGRAM FOR MALIGNANT NE 04/22/2019 JORGE ALATORRE SAUTE CHEF Ot Z12.31 ENCNTR SCREEN MAMMOGRAM FOR MALIGNANT NE 04/24/2019 Alberto CORDERO MD Ot G45 .9 TRANSIENT CEREBRAL ISCHEMIC ATTACK, UNSP 04/24/2019 GIL HALLMAN, Alberto LENTZ Ot I48.91 UNSPECIFIED ATRIAL FIBRILLATION 04/24/2019 GIL HALLMAN, Alberto LENTZ Ot I49 .9 CARDIAC ARRHYTHMIA, UNSPECIFIED 04/24/2019 Alberto CORDERO MD Ot E78 .5 HYPERLIPIDEMIA, UNSPECIFIED 04/24/2019 Alberto CORDERO MD, Ot I48.91 UNSPECIFIED ATRIAL FIBRILLATION 04/24/2019 GIL HALLMAN, Alberto LENTZ Ot R00 .2 PALPITATIONS 04/24/2019 CE KHANNA DO Ot Z12.3 1 ENCNTR SCREEN MAMMOGRAM FOR MALIGNANT NE 04/24/2019 CE KHANNA DO Ot Z12.3 1 ENCNTR SCREEN MAMMOGRAM FOR MALIGNANT NE 04/24/2019 Alberto CORDERO MD Ot Z01.818 ENCOUNTER FOR OTHER PREPROCEDURAL EXAMIN 04/24/2019 PARADISE KUMAR MD Ot H53 .8 OTHER VISUAL DISTURBANCES 04/24/2019 PARADISE KUMAR MD Ot 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 Results Test Result Range Complete blood count (CBC) with automate d white blood cell (WBC) differential - 01/31/16 18:00 Blood leukocytes automated count (number/volume) 7.0 10*3/uL 4.3-11.0 Blood erythrocytes automated count (number/volume) 4.21 10*6/uL 4.35-5.85 Venous blood hemoglobin measurement (mass/volume) 14.1 g/dL 11.5-16.0 Blood hematocrit (volume fraction) 41 % 35-52 Automated erythrocyte mean corpuscular volume 97 [ foz_us] 80-99 Automated erythrocyte mean corpuscular h emoglobin (mass per erythrocyte) 34 pg 25-34 Automated erythrocyte mean corpuscular h emoglobin concentration measurement (mass/volume) 35 g/dL 32-36 Automated erythrocyte distribution width ratio 12. 0 % 10.0- 14.5 Automated blood platelet count [...] 10*3 1.0-4.0 Blood monocytes automated count (number/volume) 0. 8 10*3 0.0-1.0 Automated eosinophil count 0.1 10*3/uL 0 .0-0.3 Automated blood basophil count (count/volume) 0.0 10*3/uL 0.0-0.1 Comprehensive Metabolic Panel - 05/28/16 21:33 Albumin 3.5 g/dL 3.6-5.1 ALP 46 U/L 35-130 ALT 14 U/L 6-45 Anion Gap 11 6-14 AST 11 U/L 2-40 BUN 15 mg/dL 5-25 Calcium 8.4 mg/dL 8.3-10.4 Chloride 106 mmol/L 95-114 CO2 24 mEq/L 22-33 Creat 0.90 mg/dL 0.50-1.50 eGFR 63 mL/min/1.73m2 >59 Globulin 2.4 g/dL 2.3-3.5 Glucose 135 mg/dL 70-110 Osmo 286 280-295 Potassium 3.7 mmol/L 3.5-5.3 Sodium 137 mmol/L 134-148 TBil 0.4 mg/dL 0.2-1.2 TP 5.9 g/dL 6.0-8.3 Methicillin resistant Staphylococcus aur eus (MRSA) screening culture - 06/19/18 06:30 Methicillin resistant Staphylococcus aureus (MRSA) scr eening culture NEG NRG Automated blood complete blood count (he mogram) panel - 09/26/18 07:28 Blood leukocytes automated count (number/volume) 7.5 10*3/uL 4.3-11.0 Blood erythrocytes automated count (number/volume) 4.81 10*6/uL 4.35-5.85 Venous blood hemoglobin measurement (mass/volume) 15.4 g/dL 11.5-16.0 Blood hematocrit (volume fraction) 48 % 35-52 Automated erythrocyte mean corpuscular volume 99 [ foz_us] 80-99 Automated erythrocyte mean corpuscular h emoglobin (mass per erythrocyte) 32 pg 25-34 Automated erythrocyte mean corpuscular h emoglobin concentration measurement (mass/volume) 32 g/dL 32-36 Automated erythrocyte distribution width ratio 13. 1 % 10.0- 14.5 Automated blood platelet count (count/volume) 258 10*3/uL 130-400 Automated blood platelet mean volume measurement 9.2 [foz_us] 7.4-10.4 PT panel in platelet poor plasma by coag ulation assay - 09/26/18 07:28 Prothrombin time (PT) in platelet poor plasma by coagu lation assay 14.6 s 12.2-14.7 INR in platelet poor plasma or blood by coagulation as say 1.1 0.8-1.4 Activated partial thromboplastin time (a PTT) in platelet poor plasma bycoagulation assay - 09/26/18 07:28 Activated partial thromboplastin time (a PTT) in platelet poor plasma bycoagulation assay 40 s 24-35 Comprehensive metabolic panel - 09/26/18 07:28 Serum or plasma sodium measurement (moles/volume) 137 mmol/L 135-145 Serum or plasma potassium measurement (moles/volume) 3.9 mmol/L 3.6-5.0 Serum or plasma chloride measurement (moles/volume) 101 mmol/L 98-107 Carbon dioxide 23 mmol/L 21-32 Serum or plasma anion gap determination (moles/volume) 13 mmol/L 5-14 Serum or plasma urea nitrogen measurement (mass/volume ) 10 mg/dL 7-18 Serum or plasma creatinine measurement (mass/volume) 0.90 mg/dL 0.60-1.30 Serum or plasma urea nitrogen/creatinine mass ratio 11 NRG Serum or plasma creatinine measurement w ith calculation of estimated glomerular filtration rate > NRG Serum or plasma glucose measurement (mass/volume) 102 mg/dL 70-105 Serum or plasma calcium measurement (mass/volume) 9.1 mg/dL 8.5-10.1 Serum or plasma total bilirubin measurement (mass/volu me) 0.4 mg/dL 0.1-1.0 Serum or plasma alkaline phosphatase rosaura surement (enzymatic activity/volume) 93 U/L 40-136 Serum or plasma aspartate aminotransfera se measurement (enzymatic activity/volume) 21 U/L 5-34 Serum or plasma alanine aminotransferase measurement (enzymatic activity/volume) 20 U/L 0-55 Serum or plasma protein measurement (mass/volume) 7.2 g/dL 6.4-8.2 Serum or plasma albumin measurement (mass/volume) 4.3 g/dL 3.2-4.5 CALCIUM CORRECTED 8.9 mg/dL 8.5-10.1 Methicillin resistant Staphylococcus aur eus (MRSA) screening culture - 09/26/18 07:28 Methicillin resistant Staphylococcus aureus (MRSA) scr eening culture NEG NR Automated blood complete blood count (he mogram) panel - 09/27/18 03:10 Blood leukocytes automated count (number/volume) 9.8 10*3/uL 4.3-11.0 Blood erythrocytes automated count (number/volume) 3.65 10*6/uL 4.35-5.85 Venous blood hemoglobin measurement (mass/volume) 11.8 g/dL 11.5-16.0 Blood hematocrit (volume fraction) 37 % 35-52 Automated erythrocyte mean corpuscular volume 100 [foz_us] 80-99 Automated erythrocyte mean corpuscular h emoglobin (mass per erythrocyte) 32 pg 25-34 Automated erythrocyte mean corpuscular h emoglobin concentration measurement (mass/volume) 32 g/dL 32-36 Automated erythrocyte distribution width ratio 13. 2 % 10.0- 14.5 Automated blood platelet count (count/volume) 201 10*3/uL 130-400 Automated blood platelet mean volume measurement 9.6 [foz_us] 7.4-10.4 Whole blood basic metabolic panel - 08/31 12/18 03:10 Serum or plasma sodium measurement (moles/volume) 137 mmol/L 135-145 Serum or plasma potassium measurement (moles/volume) 3.8 mmol/L 3.6-5.0 Serum or plasma chloride measurement (moles/volume) 108 mmol/L 98-107 Carbon dioxide 20 mmol/L 21-32 Serum or plasma anion gap determination (moles/volume) 9 mmol/L 5-14 Serum or plasma urea nitrogen measurement (mass/volume ) 9 mg/dL 7-18 Serum or plasma creatinine measurement (mass/volume) 0.77 mg/dL 0.60-1.30 Serum or plasma urea nitrogen/creatinine mass ratio 12 NRG Serum or plasma creatinine measurement w ith calculation of estimated glomerular filtration rate > NRG Serum or plasma glucose measurement (mass/volume) 114 mg/dL 70-105 Serum or plasma calcium measurement (mass/volume) 7.3 mg/dL 8.5-10.1 Encounters ACCT No. Visit Date/Time Discharge Status Pt. Type Provider Facility Loc./Unit Complaint [id number] 03/28/2017 09:31:12 03/28/2017 23:59:5 9 CLS Outpatient [id number] 11/07/2018 00:00:35 11/07/2018 23:59:5 9 CLS Outpatient [id number] 09/17/2018 09:49:00 09/17/2018 23:59: 00 DIS Outpatient Ginette Nixon [id number] 03/18/2018 14:00:00 03/18/2018 23:59: 00 DIS Outpatient GOLDIE ALAS [id number] 05/28/2016 21:00:00 05/28/2016 22:45: 00 DIS Outpatient KIP TAPIA [id number] 04/03/2018 13:47:30 Document Registration [id number] 02/05/2017 13:31:55 Document Registration [id number] 05/28/2016 21:33:40 Document Registration [id number] 04/24/2019 11:04:00 020 23:59:59 CLS Outpatient JORGE ALATORRE APRN [facility] RAD SCREENING [id number] 12/16/2018 11:45:00 019 23:59:59 CLS Outpatient PARADISE KUMAR MD [facility] CARD R/O PATRICIAT PLAQUE [id number] 10/16/2018 07:56:00 019 08:24:00 DIS Outpatient Alberto CORDERO MD [facility] CATH PERSISTENT AF [id number] 09/26/2018 07:11:00 019 10:27:00 DIS Outpatient Alberto CORDERO MD [facility] CATH SYMPATHETIC AFIB [id number] 07/30/2018 05:41:00 019 23:59:59 CLS Outpatient Alberto CORDERO MD [facility] PREOP SYMPTOMATIC AF [id number] 06/19/2018 05:53:00 019 13:55:00 DIS Outpatient LEONEL ZENDEJAS DO [facility] SDC LESION RIGHT CHEEK [id number] 06/16/2018 05:32:00 019 11:32:00 DIS Outpatient LEONEL ZENDEJAS DO [facility] PREOP LESION RIGHT CHEEK [id number] 03/19/2018 10:40:00 018 23:59:59 CLS Outpatient CE KHANNA DO [facility] RAD SCREENING [id number] 03/11/2018 11:59:00 018 23:59:59 CLS Preadmit Alberto CORDERO MD [facility] RAD CAROTID ARTERY STENOSIS [id number] 05/07/2017 09:26:00 018 11:40:00 DIS Outpatient ZENDEJAS LEONEL MCGEE [facility] ENDO SCREENING/REFLUX/GLOBUS SECRETIONS [id number] 05/02/2017 05:36:00 018 11:17:00 DIS Outpatient LEONEL ZENDEJAS DO [facility] PREOP COLONOSCOPY/EGD [id number] 03/19/2017 10:27:00 017 23:59:59 CLS Outpatient CE KHANNA DO [facility] RAD SCREENING [id number] 12/12/2016 12:32:00 017 23:59:59 CLS Preadmit CE KHANNA DO, V [facility] RAD SCREENING [id number] 10/03/2016 09:21:00 017 23:59:59 CLS Outpatient Alberto CORDERO MD [facility] LAB E78.5 I48.91 R00.2 [id number] 05/02/2016 15:30:00 23:59:59 CLS Preadmit Alberto CORDERO MD [facility] CARD IRREGULAR HEART RHYTHM [id number] 02/01/2016 15:29:00 017 00:01:00 DIS Outpatient Alberto CORDERO MD [facility] CARD IRREGULAR HEART RHYTHM [id number] 03/29/2016 20:42:00 06:10:00 DIS Outpatient Alberto CORDERO MD [facility] SLEEP SNORING,ARRHYTHMIAS,INSOMNIA,MORNING HEADACHES,TIA [id number] 03/15/2016 09:53:00 11:50:00 DIS Outpatient Alberto CORDERO MD [facility] CATH AFIB [id number] 03/08/2016 11:13:00 23:59:59 CLS Outpatient Alberto CORDERO MD [facility] CARD AF, PALPITATIONS, TIA [id number] 01/31/2016 20:34:00 15:45:00 DIS Inpatient MONICA VIEYRA MD [facility] ICU TIA [id number] 09/10/2019 11:30:00 P EN Preadmit Alberto CORDERO MD [facility] CATH AF MANAGEMENT
--- OUTSIDE RECORDS SUMMARY | 2019-09-10 07:36 | XMS REPORT | CCD ---
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 Name Role Phone PP Unavailable CCM Unavailable Summary Purpose Interface Exchange Insurance Providers Payer name Policy type / Coverage type Covered libertarian ID Effective Begin Date Effective End Date WPS MEDICARE PART B [place] Medicare Part B [id number] 2018 Unknown Cigna Medicare Part B 80 [id number] 2018 Unknown Family History Family History data [...] hydroxyzine HCl 25 m g tablet RxNorm: 643850 1 Tablet(s) PO QHS fo r allergies/sleep/anxiety 11/06/2018 12/05/2018 Active psyllium husk (bulk) 100 % powder RxNorm: 1 Unit Dose Miscellaneous Q HS 09/12/2018 No Stop Date Active Probiotic-Digestive Enzymes 5 mg-250 mg capsule RxNorm: 1 Capsule(s) PO QD 09/12/2018 No Stop Date Active Eliquis 5 mg tablet RxNorm: 3224375 1 Tablet(s) PO BID 09/12/2018 No Stop Date Active atorvastatin 20 mg t ablet RxNorm: 622270 1 Tablet(s) PO QHS 09/12/2018 No Stop Date Active Multivitamin 50 Plus tablet RxNorm: 1 Tablet(s) PO QD 09/12/2018 No Stop Date Active paroxetine 40 mg tablet RxNorm: 5019658 1 Tablet(s) PO QD 09/12/2018 No Stop Date Active Vitamin B12 1000mcg Tablet RxNorm: 1 Tablet(s) PO QD 09/12/2018 09/16/2018 Inactive sotalol 120 mg tablet RxNorm: 6425969 1 Tablet(s) PO BID 09/12/2018 11/05/2018 Inactive Benadryl 25 mg capsule RxNorm: 7163218 1 Capsule(s) PO QHS as needed 09/12/2018 11/05/2018 In active Singulair 10 mg tablet RxNorm: 436820 1 Tablet(s) PO QHS 09/11/2018 11/05/2018 Inactive flecainide 100 mg ta blet RxNorm: 911901 1 Tablet(s) PO BID No Start Date Active metoprolol succinate ER 25 mg tablet,extended release 24 hr RxNorm: 151460 1 Tablet(s) PO QD No Start Date Active Vitamin B12 1000mcg Tablet RxNorm: /2 Tablet(s) PO QD No Start Date Active Medication Administered No Medication Administered data Immunizations No Immunization data Assessments Condition Codes Effectiv e Dates Postnasal drip ICD-10: R09.82 ICD-9: 473.9 11/06/2018 Chronic atrial fibrillation ICD-10: I48.2 ICD-9: 427.31 11/06/2018 [place] ICD-10: R23.2 ICD-9: 782.62 11/06/2018 Personal history of transient ischemic a ttack (TIA), and cerebral infarction without residual deficits ICD-10: Z86.73 ICD-9: V12.54 09/11/2018 Other allergic rhinitis ICD-10: J30. 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-10: E53.8 ICD-9: 266.2 09/11/2018 Reason For Visit Reason For Visit Effective Dates Notes follow up 11/06/2018 nasal allergies 09/11/2018 new patient Results Observation Observation Code Item Item Code Result Date VITAMIN B 12 74945 VITAM IN B12 >2000 pg/mL 09/16/2018 GLYCOSYLATED HEMOGLOBIN TEST 76071 Hgb A1c 06874-4 5.6 % 09/15/2018 MEAN GLUC 9472522 Calc M fani Gluc 114 mg/dL 09/15/2018 COMPLETE BLOOD COUNT 6187057 WBC 6.2 10e9/L 09/11/2018 COMPLETE BLOOD COUNT 6397179 RBC 4.73 10e12/L 9 COMPLETE BLOOD COUNT 3305063 HEMOGLOBIN 15.4 g/dL 09/11/2018 COMPLETE BLOOD COUNT 4509102 HEMATOCRIT 46.9 % 09/11/2018 COMPLETE BLOOD COUNT 1456333 MCV 99.2 fL 09/11/2018 COMPLETE BLOOD COUNT 4968179 MCH 32.6 pg 09/11/2018 COMPLETE BLOOD COUNT 5780895 MCHC 32.8 g/dL 09/11/2018 COMPLETE BLOOD COUNT 3263398 PLATELET COUNT 268 10e9/L 09/11/2018 COMPLETE BLOOD COUNT 3089190 Mean Plt Volume 9.8 fL 09/11/2018 COMPLETE BLOOD COUNT 8992354 Neut Auto 67.5 % 09/11/2018 COMPLETE BLOOD COUNT 5176719 Lymph Auto 20.7 % 09/11/2018 COMPLETE BLOOD COUNT 3130872 [place] Auto 9.7 % 09/11/2018 COMPLETE BLOOD COUNT 9893630 RDW 12.9 % 09/11/2018 COMPLETE BLOOD COUNT 4419932 Eos Auto 1.6 % 09/11/2018 COMPLETE BLOOD COUNT 2627585 Baso Auto 0.5 % 09/11/2018 COMPLETE BLOOD COUNT 1311841 Neutrophil Abs 4.18 10e9/L 09/11/2018 COMPLETE BLOOD COUNT 3415179 Lymphocyte Abs 1.28 10e9/L 09/11/2018 COMPLETE BLOOD COUNT 3618441 Monocyte Abs 0.60 10e9/L 09/11/2018 COMPLETE BLOOD COUNT 4035350 Eosinophil Abs 0.10 10e9/L 09/11/2018 COMPLETE BLOOD COUNT 9308693 RDW-SD 45.5 fL 09/11/2018 COMPLETE BLOOD COUNT 2335309 Basophil Abs 0.03 10e9/L 09/11/2018 THYROID STIMULATING HORMONE 18539 TSH 0.867 uIU/mL 9 FSH 0990239 FSH 73.05 mIU/mL 09/11/2018 COMPREHENSIVE METABOLIC 79812 AST 16 U/L 09/11/2018 COMPREHENSIVE METABOLIC 87010 ALT 14 U/L 09/11/2018 COMPREHENSIVE METABOLIC 91320 BUN 12 mg/dL 09/11/2018 COMPREHENSIVE METABOLIC 90963 ALBUMIN 4.3 g/dL 09/11/2018 COMPREHENSIVE METABOLIC 40211 CHLORIDE 105 mmol/L 09/11/2018 COMPREHENSIVE METABOLIC 02582 Bili Total 0.5 mg/dL 09/11/2018 COMPREHENSIVE METABOLIC 44511 ALK PHOS 62 U/L 09/11/2018 COMPREHENSIVE METABOLIC 41110 SODIUM 137 mmol/L 09/11/2018 COMPREHENSIVE METABOLIC 64920 CREATININE 0.84 mg/dL 09/11/2018 COMPREHENSIVE METABOLIC 63191 CALCIUM 9.3 mg/dL 09/11/2018 COMPREHENSIVE METABOLIC 30520 POTASSIUM 4.7 mmol/L 09/11/2018 COMPREHENSIVE METABOLIC 78488 Total Protein 6.5 g/dL 09/11/2018 COMPREHENSIVE METABOLIC 63139 Glucose 110 mg/dL 09/11/2018 COMPREHENSIVE METABOLIC 70930 Bicarbonate 26 mmol/L 09/11/2018 COMPREHENSIVE METABOLIC 68665 AGAP 6 mmol/L 09/11/2018 LH 11988 LH 28.63 mIU/mL 09/11/2018 GFR CALC 7672854 GFR Non Afr Amr >60 mL/min 09/11/2018 GFR CALC 7602951 GFR Afr Amr >60 mL/min 09/11/2018 ESTRADIOL SERUM 49298 ES TRADIOL <24 pg/mL 09/11/2018 FREE T4 60337 T4 Free 0.84 ng/dL 09/11/2018 LIPID GROUP 28263 Choles terol 156 mg/dL 09/11/2018 LIPID GROUP 09801 Trigly ceride 71 mg/dL 09/11/2018 LIPID GROUP 53363 HDL CH OLESTEROL 61 mg/dL 09/11/2018 LIPID GROUP 12147 Chol/H DL Ratio 2.56 ratio 09/11/2018 LIPID GROUP 89278 NON-HD L Chol 95 mg/dL 09/11/2018 LIPID GROUP 76343 LDL Ch olesterol 81 mg/dL 09/11/2018 Review [...] Procedures Procedure Codes Date ROUTINE VENIPUNCTURE CPT-4: 58243 09/11/2018 COMPLETE CBC W/AUTO DIFF WBC CPT-4: 43338 09/11/2018 COMPREHEN METABOLIC PANEL CPT-4: 47415 09/11/2018 ASSAY THYROID STIM H ORMONE CPT-4: 78037 09/11/2018 ASSAY OF FREE THYROXINE CPT-4: 86070 09/11/2018 LIPID PANEL CPT-4: 49481 09/11/2018 LH CPT-4: 23886 09/11/2018 FSH CPT-4: 2881080 09/11/2018 ASSAY OF ESTRADIOL CPT- 4: 29930 09/11/2018 VITAMIN B-12 CPT-4: 35855 09/11/2018 A1C HPLC CPT-4: 67517 09/11/2018 Vital Signs Date Vital 11/06/2018 Blood Pressure 1: 138/82 Code: 8480-6 Heart Rate 1: 64 bpm Respiratory Rate: 20 bpm SpO2: 95% Temperature: 36.9 (C ) / 98.4 (F) Weight: 174 lbs 09/11/2018 Blood Pressure 1: 125/85 Code: 8480-6 BMI: 30.0 Code: 78255-5 Heart Rate 1: 80 bpm Height: 5'4" [...] Encounters Encounter Performer Loca tion Codes Date (17006) OFFICE/OUTPA TIENT VISIT EST Diagnosis: Chronic atrial fibrillation[ICD10: I48.2] Diagnosis: [place][ICD10: R23.2] Diagnosis: Postnasal drip[ICD10: R09.82] Sanya [facility] CPT-4: 27314 11/06/2018 (96816) OFFICE/OUTPA TIENT VISIT NEW Diagnosis: [place][ICD10: R23.2] Diagnosis: Hyperlipidemia, unspecified[ICD10: E78.5] Diagnosis: Chronic atrial fibrillation[ICD10: I48.2] Diagnosis: Personal history of transient ischemic attack (TIA), and cerebral infarction without residual deficits[ICD10: Z86.73] Diagnosis: Deficiency of other specified B group vitamins[ICD10: E53.8] Diagnosis: Other allergic rhinitis[ICD10: J30.89] Diagnosis: Hyperglycemia, unspecified[ICD10: R73.9] Melissa OVERTONLINE AxelJohanna WILKERSONTENZIN DO [facility] CPT-4: 60801 09/11/2018 Plan of Care Planned Activity Notes [...] ICD-9 : 782.62 ICD-10 : R23.2 11/06/2018 Patient Education: hydroxyzine HCl- Opti mizeRX Coupon [id number] [email or web address]/[email or web address].pdf Completed 11/06/2018 Visit Diagnosis Plan: Hyperlipidemia, unspecified [...] ICD-10 : J30.89 09/11/2018 Appointment: Melissa Almanza [address] [place], [place] [id number] NEW PATIENT 09/11/2018 Patient Education: Singulair- OptimizeRX Coupon [id number] [email or web address]://[email or web address]/resources/getResource/[email or web address]-[email or web address] Completed 09/11/2018 Patient Education: Eliquis- OptimizeRX Coupon [id number] [email or web address]://[email or web address].[email or web address]/samplemd/resources/getResource/61/[email or web address]-u720-8sy0-[email or web address] Completed 09/11/2018 Patient Education: sotalol- OptimizeRX Coupon [id number] [email or web address]://[email or web address].com/[email or web address]/resources/getResource/61/[email or web address]-[email or web address]-71 Completed 09/11/2018 Patient Education: paroxetine HCl- OptimizeRX Coupon 7 [id number] [email or web address]://[email or web address].com/samplemd/resources/getResource/61/[email or web address]-ub Completed 09/11/2018 Instructions No Instructions
--- NOTE | 2019-09-10 11:55 | Implantation of Loop Monitor ---
Implant of Loop Monitior EXPLANTATION OF LOOP MONITOR AND NEW IMPLANTATION OF LOOP MONITOR REPORT DATE OF PROCEDURE: 09/10/19 PERFORMING PHYSICIAN: Dr. Ramón Ruelas. INDICATION: Long-term surveillance of atrial fibrillation Previous implantable loop recorder EVGENY. PREOP DIAGNOSIS: Long-term surveillance of atrial fibrillation POSTOP DIAGNOSIS: Persistent Atrial fibrillation, s/p change out of loop recorder. PROCEDURE DETAILS: The patient is a 68 female with history of persistent atrial fibrillation, status post atrial fibrillation ablation. She has previous implanted implantable loop recorder, however loop recorder is now EVGENY. Therefore we will explant the old implantable loop recorder and implant a new one. Therefore implantable loop recorder was discussed and agreed with the patient. Informed consent was taken. All risks and complications were discussed at length. The patient was draped and prepped in the usual sterile fashion. Local anesthesia was lidocaine, which was given in the substernal area close to the 4th intercostal space. The previous loop monitor was explanted and a new Loop monitor was implanted according to the protocol. Steri-Strips were placed at the end of the procedure. There were no complications and the patient tolerated the procedure well. The device was interrogated with a voltage of. ANESTHESIA: Local anesthesia with lidocaine. COMPLICATIONS: None CONTRAST/FLUOROSCOPY: None CONCLUSION: 1. Successful change out off a loop monitor for persistent atrial fibrillation. 2. No complication and the patient tolerated the procedure well. Francine Ruelas MD, [facility] Cardiac Electrophysiology Alberto RUELAS MD Sep 10, 2019 11:55
== END 2019-09-10 10:07 | disposition home or self-care (01) ==
LOC: CATH 07:26
PROVIDERS: ATTEND Internal Medicine Interventional Cardiology
DX: I48.19 Other persistent atrial fibrillation (principal); I48.0 Paroxysmal atrial fibrillation; I63.9 Cerebral infarction, unspecified; I65.29 Occlusion and stenosis of unspecified carotid artery; E78.5 Hyperlipidemia, unspecified; I49.3 Ventricular premature depolarization; F32.9 Major depressive disorder, single episode, unspecified; F41.9 Anxiety disorder, unspecified; Z88.8 Allergy status to other drugs, medicaments and biological substances; Z79.899 Other long term (current) drug therapy; Z86.73 Personal history of transient ischemic attack (TIA), and cerebral infarction without residual deficits; Z90.710 Acquired absence of both cervix and uterus; Z87.891 Personal history of nicotine dependence; Z80.3 Family history of malignant neoplasm of breast; Z83.6 Family history of other diseases of the respiratory system; Z82.62 Family history of osteoporosis

== ENCOUNTER → 2020-05-05 | Outpatient (CLI) | payer MEDICARE, OTHER ==
[~2020-05-05] MED LIST changes: -BUPR150T7 PO; +BUPR150T8 PO; -PANT40TA3 PO; +PANT40TA52 PO
--- NOTE | 2020-05-05 13:36 | Diagnostic Imaging Report ---
INDICATION: Routine screening. COMPARISON is made with prior mammograms 04/24/2019 and 03/19/2018. 2-D and 3-D bilateral screening mammography was performed with CAD. Scattered fibroglandular densities are identified bilaterally. Monitoring device overlies the medial left breast soft tissues. Benign calcifications are noted. A marker clip in the left breast is again noted from prior biopsy. No dominant mass or malignant-appearing microcalcifications are seen. Axillae are unremarkable. IMPRESSION: BI-RADS Category 2 No mammographic features suspicious for malignancy are identified. ACR BI-RADS Category 2: Benign findings. Result letter will be mailed to the patient. Note: At least 10% of breast cancer is not imaged by mammography. Dictated by: Dictated on workstation # [id number]
== END ==
LOC: RAD 10:54
PROVIDERS: ATTEND Obstetrics & Gynecology
DX: Z12.31 Encounter for screening mammogram for malignant neoplasm of breast (principal)
CPT/HCPCS: 77063; 77067

== ENCOUNTER → 2020-12-02 | Outpatient (CLI) | payer MEDICARE, OTHER ==
[~2020-12-02] VITALS: Ht 162 cm; Wt 82.0 kg
[~2020-12-02] MED LIST changes: +BUPR150T24 PO; -BUPR150T8 PO; +CATHETER FLUSH 10 ML SYR IV PRN; +REGADENOSON 0.4 MG/5 ML SYR (LEXISCAN) IV ONE
[2020-12-02 09:14] VITALS: BP 164/77
--- NOTE | 2020-12-06 13:27 | STRESS TEST ---
DATE OF SERVICE: 12/02/2020 RESTING AND POST REGADENOSON TECHNETIUM-99M TETROFOSMIN SPECT CT IMAGING Baseline images were carried out after injection of 10.16 mCi of technetium-99m Tetrofosmin. This was followed by 0.4 mg of Regadenoson and 32.1 mCi of technetium-99m Tetrofosmin for stress imaging. The electrocardiogram showed atrial fibrillation/flutter at baseline and it did not change significantly with the Regadenoson infusion. Review of images at rest and following stress does not indicate any significant perfusion defects consistent with myocardial ischemia or infarction. Gated images show normal global left ventricular systolic function with normal regional wall motion. Left ventricular ejection fraction is calculated to be 49%. Left ventricular end diastolic volume is 57 mL. TID is absent (1.05). CONCLUSIONS: 1. Atrial flutter/fibrillation throughout the study. 2. Normal regional wall motion. 3. Normal global left ventricular systolic function with a calculated ejection fraction of 49%. Job ID: [id number] DocumentID: [id number] Dictated Date: 12/06/2020 13:13:12 Car Usher Date: 12/06/2020 13:26:31 Dictated By: GREG DRIVER MD, MA, FACP, FACC,
== END ==
LOC: CARD 08:00
PROVIDERS: ATTEND Internal Medicine Cardiovascular Disease
DX: R06.09 Other forms of dyspnea (principal)
CPT/HCPCS: 78452; 93017; A9502

== ENCOUNTER → 2020-12-06 | Outpatient (CLI) | payer MEDICARE, OTHER ==
[~2020-12-06] MED LIST changes: -CATHETER FLUSH 10 ML SYR IV PRN; -REGADENOSON 0.4 MG/5 ML SYR (LEXISCAN) IV ONE
== END ==
LOC: CARD 09:27
PROVIDERS: ATTEND Internal Medicine Cardiovascular Disease
DX: I51.7 Cardiomegaly (principal); I34.0 Nonrheumatic mitral (valve) insufficiency
CPT/HCPCS: 93306

== ENCOUNTER 2021-02-17 09:53 | Outpatient (CLI) | payer MEDICARE, OTHER | END 2021-02-17 10:15 | LOC: SLEEP 09:53 | PROVIDERS: ATTEND Otolaryngology Otolaryngology/Facial Plastic Surgery | DX: G47.33 Obstructive sleep apnea (adult) (pediatric) (principal) | CPT/HCPCS: G0399 ==

== ENCOUNTER → 2021-06-22 | Outpatient (CLI) | payer MEDICARE, OTHER ==
--- NOTE | 2021-06-22 13:47 | Diagnostic Imaging Report ---
INDICATION: Routine screening. COMPARISON is made with prior mammograms 07/19/2020 and 04/24/2019. 2-D and 3-D bilateral screening mammography was performed with CAD. Both breasts are heterogeneously dense, limiting the sensitivity of mammography. Cardiac loop recorder overlies the medial left breast. Benign calcifications in the left breast are noted. Overall parenchymal pattern appears stable. No mass is detected. There are no malignant appearing microcalcifications. Axillae are unremarkable. IMPRESSION: BI-RADS Category 2 No mammographic features suspicious for malignancy are identified. ACR BI-RADS Category 2: Benign findings. Result letter will be mailed to the patient. Note: At least 10% of breast cancer is not imaged by mammography. Dictated by: Dictated on workstation # [id number]
== END ==
LOC: RAD 11:15
PROVIDERS: ATTEND Obstetrics & Gynecology
DX: Z12.31 Encounter for screening mammogram for malignant neoplasm of breast (principal)
CPT/HCPCS: 77063; 77067

== ENCOUNTER 2021-06-28 07:40 | Emergency (ER) | payer MEDICARE, OTHER ==
[~2021-06-28] VITALS: Ht 160 cm; Wt 83.9 kg
--- NOTE | 2021-06-28 08:00 | ED Cardiac General ---
History of Present Illness General Chief Complaint: Cardiac/General Problems Stated Complaint: HIGH HEART RATE 204 Nursing Triage Note: PT AMB TO RM 6 WITH COMPLAINT OF SVT. PT HAS EXTENSIVE HISTORY AND HAS HAD ABLATION IN PAST AND ONE SCHEDULED FOR THE . PT STATES THIS HAPPENS EVERY FEW DAYS. STATES THIS EPISODE STARTED 630-700. Source: patient Exam Limitations: no limitations (GENTRY BORGES MED STUDENT) History of Present Illness Date Seen by Provider: Jun 28, 2021 Time Seen by Provider: 07:45 Initial Comments Mrs. Geronimo is a 70 yo female with PMH of SVT and previous ablation that present to ED today due to tachycarida in the 200's. She states that she had her first ablation [address] Camargo is her normal wallcovering texturer and Dr. Carrillo is the cardilogist scheduled to do a second ablation on the of this month. She has taken 100mg of metoprolol today. This started about 0630, which is also the time she took the metoprolol. She states she also feels dizzy like she is going to pass out. The dizziness is not usual for her with these episodes. She does not have any other complains. (GENTRY BORGES MED STUDENT) Initial Comments Levi took her medications this morning including Eliquis. She took metoprolol tartrate 50 mg which is her usual dose and added an additional 50 mg because she noted already experiencing some tachycardia at the time she took her medications. Her total Metoprol tartrate dose this morning was 100 mg. This happened about 0630. She noted no improvement in heart rate with the metoprolol. (CARMITA REYNA MD) Allergies and Home Medications Allergies Coded Allergies: No Known Drug Allergies (Unverified , 05/02/17) Patient Home Medication List Home Medication List Reviewed: Yes (CARMITA REYNA MD) Apixaban (Eliquis) 5 Mg Tablet, 5 MG PO BID, (Reported) Entered as Reported by: NOLAN BERNARDO on 05/02/17 1115 Atorvastatin Calcium (Atorvastatin Calcium) 20 Mg Tablet, 20 MG PO HS, (Reported) Entered as Reported by: NOLAN BERNARDO on 05/02/17 1115 Calcium Polycarbophil (Fiber Tabs) 625 Mg Tablet, 625 MG PO HS, (Reported) Entered as Reported by: CEZAR SANCHEZ on 02/01/16 0926 Diltiazem HCl (Cardizem Cd) 180 Mg Cap.er.24h, 180 MG PO DAILY Prescribed by: CARMITA HARRIS on 06/28/21 1200 Flecainide Acetate (Flecainide Acetate) 50 Mg Tablet, 50 MG PO BID Prescribed by: Alberto CORDERO on 09/26/18 1619 Gabapentin (Gabapentin) 100 Mg Capsule, 100 MG PO BID, (Reported) Entered as Reported by: NOLAN BERNARDO on 06/16/18 1123 L.acidoph & Paracasei,B.lactis (Probiotic) 1 Each Capsule, 1 CAP PO HS, (Reported) Entered as Reported by: CEZAR SANCHEZ on 02/01/16 09 Metoprolol Tartrate (Metoprolol Tartrate) 25 Mg Tablet, 25 MG PO BID Prescribed by: Alberto CORDERO on 09/26/18 1620 Pantoprazole Sodium (Pantoprazole Sodium) 40 Mg Tablet.dr, 40 MG PO DAILY, (Reported) Entered as Reported by: NOLAN BERNARDO on 06/16/18 112 Paroxetine HCl (Paxil) 40 Mg Tablet, 40 MG PO DAILY, (Reported) Entered as Reported by: NOLAN BERNARDO on 06/16/18 112 Review of Systems Review of Systems Constitutional: No chills, No fever EENTM: No Blurred Vision, No Double Vision Respiratory: Denies Cough, Denies Shortness of Air, Denies Wheezing Cardiovascular: Denies Chest Pain, Denies Edema; Irregular Heart Rate, Lightheadedness, Palpitations Gastrointestinal: Denies Abdominal Pain, Denies Constipated, Denies Diarrhea, Denies Nausea, Denies Vomiting Genitourinary: Denies Flank Pain, Denies Hematuria Musculoskeletal: No joint pain, No joint swelling Skin: No lesions, No rash Psychiatric/Neurological: Denies Headache, Denies Numbness (GENTRY BORGES STUDENT) Past Baemeuf-Embqmm-Ofyniw Hx Patient Social History Tobacco Use?: No Use of E-Cig and/or Vaping dev: No Substance use?: No Alcohol Use?: No Pt feels they are or have been: No (GENTRY BORGES STUDENT) Seasonal Allergies Seasonal Allergies: No (GENTRY BORGES [employer] STUDENT) Past Medical History Surgeries: Yes Hysterectomy Respiratory: No Cardiac: Yes (LINQ MONITOR, pvc) Atrial Fibrillation, Palpitations Neurological: Yes Headaches /Migraines, TIA Reproductive Disorders: No Female Reproductive Disorders: Denies Sexually Transmitted Disease: No Genitourinary: No Gastrointestinal: Yes Gastroesophageal Reflux Musculoskeletal: No Endocrine: No HEENT: No Loss of Vision: Denies Hearing Impairment: Denies Cancer: No Psychosocial: Yes Anxiety, Depression Integumentary: No Blood Disorders: No Adverse Reaction/Blood Tranf: No (GENTRY BORGES [employer] STUDENT) Physical Exam Vital Signs Vital Signs - First Documented 06/28/21 07:41 Pulse 194 Resp 24 B/P (MAP) 130/85 (100) Pulse Ox 96 O2 Delivery Room Air (CARMITA REYNA MD) Vital Signs Capillary Refill : Less Than 3 Seconds (GENTRY BORGES [employer] STUDENT) Height, Weight, BMI Height: 5'4.00" Weight: 175lbs. 0.0oz. [id number]; 32.00 BMI Method:Stated General Appearance: No Apparent Distress, WD/WN, Anxious HEENT: PERRL/EOMI, Pharynx Normal, Moist Mucous Membranes Respiratory: Chest Non Tender, Lungs Clear, Normal Breath Sounds Cardiovascular: No Edema, No Murmur, Normal Peripheral Pulses, Tachycardia Gastrointestinal: Normal Bowel Sounds, Non Tender, Soft Extremity: Non Tender, No Calf Tenderness, No Pedal Edema Neurologic/Psychiatric: Oriented x3, No Motor/Sensory Deficits Skin: Normal Color, Warm/Dry (GENTRY BORGES [employer] STUDENT) Progress/Results/Core Measures Results/Orders Lab Results Laboratory Tests Test 06/28/21 07:51 Range/Units White Blood Count 5.3 4.3-11.0 10^3/uL Red Blood Count 4.78 3.80-5.11 10^6/uL Hemoglobin 15.4 11.5-16.0 g/dL Hematocrit 45 35-52 % Mean Corpuscular Volume 94 80-99 fL Mean Corpuscular Hemoglobin 32 25-34 pg Mean Corpuscular Hemoglobin Concent 34 32-36 g/dL Red Cell Distribution Width 11.8 10.0-14.5 % Platelet Count 226 130-400 10^3/uL Mean Platelet Volume 9.0 9.0-12.2 fL Immature Granulocyte % (Auto) 0 % Neutrophils (%) (Auto) 52 42-75 % Lymphocytes (%) (Auto) 32 12-44 % Monocytes (%) (Auto) 11 0-12 % Eosinophils (%) (Auto) 3 0-10 % Basophils (%) (Auto) 1 0-10 % Neutrophils # (Auto) 2.8 1.8-7.8 10^3/uL Lymphocytes # (Auto) 1.7 1.0-4.0 10^3/uL Monocytes # (Auto) 0.6 0.0-1.0 10^3/uL Eosinophils # (Auto) 0.2 0.0-0.3 10^3/uL Basophils # (Auto) 0.1 0.0-0.1 10^3/uL Immature Granulocyte # (Auto) 0.0 0.0-0.1 10^3/uL Prothrombin Time 15.6 H 12.2-14.7 SEC INR Comment 1.2 0.8-1.4 Activated Partial Thromboplast Time 39 H 24-35 SEC Sodium Level 139 135-145 MMOL/L Potassium Level 3.6 3.6-5.0 MMOL/L Chloride Level 102 98-107 MMOL/L Carbon Dioxide Level 21 21-32 MMOL/L Anion Gap 16 H 5-14 MMOL/L Blood Urea Nitrogen 13 7-18 MG/DL Creatinine 0.93 0.60-1.30 MG/DL Estimat Glomerular Filtration Rate 67 BUN/Creatinine Ratio 14 Glucose Level 117 H 70-105 MG/DL Calcium Level 9.4 8.5-10.1 MG/DL Corrected Calcium 9.2 8.5-10.1 MG/DL Magnesium Level 1.7 1.6-2.4 MG/DL Total Bilirubin 1.5 H 0.1-1.0 MG/DL Aspartate Amino Transf (AST/SGOT) 20 5-34 U/L Alanine Aminotransferase (ALT/SGPT) 24 0-55 U/L Alkaline Phosphatase 63 40-136 U/L Myoglobin 70.7 10.0-92.0 NG/ML Troponin I < 0.028 <0.028 NG/ML Total Protein 7.4 6.4-8.2 GM/DL Albumin 4.2 3.2-4.5 GM/DL (CARMITA REYNA MD) My Orders Orders - CARMITA REYNA MD Ekg Tracing (06/28/21 07:42) Monitor-Rhythm Ecg Trace Only (06/28/21 07:42) Cbc With Automated Diff (06/28/21 07:56) Magnesium (06/28/21 07:56) Chest 1 View, Ap/Pa Only (06/28/21 07:56) Comprehensive Metabolic Panel (06/28/21 07:56) Myoglobin Serum (06/28/21 07:56) Protime With Inr (06/28/21 07:56) Partial Thromboplastin Time (06/28/21 07:56) O2 (06/28/21 07:56) Ed Iv/Invasive Line Start (06/28/21 07:56) Troponin I [place] (06/28/21 07:56) Diltiazem Drip Pre-Mix (Cardizem Drip Pr (06/28/21 08:15) Lactated Ringers (Lr 1000 Ml Iv Solution (06/28/21 10:15) Diltiazem Cd 24 Hr Capsule (Cardizem Cd (06/28/21 12:00) (CARMITA REYNA MD) Medications Given in ED Current Medications Medications Dose Ordered Sig/Sea Route Start Time Stop Time Status Last Admin Dose Admin Diltiazem HCl 180 mg ONCE ONCE PO 06/28/21 12:00 06/28/21 12:01 DC 06/28/21 12:14 180 MG Lactated Ringer's 1,000 ml @ 0 mls/hr Q0M ONCE IV 06/28/21 10:15 06/28/21 10:16 DC 06/28/21 10:23 0 MLS/HR (CARMITA REYNA MD) Vital Signs/I&O 06/28/21 06/28/21 07:41 12:19 Pulse 194 59 Resp 24 21 B/P (MAP) 130/85 (100) 133/87 Pulse Ox 96 99 O2 Delivery Room Air Room Air (CARMITA REYNA MD) Blood Pressure Mean: 100 Progress Progress Note #1: Time: 09:15 Progress Note Patient was seen and examined upon arrival. She was noted to have extremely narrow complex tachycardia that did respond somewhat to Valsalva. Rhythm pattern has been variable and seems to be a mix of atrial fibrillation with tachycardia and brief episodes of sinus rhythm. She also has had some short blips of what appears to be ventricular tachycardia. One such episode was documented on the rhythm strip at 0751 and was only 5 beats in length. This may have been artifact as it was seen on telemetry but corresponding morphology change was not identified on ECG. Case was discussed with Dr. Camargo who recommended transfer to a facility with electrophysiology. I discussed the situation with Dr. Azar and Dr. Estrella at [facility] in [place]. They are accepting transfer and are awaiting a bed to open after discharges. Cardizem drip was started at 5 mg/h. Dr. Camargo recommends titrating very carefully as this patient has been known to have significant rhythm pauses with antiarrhythmic medications. Progress Note #2: Time: 11:55 Progress Note Patient was experiencing marginally low blood pressures and heart rate on Cardizem drip. She eventually converted to sinus rhythm. Cardizem drip was stopped. After more than 30 minutes and a normal sinus rhythm with a heart rate in the 50s, I discussed the situation with Dr. Camargo. We agreed that she could be discharged rather than transferring to [facility] since she already had ablation scheduled. We changed her metoprolol to Cardizem since the Cardizem drip seemed to control her A. fib RVR well. See discharge instructions for further discussion. First dose of oral Cardizem was administered in the ER. (CARMITA REYNA MD) EKG #1: EKG Time: 07:45 Rate: 190 Comment Narrow complex tachycardia, likely atrial fibrillation with RVR. No ST elevation to suggest acute ischemia. EKG #2: EKG Time: 07:45 Rate: 197 Comment Atrial fibrillation with RVR and brief sinus rhythm with PVC. No ST elevation or depression to suggest ischemia. (CARMITA REYNA MD) Diagnostic Imaging Diagonstic Imaging: Xray Plain Films/CT/US/NM/MRI: chest Comments NAME: LEVI GERONIMO [facility] REC#: [id number] PT STATUS: REG ER : 1950 PHYSICIAN: CARMITA REYNA MD ADMIT DATE: 06/28/21/ER Draft Date of Exam:06/28/21 CHEST 1 VIEW, AP/PA ONLY EXAMINATION: Chest 1 view HISTORY: Chest pain COMPARISON: 01/31/2016 FINDINGS: Heart size and pulmonary vasculature are normal. The lungs are clear without consolidation, pleural effusion, or pneumothorax. The osseous structures are intact. IMPRESSION: 1. No acute radiographic abnormality in the chest. Dictated on workstation # [id number] Dict: 06/28/21 0825 Trans: 06/28/21 08 CV [id number] Interpreted by: LALO MCDONALD DO (CARMITA REYNA MD) Departure Impression Primary Impression: Tachyarrhythmia Disposition: XFER SHT-TRM HOSP Condition: Stable Transfer Transfer Reason: Exceeds level of care Time Spoke to Accepting Phy: 08:15 Transfer Progress Notes 0910 - Case was discussed with Dr. Azar (cardiology) at [address] Estrella (hospitalist) at 0827. Transfer was accepted. Transfer center will return a call when discharges occur and a bed is available. Transfer Facility: [facility] Method of Transfer: EMS (CARMITA REYNA MD) Departure-Patient Inst. Decision time for Depature: 11:57 (CARMITA REYNA MD) Referrals: NO,LOCAL PHYSICIAN (PCP/Family) Primary Care Physician Patient Instructions: Atrial Fibrillation Add. Discharge Instructions: Stop metoprolol. Add Cardizem CD 24 hr 180 mg daily. Take your first dose tomorrow morning. Otherwise continue all of your previously prescribed medications. Follow-up with Dr. Camargo in his office tomorrow. If you have sustained tachycardic episodes in the future, especially if you have associated symptoms such as chest pain, shortness of breath, or lightheadedness, please return to the ER. Call with questions or concerns. Return to the ER if you have any other urgent concerns or problems. All discharge instructions reviewed with patient and/or family. Voiced understanding. Scripts Diltiazem HCl (Cardizem Cd) 180 Mg Cap.er.24h 180 MG PO DAILY, #30 CAP Prov: CARMITA REYNA MD 06/28/21 Medical Student Attestation and Attending Note: I have personally interviewed and examined this patient along with Gentry Borges MS. I have reviewed student documentation including history, physical, and assessments. I agree with the documentation except where otherwise noted. Exam: General: Alert, oriented, no acute distress, well developed HEENT: Normocephalic and atraumatic Heart: Irregularly irregular, tachycardic, no obvious murmur Lungs: Clear to auscultation bilaterally with normal effort Abdomen: Soft, nontender, nondistended, normal bowel sounds Extremities: Nontender, minimal edema Neuropsych: Alert, oriented, no focal deficits Skin: Warm and dry without rashes (CARMITA REYNA MD) Copy Copies To 1: GREG CAMARGO MD FACP FACC CCDS GENTRY BORGES [facility] STUDENT Jun 28, 2021 08:00 CARMITA REYNA MD Jun 28, 2021 09:14
[2021-06-28 08:04] LABS: BASOPHILS # (AUTO) 0.1 10^3/uL (0.0-0.1); BASOPHILS % (AUTO) 1 % (0-10); EOSINOPHILS # (AUTO) 0.2 10^3/uL (0.0-0.3); EOSINOPHILS % (AUTO) 3 % (0-10); HEMATOCRIT 45 % (35-52); HEMOGLOBIN 15.4 g/dL (11.5-16.0); LYMPHOCYTES # (AUTO) 1.7 10^3/uL (1.0-4.0); LYMPHOCYTES % (AUTO) 32 % (12-44); MEAN CORPUSCULAR HEMOGLOBIN 32 pg (25-34); MEAN CORPUSCULAR HGB CONC 34 g/dL (32-36); MEAN CORPUSCULAR VOLUME 94 fL (80-99); MONOCYTES # (AUTO) 0.6 10^3/uL (0.0-1.0); MONOCYTES % (AUTO) 11 % (0-12); NEUTROPHILS # (AUTO) 2.8 10^3/uL (1.8-7.8); NEUTROPHILS % (AUTO) 52 % (42-75); PLATELET COUNT 226 10^3/uL (130-400); WHITE BLOOD COUNT 5.3 10^3/uL (4.3-11.0)
[2021-06-28 08:15] LABS: ALBUMIN 4.2 GM/DL (3.2-4.5); POTASSIUM 3.6 MMOL/L (3.6-5.0)
[2021-06-28] MEDS ORDERED: dilTIAZem DRIP PRE-MIX 125 ML IV SCH (08:15)
[2021-06-28 08:16] LABS: CALCIUM 9.4 MG/DL (8.5-10.1)
[2021-06-28 08:17] LABS: TOTAL PROTEIN 7.4 GM/DL (6.4-8.2)
[2021-06-28 08:19] LABS: BILIRUBIN,TOTAL 1.5 MG/DL (0.1-1.0)
[2021-06-28 08:21] LABS: CREATININE SERUM 0.93 MG/DL (0.60-1.30)
[2021-06-28 08:24] LABS: MAGNESIUM 1.7 MG/DL (1.6-2.4)
[2021-06-28 08:25] LABS: INR 1.2 (0.8-1.4); PROTHROMBIN TIME PATIENT 15.6 SEC (12.2-14.7)
--- NOTE | 2021-06-28 08:27 | Diagnostic Imaging Report ---
EXAMINATION: Chest 1 view HISTORY: Chest pain COMPARISON: 01/31/2016 FINDINGS: Heart size and pulmonary vasculature are normal. The lungs are clear without consolidation, pleural effusion, or pneumothorax. The osseous structures are intact. IMPRESSION: 1. No acute radiographic abnormality in the chest. Dictated by: Dictated on workstation # [id number]
[2021-06-28] MEDS ORDERED: LACTATED RINGERS 1,000 ML IV ONE (10:15)
[2021-06-28] MEDS ORDERED: DILT180C67 PO (12:00)
[2021-06-28 12:19] VITALS: BP 133/87
== END 2021-06-28 12:19 | disposition short-term general hospital (02) ==
LOC: EDUNIT# 07:40 → ER 07:41
DX: I49.9 Cardiac arrhythmia, unspecified (principal)
CPT/HCPCS: 36415; 71045; 80053; 83735; 83874; 84484; 85025; 85610; 85730; 93005; 93041

== ENCOUNTER → 2021-10-10 | Outpatient (CLI) | payer MEDICARE, OTHER ==
[~2021-10-10] MED LIST changes: +DILT180C67 PO
--- NOTE | 2021-10-10 09:48 | Diagnostic Imaging Report ---
INDICATION: Postmenopausal screening COMPARISON: None FINDINGS: AP Spine L1-L4: [BMD (g/cm2): 1.236] [T-Score: 0.3] [Z-Score: 1.6] [BMD Previous: NA] [BMD % Change: NA] LT Hip Neck: [BMD (g/cm2): 0.978] [T-Score: -0.4] [Z-Score: 1.0] LT Hip Total: [BMD (g/cm2):1.041] [T-Score:0.3] [Z-Score: 1.4] [BMD Previous: NA] [BMD % Change: NA] RT Hip Neck: [BMD (g/cm2):0.991] [T-Score:-0.3] [Z-Score:1.1] RT Hip Total: [BMD (g/cm2):0.979] [T-score:-0.2] [Z-Score:0.9] [BMD Previous:NA] [BMD % Change:NA] *Indicates significant change from prior examination based on 95% confidence level. World Health Organization criteria for BMD interpretation classify patients as Normal (T-score at or above -1.0), Osteopenic (T-score between -1.0 and -2.5) or Osteoporotic (T-score at or below -2.5). LIMITATIONS AND MODIFICATION: None. FRACTURE RISK (FRAX SCORE): The ten year probability of (%): Major Osteoporotic Fracture: [NA] Hip Fracture: [NA] IMPRESSION: 1. Normal bone mineral density. 2. See below National Osteoporosis Foundation guidelines on when to potentially initiate pharmacologic therapy. Based on the National Osteoporosis Foundation Guidelines, pharmacologic treatment should be initiated in any of the following, unless clinical conditions suggest otherwise: * Any patient with prior fragility fracture of the hip or vertebrae. A spine fracture indicates 5X risk for subsequent spine fracture and 2X risk for subsequent hip fracture. * Osteoporosis (T-score <-2.5). * Postmenopausal women and men age 50 and older with low bone mass/osteopenia (T-score between -1.0 and -2.5) by DXA and 10-year major osteoporotic fracture greater than 20% or a 10-year probability of hip fracture greater than 3%. These fracture risks are supplied above in the FRAX score, if applicable. * Clinician judgement and/or patient preferences may indicate treatment for people with 10-year fracture probabilities above or below these levels. Dictated by: Dictated on workstation # [id number]
== END ==
LOC: RAD 09:15
PROVIDERS: ATTEND Obstetrics & Gynecology
DX: Z13.820 Encounter for screening for osteoporosis (principal); Z78.0 Asymptomatic menopausal state
CPT/HCPCS: 77080

== ENCOUNTER → 2022-06-12 | Outpatient (CLI) | payer MEDICARE, OTHER ==
[~2022-06-12] MED LIST changes: +PARO-135 PO; -PARO40TA PO
--- NOTE | 2022-06-12 14:54 | Diagnostic Imaging Report ---
Indication: Routine screening. Comparison is made with prior mammograms 06/22/2021 and 05/05/2020. 2-D and 3-D bilateral screening mammography was performed with CAD. Both breasts are heterogeneously dense, limiting the sensitivity of mammography. Cardiac loop recorder overlies the medial left breast soft tissues. A biopsy marker clip in the left breast centrally is noted. No spiculated mass or malignant-appearing microcalcifications are seen. Axillae are unremarkable. IMPRESSION: BI-RADS Category 2 No mammographic features suspicious for malignancy are identified. ACR BI-RADS Category 2: Benign findings. Result letter will be mailed to the patient. Note: At least 10% of breast cancer is not imaged by mammography. Dictated by: Dictated on workstation # [id number]
== END ==
LOC: RAD 10:10
PROVIDERS: ATTEND Nurse Practitioner Women's Health
DX: Z12.31 Encounter for screening mammogram for malignant neoplasm of breast (principal)
CPT/HCPCS: 77063; 77067